=== PATIENT | male | born 1960 | race Caucasian/White ===

== ENCOUNTER 2016-06-15 12:18 | Day surgery (SDC) | payer MEDICARE, BC ==
--- NOTE | 2016-06-15 12:33 | P.GSHP ---
History of Present Illness H&P Date: 06/15/16 Chief Complaint: Renal failure Patient is known to our office. He was scheduled for a peritoneal dialysis catheter insertion this past Sunday but his potassium was too high. He has now received 3 courses of hemodialysis the last 4 days. He is here today for elective PD cath insertion. He has a history of prior peritoneal dialysis catheter insertion in the past. Past Medical History Past Medical History: Hypertension, Renal Disease, Seizure Disorder Additional Past Medical History / Comment(s): LAST SEIZURE -DEC 2013, PERITONEAL DIALYSIS NIGHTLY, History of Any Multi-Drug Resistant Organisms: None Reported Additional Past Surgical History / Comment(s): CATHETER FOR PERITONEAL DIALYSIS Past Anesthesia/Blood Transfusion Reactions: No Reported Reaction Past Psychological History: No Psychological Hx Reported Smoking Status: Former smoker Past Alcohol Use History: Rare Additional Past Alcohol Use History / Comment(s): QUIT SMOKING 2013/ STARTED 1983 Past Drug Use History: None Reported - Past Family History Father Family Medical History: Cancer Additional Family Medical History / Comment(s): LIVER CANCER Medications and Allergies Home Medications Medication Instructions Recorded Confirmed Type Calcitriol 0.5 mcg PO MOWE 02/23/15 02/25/15 History Ciprofloxacin HCl [Cipro] 250 mg PO DIRECTED 02/23/15 02/25/15 History Furosemide [Lasix] 80 mg PO DAILY 02/23/15 02/25/15 History Gabapentin [Neurontin] 200 mg PO HS 02/23/15 02/25/15 History Lisinopril [Zestril] 5 mg PO DAILY 02/23/15 02/25/15 History Renal Caps 1 tab PO DAILY 02/23/15 02/25/15 History Sevelamer [Renvela] 2,400 mg PO AC-TID 02/23/15 02/25/15 History metroNIDAZOLE [Flagyl] 500 mg PO DIRECTED 02/23/15 02/25/15 History Allergies Allergy/AdvReac Type Severity Reaction Status Date / Time No Known Allergies Allergy Verified 02/23/15 15:17 Surgical - Exam Physical exam: General: Well-developed, well-nourished HEENT: Normocephalic, sclerae nonicteric Abdomen: Nontender, nondistended Extremities: No edema Neuro: Alert and oriented Assessment and Plan (1) Renal failure Narrative/Plan: We'll proceed with peritoneal dialysis catheter insertion at this time. Risks of bleeding, infection, catheter malfunction, bowel injury were discussed. He understands and wishes to proceed. Status: Acute
[2016-06-15] MEDS ORDERED: ceFAZolin 2 GM in SODIUM CHLORIDE 0.9% 100 ML IVPB STA (12:47)
[2016-06-15] MEDS ORDERED: LACTATED RINGERS 1,000 ML IV ONE (12:57)
[2016-06-15] MEDS ORDERED: LIDOCAINE 1% 20 ML VIAL (10MG/ML) FOR IV START INTRADERMA ONE (12:57)
[2016-06-15] MEDS ORDERED: ONDANSETRON 4 MG/2 ML VIAL IVP ONE (13:10)
[2016-06-15 13:19] LABS: Potassium 4.9 mmol/L (3.5-5.1)
[2016-06-15] MEDS ORDERED: BUPIVACAIN-EPI 0.25%-1:200,000 30 ML VIAL SQ ONE ×3 (13:25→15:12)
[2016-06-15] MEDS ORDERED: MINERAL OIL 1 APPLIC/ML OIL TOPICAL ONE ×2 (13:25→15:12)
[2016-06-15] MEDS ORDERED: SUCCINYLCHOLINE CHLORIDE 100 MG/5 ML SYR IV ONE (14:47)
[2016-06-15] MEDS ORDERED: fentaNYL (PF) 50 MCG/ML 2 ML AMP ONE (14:47)
[2016-06-15] MEDS ORDERED: MIDAZOLAM 2 MG/2 ML VIAL ONE (14:47)
[2016-06-15] MEDS ORDERED: LIDOCAINE 1% INJ 10MG/ML (20 ML MDV) ONE (14:47)
[2016-06-15] MEDS ORDERED: hydrALAZINE HCL 20 MG/ML 1 ML VIAL ONE (14:47)
[2016-06-15] MEDS ORDERED: PROPOFOL 10 MG/ML 20 ML VIAL IV ONE (14:47)
[2016-06-15] MEDS ORDERED: LABETALOL 5 MG/ML VIAL MDV ONE (14:47)
[2016-06-15] MEDS ORDERED: NALOXONE 0.4 MG/ML 1 ML VIAL IV PRN (15:53)
[2016-06-15] MEDS ORDERED: HYDROcodone/APAP 5-325MG 1 EACH TAB PO PRN (15:53)
--- NOTE | 2016-06-15 15:53 | P.PCN ---
Date of Procedure: 06/15/16 Procedure(s) Performed: PREOPERATIVE DIAGNOSIS: Renal failure POSTOPERATIVE DIAGNOSIS: Same PROCEDURE: Peritoneal dialysis catheter insertion SURGEON: Partha EBL: Minimal ANESTHESIA: General COMPLICATIONS: None OPERATIVE PROCEDURE: The patient was placed in the operative table in the supine position. His abdomen was prepped and draped in usual sterile fashion. A small vertical incision was made in the right periumbilical location. Dissection down through the subcutaneous tissues took place using electrocautery. The anterior rectus was divided vertically using the scalpel. The rectus was bluntly. The posterior rectus was visualized. An 0 Vicryl pursestring was placed. A small opening in the posterior rectus fascia and peritoneum took place using a Metzenbaum scissors. There were no adhesions to the suture that was placed. The pigtail catheter was advanced into the pelvis over a stylette. No resistance was met. The inner cuff was secured to the fascia using the 0 Vicryl pursestring that was placed. The catheter was tunneled to an exit site in the right lateral lower quadrant. The catheter was connected to the 1 L bag of saline and approximated 800 mL of saline was easily introduced into the peritoneal cavity. The fluid was then allowed to evacuate. The majority of the fluid was returned. The anterior rectus fascia was then reapproximated using a running 0 Vicryl stitch. The subcutaneous tissues reprepped using 3-0 Vicryl sutures and the skin using 4-0 Monocryl sutures. The outpatient dialysis adapter was applied to the end of the catheter. A sterile dressings then applied after Steri-Strips were placed over the incision. DISPOSITION: Stable to recovery room
[2016-06-15] MEDS: HYDROmorphone 1 MG/ML 1 ML SYRINGE IVP ONE ×4 (16:04→16:27)
[2016-06-15 16:08] VITALS: TEMP 98.1
[2016-06-15 16:11] VITALS: RESP 16
[2016-06-15] MEDS ORDERED: HYDROcodone/APAP 5-325MG 1 EACH TAB PO ONE (16:50)
[2016-06-15 17:20] VITALS: BP 188/106; PULSE 75
== END 2016-06-15 18:17 | disposition home or self-care (01) ==
LOC: OR 12:18
PROVIDERS: ATTEND Surgery
DX: N19 Unspecified kidney failure (principal); I10 Essential (primary) hypertension; Z79.899 Other long term (current) drug therapy
CPT/HCPCS: 80051; 49418; C1752; J2250; J0360; J0690; J2405; J2001; J3010; J1170; J0330; J2704

== ENCOUNTER 2017-01-01 05:51 | Emergency (ER) | payer MEDICARE, BC ==
[2017-01-01 06:01] VITALS: TEMP 97.6
[2017-01-01 06:34] LABS: Glucose,Whole Blood 128 mg/dL (75-99)
--- NOTE | 2017-01-01 07:28 | CT ---
EXAMINATION TYPE: CT brain shaneka cifuentes DATE OF EXAM: 01/01/2017 COMPARISON: NONE HISTORY: Fell down stairs and went through a window CT DLP: Brain 1231.71, Cervical 800.[address] of the brain was performed. The ventricles, basal cisterns and sulci overlying the cerebral convexities demonstrate mild enlargem ent. There is no evidence for intracranial hemorrhage or sulcal effacement. There is decreased attenuatio n about the periventricular white matter and deep white matter of both cerebral hemispheres, compatib le with chronic small vessel ischemia. No mass effects are seen. If symptoms persist consider MRI. Osseous calvarium is intact. Left occipital scalp. Tumor is identified. IMPRESSION: 1. Age related atrophic and chronic small vessel ischemic change without acute intracranial process seen at this time. CT Cervical Spine: Unenhanced CT of the cervical spine was performed with bone and soft tissue window settings submitted . Coronal and sagittal reconstruction is obtained. There is normal alignment and prevertebral soft tissues. No evidence for acute cervical fracture . Scattered degenerative disc disease and spondylosis. Biapical scarring. IMPRESSION: 1. No evidence for acute fracture or subluxation of the cervical spine.
--- NOTE | 2017-01-01 08:21 | ED ---
General Adult HPI - General Chief complaint: Fall Stated complaint: fall Time Seen by Provider: 01/01/17 07:17 Source: patient, EMS, RN notes reviewed, old records reviewed Mode of arrival: EMS Limitations: no limitations - History of Present Illness Initial comments: This is a 56-year-old male to the ER for evaluation. Patient presents today for evaluation regarding fall. Patient a false fall patient had a slip and fall wall or possibly going down a few stairs down onto his landing. Patient states he was sleepwalking does not remember any of the event. She was unsure if he passed out. Unsure if there is any other injury. Patient does have mild bleeding from his right arm. He thinks he did hit his head because he also has mild. The left side of his head. At this time patient denies any other complaints of pain. He was able to - Related Data Home Medications Medication Instructions Recorded Confirmed Gabapentin [Neurontin] 200 mg PO BID 02/23/15 01/01/17 Atorvastatin Calcium [Lipitor] 40 mg PO DAILY 01/01/17 01/01/17 Carvedilol [Coreg] 12.5 mg PO BID 01/01/17 01/01/17 Ergocalciferol [Vitamin D2] 50,000 unit PO Q7D 01/01/17 01/01/17 Lisinopril [Prinivil] 20 mg PO BID 01/01/17 01/01/17 amLODIPine BESYLATE [Norvasc] 5 mg PO DAILY 01/01/17 01/01/17 cloNIDine HCL [Catapres] 0.2 mg PO DAILY 01/01/17 01/01/17 cloNIDine HCL [Catapres] 0.3 mg PO HS 01/01/17 01/01/17 Allergies Allergy/AdvReac Type Severity Reaction Status Date / Time No Known Allergies Allergy Verified 01/01/17 07:58 Review of Systems ROS Statement: Those systems with pertinent positive or pertinent negative responses have been documented in the HPI. ROS Other: All systems not noted in ROS Statement are negative. Past Medical History Past Medical History: Hypertension, Renal Disease, Seizure Disorder Additional Past Medical History / Comment(s): LAST SEIZURE -DEC 2013, PERITONEAL DIALYSIS NIGHTLY, History of Any Multi-Drug Resistant Organisms: None Reported Additional Past Surgical History / Comment(s): CATHETER FOR PERITONEAL DIALYSIS Past Anesthesia/Blood Transfusion Reactions: No Reported Reaction Past Psychological History: No Psychological Hx Reported Smoking Status: Former smoker Past Alcohol Use History: Rare Past Drug Use History: None Reported - Past Family History Father Family Medical History: Cancer Additional Family Medical History / Comment(s): LIVER CANCER General Exam - General Exam Comments Initial Comments: Right upper arm laceration, 8 cm, small scalp laceration Limitations: no limitations General appearance: alert, in no apparent distress Head exam: Present: atraumatic, normocephalic, normal inspection Eye exam: Present: normal appearance, PERRL, EOMI. Absent: scleral icterus, conjunctival injection, periorbital swelling ENT exam: Present: normal exam, mucous membranes moist Neck exam: Present: normal inspection. Absent: tenderness, meningismus, lymphadenopathy Respiratory exam: Present: normal lung sounds bilaterally. Absent: respiratory distress, wheezes, rales, rhonchi, stridor Cardiovascular Exam: Present: regular rate, normal rhythm, normal heart sounds. Absent: systolic murmur, diastolic murmur, rubs, gallop, clicks GI/Abdominal exam: Present: soft, normal bowel sounds. Absent: distended, tenderness, guarding, rebound, rigid Extremities exam: Present: normal inspection, full ROM, normal capillary refill. Absent: tenderness, pedal edema, joint swelling, calf tenderness Back exam: Present: normal inspection Neurological exam: Present: alert, oriented X3, CN II-XII intact Psychiatric exam: Present: normal affect, normal mood Skin exam: Present: warm, dry, intact, normal color. Absent: rash Course Vital Signs 01/01/17 01/01/17 05:56 07:58 Temperature 97.6 F Pulse Rate 97 84 Respiratory 16 20 Rate Blood Pressure 137/89 191/108 O2 Sat by Pulse 96 92 L Oximetry Procedures - Laceration Laceration #1 Consent Obtained: verbal consent Time Out Performed: Yes Indication: laceration Site: upper extremity Size (cm): 8 Description: linear Depth: simple, single layer Anesthetic Used: lidocaine 1%, with epi Pre-repair: wound explored, irrigated extensively Type of Sutures: nylon Size of Sutures: 4-0 Technique: simple, interrupted Medical Decision Making - Medical Decision Making 50 formality ER for evaluation status post fall. Right upper arm laceration and head injury CT is negative for acute disease. Laceration is repaired and patient can be discharged home - Lab Data Lab Results 01/01/17 Range/Units 06:01 POC Glucose (mg/dL) 128 H (75-99) mg/dL POC Glu Rn Teacher ID Veronique Denise - Radiology Data Radiology results: report reviewed (CT brain and C-spine is negative for acute disease), image reviewed Disposition Clinical Impression: Fall, Head injury, Laceration of right upper arm Disposition: HOME SELF-CARE Condition: Good Instructions: Fall Prevention for Older Adults (ED), Laceration (ED) Referrals: Dakotah Decker MD [Primary Care Provider] - 1-2 days
[2017-01-01 09:23] VITALS: BP 155/91; PULSE 88; RESP 18
== END 2017-01-01 09:23 | disposition home or self-care (01) ==
LOC: EC 05:51
DX: S41.111A Laceration without foreign body of right upper arm, initial encounter (principal); S09.90XA Unspecified injury of head, initial encounter; I10 Essential (primary) hypertension; G40.909 Epilepsy, unspecified, not intractable, without status epilepticus; Z87.891 Personal history of nicotine dependence; Z79.899 Other long term (current) drug therapy; W10.9XXA Fall (on) (from) unspecified stairs and steps, initial encounter
CPT/HCPCS: 12004; 36415; 70450; 72125; 93005; 99285

== ENCOUNTER 2017-04-09 03:03 | Emergency (ER) | payer MEDICARE, BC ==
[2017-04-09 03:10] VITALS: BP 149/88; PULSE 99; RESP 19; TEMP 100
--- NOTE | 2017-04-09 03:19 | ED ---
General Adult HPI - General Chief complaint: Upper Respiratory Infection Stated complaint: cold symptoms Time Seen by Provider: 04/09/17 03:11 Source: patient, RN notes reviewed Mode of arrival: ambulatory Limitations: no limitations - History of Present Illness Initial comments: 56-year-old male presents to the emergency Department chief complaint of cough and congestion for the last week or so. He denies any sputum production with this. He states that his fevers have been low-grade. He denies any nausea vomiting. He was concerned due to his continued cough so he thought that he should be evaluated. He states he had no shortness of breath with this. He denies any other symptoms at this time. Patient denies any recent shortness of breath, chest pain, back pain, abdominal pain, nausea vomiting, numbness or tingling, dysuria or hematuria, constipation or diarrhea, headaches or visual changes, or any other current symptoms. - Related Data Home Medications Medication Instructions Recorded Confirmed Gabapentin [Neurontin] 200 mg PO BID 02/23/15 01/01/17 Atorvastatin Calcium [Lipitor] 40 mg PO DAILY 01/01/17 01/01/17 Carvedilol [Coreg] 12.5 mg PO BID 01/01/17 01/01/17 Ergocalciferol [Vitamin D2] 50,000 unit PO Q7D 01/01/17 01/01/17 Lisinopril [Prinivil] 20 mg PO BID 01/01/17 01/01/17 amLODIPine BESYLATE [Norvasc] 5 mg PO DAILY 01/01/17 01/01/17 cloNIDine HCL [Catapres] 0.2 mg PO DAILY 01/01/17 01/01/17 cloNIDine HCL [Catapres] 0.3 mg PO HS 01/01/17 01/01/17 Previous Rx's Medication Instructions Recorded Benzonatate [Tessalon Perles] 100 mg PO TID #20 cap 04/09/17 predniSONE 50 mg PO DAILY #5 tab 04/09/17 Allergies Allergy/AdvReac Type Severity Reaction Status Date / Time No Known Allergies Allergy Verified 04/09/17 03:10 Review of Systems ROS Statement: Those systems with pertinent positive or pertinent negative responses have been documented in the HPI. ROS Other: All systems not noted in ROS Statement are negative. Past Medical History Past Medical History: Hypertension, Renal Disease, Seizure Disorder Additional Past Medical History / Comment(s): LAST SEIZURE -DEC 2013, PERITONEAL DIALYSIS NIGHTLY, History of Any Multi-Drug Resistant Organisms: None Reported Additional Past Surgical History / Comment(s): CATHETER FOR PERITONEAL DIALYSIS Past Anesthesia/Blood Transfusion Reactions: No Reported Reaction Past Psychological History: No Psychological Hx Reported Smoking Status: Former smoker Past Alcohol Use History: Rare Past Drug Use History: None Reported - Past Family History Father Family Medical History: Cancer Additional Family Medical History / Comment(s): LIVER CANCER General Exam Limitations: no limitations General appearance: alert, in no apparent distress Eye exam: Present: normal appearance, PERRL, EOMI. Absent: scleral icterus, conjunctival injection, periorbital swelling ENT exam: Present: normal exam, mucous membranes moist Neck exam: Present: normal inspection. Absent: tenderness, meningismus, lymphadenopathy Respiratory exam: Present: normal lung sounds bilaterally. Absent: respiratory distress, wheezes, rales, rhonchi, stridor Cardiovascular Exam: Present: regular rate, normal rhythm, normal heart sounds. Absent: systolic murmur, diastolic murmur, rubs, gallop, clicks Neurological exam: Present: alert, oriented X3, CN II-XII intact Psychiatric exam: Present: normal affect, normal mood Skin exam: Present: warm, dry, intact, normal color. Absent: rash Course Vital Signs 04/09/17 03:06 Temperature 100.0 F H Pulse Rate 99 Respiratory 19 Rate Blood Pressure 149/88 O2 Sat by Pulse 97 Oximetry Medical Decision Making - Medical Decision Making 56-year-old male presents for cough and congestion. This time appears to have respiratory infection we will start steroids and Tessalon Perles. We discussed close follow-up with discussed return parameters all questions. Patient family stated they understood and they are in agreement this plan. All questions have been answered. They will be discharged. - Radiology Data Radiology results: report reviewed, image reviewed Disposition Clinical Impression: Upper respiratory infection Disposition: HOME SELF-CARE Condition: Stable Instructions: Upper Respiratory Infection (ED) Additional Instructions: Please use medication as discussed. Please follow up with family doctor if symptoms have not improved over the next two days. Please return to the emergency room if your symptoms increase or worsen or for any other concerns. Prescriptions: Benzonatate [Tessalon Perles] 100 mg PO TID #20 cap predniSONE 50 mg PO DAILY #5 tab Referrals: Dakotah Decker MD [Primary Care Provider] - 1-2 days Time of Disposition: 03:36
--- NOTE | 2017-04-09 03:35 | XR ---
EXAM: XR Chest, 2 Views CLINICAL HISTORY: Reason: cough TECHNIQUE: Frontal and lateral views of the chest. COMPARISON: No relevant prior studies available. FINDINGS: Lungs: No consolidation. Right basilar atelectasis. Pleural space: No effusion. No pneumothorax. Heart: No cardiomegaly. Mediastinum: Unremarkable. Bones/joints: Unremarkable. IMPRESSION: No acute cardiopulmonary process.
[2017-04-09] MEDS ORDERED: BENZONATATE 100 MG CAP PO STA (03:37)
== END 2017-04-09 03:58 | disposition home or self-care (01) ==
LOC: EC 03:03
DX: J06.9 Acute upper respiratory infection, unspecified (principal); Z87.891 Personal history of nicotine dependence; I10 Essential (primary) hypertension; Z86.69 Personal history of other diseases of the nervous system and sense organs; Z79.02 Long term (current) use of antithrombotics/antiplatelets; Z79.899 Other long term (current) drug therapy
CPT/HCPCS: 71046; 99283

== ENCOUNTER → 2017-10-19 | Outpatient (CLI) | payer MEDICARE, BC ==
--- NOTE | 2017-10-19 10:08 | MR ---
EXAMINATION TYPE: MR lumbar spine wo con DATE OF EXAM: 10/19/2017 COMPARISON: HISTORY: radiculopathy TECHNIQUE: Multiplanar, multisequence images of the lumbar spine were acquired. L1-L2: Normal disc appearance without desiccation. No herniation, protrusion or disc bulging. No ca nal stenosis is present. Foramina are patent bilaterally. L2-L3: Mild posterior disc bulge posteriorly causes only slight anterior mass effect on the thecal sa c. No significant foraminal encroachment or central canal stenosis. L3-L4: Posterior broad-based disc bulge causes minimal anterior mass effect on the thecal sac. No sig nificant foraminal encroachment or central stenosis. L4-L5: Posterior broad-based disc bulge causes anterior mass effect on the thecal sac, no significant central canal stenosis. Lateral extension of endplate disc complex encroaches mildly on the foramina greater on the right. L5-S1: Posterior broad-based disc bulge may contact the anterior S1 nerve roots proximally, small dis c bulge is present, no significant stenosis of the spinal canal, no definite foraminal encroachment. Lumbar segments are intact. No paraspinal masses are identified. Conus medullaris has a normal appe arance. Question marrow reconversion, correlate for possible anemia. Loss of disc height and signal p resent L4-5, L5-S1, lesser extent L2-3, L1-2 compatible with disc desiccation, endplate spondylosis a nd marrow signal changes present L4-5 and L5-S1 compatible degenerative disc disease. Kidneys appear somewhat atrophic bilaterally, cystic change suspected within the right kidney. IMPRESSION: Mild degenerative disc disease, correlate for anemia, renal failure.
== END | disposition home or self-care (01) ==
LOC: RADMRIMAIN 08:04
PROVIDERS: ATTEND Internal Medicine
DX: M51.16 Intervertebral disc disorders with radiculopathy, lumbar region (principal)
CPT/HCPCS: 72148

== ENCOUNTER → 2017-10-29 | Outpatient (CLI) | payer MEDICARE, BC | END | disposition home or self-care (01) | LOC: RADUSWWP 11:33 | PROVIDERS: ATTEND Internal Medicine | DX: I73.9 Peripheral vascular disease, unspecified (principal) | CPT/HCPCS: 93923 ==

== ENCOUNTER 2017-12-10 21:00 | Emergency (ER) | payer MEDICARE, BC ==
[2017-12-10 21:10] VITALS: BP 141/79; PULSE 116; RESP 18; TEMP 98.1
[2017-12-10] MEDS ORDERED: diphenhydrAMINE 50 MG CAP PO STA (21:46)
--- NOTE | 2017-12-10 21:51 | ED ---
Skin/Abscess/FB HPI - General Chief complaint: Skin/Abscess/Foreign Body Stated complaint: Male Time Seen by Provider: 12/10/17 21:39 Source: patient, RN notes reviewed Mode of arrival: ambulatory Limitations: no limitations - History of Present Illness Initial comments: 57-year-old male presents emergency Department for swelling of his penis. Patient states that he noticed today when he try to go the bathroom. Patient denies trauma. Denies any use of any lotions, creams. Patient denies any dysuria, hematuria, fever, chills, abdominal pain. Patient states he still does make urine even though he is on dialysis at this time. - Related Data Home Medications Medication Instructions Recorded Confirmed Gabapentin [Neurontin] 200 mg PO BID 02/23/15 01/01/17 Atorvastatin Calcium [Lipitor] 40 mg PO DAILY 01/01/17 01/01/17 Carvedilol [Coreg] 12.5 mg PO BID 01/01/17 01/01/17 Ergocalciferol [Vitamin D2] 50,000 unit PO Q7D 01/01/17 01/01/17 Lisinopril [Prinivil] 20 mg PO BID 01/01/17 01/01/17 amLODIPine BESYLATE [Norvasc] 5 mg PO DAILY 01/01/17 01/01/17 cloNIDine HCL [Catapres] 0.2 mg PO DAILY 01/01/17 01/01/17 cloNIDine HCL [Catapres] 0.3 mg PO HS 01/01/17 01/01/17 Previous Rx's Medication Instructions Recorded Benzonatate [Tessalon Perles] 100 mg PO TID #20 cap 04/09/17 predniSONE 50 mg PO DAILY #5 tab 04/09/17 Cyclobenzaprine [Flexeril] 10 mg PO TID PRN #9 tablet 07/29/17 Allergies Allergy/AdvReac Type Severity Reaction Status Date / Time No Known Allergies Allergy Verified 12/10/17 21:10 Review of Systems ROS Statement: Those systems with pertinent positive or pertinent negative responses have been documented in the HPI. ROS Other: All systems not noted in ROS Statement are negative. Past Medical History Past Medical History: Dialysis, Hypertension, Renal Disease, Seizure Disorder Additional Past Medical History / Comment(s): LAST SEIZURE -DEC 2013, PERITONEAL DIALYSIS NIGHTLY, History of Any Multi-Drug Resistant Organisms: None Reported Additional Past Surgical History / Comment(s): CATHETER FOR PERITONEAL DIALYSIS , colostomy. carpal tunnel surgery Past Anesthesia/Blood Transfusion Reactions: No Reported Reaction Past Psychological History: No Psychological Hx Reported Smoking Status: Former smoker Past Alcohol Use History: Rare Past Drug Use History: None Reported - Past Family History Father Family Medical History: Cancer Additional Family Medical History / Comment(s): LIVER CANCER General Exam Limitations: no limitations General appearance: alert, in no apparent distress Head exam: Present: atraumatic, normocephalic, normal inspection Respiratory exam: Present: normal lung sounds bilaterally. Absent: respiratory distress, wheezes, rales, rhonchi, stridor Cardiovascular Exam: Present: regular rate, normal rhythm, normal heart sounds. Absent: systolic murmur, diastolic murmur, rubs, gallop, clicks GI/Abdominal exam: Present: soft, normal bowel sounds. Absent: distended, tenderness, guarding, rebound, rigid exam: Absent: normal inspection (Mild swelling just behind the glans of his penile shaft, no erythema no ecchymosis no abnormal lesions or sores noted), testicular tenderness, urethral discharge, scrotal swelling Course Vital Signs 12/10/17 21:09 Temperature 98.1 F Pulse Rate 116 H Respiratory 18 Rate Blood Pressure 141/79 O2 Sat by Pulse 95 Oximetry Medical Decision Making - Medical Decision Making 57-year-old male presented for swelling of his penile shaft. Patient denies any trauma or any use of any creams or lotions. Swelling is boggy, there is no erythema no signs of infection there is no ecchymosis. Patient is still able to void without difficulty. Patient has localized swelling. Patient will follow-up tomorrow with PCP return for any worsening symptoms. Disposition Clinical Impression: Penile swelling Disposition: HOME SELF-CARE Condition: Stable Instructions: Edema (ED) Additional Instructions: Please return to the Emergency Department if symptoms worsen or any other concerns. Is patient prescribed a controlled substance at d/c from ED?: No Referrals: Dakotah Decker MD [Primary Care Provider] - 1-2 days Jose Brown MD [STAFF PHYSICIAN] - 1-2 days Time of Disposition: 21:51
== END 2017-12-10 22:00 | disposition home or self-care (01) ==
LOC: EC 21:00
DX: N48.89 Other specified disorders of penis (principal); I10 Essential (primary) hypertension; Z79.02 Long term (current) use of antithrombotics/antiplatelets; Z79.899 Other long term (current) drug therapy; Z87.891 Personal history of nicotine dependence; Z99.2 Dependence on renal dialysis
CPT/HCPCS: 99283

== ENCOUNTER → 2018-02-06 | Outpatient (CLI) | payer MEDICARE, BC ==
[~2018-02-06] MED LIST: REGADENOSON 0.4 MG/5 ML SYRINGE IV ONE
--- NOTE | 2018-02-06 10:20 | EST ---
EXERCISE STRESS AGE: 57 SEX: M HT: 6'2" WT: 208 PROTOCOL: Lexiscan Cardiolite Stress Test HEART RATE REST: 77 BLOOD PRESSURE REST: 154/89 MAXIMUM HEART RATE ACHIEVED: 103 MAXIMUM BLOOD PRESSURE: 154/89 85% MPHR: 140 100%. MPHR: 147 INDICATIONS: Awaiting organ transplant/preoperative cardiac evaluation. Baseline EKG shows sinus rhythm, normal axis, normal intervals. Patient was given intravenous Lexiscan as per protocol. Did not have chest pain or diagnostic ST-segment depression. CONCLUSIONS: 1. Negative stress test by EKG criteria. 2. Cardiolite portion of the stress test will be reported separately. MMODL / IJN: [id number] /
--- NOTE | 2018-02-06 10:53 | NM ---
EXAMINATION TYPE: NM stress lexiscan cardiolite DATE OF EXAM: 02/06/2018 COMPARISON: NONE HISTORY: Awaiting organ transplant TECHNIQUE: After the intravenous administration of 10.3 mCi Tc 99m Sestamibi - Cardiolite resting SP ECT images acquired 45 minutes post injection. The patient received 0.4mg Lexiscan, 26.3 mCi Tc 99m Sestamibi - Stress images obtained [address] injection FINDINGS: Review of stress and rest SPECT images demonstrates no distinct perfusion abnormality. Gated analysi s shows normal wall motion with an estimated left ventricular ejection fraction of 51 %. IMPRESSION: No scintigraphic evidence for reversible ischemia.
== END | disposition home or self-care (01) ==
LOC: RADNMMAIN 07:31
PROVIDERS: ATTEND Internal Medicine
DX: Z76.82 Awaiting organ transplant status (principal)
CPT/HCPCS: 93017; 78452; A9500; J2785

== ENCOUNTER → 2018-04-17 | Outpatient (CLI) | payer MEDICARE, BC ==
--- NOTE | 2018-04-17 10:11 | CT ---
EXAMINATION TYPE: CT abdomen pelvis wo/w con DATE OF EXAM: 04/17/2018 COMPARISON: None HISTORY: Iliac vessel injury per order. Prekidney transplant. History of diabetes on dialysis. CT DLP: 3881 mGycm, Automated Exposure Control for Dose Reduction was Utilized. CONTRAST: CT scan of the abdomen and pelvis is performed with oral and without and with IV Contrast, patient in jected with 100 mL of Isovue 370. FINDINGS: VASCULAR: There is mild calcified plaque in the periphery of the descending thoracic aorta. There is moderate to severe calcified plaque at origin of bilateral renal arteries. Abdominal aorta shows mild calcified plaque extending into celiac access and SMA. There is more severe calcified plaque in the tortuous splenic artery and moderate calcified plaque in the hepatic proper artery. Below renal arter ies there is more moderate peripheral calcified plaque extending into MARY which is patent. Common iliac arteries are satisfactory caliber and length with mild to moderate peripheral calcified plaque both measuring roughly 1 cm in diameter. There is bifurcation near level of L5 vertebra into i nternal/external iliac arteries with more severe calcified plaque in the internal iliac arteries iden tified. There is mild to moderate calcified plaque in the external iliac arteries. There is more mode rate to severe calcified plaque at level of common femoral arteries with satisfactory bifurcation int o superficial and deep femoral arteries. Smaller branching vessels show severe calcified plaque in th e pelvis and groin regions. LUNG BASES: At least moderate to severe coronary artery calcification is partially imaged. There is m edial and posterior left basilar linear scarring and/or atelectasis. There is less prominent posterio r medial right basilar linear scarring and/or atelectasis. Note is made of 2 visualized small right b asilar nodules laterally axial image 2 and posteriorly axial image 3, largest posteriorly measures 6 x 4 mm. LIVER/GB: A few subcentimeter low dense lesions left hepatic lobe seen best series 15 image 17 are to o small to further characterize but presumed benign. Main portal vein is mildly dilated at 21 mm axia l image 26 series 15 without filling defect. PANCREAS: No significant abnormality is seen. SPLEEN: No significant abnormality is seen. ADRENALS: No significant abnormality is seen. KIDNEYS: Kidneys are small in size with marked cortical thinning, delayed or absent excretion, and sc attered small simple appearing cysts consistent with end-stage renal disease. Incidental 2 mm calculu s upper pole level right kidney coronal series 12 image 93. BOWEL: The oral contrast reaches level of the rectum. No suspicious small or large bowel dilatation i s present. Incidental normal-appearing appendix medially from base of cecum. PROSTATE/SEMINAL VESICLES: No gross abnormality seen. LYMPH NODES: No greater than 1cm abdominal or pelvic lymph nodes are appreciated. OSSEOUS STRUCTURES: Small posterior disc herniation L4-L5 level effaces anterior thecal sac sagittal image 41 series 18. Mild facet arthropathy lower lumbar levels is present. OTHER: There is right mid abdominal peritoneal dialysis catheter slightly coiled and terminating in t he anterior pelvis. Incidental small fat-containing left inguinal hernia. IMPRESSION: As above.
== END | disposition home or self-care (01) ==
LOC: RADCTMAIN 07:11
PROVIDERS: ATTEND Internal Medicine Nephrology
DX: S35 Injury of blood vessels at abdomen, lower back and pelvis level (principal); I25.10 Atherosclerotic heart disease of native coronary artery without angina pectoris; R91.8 Other nonspecific abnormal finding of lung field
CPT/HCPCS: 74178; Q9967

== ENCOUNTER → 2018-04-18 | Outpatient (CLI) | payer MEDICARE, BC ==
--- NOTE | 2018-04-20 06:55 | ECHOF ---
Referral Reason:I27.20 PULMONARY HYPERTENSION MEASUREMENTS -------- HEIGHT: 188.0 cm WEIGHT: 94.3 kg BP: RVIDd: 3.2 cm (< 3.3) IVSd: 1.2 cm (0.6 - 1.1) LVIDd: 5.4 cm (3.9 - 5.3) LVPWd: 1.2 cm (0.6 - 1.1) IVSs: 1.5 cm LVIDs: 4.2 cm LVPWs: 1.5 cm LAESV Index (A-L): 33.12 ml/m Ao Diam: 3.4 cm (2.0 - 3.7) AV Cusp: 2.1 cm (1.5 - 2.6) LA Diam: 2.9 cm (2.7 - 3.8) EPSS: 0.5 cm MV E Esvin: 0.91 m/s MV DecT: 312 ms MV A Esvin: 1.17 m/s MV E/A Ratio: 0.78 RAP: 5.00 mmHg RVSP: 28.29 mmHg MV EF SLOPE: 117.27 mm/s (70 - 150) MV EXCURSION: 2.14 cm (> 18.000) FINDINGS -------- Sinus rhythm. This was a technically good study. The left ventricular size is normal. There is mild concentric left ventricular hypertrophy. Overa ll left ventricular systolic function is normal with, an EF between 55 - 60 %. The right ventricle is normal in size and function. LA is midly dilated 29-33ml/m2. The right atrium is normal in size. Aortic valve is trileaflet and is mildly thickened. There is no evidence of aortic regurgitation. There is no evidence of aortic stenosis. Mild mitral annular calcification present. There is trace to mild mitral regurgitation. Trace tricuspid regurgitation present. There is no evidence of pulmonary hypertension. The right ventricular systolic pressure, as measured by Doppler, is 28.29mmHg. Trace/mild (physiologic) pulmonic regurgitation. The aortic root size is normal. Normal inferior vena cava with normal inspiratory collapse consistent with estimated right atrial pre ssure of 5 mmHg. There is no pericardial effusion. CONCLUSIONS -------- 1. Sinus rhythm. 2. This was a technically good study. 3. The left ventricular size is normal. 4. There is mild concentric left ventricular hypertrophy. 5. Overall left ventricular systolic function is normal with, an EF between 55 - 60 %. 6. LA is midly dilated 29-33ml/m2. 7. Aortic valve is trileaflet and is mildly thickened. 8. Mild mitral annular calcification present. 9. There is trace to mild mitral regurgitation. 10. Trace tricuspid regurgitation present. 11. There is no evidence of pulmonary hypertension. 12. The right ventricular systolic pressure, as measured by Doppler, is 28.29mmHg. 13. Trace/mild (physiologic) pulmonic regurgitation. 14. The aortic root size is normal. 15. There is no pericardial effusion. PASSENGER BOOKING CLERK: Herbie Sosa RDCS
--- NOTE | 2018-04-23 09:11 | P.ARTDOP ---
Arterial Doppler LOWER EXTREMITY ARTERIAL DOPPLER: DATE OF SERVICE: 04/18/2018 Reason for study: Bilateral leg pain blunted. Doppler waveforms: multiphasic throughout on the right. Blunted and multiphasic to the posterior tibial on the left atypical dorsalis pedis on the left. Pulse volume recording: Normal configuration into the ankle. Near flat line digitally on the left and monophasic on the right. Pressure gradients: Not recorded. Ankle-brachial indices: Cannot occlude on either side. Toe pressures: 70 on the right, [] on the left Impression: Somewhat limited study. Difficulty in occluding for uncertain reasons. Flow patterns suggest that this may not be the source of his pain. Probably adequate circulation for healing. Clinical correlation recommended.
== END | disposition home or self-care (01) ==
LOC: RADUSWWP 12:52
PROVIDERS: ATTEND Internal Medicine Nephrology
DX: I08.0 Rheumatic disorders of both mitral and aortic valves (principal); I73.9 Peripheral vascular disease, unspecified; S35 Injury of blood vessels at abdomen, lower back and pelvis level
CPT/HCPCS: 93306; 93923

== ENCOUNTER → 2018-05-20 | Outpatient (CLI) | payer MEDICARE, BC ==
--- NOTE | 2018-05-20 09:16 | CT ---
EXAMINATION TYPE: CT chest wo con DATE OF EXAM: 05/20/2018 COMPARISON: CT abdomen 04/17/2018 HISTORY: Follow-up pulmonary nodules Unenhanced CT of the chest was performed with lung and mediastinal window settings submitted. The la ck of contrast limits evaluation of the vascular, mediastinal and parenchymal structures including th e upper abdomen. LUNGS: 3.5 mm pulmonary nodule right lower lobe anteriorly image 36, right middle lobe lateral segmen t pulmonary nodule measuring 4.7 mm image 33 right upper lobe pulmonary nodule measuring 3 mm image 3 1. No additional nodules identified. Basilar parenchymal scar atelectasis identified. No evidence for focal infiltrate. MEDIASTINUM/TAL: Thoracic aorta is of normal caliber with limited evaluation given lack of contrast . Mild cardiomegaly with underlying coronary artery calcifications. No evidence for mediastinal mass. No lymph nodes greater than 1cm. UPPER ABDOMEN: Renal atrophic changes identified. OTHER: No significant other abnormality. IMPRESSION: 1. Nonspecific pulmonary nodularity. Follow-up study in 6 months is advised.
== END | disposition home or self-care (01) ==
LOC: RADCTMAIN 08:00
PROVIDERS: ATTEND Internal Medicine
DX: R91.8 Other nonspecific abnormal finding of lung field (principal)
CPT/HCPCS: 71250

== ENCOUNTER 2018-06-02 08:15 | Emergency (ER) | payer MEDICARE, BC ==
[2018-06-02 08:22] VITALS: RESP 18; TEMP 97.9
[2018-06-02] MEDS ORDERED: KETOROLAC 60 MG/2 ML VIAL IM STA (09:09)
--- NOTE | 2018-06-02 09:12 | ED ---
General Adult HPI - General Chief complaint: Extremity Problem,Nontraumatic Stated complaint: Knee Pain, no injury Time Seen by Provider: 06/02/18 08:20 Source: patient, RN notes reviewed Mode of arrival: wheelchair Limitations: no limitations - History of Present Illness Initial comments: This a 57-year-old male who presents emergency Department complaining of right medial knee pain. Patient states she woke up yesterday with the pain and it continues to be painful. Patient denies any swelling patient denies any redness. Patient denies any injury to the knee. Patient states it hurts in 1 spot only. Patient states she has full range of motion but it hurts to move through that range of motion. Patient denies any pain distal to the knee or proximal to the knee. Patient denies any fever chills. - Related Data Home Medications Medication Instructions Recorded Confirmed Gabapentin [Neurontin] 200 mg PO BID 02/23/15 01/01/17 Atorvastatin Calcium [Lipitor] 40 mg PO DAILY 01/01/17 01/01/17 Carvedilol [Coreg] 12.5 mg PO BID 01/01/17 01/01/17 Ergocalciferol [Vitamin D2] 50,000 unit PO Q7D 01/01/17 01/01/17 Lisinopril [Prinivil] 20 mg PO BID 01/01/17 01/01/17 amLODIPine BESYLATE [Norvasc] 5 mg PO DAILY 01/01/17 01/01/17 cloNIDine HCL [Catapres] 0.2 mg PO DAILY 01/01/17 01/01/17 cloNIDine HCL [Catapres] 0.3 mg PO HS 01/01/17 01/01/17 Previous Rx's Medication Instructions Recorded Benzonatate [Tessalon Perles] 100 mg PO TID #20 cap 04/09/17 predniSONE 50 mg PO DAILY #5 tab 04/09/17 Cyclobenzaprine [Flexeril] 10 mg PO TID PRN #9 tablet 07/29/17 Ibuprofen [Motrin] 600 mg PO Q6HR PRN #20 tab 06/02/18 Allergies Allergy/AdvReac Type Severity Reaction Status Date / Time No Known Allergies Allergy Verified 06/02/18 08:22 Review of Systems ROS Statement: Those systems with pertinent positive or pertinent negative responses have been documented in the HPI. ROS Other: All systems not noted in ROS Statement are negative. Past Medical History Past Medical History: Dialysis, Hypertension, Renal Disease, Seizure Disorder Additional Past Medical History / Comment(s): LAST SEIZURE -DEC 2013, PERITONEAL DIALYSIS NIGHTLY, History of Any Multi-Drug Resistant Organisms: None Reported Additional Past Surgical History / Comment(s): CATHETER FOR PERITONEAL DIALYSIS , colostomy. carpal tunnel surgery Past Anesthesia/Blood Transfusion Reactions: No Reported Reaction Past Psychological History: No Psychological Hx Reported Smoking Status: Former smoker Past Alcohol Use History: Rare Past Drug Use History: None Reported - Past Family History Father Family Medical History: Cancer Additional Family Medical History / Comment(s): LIVER CANCER General Exam - General Exam Comments Initial Comments: GENERAL Patient is well-developed and well-nourished. Patient is in mild distress. EYES Patient's pupils are equal and round. Extraocular motion is intact SKIN Unremarkable NEURO The patient is alert and oriented 3 PYSCH Patient has normal interpersonal interactions. MUSCULOSKELETAL Right knee has full range of motion without causes pain medially. Patient also has point tenderness medially over the medial condyle of the tibia. Patient has no redness or swelling or effusion noted. Patient has good blood flow distal to the knee has no calf tenderness and no swelling. There is no signs of trauma to the knee. Patient has no ligament laxity. Limitations: no limitations Course Vital Signs 06/02/18 08:18 Temperature 97.9 F Pulse Rate 81 Respiratory 18 Rate Blood Pressure 145/90 O2 Sat by Pulse 96 Oximetry Medical Decision Making - Medical Decision Making X-ray of the knee shows no acute abnormality. New. Patient received Toradol and it didn't improve his symptoms. Disposition Clinical Impression: Knee sprain Disposition: HOME SELF-CARE Condition: Good Instructions (If sedation given, give patient instructions): Knee Sprain (ED) Prescriptions: Ibuprofen [Motrin] 600 mg PO Q6HR PRN #20 tab PRN Reason: For pain Is patient prescribed a controlled substance at d/c from ED?: No Referrals: Dakotah Decker MD [Primary Care Provider] - 1-2 days Time of Disposition: 10:32
--- NOTE | 2018-06-02 10:20 | XR ---
EXAMINATION TYPE: XR knee complete RT DATE OF EXAM: 06/02/2018 COMPARISON: None HISTORY: Pain TECHNIQUE: Three-view right knee FINDINGS: No acute fractures are evident. No joint effusion is evident. Joint spaces appear preserved . Extensive calcification is present through the vascular system. IMPRESSION: 1. No acute osseous abnormality.
[2018-06-02 10:58] VITALS: BP 135/84; PULSE 79
== END 2018-06-02 10:51 | disposition home or self-care (01) ==
LOC: EC 08:15
DX: S83.91XA Sprain of unspecified site of right knee, initial encounter (principal); I10 Essential (primary) hypertension; G40.909 Epilepsy, unspecified, not intractable, without status epilepticus; Z87.891 Personal history of nicotine dependence; Z79.899 Other long term (current) drug therapy; Z99.2 Dependence on renal dialysis; Z93.3 Colostomy status
CPT/HCPCS: 73562; 99283; 96372; J1885

== ENCOUNTER 2018-08-19 06:34 | Inpatient (IN) | payer MEDICARE, BC ==
[2018-08-19] MEDS ORDERED: ONDANSETRON 4 MG/2 ML VIAL IVP STA (07:06)
[2018-08-19] MEDS ORDERED: MORPHINE SULFATE 4 MG/ML SYRINGE IV STA (07:06)
[2018-08-19] MEDS ORDERED: LABETALOL SYRINGE 5 MG/ML IVP STA (07:07)
--- NOTE | 2018-08-19 07:23 | ED ---
Back Pain HPI - General Source: patient, RN notes reviewed Limitations: no limitations <Alvarado Darnell - Last Filed: 08/19/18 09:11> <Cory Tracy - Last Filed: 08/19/18 09:40> - General Chief Complaint: Back Pain/Injury Stated Complaint: Back pain Time Seen by Provider: 08/19/18 07:01 - History of Present Illness Initial Comments: This is a 58-year-old male presents emergency Department with chief complaint of low back pain. Patient states pain started last night and has been persistent. Patient states nothing makes the pain feel better or worse at this time. Patient denies any trauma. Denies any bowel bladder incontinence or retention. Patient does have significant past medical history including hypertension, diabetes, seizure disorder, in renal disease on peritoneal dialysis. Patient states she's had no fevers or chills no night sweats. Patient does have a history of lumbar back pain in which she had an MRI and CTs showing degenerative changes, disc bulging. Patient has no complaints of abdominal pain. Patient de nies chest pain, shortness breath, headache, dizziness. He has not taken anything for the discomfort at this time. Patient does admit that he did not take his medications morning is currently hypertensive. (Alvarado Darnell) - Related Data Home Medications Medication Instructions Recorded Confirmed Gabapentin [Neurontin] 200 mg PO BID 02/23/15 01/01/17 Atorvastatin Calcium [Lipitor] 40 mg PO DAILY 01/01/17 01/01/17 Carvedilol [Coreg] 12.5 mg PO BID 01/01/17 01/01/17 Ergocalciferol [Vitamin D2] 50,000 unit PO Q7D 01/01/17 01/01/17 Lisinopril [Prinivil] 20 mg PO BID 01/01/17 01/01/17 amLODIPine BESYLATE [Norvasc] 5 mg PO DAILY 01/01/17 01/01/17 cloNIDine HCL [Catapres] 0.2 mg PO DAILY 01/01/17 01/01/17 cloNIDine HCL [Catapres] 0.3 mg PO HS 01/01/17 01/01/17 Previous Rx's Medication Instructions Recorded Benzonatate [Tessalon Perles] 100 mg PO TID #20 cap 04/09/17 predniSONE 50 mg PO DAILY #5 tab 04/09/17 Cyclobenzaprine [Flexeril] 10 mg PO TID PRN #9 tablet 07/29/17 Ibuprofen [Motrin] 600 mg PO Q6HR PRN #20 tab 06/02/18 Allergies Allergy/AdvReac Type Severity Reaction Status Date / Time No Known Allergies Allergy Verified 08/19/18 09:36 Review of Systems ROS Other: All systems not noted in ROS Statement are negative. <Alvarado Darnell - Last Filed: 08/19/18 09:11> ROS Other: All systems not noted in ROS Statement are negative. <Cory Tracy - Last Filed: 08/19/18 09:40> ROS Statement: Those systems with pertinent positive or pertinent negative responses have been documented in the HPI. Past Medical History Past Medical History: Dialysis, Hypertension, Renal Disease, Seizure Disorder Additional Past Medical History / Comment(s): LAST SEIZURE -DEC 2013, PERITONEAL DIALYSIS NIGHTLY, History of Any Multi-Drug Resistant Organisms: None Reported Additional Past Surgical History / Comment(s): CATHETER FOR PERITONEAL DIALYSIS, colostomy. carpal tunnel surgery Past Anesthesia/Blood Transfusion Reactions: No Reported Reaction Past Psychological History: No Psychological Hx Reported Smoking Status: Former smoker Past Alcohol Use History: Rare Past Drug Use History: None Reported - Past Family History Father Family Medical History: Cancer Additional Family Medical History / Comment(s): LIVER CANCER <Alvarado Darnell - Last Filed: 08/19/18 09:11> General Exam Limitations: no limitations General appearance: alert, in no apparent distress Head exam: Present: atraumatic, normocephalic, normal inspection Neck exam: Present: normal inspection. Absent: tenderness, meningismus, lymphadenopathy Respiratory exam: Present: normal lung sounds bilaterally. Absent: respiratory distress, wheezes, rales, rhonchi, stridor Cardiovascular Exam: Present: normal rhythm, tachycardia, normal heart sounds. Absent: systolic murmur, diastolic murmur, rubs, gallop, clicks GI/Abdominal exam: Present: soft, normal bowel sounds, other (Peritoneal tubing noted). Absent: distended, tenderness, guarding, rebound, rigid Extremities exam: Present: normal inspection, full ROM, normal capillary refill, other (Lower extremity pedal pulses equal bilaterally). Absent: tenderness, pedal edema, joint swelling, calf tenderness Back exam: Present: normal inspection, full ROM, tenderness, paraspinal tenderness. Absent: CVA tenderness (R), CVA tenderness (L), vertebral tenderness Neurological exam: Present: alert, oriented X3, CN II-XII intact, reflexes normal. Absent: motor sensory deficit Skin exam: Present: warm, dry, intact, normal color. Absent: rash <Alvarado Darnell - Last Filed: 08/19/18 09:11> Course <Alvarado Darnell - Last Filed: 08/19/18 09:11> <Cory Tracy - Last Filed: 08/19/18 09:40> Vital Signs 08/19/18 08/19/18 08/19/18 06:36 07:25 07:30 Temperature 97.8 F Pulse Rate 110 H 128 H Respiratory 20 18 Rate Blood Pressure 224/145 237/162 O2 Sat by Pulse 100 90 L 94 L Oximetry 08/19/18 08/19/18 08/19/18 07:45 07:50 08:00 Temperature Pulse Rate 100 101 H 93 Respiratory 16 16 Rate Blood Pressure 223/136 210/133 O2 Sat by Pulse 84 L 96 Oximetry 08/19/18 08:10 Temperature Pulse Rate 98 Respiratory Rate Blood Pressure O2 Sat by Pulse Oximetry - Reevaluation(s) Reevaluation #1: 08/19/18 07:26 CT of the chest performed on 05/20/2018 shows no evidence of thoracic aneurysm, nonspecific pulmonary nodules noted CT of the abdomen and pelvis without and with contrast performed on 04/17/2018 shows vascular calcification of the descending thoracic aorta, of bilateral renal arteries, splenic artery, no evidence of aneurysm throughout the aorta (Alvarado Darnell) Reevaluation #2: 08/19/18 09:37 Patient did require arterial blood gas the pH is 7.41, pCO2 39.0, PaO2 was 48.7. Oximetry value 81.5 (Cory Tracy) Reevaluation #3: 08/19/18 09:38 Patient did present initially with back pain. He presents with floor pulmonary edema and acute and chronic renal failure. He does demonstrate some hyperkalemia was 6.0, potassium. He does present with a hypertensive emergency. (Cory Tracy) Reevaluation #4: 08/19/18 09:38 I did discuss case with Dr. Kohler, Dr. Stephenson and Dr. Faust. Patient will be admitted to ICU for inpatient treatment. Dialysis orders were given by Dr. Stephenson. The patient is responding to therapy is respiration status has improved markedly. (Cory Tracy) Medical Decision Making - Lab Data Result diagrams: 08/19/18 07:25 08/19/18 07:25 <Alvarado Darnell - Last Filed: 08/19/18 09:11> - Lab Data Result diagrams: 08/19/18 07:25 08/19/18 07:25 <Cory Tracy - Last Filed: 08/19/18 09:40> - Medical Decision Making 58-year-old male presented for back pain. Patient had significant Past medical history. Patient was found be hypertensive, dyspneic and complaining of back pain. I did review the history. Patient will be admitted to ICU for acute CHF, hyper kalemia, respiratory distress, hypertension with acute on chronic renal failure (Alvarado Darnell) - Lab Data Lab Results 08/19/18 08/19/18 08/19/18 Range/Units 07:25 07:25 07:25 WBC 8.3 (3.8-10.6) k/uL RBC 4.44 (4.30-5.90) m/uL Hgb 12.5 L (13.0-17.5) gm/dL Hct 38.7 L (39.0-53.0) % MCV 87.2 (80.0-100.0) fL MCH 28.2 (25.0-35.0) pg MCHC 32.4 (31.0-37.0) g/dL RDW 16.7 H (11.5-15.5) % Plt Count 252 (150-450) k/uL Neutrophils % 80 % Lymphocytes % 12 % Monocytes % 4 % Eosinophils % 2 % Basophils % 0 % Neutrophils # 6.6 (1.3-7.7) k/uL Lymphocytes # 1.0 (1.0-4.8) k/uL Monocytes # 0.3 (0-1.0) k/uL Eosinophils # 0.2 (0-0.7) k/uL Basophils # 0.0 (0-0.2) k/uL Hypochromasia Slight Anisocytosis Slight PT 10.3 (9.0-12.0) sec INR 1.0 (<1.2) APTT 27.5 (22.0-30.0) sec Sample Site ABG pH (7.35-7.45) ABG pCO2 (35-45) mmHg ABG pO2 (83-108) mmHg ABG HCO3 (21-25) mmol/L ABG Total CO2 (19-24) mmol/L ABG O2 Saturation (94-97) % ABG Base Excess mmol/L Ean Test FiO2 % Sodium 137 (137-145) mmol/L Potassium 6.0 H (3.5-5.1) mmol/L Chloride 96 L (98-107) mmol/L Carbon Dioxide 24 (22-30) mmol/L Anion Gap 17 mmol/L BUN 83 H (9-20) mg/dL Creatinine 13.19 H* (0.66-1.25) mg/dL Est GFR (CKD-EPI)AfAm 4 (>60 ml/min/1.73 sqM) Est GFR (CKD-EPI)NonAf 4 (>60 ml/min/1.73 sqM) Glucose 78 (74-99) mg/dL Plasma Lactic Acid Elgin (0.7-2.0) mmol/L Calcium 9.6 (8.4-10.2) mg/dL Total Bilirubin 0.9 (0.2-1.3) mg/dL AST 30 (17-59) U/L ALT 31 (21-72) U/L Alkaline Phosphatase 176 H (38-126) U/L Troponin I (0.000-0.034) ng/mL Total Protein 6.4 (6.3-8.2) g/dL Albumin 3.9 (3.5-5.0) g/dL Amylase 57 (30-110) U/L Lipase 66 (23-300) U/L 08/19/18 08/19/18 08/19/18 Range/Units 07:25 07:50 08:21 WBC (3.8-10.6) k/uL RBC (4.30-5.90) m/uL Hgb (13.0-17.5) gm/dL Hct (39.0-53.0) % MCV (80.0-100.0) fL MCH (25.0-35.0) pg MCHC (31.0-37.0) g/dL RDW (11.5-15.5) % Plt Count (150-450) k/uL Neutrophils % % Lymphocytes % % Monocytes % % Eosinophils % % Basophils % % Neutrophils # (1.3-7.7) k/uL Lymphocytes # (1.0-4.8) k/uL Monocytes # (0-1.0) k/uL Eosinophils # (0-0.7) k/uL Basophils # (0-0.2) k/uL Hypochromasia Anisocytosis PT (9.0-12.0) sec INR (<1.2) APTT (22.0-30.0) sec Sample Site rrad ABG pH 7.41 (7.35-7.45) ABG pCO2 39 (35-45) mmHg ABG pO2 49 L* (83-108) mmHg ABG HCO3 25 (21-25) mmol/L ABG Total CO2 26 H (19-24) mmol/L ABG O2 Saturation 81.5 L (94-97) % ABG Base Excess 0.1 mmol/L Ean Test Yes FiO2 100 % Sodium (137-145) mmol/L Potassium (3.5-5.1) mmol/L Chloride (98-107) mmol/L Carbon Dioxide (22-30) mmol/L Anion Gap mmol/L BUN (9-20) mg/dL Creatinine (0.66-1.25) mg/dL Est GFR (CKD-EPI)AfAm (>60 ml/min/1.73 sqM) Est GFR (CKD-EPI)NonAf (>60 ml/min/1.73 sqM) Glucose (74-99) mg/dL Plasma Lactic Acid Elgin 1.2 (0.7-2.0) mmol/L Calcium (8.4-10.2) mg/dL Total Bilirubin (0.2-1.3) mg/dL AST (17-59) U/L ALT (21-72) U/L Alkaline Phosphatase (38-126) U/L Troponin I 0.119 H* (0.000-0.034) ng/mL Total Protein (6.3-8.2) g/dL Albumin (3.5-5.0) g/dL Amylase (30-110) U/L Lipase (23-300) U/L Critical Care Time Critical Care Time: Yes Total Critical Care Time: 35 <Alvarado Darnell Last Filed: 08/19/18 09:11> Critical Care Time: Total 35 minutes of critical care time were used to initially evaluated the patient, review past medical history, review past imaging, review vitals, evaluated the patient. Labs including CBC, CMP, troponin, BNP, ABG, lactic, EKG, chest x-ray are ordered. Patient's found to be in acute CHF with chest x- ray showing evidence of pulmonary edema, patient hypoxic in the low 80s. Patient was given breathing treatments, started on BiPAP, nonrebreather patient was given Lasix 2 doses. Patient vomited have creatinine of 13 which the patient is on peritoneal dialysis. 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 stephenson recommends cycling the patient again and possible hemodialysis. Case discussed with Dr. flores admitting hospitalist along with ICU management Dr. Faust. Patient given multiple medications including labetalol, Lasix, Catapres, hydralazine for his blood pressure. (Alvarado Darnell) Disposition <Alvarado Darnell - Last Filed: 08/19/18 09:11> <Cory Tracy - Last Filed: 08/19/18 09:40> Clinical Impression: Acute on chronic renal failure, Pulmonary edema, CHF (congestive heart f ailure), Hyperkalemia, Hypoxia, Hypertension, Hypoxemia, Acute respiratory distress syndrome, Hypertensive emergency Disposition: ADMITTED IP TO THIS HOSP Condition: Critical
[2018-08-19] MEDS ORDERED: IPRATROPIUM-ALBUTEROL 3 ML NEB INHALATION STA (07:34)
[2018-08-19] MEDS ORDERED: NITROGLYCERIN OINT 1 INCH/GM PACKET TOPICAL STA (07:45)
[2018-08-19] MEDS ORDERED: FUROSEMIDE 10 MG/ML 4 ML VIAL IV STA ×2 (07:45→08:41)
[2018-08-19] MEDS ORDERED: cloNIDine HCL 0.1 MG TAB PO STA (07:57)
[2018-08-19 08:01] LABS: Anisocytosis Slight; Basophils % (A) 0 %; Eosinophils # (A) 0.2 k/uL (0-0.7); Eosinophils % (A) 2 %; HCT 38.7 % (39.0-53.0); HGB 12.5 gm/dL (13.0-17.5); Hypochromasia Slight; Lymphocytes % (A) 12 %; MCH 28.2 pg (25.0-35.0); MCHC 32.4 g/dL (31.0-37.0); MCV 87.2 fL (80.0-100.0); Mean Platelet Volume 7.7; Monocytes # (A) 0.3 k/uL (0-1.0); Monocytes % (A) 4 %; Neutrophils # (A) 6.6 k/uL (1.3-7.7); Neutrophils % (A) 80 %; Platelet Count 252 k/uL (150-450); RBC 4.44 m/uL (4.30-5.90); RDW 16.7 % (11.5-15.5); WBC 8.3 k/uL (3.8-10.6)
[2018-08-19 08:04] LABS: Albumin 3.9 g/dL (3.5-5.0); Calcium 9.6 mg/dL (8.4-10.2); Total Bilirubin 0.9 mg/dL (0.2-1.3); Total Protein 6.4 g/dL (6.3-8.2)
--- NOTE | 2018-08-19 08:12 | XR ---
EXAMINATION TYPE: XR chest 1V DATE OF EXAM: 08/19/2018 COMPARISON: 05/08/2018 HISTORY: Abnormal x-ray TECHNIQUE: Single frontal view of the chest is obtained. FINDINGS: Bilateral patchy perihilar infiltrate seen. Pulmonary nodules noted by chest CT not as wel l seen by x-ray which may be related lung disease. Heart is enlarged. No pleural effusion or pneumoth orax. IMPRESSION: 1. Patchy bilateral infiltrate greater involving the right perihilar region correlate for pneumonia o therwise consider pulmonary edema. 2. Nodularity noted on previous CT scan may be obscured by the underlying airspace disease
[2018-08-19 08:21] LABS: Partial Thromboplastin Time 27.5 sec (22.0-30.0); Prothrombin Time 10.3 sec (9.0-12.0)
[2018-08-19 08:23] LABS: ABG Base Excess 0.1 mmol/L; ABG HCO3 25 mmol/L (21-25); ABG Oxygen Saturation 81.5 % (94-97); ABG PCO2 39 mmHg (35-45); ABG PH 7.41 (7.35-7.45); ABG TCO2 26 mmol/L (19-24)
[2018-08-19 08:25] LABS: ABG PO2 49 mmHg (83-108)
[2018-08-19] MEDS ORDERED: hydrALAZINE HCL 20 MG/ML 1 ML VIAL IVP STA ×2 (08:42→09:20)
[2018-08-19] MEDS ORDERED: IPRATROPIUM-ALBUTEROL 3 ML NEB INHALATION PRN (09:08)
[2018-08-19] MEDS ORDERED: NALOXONE 0.4 MG/ML 1 ML VIAL IV PRN (09:08)
[2018-08-19] MEDS ORDERED: DIALYSIS (PERIT 4.25%) 2500 ML 106.25 G/2,500 ML BAG INTRAPERIT ONE (09:30)
[2018-08-19 10:31] VITALS: BMI 27.4
[2018-08-19 10:32] LABS: Glucose,Whole Blood 179 mg/dL (75-99)
[2018-08-19] MEDS ORDERED: FUROSEMIDE 10 MG/ML 10 ML VIAL IV STA (10:34)
[2018-08-19] MEDS ORDERED: hydrALAZINE HCL 20 MG/ML 1 ML VIAL IVP PRN (10:42)
[2018-08-19 10:49] LABS: ABG Base Excess 1.5 mmol/L; ABG HCO3 25 mmol/L (21-25); ABG Oxygen Saturation 98.9 % (94-97); ABG PCO2 31 mmHg (35-45); ABG PH 7.51 (7.35-7.45); ABG PO2 220 mmHg (83-108); ABG TCO2 26 mmol/L (19-24)
[2018-08-19] MEDS: hydrALAZINE HCL 20 MG/ML 1 ML VIAL IVP PRN (11:01)
--- NOTE | 2018-08-19 11:10 | CONS ---
CONSULTATION REASON FOR CONSULT: End-stage renal disease. HISTORY OF PRESENT ILLNESS: Patient is a 58-year-old male who was admitted to the hospital with complaints of shortness of breath. He is maintained on peritoneal dialysis as outpatient. Lately, patient has had issues with his blood pressure remaining high. Medications were being adjusted as outpatient. Patient believes it was a change in his type of clonidine that has caused his blood pressure to be uncontrolled. On this admission, patient is noted to have a serum creatinine of 13. He denies missing any dialysis treatments as outpatient. However, given his elevated potassium as well and fluid overload, I believe he has missed his exchanges. Currently patient is on BiPAP. His blood pressure when he came in was 224/145. Blood pressure is down to 174/112 now. Patient has been afebrile. He has had some cough. He denies any abdominal pain. Patient did complain of some back pain. No nausea, vomiting or diarrhea. PAST MEDICAL HISTORY: End-stage renal disease, hypertension, history of seizure disorder, neuropathy. PAST SURGICAL HISTORY: Peritoneal dialysis catheter placement and removal, PermCath placement and removal for hemodialysis, replacement of another PD catheter which is currently functioning, previous history of colostomy, carpal tunnel surgery. SOCIAL HISTORY: Patient is a former smoker. No history of drug abuse or alcohol abuse. MEDICATIONS: Medications prior to admission included Norvasc, clonidine, Prinivil, Coreg, Lipitor, Neurontin, Flexeril, Motrin, prednisone. ALLERGIES: None. REVIEW OF SYSTEMS: As per HPI. Other systems negative. PHYSICAL EXAMINATION: On examination, patient is comfortable. He is in respiratory distress, currently maintained on BiPAP. Alert and oriented x3. Blood pressure 174/112, heart rate 97 per minute. He is afebrile. EXAMINATION OF THE HEART: S1, S2. EXAMINATION OF THE LUNGS: Bilateral breath sounds are heard. Bilateral crackles are heard. Abdomen is soft, nontender. Examination of the lower extremities shows edema 1+ bilaterally. PRACTICE SPECIALIST exam is grossly intact. LABS: Labs show sodium of 137, potassium 6.0, chloride 96, BUN 83, serum creatinine 13.1, troponin 0.119, hemoglobin 12.5, white cell count 8.3. ASSESSMENT: 1. End-stage renal disease, on peritoneal dialysis. I believe patient has missed his exchanges as outpatient. His creatinine normally stays around 8 mg/dL. We have discussed switching to hemodialysis on multiple occasions. However, patient has always been reluctant. There have been instances where he has missed his treatments previously. At this time, I will maintain him on a q.4 hour exchange schedule. We will try to get fluid off as well as dialysis. 2. Hyperkalemia associated with most likely noncompliance with dialysis versus inadequate PD. We will know over the next 24 hours when labs are repeated tomorrow. If his creatinine improves and his potassium improves, then it is definitely a component of noncompliance prior to admission. 3. Fluid overload. Expect improvement with frequent exchanges with 4.25% solutions. 4. Hypertension. Partly volume sensitive. Maintain patient on IV medications until he is able to take p.o. medications. We will place a clonidine patch if the patient is not able to take oral clonidine. 5. Chronic kidney disease mineral bone disorder. Resume phosphate binders in the form of Renvela once the patient is eating and also his calcitriol. PLAN: Frequent dialysis exchanges q.4 hour schedule with 4.25% solution. Maintain IV hydralazine and labetalol and if the patient is not able to take oral medications add the clonidine patch to avoid rebound hypertension. Repeat labs in a.m. The patient is advised that if his potassium and creatinine do not improve with continued dialysis, he will need to switch to hemodialysis. At this time he is agreeable. Thank you for this consultation. We will continue to follow the patient with you during his hospitalization. MMODL / ADDIEN: [id number] /
[2018-08-19] MEDS ORDERED: MORPHINE SULFATE 2 MG/ML SYRINGE IVP STA (11:21)
[2018-08-19] MEDS ORDERED: MORPHINE SULFATE 2 MG/ML SYRINGE ONE (11:23)
[2018-08-19] MEDS: CLEVIDIPINE BUTYRATE 25 MG in EMPTY BAG 1 BAG IV SCH ×2 (11:31→16:57)
[2018-08-19] MEDS ORDERED: cloNIDine 0.1 MG/24HR PATCH TRANSDERM SCH (12:00)
--- NOTE | 2018-08-19 12:07 | CONS ---
CONSULTATION PULMONARY/CRITICAL CARE CONSULTATION: This is a 58-year-old male who presents to the emergency department with chief complaint of low back pain. The pain apparently started the night before admission. The patient apparently then developed some profound shortness of breath. He was evaluated in the emergency room, was found to have significant pulmonary edema. He also had significant hypertension. He does have a history of hypertension, diabetes, seizure disorder, and he is on peritoneal dialysis for chronic renal failure. The patient denied any fever or chills. Anyway, he was seen by Dr. Tracy in the emergency room. Dr. Tracy called me because he was concerned about the patient's respiratory status and his urgent elevation of blood pressure. He received some Apresoline for the blood pressure. He also received some Lasix. Nephrology was consulted. The patient was admitted here to the ICU. The patient was placed on BiPAP. Currently on BiPAP at 12 and 5 and 60%. Blood gases on those settings showed a PO2 of 220, pCO2 of 31, and pH of 7.51. That was on 100%. I subsequently dropped the FiO2 down to 60%, but increased the IPAP from 12 to 15. The patient is not receiving any IV fluids. I asked the nurse to use some morphine sulfate 2 mg to calm the patient down and also reduce preload and use Cleviprex IV for blood pressure control. CURRENT MEDICATIONS: Include Neurontin, Lipitor, Coreg, vitamin D2, Prinivil, Norvasc, Catapres, Tessalon Perles, prednisone, Flexeril, Motrin. ALLERGIES: Denied. MEDICAL HISTORY: Renal failure requiring peritoneal dialysis, hypertension, seizure disorder, hyperlipidemia, carpal tunnel syndrome. SURGICAL HISTORY: Includes peritoneal dialysis catheter and carpal tunnel surgery. SOCIAL HISTORY: Positive for previous tobacco use. Drinks alcohol rarely. No illicit drug use. FAMILY HISTORY: Apparently positive for liver cancer. REVIEW OF SYSTEMS: CONSTITUTIONAL: Negative. NEUROLOGIC: Negative. HEENT: Negative. CARDIOVASCULAR: Negative. PULMONARY: Shortness of breath. GI: Negative. : Negative. RHEUMATOLOGIC: Back pain. IMMUNOLOGIC: Negative. ENDOCRINOLOGIC: Negative. DERMATOLOGIC: Negative. Current vital signs are reviewed. Temperature is 97.8, heart rate is about 105, respiratory rate in mid 20s to high 20s, blood pressure 198/126, mean 150, saturations on BiPAP for 98%., 15/5 and 60%. Appears quite anxious and restless. He is tachypneic. HEENT: Examination is grossly unremarkable. BiPAP mask in place. NECK: Supple. Full range of motion. No adenopathy. CARDIOVASCULAR: Examination reveals regular rhythm and rate. He is tachycardic. Heart rate about 105. It is regular. LUNGS: Reveal some bibasilar crackles. There is coarse rhonchi. Breath sounds equal bilaterally. They are diminished. ABDOMEN: Soft. Bowel sounds are not noted. EXTREMITIES: Intact. Minimal edema. SKIN: Without rash. NEUROLOGIC: Examination is brief but nonfocal. He is quite restless. LABS: Reviewed. White count 8.3, hemoglobin 12.5, hematocrit 38.7, platelet count 252,000, PT, INR, PTT all normal. Blood gases show PO2 of 220, pCO2 of 31, pH is 7.51. That was on 100%. Sodium 137, potassium chloride 6, CO2 is 24, anion gap is 17, BUN and creatinine were 83 and 13.19. Troponin was 0.119. N terminal proBNP is 50,300. The rest of the labs look okay. Chest x-ray was done. The chest x-ray is consistent with fluid overload. There is cardiomegaly. There is small effusions or cephalization. ASSESSMENT: 1. Acute hypoxemic respiratory failure secondary to renal failure and fluid overload. 2. History of chronic renal failure, currently on peritoneal dialysis. 3. Hyperkalemia, secondary to renal failure. 4. History of hypertension. 5. History of accelerated hypertension, hypertensive urgency/emergency. 6. History of seizure disorder. 7. History of hyperlipidemia. 8. Remote tobacco history. 9. Anion gap metabolic acidosis secondary to renal failure. 10.Elevated troponins, which may relate to renal failure and/or supply demand mismatch. 11.Mild anemia. PLAN: The patient will get morphine sulfate for control of anxiety and also for reduction of preload. In addition, The patient will get Cleviprex IV titrated for blood pressure control. Nephrology has been consulted. Additional recommendations and suggestions are forthcoming. Will continue to monitor the potassium closely. Additional recommendations and suggestions are forthcoming. He has received [employer]. MMODL / IJN: [id number] /
[2018-08-19] MEDS: DIALYSIS (PERIT 4.25%) 2500 ML 106.25 G/2,500 ML BAG INTRAPERIT SCH ×3 (15:23→22:32)
--- NOTE | 2018-08-19 15:45 | P.HPIM ---
History of Present Illness H&P Date: 08/19/18 Chief Complaint: Difficulty breathing This is a 58-year-old male patient of Dr. Decker with past medical history of hypertensive end-stage renal disease on CAPD, hypertension, hyperlipidemia, seizure disorder, peritonitis with colostomy status post reversal, degenerative disc disease. Patient states that for the past week he's had high blood pressure and he started a non-generic clonidine that did not seem to address his blood pressure. He states he has been using his CAPD and draining well. He now complains of difficulty breathing and back pain. He denies any chest pain. Patient states he has been evaluated at a transplant center in [place]. Patient denies having any history of fluid overload or heart failure. Patient complains of severe restless leg syndrome. Patient came into [facility] emergency center for evaluation. EKG was a sinus tachycardia. Heart rate in the low 100s, pulse ox 90% on room air, blood pressure 224/145. He was afebrile. Hemoglobin 12.5, potassium 6.0, chloride 96, BUN 83 creatinine 13.19. Lactic acid 1.2, blood sugar 179, troponin 0.119, proBNP 50,300, alkaline phosphatase 176. Amylase and lipase were within normal limits. Patient received 1 dose of clonidine 0.3 mg in the emergency center and was then admitted to intensive care unit and consult requested with nephrology. Dr. Faust is on for intensive care management. Review of Systems Constitutional: Denies anorexia, Denies chills, Denies fatigue, Denies fever, Denies malaise, Denies poor appetite, Denies weakness Ears, nose, mouth and throat: Denies dental pain, Denies nasal congestion, Denies nasal discharge, Denies vertigo Cardiovascular: Reports decreased exercise tolerance, Reports dyspnea on exertion, Reports leg edema, Reports shortness of breath, Denies chest pain, Denies orthopnea, Denies palpitations, Denies syncope Respiratory: Reports dyspnea, Denies cough, Denies cough with sputum, Denies excessive sputum, Denies hemoptysis, Denies home oxygen Gastrointestinal: Denies abdominal pain, Denies loss of appetite, Denies nausea, Denies vomiting Genitourinary: Denies dysuria Musculoskeletal: Denies frequent falls, Denies gait dysfunction, Denies muscle weakness Integumentary: Denies pruritus, Denies rash Neurological: Denies aphasia, Denies change in mentation, Denies confusion, Denies convulsions, Denies headaches, Denies numbness, Denies weakness Psychiatric: Reports anxiety, Denies depression Endocrine: Denies fatigue, Denies weight change Past Medical History Past Medical History: Dialysis, Hyperlipidemia, Hypertension, Renal Disease, Seizure Disorder Additional Past Medical History / Comment(s): Peritonitis with colostomy since reversed, peritoneal dialysis, last seizure 12/2013, low back pain/degenerative disc disease/bulging discs. History of Any Multi-Drug Resistant Organisms: None Reported Past Surgical History: Orthopedic Surgery Additional Past Surgical History / Comment(s): Peritoneal catheters-last one placed in 2016, colostomy with reversal, colonoscopy, bilateral carpal tunnel releases Past Anesthesia/Blood Transfusion Reactions: No Reported Reaction Smoking Status: Former smoker - Past Family History Mother Family Medical History: Dementia Additional Family Medical History / Comment(s): Mother is alive with history of dementia. Father Family Medical History: Cancer Additional Family Medical History / Comment(s): Father is alive with history of LIVER CANCER and coronary artery disease status post CABG. Patient does not have any brothers or sisters. Medications and Allergies Home Medications Medication Instructions Recorded Confirmed Type Atorvastatin Calcium [Lipitor] 40 mg PO DAILY 01/01/17 08/19/18 History Lisinopril [Prinivil] 20 mg PO BID 01/01/17 08/19/18 History amLODIPine BESYLATE [Norvasc] 5 mg PO DAILY 01/01/17 08/19/18 History cloNIDine HCL [Catapres] 0.1 mg PO HS 01/01/17 08/19/18 History B Complex W-C No.20/Folic Acid 1 mg PO DAILY 08/19/18 08/19/18 History [Renal Caps Softgel] Calcitriol 0.5 mcg PO MOWEFR 08/19/18 08/19/18 History Furosemide [Lasix] 80 mg PO TID 08/19/18 08/19/18 History Gabapentin [Neurontin] 400 mg PO BID 08/19/18 08/19/18 History Sevelamer [Renvela] 4,000 mg PO AC-TID 08/19/18 08/19/18 History cloNIDine HCL [Catapres] 0.2 mg PO HS 08/19/18 08/19/18 History traMADol HCL [Ultram] 50 mg PO DAILY PRN 08/19/18 08/19/18 History Allergies Allergy/AdvReac Type Severity Reaction Status Date / Time No Known Allergies Allergy Verified 08/19/18 09:36 Physical Exam Vitals: Vital Signs Temp Pulse Resp BP Pulse Ox 08/19/18 14:00 102 H 10 L 146/93 92 L 08/19/18 13:00 108 H 94 H 144/99 90 L 08/19/18 12:00 95 38 H 103/76 87 L 08/19/18 11:30 103 H 22 180/117 98 08/19/18 11:00 98 29 H 198/126 98 08/19/18 10:30 97.8 F 97 0 L 174/112 100 08/19/18 10:00 97.0 F L 103 H 24 205/133 100 08/19/18 09:30 103 H 24 206/133 98 08/19/18 08:10 98 08/19/18 08:00 93 16 210/133 96 08/19/18 07:50 101 H 08/19/18 07:45 100 16 223/136 84 L 08/19/18 07:30 128 H 18 237/162 94 L 08/19/18 07:25 90 L 08/19/18 06:36 97.8 F 110 H 20 224/145 100 Intake and Output 08/18/18 08/19/18 08/19/18 22:59 06:59 14:59 Intake Total 35.567 Output Total 0 Balance 35.567 Intake: IV 30 0.9 NS 30 Intake, IV Titration 5.567 Amount Clevidipine Butyrate 25 5.567 mg In Empty Bag 1 bag @ 1 MG/HR 2 mls/hr IV .Q24H [facility] Rx#:[id number] Output: Urine 0 Other: Weight 96.887 kg Gen: This is a 58-year-old male patient. He is resting in ICU bed and appears to be uncomfortable secondary to restless leg syndrome and difficulty breathing. HEENT: Head is atraumatic, normocephalic. Pupils equal, round. Sclerae is anicteric. NECK: Supple. No JVD. No lymphadenopathy. No thyromegaly. LUNGS: Clear to auscultation. No wheezes or rhonchi. No intercostal retractions. HEART: Regular rate and rhythm. No murmur. . ABDOMEN: Soft. Bowel sounds are present. No masses. No tenderness. COPD catheter in place. EXTREMITIES: 1+ bilateral pedal edema. No calf tenderness. NEUROLOGICAL: Patient is awake, alert and oriented x3. Cranial nerves 2 through 12 are grossly intact. Results CBC & Chem 7: 08/19/18 07:25 08/19/18 07:25 Labs: Abnormal Lab Results - Last 24 Hours (Table) 08/19/18 08/19/18 08/19/18 Range/Units 07:25 07:25 07:25 Hgb 12.5 L (13.0-17.5) gm/dL Hct 38.7 L (39.0-53.0) % RDW 16.7 H (11.5-15.5) % ABG pH (7.35-7.45) ABG pCO2 (35-45) mmHg ABG pO2 (83-108) mmHg ABG Total CO2 (19-24) mmol/L ABG O2 Saturation (94-97) % Potassium 6.0 H (3.5-5.1) mmol/L Chloride 96 L (98-107) mmol/L BUN 83 H (9-20) mg/dL Creatinine 13.19 H* (0.66-1.25) mg/dL POC Glucose (mg/dL) (75-99) mg/dL Alkaline Phosphatase 176 H (38-126) U/L Troponin I 0.119 H* (0.000-0.034) ng/mL 08/19/18 08/19/18 08/19/18 Range/Units 08:21 10:30 10:39 Hgb (13.0-17.5) gm/dL Hct (39.0-53.0) % RDW (11.5-15.5) % ABG pH 7.51 H (7.35-7.45) ABG pCO2 31 L (35-45) mmHg ABG pO2 49 L* 220 H (83-108) mmHg ABG Total CO2 26 H 26 H (19-24) mmol/L ABG O2 Saturation 81.5 L 98.9 H (94-97) % Potassium (3.5-5.1) mmol/L Chloride (98-107) mmol/L BUN (9-20) mg/dL Creatinine (0.66-1.25) mg/dL POC Glucose (mg/dL) 179 H (75-99) mg/dL Alkaline Phosphatase (38-126) U/L Troponin I (0.000-0.034) ng/mL Thrombosis Risk Factor Assmnt - DVT/VTE Prophylaxis DVT/VTE Prophylaxis: Pharmacologic Prophylaxis ordered - Choose All That Apply Any of the Below Risk Factors Present?: Yes Each Factor Represents 1 point: Medical pt on bed rest, Obesity (BMI >25), Serious lung disease incl. pneumonia (< 1month) Other Risk Factors: Yes Each Risk Factor Represents 2 Points: Patient confined to bed Other congenital or acquired thrombophilia - If yes, enter type in comment: No Thrombosis Risk Factor Assessment Total Risk Factor Score: 5 Thrombosis Risk Factor Assessment Level: High Risk Assessment and Plan Plan: 1. Hypertensive crisis. The patient received 1 dose of clonidine in the emergency center. Clonidine patch 0.1 mg will be started. Continue hydralazine 50 mg IV push every 2 hours as needed, labetalol 20 mg IV push every 2 hours. 2. End-stage renal disease on CAPD. Nephrology consult appreciated. Patient resumed on CAPD. 3. Seizure history. Continue gabapentin 400 mg twice daily. 4. Degenerative disc disease. Patient is normally on Neurontin and Ultram. 5. Hyperkalemia secondary to renal disease. CAPD. 6. Acute hypoxic respiratory failure requiring high flow nasal cannula. 7. GI prophylaxis. Protonix IV. 8. DVT prophylaxis. Heparin subcu. Patient will be admitted to the hospital for a minimum of 2 night stay. Discharge plan: Return home Impression and plan of care have been directed as dictated by the signing physician. Shannan Landa nurse practitioner acting as scribe for signing physician.
[2018-08-19] MEDS: LABETALOL 5 MG/ML VIAL MDV IVP PRN (16:59)
[2018-08-19] MEDS ORDERED: ARTIFICIAL TEARS-HYPROMELLOSE DROPS 15 ML BTL BOTH EYES PRN (17:46)
[2018-08-19] MEDS: HEPARIN SODIUM,PORCINE 5,000 UNIT/ML 1 ML VIAL SQ SCH (20:17)
[2018-08-19] MEDS: ALPRAZolam 0.25 MG TAB PO PRN (22:11)
[2018-08-19] MEDS: GABAPENTIN 400 MG CAP PO SCH (22:11)
[2018-08-20] MEDS: DIALYSIS (PERIT 4.25%) 2500 ML 106.25 G/2,500 ML BAG INTRAPERIT SCH ×6 (03:00→22:19)
[2018-08-20] MEDS: traMADol 50 MG TAB PO PRN (03:19)
[2018-08-20 04:52] LABS: Anisocytosis Slight; HGB 12.2 gm/dL (13.0-17.5); Hypochromasia Slight; MCH 28.2 pg (25.0-35.0); MCHC 32.1 g/dL (31.0-37.0); MCV 87.7 fL (80.0-100.0); Mean Platelet Volume 7.6; Platelet Count 210 k/uL (150-450); RBC 4.33 m/uL (4.30-5.90); RDW 16.4 % (11.5-15.5); WBC 8.8 k/uL (3.8-10.6)
[2018-08-20 05:06] LABS: Calcium 9.2 mg/dL (8.4-10.2); Potassium 4.9 mmol/L (3.5-5.1)
[2018-08-20] MEDS: CLEVIDIPINE BUTYRATE 25 MG in EMPTY BAG 1 BAG IV SCH ×4 (06:49→20:37)
--- NOTE | 2018-08-20 07:28 | PN ---
PROGRESS NOTE DATE OF SERVICE: August 20, 2018 This is a 58-year-old male who I saw in consultation yesterday. He was admitted through the emergency department with a chief complaint of low back pain. He was actually found to have fluid overload and renal failure. He has a history of chronic renal failure, currently on peritoneal dialysis. He also has a history of hypertension, diabetes, and seizure disorder. Anyway, the patient was seen in the emergency room by Dr. Tracy. The patient's respiratory status was borderline on admission. He was initially on BiPAP and then switched AIRVO. He did not tolerate the BiPAP or did not enjoy the BiPAP. His current AIRVO settings include 60 L/minute and FiO2 estimated to be 70%. I did tell the respiratory therapist she could titrate down the FiO2. He is currently on Cleviprex at 8 mg an hour for blood pressure control and a 0.9 IV KVO. The patient has been receiving peritoneal dialysis every 4 hours. He looks much more stable today. Much less short of breath. Much less restless. Yesterday, he was very restless on the BiPAP. Current vital signs include a temperature 96.9, heart rate 98, respiratory rate 11, blood pressure 145/98 and a saturation of 93% on the AIRVO at 60 L/minutes FiO2 70%. Appears in no acute distress. Looks much more comfortable. No conversational dyspnea. No use of accessory muscles. No audible wheezing. HEENT: Examination is grossly unremarkable. The AIRVO cannula are noted. Mucous membranes are moist. NECK: Supple. Full range of motion. No adenopathy. Neck veins are flat. CARDIOVASCULAR: Examination reveals regular rhythm and rate. Heart rate 98. S1, S2 normal. There is no murmur. LUNGS: Reveal bibasilar crackles. There is a few scattered rhonchi. Breath sounds equal bilaterally. ABDOMEN: Soft. Bowel sounds are heard. EXTREMITIES: Are intact. No cyanosis, clubbing, or edema. SKIN: Without rash. NEUROLOGIC: Examination is brief but nonfocal. Microbiologic studies are negative. Labs are reviewed. White count 8.8, hemoglobin 12.2, hematocrit 38, platelet count 210,000. Sodium 136, potassium 4.9, chloride 95, CO2 is 29. Anion gap is 12. BUN is 70, and creatinine is 12.71. Calcium 9.2. A chest x-ray shows evidence of some mild fluid overload. There is small effusions bilaterally. There is some fluid in the minor fissure. There is some mild cephalization. All-in-all, chest x-ray is improved. Medications are reviewed. All medications appear to be appropriate. We do have him on breathing treatment. He is getting other additional oral medication for blood pressure control, that would include both a labetalol and Apresoline. ASSESSMENT: 1. Acute hypoxemic respiratory failure secondary to renal failure and fluid overload. 2. History of chronic renal failure, currently on peritoneal dialysis. 3. Hyperkalemia secondary to renal failure, resolved. 4. History of hypertension, which is accelerated currently, requiring Cleviprex for titration. 5. History of seizure disorder. 6. History of hyperlipidemia. 7. Remote tobacco history. 8. Anion gap metabolic acidosis secondary to renal failure, resolved. 9. Elevated troponins, likely related to either renal failure and/or supply demand mismatch. 10.Mild anemia. PLAN: Overall the patient is doing better. He is getting Cleviprex 8 mg an hour for blood pressure control. We have been able to titrate him from the BiPAP down to AIRVO. The FiO2 can be reduced further. He is getting peritoneal dialysis every 4 hours. Nephrology is following along. The patient is much more stable today. We will continue to follow closely. Prognosis is guarded. MMODL / IJN: [id number] /
--- NOTE | 2018-08-20 07:56 | XR ---
EXAMINATION TYPE: XR chest 1V portable DATE OF EXAM: 08/20/2018 COMPARISON: Prior chest x-ray 08/19/2018 HISTORY: Shortness of breath TECHNIQUE: Single frontal view of the chest is obtained. FINDINGS: Perihilar airspace disease is improved compared to prior exam. No evident pneumothorax or sizable effusion. Heart size is likely stable, patient is rotated. There are overlying cardiac leads. IMPRESSION: Improvement in aeration, volume status.
[2018-08-20] MEDS ORDERED: PANTOPRAZOLE 40 MG/10 ML VIAL IVP SCH (09:00)
[2018-08-20] MEDS: FOLIC ACID-VIT B COMPLEX-VIT C 1 CAP PO SCH (09:01)
[2018-08-20] MEDS: GABAPENTIN 400 MG CAP PO SCH ×2 (09:01→20:25)
[2018-08-20] MEDS: HEPARIN SODIUM,PORCINE 5,000 UNIT/ML 1 ML VIAL SQ SCH ×2 (09:01→20:26)
[2018-08-20] MEDS: ATORVASTATIN 40 MG TAB PO SCH (09:04)
[2018-08-20] MEDS: amLODIPine 5 MG TAB PO SCH (10:02)
[2018-08-20] MEDS: LISINOPRIL 20 MG TAB PO SCH ×2 (10:02→20:25)
--- NOTE | 2018-08-20 11:52 | ECHOF ---
Referral Reason:chf MEASUREMENTS -------- HEIGHT: 188.0 cm WEIGHT: 95.7 kg BP: 149/91 RVIDd: 2.9 cm (< 3.3) IVSd: 1.6 cm (0.6 - 1.1) LVIDd: 4.5 cm (3.9 - 5.3) LVPWd: 1.8 cm (0.6 - 1.1) IVSs: 2.0 cm LVIDs: 3.0 cm LVPWs: 2.0 cm LAESV Index (A-L): 30.12 ml/m Ao Diam: 3.1 cm (2.0 - 3.7) AV Cusp: 2.1 cm (1.5 - 2.6) LA Diam: 4.2 cm (2.7 - 3.8) MV E Esvin: 0.93 m/s MV DecT: 202 ms MV A Esvin: 1.04 m/s MV E/A Ratio: 0.90 AV maxP.48 mmHg AV meanP.09 mmHg RAP: 5.00 mmHg RVSP: 22.95 mmHg FINDINGS -------- Resting tachycardia (HR>100bpm). This was a technically adequate study. The left ventricular size is normal. There is severe concentric left ventricular hypertrophy. Ove rall left ventricular systolic function is normal with, an EF between 55 - 60 %. The right ventricle is normal in size. LA is midly dilated 29-33ml/m2. The right atrial size is normal. Interatrial and interventricular septum intact. Aortic valve is trileaflet and is mildly thickened. Trace amount of aortic regurgitation. The mitral valve leaflets are mildly thickened. Moderate mitral annular calcification present. Mi ld mitral regurgitation is present. Mild tricuspid regurgitation present. There is no evidence of pulmonary hypertension. The right v entricular systolic pressure, as measured by Doppler, is 22.95mmHg. Pulmonic valve appears structurally normal. There is no pulmonic regurgitation present. The aortic root size is normal. Normal inferior vena cava with normal inspiratory collapse consistent with estimated right atrial pre ssure of 5 mmHg. Small Pleural Effusion. CONCLUSIONS -------- 1. Resting tachycardia (HR>100bpm). 2. This was a technically adequate study. 3. The left ventricular size is normal. 4. There is severe concentric left ventricular hypertrophy. 5. Overall left ventricular systolic function is normal with, an EF between 55 - 60 %. 6. The right ventricle is normal in size. 7. LA is midly dilated 29-33ml/m2. 8. The right atrial size is normal. 9. Interatrial and interventricular septum intact. 10. Aortic valve is trileaflet and is mildly thickened. 11. Trace amount of aortic regurgitation. 12. The mitral valve leaflets are mildly thickened. 13. Moderate mitral annular calcification present. 14. Mild mitral regurgitation is present. 15. Mild tricuspid regurgitation present. 16. There is no evidence of pulmonary hypertension. 17. The right ventricular systolic pressure, as measured by Doppler, is 22.95mmHg. 18. Pulmonic valve appears structurally normal. 19. There is no pulmonic regurgitation present. 20. The aortic root size is normal. 21. Normal inferior vena cava with normal inspiratory collapse consistent with estimated right atrial pressure of 5 mmHg. 22. Small Pleural Effusion. SOUND TESTER: Mi Sinha RDCS
--- NOTE | 2018-08-20 14:38 | P.PN ---
Subjective Progress Note Date: 08/20/18 This is a 58-year-old male patient of Dr. Decker with past medical history of hypertensive end-stage renal disease on CAPD, hypertension, hyperlipidemia, seizure disorder, peritonitis with colostomy status post reversal, degenerative disc disease. Patient states that for the past week he's had high blood pressure and he started a non-generic clonidine that did not seem to address his blood pressure. He states he has been using his CAPD and draining well. He now complains of difficulty breathing and back pain. He denies any chest pain. Patient states he has been evaluated at a transplant center in [place]. Patient denies having any history of fluid overload or heart failure. Patient complains of severe restless leg syndrome. Patient came into [facility] emergency center for evaluation. EKG was a sinus tachycardia. Heart rate in the low 100s, pulse ox 90% on room air, blood pressure 224/145. He was afebrile. Hemoglobin 12.5, potassium 6.0, chloride 96, BUN 83 creatinine 13.19. Lactic acid 1.2, blood sugar 179, troponin 0.119, proBNP 50,300, alkaline phosphatase 176. Amylase and lipase were within normal limits. Patient received 1 dose of clonidine 0.3 mg in the emergency center and was then admitted to intensive care unit and consult requested with nephrology. Dr. Faust is on for intensive care management. 08/20: Yesterday, patient was started on Clevidipine drip which was not documented in the H&P. Patient was also started on the Catapres patch. He is able to tolerate oral medications now and we will resume lisinopril, amlodipine and wean off Clevidipine drip. Blood pressures have improved this morning to 138/87. Patient is currently on AIRVO but was requiring BiPAP pulse oxing 94% with FiO2 40%. He has been afebrile, heart rate in the 90s. Echocardiogram is being obtained at this time. His restless leg syndrome is much improved today he states gabapentin usually helps with this. Discussed possible need for Catapres patch for home to be discussed with Dr. Decker. Patient will be resumed on his home dose of Catapres. Chest x-ray reveals improvement in aeration and volume status. Patient is undergoing continuous CAPD as managed by Dr. Han.. Review of Systems Constitutional: Denies anorexia, Denies chills, Denies fatigue, Denies fever, Denies malaise, Denies poor appetite, Denies weakness Ears, nose, mouth and throat: Denies dental pain, Denies nasal congestion, Denies nasal discharge, Denies vertigo Cardiovascular: Reports decreased exercise tolerance, Reports dyspnea on exertion, Reports leg edema, Reports shortness of breath, Denies chest pain, Denies orthopnea, Denies palpitations, Denies syncope Respiratory: Reports dyspnea, Denies cough, Denies cough with sputum, Denies excessive sputum, Denies hemoptysis, Denies home oxygen Gastrointestinal: Denies abdominal pain, Denies loss of appetite, Denies nausea, Denies vomiting Genitourinary: Denies dysuria Musculoskeletal: Denies frequent falls, Denies gait dysfunction, Denies muscle weakness Integumentary: Denies pruritus, Denies rash Neurological: Denies aphasia, Denies change in mentation, Denies confusion, Denies convulsions, Denies headaches, Denies numbness, Denies weakness Psychiatric: Reports anxiety, Denies depression Endocrine: Denies fatigue, Denies weight change Objective - Vital Signs Vital signs: Vital Signs Temp 97.9 F 08/20/18 08:00 Pulse 92 08/20/18 09:00 Resp 12 08/20/18 09:00 BP 135/95 08/20/18 09:00 Pulse Ox 92 L 08/20/18 09:34 Intake & Output 08/19/18 08/20/18 08/20/18 18:59 06:59 18:59 Intake Total 324.434 210.300 202.400 Output Total 0 25 Balance 324.434 185.300 202.400 Weight 95.9 kg Intake: IV 80 170 60 0.9 NS 80 170 60 Intake, IV Titration 44.434 40.300 42.400 Amount Clevidipine Butyrate 25 44.434 40.300 42.400 mg In Empty Bag 1 bag @ 1 MG/HR 2 mls/hr IV .Q24H [facility] Rx#:[id number] Oral 200 100 Output: Urine 0 25 - Exam Gen: This is a 58-year-old male patient. He is resting in ICU bed and appears to be comfortable. Echocardiogram being performed. HEENT: Head is atraumatic, normocephalic. Pupils equal, round. Sclerae is anicteric. NECK: Supple. No JVD. No lymphadenopathy. No thyromegaly. LUNGS: Clear to auscultation. No wheezes or rhonchi. No intercostal retractions. HEART: Regular rate and rhythm. No murmur. ABDOMEN: Soft. Bowel sounds are present. No masses. No tenderness. COPD catheter in place. EXTREMITIES: 1+ bilateral pedal edema. No calf tenderness. NEUROLOGICAL: Patient is awake, alert and oriented x3. Cranial nerves 2 through 12 are grossly intact. - Labs CBC & Chem 7: 08/20/18 04:34 08/20/18 04:34 Labs: Abnormal Lab Results - Last 24 Hours (Table) 08/19/18 08/19/18 08/20/18 Range/Units 10:30 10:39 04:34 Hgb 12.2 L (13.0-17.5) gm/dL Hct 38.0 L (39.0-53.0) % RDW 16.4 H (11.5-15.5) % ABG pH 7.51 H (7.35-7.45) ABG pCO2 31 L (35-45) mmHg ABG pO2 220 H (83-108) mmHg ABG Total CO2 26 H (19-24) mmol/L ABG O2 Saturation 98.9 H (94-97) % Sodium (137-145) mmol/L Chloride (98-107) mmol/L BUN (9-20) mg/dL Creatinine (0.66-1.25) mg/dL Glucose (74-99) mg/dL POC Glucose (mg/dL) 179 H (75-99) mg/dL 08/20/18 Range/Units 04:34 Hgb (13.0-17.5) gm/dL Hct (39.0-53.0) % RDW (11.5-15.5) % ABG pH (7.35-7.45) ABG pCO2 (35-45) mmHg ABG pO2 (83-108) mmHg ABG Total CO2 (19-24) mmol/L ABG O2 Saturation (94-97) % Sodium 136 L (137-145) mmol/L Chloride 95 L (98-107) mmol/L BUN 70 H (9-20) mg/dL Creatinine 12.71 H* (0.66-1.25) mg/dL Glucose 143 H (74-99) mg/dL POC Glucose (mg/dL) (75-99) mg/dL Assessment and Plan Plan: 1. Hypertensive crisis with rebound hypertension from clonidine. The patient received 1 dose of clonidine in the emergency center. Patient was started on Clevidipine drip yesterday and is to be weaned off today. Oral medications including lisinopril and Norvasc to be started as well as oral clonidine. Continue hydralazine 50 mg IV push every 2 hours as needed, labetalol 20 mg IV push every 2 hours. 2. End-stage renal disease on CAPD. Nephrology consult appreciated. Patient resumed on CAPD. 3. Seizure history. Continue gabapentin 400 mg twice daily. 4. Degenerative disc disease. Resume gabapentin and tramadol. 5. Hyperkalemia secondary to renal disease. CAPD. 6. Acute hypoxic respiratory failure requiring high flow nasal cannula. Consult with Dr. Dyer appreciated. 7. GI prophylaxis. Protonix IV. 8. DVT prophylaxis. Heparin subcu. 9. Severe restless leg syndrome. Continue gabapentin. 10. Elevated troponin. Acute coronary syndrome ruled out. Code status: no CODE Discharge plan: Return home Impression and plan of care have been directed as dictated by the signing physician. Shannan Landa nurse practitioner acting as scribe for signing physician.
[2018-08-20] MEDS: LABETALOL 5 MG/ML VIAL MDV IVP PRN (14:47)
[2018-08-20] MEDS ORDERED: HEPARIN SODIUM PORCINE INTRAPERIT ONE (18:00)
[2018-08-20] MEDS ORDERED: DIALYSIS DEX INTRAPERIT ONE (18:00)
[2018-08-20] MEDS ORDERED: BISACODYL 5 MG TABLET.DR PO STA (19:05)
--- NOTE | 2018-08-20 19:51 | XR ---
EXAMINATION TYPE: XR abdomen 1V DATE OF EXAM: 08/20/2018 COMPARISON: NONE HISTORY: Check catheter placement TECHNIQUE: 2 views FINDINGS: 2 supine views were obtained and show no sign of intestinal obstruction or pneumoperitoneum . Fecal pattern is normal. There is drainage catheter in the right lower quadrant. IMPRESSION: Drainage dialysis catheter in right lower quadrant. No sign of acute abdomen.
[2018-08-20] MEDS: LACTULOSE 20 GM/30 ML CUP PO SCH (20:26)
[2018-08-20] MEDS ORDERED: cloNIDine HCL 0.2 MG TAB PO SCH (21:00)
[2018-08-20] MEDS ORDERED: cloNIDine HCL 0.1 MG TAB PO SCH ×2 (21:00)
--- NOTE | 2018-08-20 21:36 | PN ---
PROGRESS NOTE Patient is seen for followup for end-stage renal disease. He was admitted to the hospital with shortness of breath, fluid overload, and significantly elevated BUN and creatinine. The patient had recently been in [place] and believed there was a component of noncompliance. His potassium has improved with dialysis during hospitalization. We will continue with the q4 hour exchanges for now. Creatinine is also slightly improved. Oral antihypertensive medications have been restarted and blood pressure is better. Patient was started on Cleviprex drip which is now being weaned down. PHYSICAL EXAMINATION: This morning blood pressure was 149/85, heart rate 80 per minute. He is afebrile. Examination of the heart S1, S2. Examination of the lungs bilateral breath sounds are heard. Abdomen is soft, nontender. Examination lower extremities shows trace edema bilaterally. [employer] exam is grossly intact. LABS: Revealed sodium 136, potassium 4.9, BUN 70, serum creatinine 12.7. ASSESSMENT: 1. End-stage renal disease, on peritoneal dialysis maintained on q.4 hours dialysis exchanges which patient is tolerating. His labs are slightly improved. We will continue with the current regimen. 2. Volume overload, currently improved. 3. Hypertension, partly volume sensitive. Also improving. 4. Home medications, oral home medications have been resumed and the Cleviprex is being weaned down. Increase Norvasc if needed. The patient is currently on Norvasc and clonidine and Zestril. We will add beta blockers if blood pressure remains uncontrolled. 5. The patient does not have significant urine output. Therefore, diuretics have not helped. MMODL / IJN: [id number] /
[2018-08-20] MEDS ORDERED: hydrALAZINE HCL 20 MG/ML 1 ML VIAL ONE (23:00)
[2018-08-20] MEDS: hydrALAZINE HCL 20 MG/ML 1 ML VIAL IVP PRN (23:00)
[2018-08-20] MEDS ORDERED: ALPRAZolam 0.25 MG TAB ONE (23:00)
[2018-08-20] MEDS: ALPRAZolam 0.25 MG TAB PO PRN (23:01)
[2018-08-21] MEDS ORDERED: LACTULOSE 20 GM/30 ML CUP ONE (02:00)
[2018-08-21] MEDS: DIALYSIS (PERIT 4.25%) 2500 ML 106.25 G/2,500 ML BAG INTRAPERIT SCH ×6 (05:17→22:40)
[2018-08-21 05:25] LABS: Calcium 9.3 mg/dL (8.4-10.2); Potassium 4.6 mmol/L (3.5-5.1)
[2018-08-21 05:27] LABS: Anisocytosis Slight; HCT 40.9 % (39.0-53.0); HGB 12.7 gm/dL (13.0-17.5); Hypochromasia Moderate; MCH 27.6 pg (25.0-35.0); MCV 89.1 fL (80.0-100.0); Platelet Count 212 k/uL (150-450); RBC 4.59 m/uL (4.30-5.90); RDW 16.4 % (11.5-15.5); WBC 7.3 k/uL (3.8-10.6)
[2018-08-21 06:01] LABS: Magnesium 2.4 mg/dL (1.6-2.3); Phosphorus 6.7 mg/dL (2.5-4.5)
[2018-08-21] MEDS: amLODIPine 5 MG TAB PO SCH (06:44)
[2018-08-21] MEDS: LISINOPRIL 20 MG TAB PO SCH ×2 (07:11→21:51)
--- NOTE | 2018-08-21 07:41 | XR ---
EXAMINATION TYPE: XR chest 1V portable DATE OF EXAM: 08/21/2018 COMPARISON: Prior chest x-ray 08/20/2018 HISTORY: Shortness of breath TECHNIQUE: Single frontal view of the chest is obtained. FINDINGS: Lung volumes are low. There is some improvement in aeration, residual atelectatic changes suspected. No evident pneumothorax or pleural effusion. Heart size is stable. IMPRESSION: Improvement in aeration.
[2018-08-21] MEDS: FOLIC ACID-VIT B COMPLEX-VIT C 1 CAP PO SCH (08:29)
[2018-08-21] MEDS: GABAPENTIN 400 MG CAP PO SCH ×2 (08:29→21:51)
[2018-08-21] MEDS: PANTOPRAZOLE 40 MG TABLET PO SCH (08:29)
[2018-08-21] MEDS: ATORVASTATIN 40 MG TAB PO SCH (08:29)
[2018-08-21] MEDS: HEPARIN SODIUM,PORCINE 5,000 UNIT/ML 1 ML VIAL SQ SCH ×2 (08:30→21:51)
[2018-08-21] MEDS: LACTULOSE 20 GM/30 ML CUP PO SCH (08:30)
[2018-08-21] MEDS ORDERED: amLODIPine 5 MG TAB PO STA (08:47)
[2018-08-21] MEDS ORDERED: cloNIDine 0.3 MG/24HR PATCH TRANSDERM SCH (09:00)
--- NOTE | 2018-08-21 11:05 | PN ---
PROGRESS NOTE DATE OF SERVICE: 08/21/2018 This is a 58-year-old male who I saw in consultation 2 days ago. He was admitted from the emergency department with a chief complaint of low back pain and shortness of breath. Chest x-ray showed evidence of fluid overload and renal failure and he also had significant hypertensive urgency/emergency. The patient has a chronic renal failure. Patient currently on peritoneal dialysis every 4 hours. The patient also has a history of hypertension, diabetes, and seizure disorder. Anyway, he was initially admitted to the ICU on BiPAP. They did switch in the AIRVO because he was very anxious on the BiPAP. He did tolerate the AIRVO better than the BiPAP. Anyway, he has now been weaned down to room air. He is feeling much better. He is getting a 0.9 IV at 10 mL an hour. Yesterday, he was on Cleviprex at 8 mg an hour for blood pressure control that has been weaned off. His peritoneal dialysis is going every 4 hours. Chest x-ray shows significant improvement of the fluid overload state. His microbiologic studies are negative. He is resting comfortably. No complaints. He can speak in full sentences. There is no conversational dyspnea. Current vital signs include temperature 97.8, heart rate 100, respiratory rate 14, blood pressure 148/114, mean 125 and saturations on room air between 97% and 99%. Appears in no acute distress. No conversational dyspnea. No audible wheezing. No use of accessory muscles. HEENT: Examination is grossly unremarkable. No supplemental oxygen noted. Mucous membranes are moist. NECK: Supple. Full range of motion. No adenopathy, thyromegaly or neck vein distention. CARDIOVASCULAR: Examination reveals mild tachycardia. Heart rate right around 100 beats per minute. S1, S2 normal. There is no murmur. LUNGS: Reveal mostly clear breath sounds. A few scattered crackles. No wheezes or rhonchi. ABDOMEN: Soft. Bowel sounds are heard. EXTREMITIES: Intact. No cyanosis, clubbing, or edema. SKIN: Without rash. NEUROLOGIC: Examination is brief but nonfocal. LABS: Reviewed. White count 7.3, hemoglobin 12.7, hematocrit 40.9, platelet count 312,000. Sodium 136, potassium 4.6, chloride 97, CO2 is 25, anion gap is 14, BUN and creatinine were 63 and 12.39. Magnesium is 2.4. Microbiologic studies are all negative or pending. Chest x-ray shows some very mild fluid overload. Chest x-ray has been dramatically improving. Medications are reviewed. ASSESSMENT: 1. Acute hypoxemic respiratory failure secondary to renal failure and fluid overload, much improved. 2. History of chronic renal failure, currently in q.4 hour peritoneal dialysis. 3. Hyperkalemia, secondary to renal failure, resolved. 4. History of hypertensive urgency, controlled with Cleviprex, much improved. 5. History of seizure disorder. 6. History of hyperlipidemia. 7. History of remote tobacco use. 8. Anion gap metabolic acidosis secondary to renal failure, resolved. 9. Elevated troponins, likely related to either renal failure and/or supply/demand mismatch. 10.Mild anemia. PLAN: Overall the patient is doing much better. He has been weaned down to room air. The Cleviprex has been weaned off. We are going to increase his amlodipine to 10 mg a day. We will switch out his clonidine TTS #1 to a clonidine TTS #3. The patient's microbiologic studies are negative. Chest x-ray is vastly improved. The patient could be transferred to [address] [place] [address] or a general medical floor with telemetry. No additional recommendations are made. MMODL / IJN: [id number] /
--- NOTE | 2018-08-21 13:39 | P.PN ---
Subjective Progress Note Date: 08/21/18 This is a 58-year-old male patient of Dr. Decker with past medical history of hypertensive end-stage renal disease on CAPD, hypertension, hyperlipidemia, seizure disorder, peritonitis with colostomy status post reversal, degenerative disc disease. Patient states that for the past week he's had high blood pressure and he started a non-generic clonidine that did not seem to address his blood pressure. He states he has been using his CAPD and draining well. He now complains of difficulty breathing and back pain. He denies any chest pain. Patient states he has been evaluated at a transplant center in [place]. Patient denies having any history of fluid overload or heart failure. Patient complains of severe restless leg syndrome. Patient came into [facility] emergency center for evaluation. EKG was a sinus tachycardia. Heart rate in the low 100s, pulse ox 90% on room air, blood pressure 224/145. He was afebrile. Hemoglobin 12.5, potassium 6.0, chloride 96, BUN 83 creatinine 13.19. Lactic acid 1.2, blood sugar 179, troponin 0.119, proBNP 50,300, alkaline phosphatase 176. Amylase and lipase were within normal limits. Patient received 1 dose of clonidine 0.3 mg in the emergency center and was then admitted to intensive care unit and consult requested with nephrology. Dr. Faust is on for intensive care management. 08/20: Yesterday, patient was started on Clevidipine drip which was not documented in the H&P. Patient was also started on the Catapres patch. He is able to tolerate oral medications now and we will resume lisinopril, amlodipine and wean off Clevidipine drip. Blood pressures have improved this morning to 138/87. Patient is currently on AIRVO but was requiring BiPAP pulse oxing 94% with FiO2 40%. He has been afebrile, heart rate in the 90s. Echocardiogram is being obtained at this time. His restless leg syndrome is much improved today he states gabapentin usually helps with this. Discussed possible need for Catapres patch for home to be discussed with Dr. Decker. Patient will be resumed on his home dose of Catapres. Chest x-ray reveals improvement in aeration and volume status. Patient is undergoing continuous CAPD as managed by Dr. Han.. 08/21: Patient remains in intensive care unit but is scheduled to be transferred to the fourth floor today. He underwent a chest x-ray that showed improvement of aeration. Abdominal films showed dialysis catheter in the right lower quadrant with no acute abnormality. Patient complains of not having a bowel movement but he refuses to take the lactulose which will be discontinued. Blood pressure is improved but diastolic remains high. Norvasc has been increased to 10 mg and patient was started on Catapres patch by Dr. Faust but patient relates that he will not be able to afford to get that medication at home so we will plan to transition to hydralazine and also wean him off oral Catapres at home as this as the generic has not been effective to control his blood pressure and and he cannot afford the brand. Blood pressure 139/104, heart rate 113. He was started on Coreg this morning by nephrology. BUN 63 creatinine 12.39. Potassium 4.6, magnesium 2.4. Hemoglobin is 12.7. Echocardiogram reveals EF of 55-60% with severe concentric left hypertrophy, trace aortic regurgitation, mild mitral regurgitation, mild tricuspid regurgitation, no pulmonary hypertension. Review of Systems Constitutional: Denies anorexia, Denies chills, Denies fatigue, Denies fever, Denies malaise, Denies poor appetite, Denies weakness Ears, nose, mouth and throat: Denies dental pain, Denies nasal congestion, D enies nasal discharge, Denies vertigo Cardiovascular: Reports decreased exercise tolerance, Reports dyspnea on exertion, Reports leg edema, Reports shortness of breath, Denies chest pain, Denies orthopnea, Denies palpitations, Denies syncope Respiratory: Reports dyspnea, Denies cough, Denies cough with sputum, Denies excessive sputum, Denies hemoptysis, Denies home oxygen Gastrointestinal: Denies abdominal pain, Denies loss of appetite, Denies nausea, Denies vomiting, reports constipation Genitourinary: Denies dysuria Musculoskeletal: Denies frequent falls, Denies gait dysfunction, Denies muscle weakness Integumentary: Denies pruritus, Denies rash Neurological: Denies aphasia, Denies change in mentation, Denies confusion, Denies convulsions, Denies headaches, Denies numbness, Denies weakness Psychiatric: Reports anxiety, Denies depression Endocrine: Denies fatigue, Denies weight change Objective - Vital Signs Vital signs: Vital Signs Temp 97.8 F 05/15/19 08:00 Pulse 105 H 08/21/18 08:30 Resp 20 08/21/18 08:30 BP 149/123 08/21/18 08:30 Pulse Ox 98 08/21/18 08:30 Intake & Output 08/20/18 08/21/18 08/21/18 18:59 06:59 18:59 Intake Total 515.467 826.067 10 Output Total 0 0 Balance 515.467 826.067 10 Weight 92.8 kg Intake: IV 130 60 10 0.9 NS 130 60 10 Intake, IV Titration 85.467 46.067 Amount Clevidipine Butyrate 25 85.467 46.067 mg In Empty Bag 1 bag @ 1 MG/HR 2 mls/hr IV .Q24H [facility] Rx#:[id number] Oral 300 720 Output: Urine 0 0 - Exam Gen: This is a 58-year-old male patient. He is resting in ICU bed and appears to be comfortable. HEENT: Head is atraumatic, normocephalic. Pupils equal, round. Sclerae is anicteric. NECK: Supple. No JVD. No lymphadenopathy. No thyromegaly. LUNGS: Clear to auscultation. No wheezes or rhonchi. No intercostal retractions. HEART: Regular rate and rhythm. No murmur. ABDOMEN: Soft. Bowel sounds are present. No masses. No tenderness. COPD catheter in place. EXTREMITIES: 1+ bilateral pedal edema. No calf tenderness. NEUROLOGICAL: Patient is awake, alert and oriented x3. Cranial nerves 2 through 12 are grossly intact. - Labs CBC & Chem 7: 08/21/18 04:22 08/21/18 04:22 Labs: Abnormal Lab Results - Last 24 Hours (Table) 08/21/18 08/21/18 08/21/18 Range/Units 04:22 04:22 04:30 Hgb 12.7 L (13.0-17.5) gm/dL RDW 16.4 H (11.5-15.5) % Sodium 136 L (137-145) mmol/L Chloride 97 L (98-107) mmol/L BUN 63 H (9-20) mg/dL Creatinine 12.39 H* (0.66-1.25) mg/dL Glucose 124 H (74-99) mg/dL Phosphorus 6.7 H (2.5-4.5) mg/dL Magnesium 2.4 H (1.6-2.3) mg/dL Assessment and Plan Plan: 1. Hypertensive crisis with rebound hypertension from clonidine. Patient will be transitioned off clonidine oral and clonidine patch will be discontinued as patient cannot afford it. Patient is been started on Coreg 6.25 mg twice daily, amlodipine increased to 10 mg daily, hydralazine 25 mg 3 times daily added, continue lisinopril 20 mg twice daily. Patient [facility] floor.. 2. End-stage renal disease on CAPD. Nephrology consult appreciated. Patient resumed on CAPD. 3. Seizure history and restless leg syndrome. Continue gabapentin 400 mg twice daily. 4. Degenerative disc disease. Resume gabapentin and tramadol. 5. Hyperkalemia secondary to renal disease. CAPD. 6. Acute hypoxic respiratory failure requiring high flow nasal cannula. Consult with Dr. Dyer appreciated. 7. GI prophylaxis. Protonix IV. 8. DVT prophylaxis. Heparin subcu. 9. Severe restless leg syndrome. Continue gabapentin. 10. Elevated troponin. Acute coronary syndrome ruled out. 11. Patient does not have heart failure. Code status: no CODE Discharge plan: Return home Impression and plan of care have been directed as dictated by the signing physician. Shannan Landa nurse practitioner acting as scribe for signing physician.
--- NOTE | 2018-08-21 13:46 | PN ---
PROGRESS NOTE The patient is seen in followup for end-stage renal disease. He was admitted to the hospital with shortness of breath, fluid overload and hypertensive emergency. The patient had gone on a trip to [place] and he admits today that he had not been doing his dialysis regularly. He is maintained on a q.4 hour exchanges. Volume status has improved. Blood pressure is better. Patient is back on his oral medications. There has been an issue with using generic clonidine and patient states that does not work for his blood pressure. He did get one week's worth of the brand name clonidine, and he states his blood pressure was much better. Currently, the nephrology social worker will try to help the patient in that regard as he stated that it was too expensive to obtain the medicine ERNIE. In the meantime, I have discussed with the patient regarding switching to hemodialysis if his creatinine does not come down significantly. Yesterday, they were not able to do 2 exchanges as fluid was not moving in. However, his exchanges have been good today so far. We will repeat labs again tomorrow. So far, the creatinine is down to about 12.3 from 13.1 on initial admission. PHYSICAL EXAMINATION: On examination, patient is comfortable. He is awake, alert, oriented x3, not in any acute distress. Blood pressure this morning 149/123, heart rate 105 per minute. He is afebrile. EXAMINATION OF THE HEART: S1, S2. EXAMINATION OF THE LUNGS: Bilateral breath sounds are heard. Decreased breath sounds at bases. Abdomen is soft, nontender. Examination of the lower extremities shows no significant edema. [employer] exam is grossly intact. LAB: Labs show sodium of 136, potassium 4.6, BUN 63, serum creatinine of 12.39, hemoglobin 12.7. ASSESSMENT: 1. End-stage renal disease, on peritoneal dialysis. Continue current exchanges q.4 hours. Repeat labs in a.m. The patient has not tolerated hemodialysis well previously and therefore he is reluctant to switch. At this time, we will continue with the peritoneal dialysis. 2. Hypertensive emergency, currently improved. Blood pressure remains elevated. We will try to obtain help from nephrology social worker regarding obtaining clonidine ERNIE as the generic medication does not work for the patient. I will add clonidine to the regimen with Norvasc and lisinopril along with clonidine. Coreg 6.25 mg twice a day will be added. We can increase it depending on his blood pressure response. 3. Fluid overload currently improved. 4. Hyperphosphatemia/chronic kidney disease mineral bone disorder. Resume his phosphate binders, which was Renvela with meals. PLAN: Resume phosphate binders. Continue current PD changes. Repeat labs in a.m.. MMCLAUDIOL / IJN: [id number] /
[2018-08-21] MEDS: CARVEDILOL 6.25 MG TAB PO SCH (17:50)
[2018-08-21] MEDS: SEVELAMER 800 MG TAB PO SCH (17:50)
[2018-08-21] MEDS: hydrALAZINE HCL 25 MG TAB PO SCH ×2 (17:50→21:51)
[2018-08-21] MEDS ORDERED: ONDANSETRON 4 MG/2 ML VIAL IVP STA (17:52)
[2018-08-21] MEDS ORDERED: ONDANSETRON 4 MG/2 ML VIAL ONE (17:54)
[2018-08-21] MEDS ORDERED: cloNIDine HCL 0.1 MG TAB PO SCH (21:00)
[2018-08-21] MEDS: traMADol 50 MG TAB PO PRN (22:51)
[2018-08-22] MEDS: DIALYSIS (PERIT 4.25%) 2500 ML 106.25 G/2,500 ML BAG INTRAPERIT SCH ×3 (02:48→10:49)
[2018-08-22] MEDS: CARVEDILOL 6.25 MG TAB PO SCH (06:28)
[2018-08-22] MEDS: SEVELAMER 800 MG TAB PO SCH ×2 (06:28→12:47)
[2018-08-22 06:38] LABS: Anisocytosis Slight; HGB 13.3 gm/dL (13.0-17.5); Hypochromasia Slight; MCH 26.7 pg (25.0-35.0); MCHC 30.2 g/dL (31.0-37.0); MCV 88.4 fL (80.0-100.0); Platelet Count 287 k/uL (150-450); RBC 4.98 m/uL (4.30-5.90); RDW 16.6 % (11.5-15.5); WBC 7.2 k/uL (3.8-10.6)
[2018-08-22 06:46] LABS: Calcium 9.6 mg/dL (8.4-10.2); Magnesium 2.2 mg/dL (1.6-2.3); Phosphorus 6.7 mg/dL (2.5-4.5); Potassium 4.8 mmol/L (3.5-5.1)
[2018-08-22] MEDS ORDERED: amLODIPine 10 MG TAB PO SCH (09:00)
--- NOTE | 2018-08-22 09:14 | XR ---
EXAMINATION TYPE: XR chest 1V portable DATE OF EXAM: 08/22/2018 COMPARISON: Prior chest x-ray dated 08/21/2018 HISTORY: Shortness of breath TECHNIQUE: Single frontal view of the chest is obtained. FINDINGS: Patchy right perihilar density persists, the right hemidiaphragm is elevated. No pneumotho rax or evident effusion. Heart size is stable. There are overlying cardiac leads. Patient is rotated. IMPRESSION: Probable atelectasis, correlate to exclude pneumonia, follow-up PA and lateral chest x-r ay when stable is suggested.
[2018-08-22] MEDS: ATORVASTATIN 40 MG TAB PO SCH (09:22)
[2018-08-22] MEDS: PANTOPRAZOLE 40 MG TABLET PO SCH (09:22)
[2018-08-22] MEDS: GABAPENTIN 400 MG CAP PO SCH (09:22)
[2018-08-22] MEDS: HEPARIN SODIUM,PORCINE 5,000 UNIT/ML 1 ML VIAL SQ SCH (09:23)
[2018-08-22] MEDS: FOLIC ACID-VIT B COMPLEX-VIT C 1 CAP PO SCH (09:23)
[2018-08-22] MEDS: LISINOPRIL 20 MG TAB PO SCH (09:23)
[2018-08-22] MEDS: hydrALAZINE HCL 25 MG TAB PO SCH (09:23)
[2018-08-22 09:56] VITALS: TEMP 97
[2018-08-22 11:18] VITALS: PULSE 102
[2018-08-22 11:19] VITALS: BP 102/58; RESP 17
--- NOTE | 2018-08-22 11:24 | P.PN ---
Subjective Patient is seen in follow-up for end-stage renal disease. He is maintained on peritoneal dialysis. This morning his blood pressure was low. He is resting in bed. No issues with peritoneal dialysis. No vomiting or diarrhea. Vital signs are stable. General: The patient appeared well nourished and normally developed. HEENT: Head exam is unremarkable. Neck is without jugular venous distension. LUNGS: Lungs are clear to auscultation and percussion. Breath sounds decreased. HEART: Rate and Rhythm are regular. First and second heart sounds normal. No murmurs, rubs or gallops. ABDOMEN: Abdominal exam reveals normal bowel sounds. Non-tender and non- distended. No evidence of peritonitis. EXTREMITITES: No clubbing, cyanosis, or edema. Objective - Vital Signs Vital signs: Vital Signs Temp 97.0 F L 08/22/18 08:00 Pulse 102 H 08/22/18 11:00 Resp 16 08/22/18 11:00 BP 81/44 08/22/18 11:00 Pulse Ox 94 L 08/22/18 11:00 Intake & Output 08/21/18 08/22/18 08/22/18 18:59 06:59 18:59 Intake Total 50 Output Total 0 0 Balance 50 0 Weight 89.4 kg Intake: IV 50 0.9 NS 50 Output: Urine 0 0 Other: # Voids 0 0 - Labs CBC & Chem 7: 08/22/18 06:17 08/22/18 06:17 Labs: Abnormal Lab Results - Last 24 Hours (Table) 08/22/18 08/22/18 Range/Units 06:17 06:17 MCHC 30.2 L (31.0-37.0) g/dL RDW 16.6 H (11.5-15.5) % Sodium 135 L (137-145) mmol/L Chloride 95 L (98-107) mmol/L BUN 51 H (9-20) mg/dL Creatinine 11.72 H* (0.66-1.25) mg/dL Glucose 116 H (74-99) mg/dL Phosphorus 6.7 H (2.5-4.5) mg/dL Assessment and Plan Plan: Assessment: 1. End-stage renal disease maintained on peritoneal dialysis. 2. Hypertension with chronic kidney disease. This morning his blood pressure was low however. He has been maintained on 4.5% dextrose exchanges and maybe hypervolemic. I will give him a 500 mL bolus of normal saline if his blood p ressure doesn't improve. 3. Chronic kidney disease mineral bone disease maintained on Renvela. 4. Fluid overload. Resolved. Plan: I will change the PD exchanges to 1.5% changes. 500 mL normal saline bolus if no improvement in his blood pressure. Hold antihypertensives. Discontinue amlodipine as a patient states he has not tolerated that well in the past. Can continue with lisinopril and Coreg if blood pressures high.
--- NOTE | 2018-08-22 13:06 | P.DS ---
Providers Date of admission: 08/19/18 09:27 Attending physician: Hazel Kohler MD Consults: 08/19/18 09:08 Consult Physician Stat Consulting Provider: Cory Faust Consult Reason/Comments: ICU management Do you want consulting provider notified?: Already Contacted Consult Physician Stat Consulting Provider: Ema Han Consult Reason/Comments: Renal failure Do you want consulting provider notified?: Already Contacted Primary care physician: Dakotah Decker [facility] Course: This is a 58-year-old male patient of Dr. Decker with past medical history of hypertensive end-stage renal disease on CAPD, hypertension, hyperlipidemia, seizure disorder, peritonitis with colostomy status post reversal, degenerative disc disease. Patient states that for the past week he's had high blood pressure and he started a non-generic clonidine that did not seem to address his blood pressure. He states he has been using his CAPD and draining well. He now complains of difficulty breathing and back pain. He denies any chest pain. Patient states he has been evaluated at a transplant center in [place]. Patient denies having any history of fluid overload or heart failure. Patient complains of severe restless leg syndrome. Patient came into [facility] emergency center for evaluation. EKG was a sinus tachycardia. Heart rate in the low 100s, pulse ox 90% on room air, blood pressure 224/145. He was afebrile. Hemoglobin 12.5, potassium 6.0, chloride 96, BUN 83 creatinine 13.19. Lactic acid 1.2, blood sugar 179, troponin 0.119, proBNP 50,300, alkaline phosphatase 176. Amylase and lipase were within normal limits. Patient received 1 dose of clonidine 0.3 mg in the emergency center and was then admitted to intensive care unit and consult requested with nephrology. Dr. Faust is on for intensive care management. 08/20: Yesterday, patient was started on Clevidipine drip which was not documented in the H&P. Patient was also started on the Catapres patch. He is able to tolerate oral medications now and we will resume lisinopril, amlodipine and wean off Clevidipine drip. Blood pressures have improved this morning to 138/87. Patient is currently on AIRVO but was requiring BiPAP pulse oxing 94% with FiO2 40%. He has been afebrile, heart rate in the 90s. Echocardiogram is being obtained at this time. His restless leg syndrome is much improved today he states gabapentin usually helps with this. Discussed possible need for Catapres patch for home to be discussed with Dr. Decker. Patient will be resumed on his home dose of Catapres. Chest x-ray reveals improvement in aeration and volume status. Patient is undergoing continuous CAPD as managed by Dr. Han.. 08/21: Patient remains in intensive care unit but is scheduled to be transferred to the fourth floor today. He underwent a chest x-ray that showed improvement of aeration. Abdominal films showed dialysis catheter in the right lower quadrant with no acute abnormality. Patient complains of not having a bowel movement but he refuses to take the lactulose which will be discontinued. Blood pressure is improved but diastolic remains high. Norvasc has been increased to 10 mg and patient was started on Catapres patch by Dr. Faust but patient relates that he will not be able to afford to get that medication at home so we will plan to transition to hydralazine and also wean him off oral Catapres at home as this as the generic has not been effective to control his blood pressure and and he cannot afford the brand. Blood pressure 139/104, heart rate 113. He was started on Coreg this morning by nephrology. BUN 63 creatinine 12.39. Potassium 4.6, magnesium 2.4. Hemoglobin is 12.7. Echocardiogram reveals EF of 55-60% with severe concentric left hypertrophy, trace aortic regurgitation, mild mitral regurgitation, mild tricuspid regurgitation, no pulmonary hypertension. 08/22 patient doing well lying comfortably in bed answers question appropriately no headache no dizziness nor lightheadedness no weakness in any extremity or chest pain no shortness of breath no abdominal pain or nausea or vomiting. Vitals assess this morning there was a drop in blood pressure to the low 80s/44. After that on her dialysis amlodipine and clonidine discontinued medication readjusted patient will be discharged home today Discharge diagnosis 1. Hypertensive crisis with rebound hypertension from clonidine. 2. End-stage renal disease on CAPD. 3. Seizure history and restless leg syndrome. 4. Degenerative disc disease. 5. Hyperkalemia secondary to renal disease. CAPD. 6. Acute hypoxic respiratory failure 7. Severe restless leg syndrome. 8. Elevated troponin. Acute coronary syndrome ruled out. 9. Patient does not have heart failure. Patient Condition at Discharge: Critical Plan - Discharge Summary Discharge Rx Participant: No New Discharge Prescriptions: New hydrALAZINE HCL [Apresoline] 25 mg PO TID #90 tab Carvedilol [Coreg] 6.25 mg PO BID-W/MEALS #60 tab Sevelamer [Renvela] 800 mg PO TID-W/MEALS #90 tab Continue Lisinopril [Prinivil] 20 mg PO BID Atorvastatin Calcium [Lipitor] 40 mg PO DAILY traMADol HCL [Ultram] 50 mg PO DAILY PRN PRN Reason: Pain B Complex W-C No.20/Folic Acid [Renal Caps Softgel] 1 mg PO DAILY Gabapentin [Neurontin] 400 mg PO BID Furosemide [Lasix] 80 mg PO TID Calcitriol 0.5 mcg PO MOWEFR Discontinued cloNIDine HCL [Catapres] 0.1 mg PO HS amLODIPine BESYLATE [Norvasc] 5 mg PO DAILY Sevelamer [Renvela] 4,000 mg PO AC-TID cloNIDine HCL [Catapres] 0.2 mg PO HS Discharge Medication List Atorvastatin Calcium [Lipitor] 40 mg PO DAILY 01/01/17 [History] Lisinopril [Prinivil] 20 mg PO BID 01/01/17 [History] B Complex W-C No.20/Folic Acid [Renal Caps Softgel] 1 mg PO DAILY 08/19/18 [History] Calcitriol 0.5 mcg PO MOWEFR 08/19/18 [History] Furosemide [Lasix] 80 mg PO TID 08/19/18 [History] Gabapentin [Neurontin] 400 mg PO BID 08/19/18 [History] traMADol HCL [Ultram] 50 mg PO DAILY PRN 08/19/18 [History] Carvedilol [Coreg] 6.25 mg PO BID-W/MEALS #60 tab 08/22/18 [Rx] Sevelamer [Renvela] 800 mg PO TID-W/MEALS #90 tab 08/22/18 [Rx] hydrALAZINE HCL [Apresoline] 25 mg PO TID #90 tab 08/22/18 [Rx] Follow up Appointment(s)/Referral(s): Dakotah Decker MD [Primary Care Provider] - 1-2 days Panda Malone DO [STAFF PHYSICIAN] - 1 Week
[2018-08-22] MEDS ORDERED: DIALYSIS (PERIT 1.5%) 2,500 ML 37.5 G/2,500 ML BAG INTRAPERIT SCH (16:00)
== END 2018-08-22 14:33 | disposition home or self-care (01) | DRG 304 ==
LOC: EC 06:34 → 2SICU 09:27 → 3SCARD 08-21 15:53
PROVIDERS: ADMIT Internal Medicine; ATTEND Internal Medicine
PROC: 5A09357 Assistance with Respiratory Ventilation, Less than 24 Consecutive Hours, Continuous Positive Airway Pressure (ICD-10-PCS; principal; 2018-08-19)
DX: I16.1 Hypertensive emergency (principal); J96.01 Acute respiratory failure with hypoxia; N18.6 End stage renal disease; N17.9 Acute kidney failure, unspecified; E87.2 Acidosis; I50.9 Heart failure, unspecified; I13.2 Hypertensive heart and chronic kidney disease with heart failure and with stage 5 chronic kidney disease, or end stage renal disease; M89.8X9 Other specified disorders of bone, unspecified site; D64.9 Anemia, unspecified; E11.22 Type 2 diabetes mellitus with diabetic chronic kidney disease; E78.5 Hyperlipidemia, unspecified; E83.39 Other disorders of phosphorus metabolism; E87.5 Hyperkalemia; G25.81 Restless legs syndrome; G40.909 Epilepsy, unspecified, not intractable, without status epilepticus; Z79.899 Other long term (current) drug therapy; Z80.0 Family history of malignant neoplasm of digestive organs; Z87.891 Personal history of nicotine dependence; Z91.19 Patient's noncompliance with other medical treatment and regimen; Z99.2 Dependence on renal dialysis; M54.5 Low back pain; R74.8 Abnormal levels of other serum enzymes; I08.3 Combined rheumatic disorders of mitral, aortic and tricuspid valves
CPT/HCPCS: 36415; 36600; 71045; 74018; 80048; 80053; 82150; 82805; 83605; 83690; 83735; 83880; 84100; 84132; 84484; 85025; 85027; 85610; 85730; 93005; 93306; 94640; 94660; 96374; 96375; 96376; 99291

== ENCOUNTER 2018-08-30 10:57 | Inpatient (IN) | payer MEDICARE, BC ==
[2018-08-30] MEDS ORDERED: LABETALOL SYRINGE 5 MG/ML IVP STA ×2 (11:27→18:13)
--- NOTE | 2018-08-30 11:30 | ED ---
General Adult HPI - General Chief complaint: Dizziness Stated complaint: Nausea Time Seen by Provider: 08/30/18 11:05 Source: EMS, RN notes reviewed, old records reviewed Mode of arrival: EMS Limitations: no limitations - History of Present Illness Initial comments: Patient is a 58-year-old male with history of CHF, peritoneal dialysis daily. He presents today with complaints of feeling out of it and drugged. He reports he was recently started on tramadol for pain. He's had 3 doses of tramadol. Patient states that he try to complete his dialysis but felt too dizzy and weak to do this this morning. Patient states that he feels confused and intoxicated. Patient does complain of mild headache. Some be hypertensive blood pressure of 208/106. - Related Data Home Medications Medication Instructions Recorded Confirmed Atorvastatin Calcium [Lipitor] 40 mg PO DAILY 01/01/17 08/19/18 Lisinopril [Prinivil] 20 mg PO BID 01/01/17 08/19/18 B Complex W-C No.20/Folic Acid 1 mg PO DAILY 08/19/18 08/19/18 [Renal Caps Softgel] Calcitriol 0.5 mcg PO MOWEFR 08/19/18 08/19/18 Furosemide [Lasix] 80 mg PO TID 08/19/18 08/19/18 Gabapentin [Neurontin] 400 mg PO BID 08/19/18 08/19/18 traMADol HCL [Ultram] 50 mg PO DAILY PRN 08/19/18 08/19/18 Previous Rx's Medication Instructions Recorded Carvedilol [Coreg] 6.25 mg PO BID-W/MEALS #60 tab 08/22/18 Sevelamer [Renvela] 800 mg PO TID-W/MEALS #90 tab 08/22/18 hydrALAZINE HCL [Apresoline] 25 mg PO TID #90 tab 08/22/18 Allergies Allergy/AdvReac Type Severity Reaction Status Date / Time No Known Allergies Allergy Verified 08/19/18 09:36 Review of Systems ROS Statement: Those systems with pertinent positive or pertinent negative responses have been documented in the HPI. ROS Other: All systems not noted in ROS Statement are negative. Past Medical History Past Medical History: Dialysis, Hyperlipidemia, Hypertension, Renal Disease, Seizure Disorder Additional Past Medical History / Comment(s): Peritonitis with colostomy since reversed, peritoneal dialysis, last seizure 12/2013, low back pain/degenerative disc disease/bulging discs. History of Any Multi-Drug Resistant Organisms: None Reported Past Surgical History: Orthopedic Surgery Additional Past Surgical History / Comment(s): Peritoneal catheters-last one placed in 2016, colostomy with reversal, colonoscopy, bilateral carpal tunnel releases Past Anesthesia/Blood Transfusion Reactions: No Reported Reaction Past Psychological History: No Psychological Hx Reported Smoking Status: Former smoker - Past Family History Mother Family Medical History: Dementia Additional Family Medical History / Comment(s): Mother is alive with history of dementia. Father Family Medical History: Cancer Additional Family Medical History / Comment(s): Father is alive with history of LIVER CANCER and coronary artery disease status post CABG. Patient does not have any brothers or sisters. General Exam - General Exam Comments Initial Comments: 58-year-old male. Alert and oriented, but delayed in responses. Patient falling asleep while completing sentences. Limitations: no limitations General appearance: alert, in no apparent distress Head exam: Present: atraumatic, normocephalic, normal inspection Eye exam: Present: normal appearance, PERRL, EOMI. Absent: scleral icterus, conjunctival injection, periorbital swelling ENT exam: Present: normal exam, mucous membranes moist Neck exam: Present: normal inspection. Absent: tenderness, meningismus, lymphadenopathy Respiratory exam: Present: normal lung sounds bilaterally. Absent: respiratory distress, wheezes, rales, rhonchi, stridor Cardiovascular Exam: Present: regular rate, normal rhythm, normal heart sounds. Absent: systolic murmur, diastolic murmur, rubs, gallop, clicks GI/Abdominal exam: Present: soft, normal bowel sounds, other (Is a peritoneal dialysis site.). Absent: distended, tenderness, guarding, rebound, rigid Extremities exam: Present: normal inspection, full ROM, normal capillary refill. Absent: tenderness, pedal edema, joint swelling, calf tenderness Back exam: Present: normal inspection Neurological exam: Present: alert, oriented X3, CN II-XII intact Psychiatric exam: Present: normal affect, normal mood Skin exam: Present: warm, dry, intact, normal color. Absent: rash Course Vital Signs 08/30/18 08/30/18 08/30/18 11:05 11:12 11:15 Temperature 97.9 F Pulse Rate 100 98 93 Respiratory 21 20 14 Rate Blood Pressure 208/146 208/146 O2 Sat by Pulse 99 96 97 Oximetry 08/30/18 08/30/18 08/30/18 11:30 12:00 13:00 Temperature Pulse Rate 92 84 97 Respiratory 16 14 14 Rate Blood Pressure 208/146 216/132 211/132 O2 Sat by Pulse 95 98 98 Oximetry Medical Decision Making - Medical Decision Making 58-year-old male presents today for reaction to tramadol. He states he took one yesterday evening but continued to feel weak lethargic diffuse conversations. Patient states that he receives peritoneal dialysis but was unable to complete a sling to weak and confused. Patient arrives to emergency department with hypertensive emergency. Patient is given 20 mg of labetalol. He states he is unable to complete his dialysis today due to his feeling foggy. Patient is likely having a reaction to the new medication of tramadol. He states he's had 3 total doses from yesterday and today. At this time Patient has pneumonia of a headache. With his obtunded responses and elevated blood pressure Patient received a CT of the brain which is negative for any acute process. Of chronic ischemic change. Patient's was found to be in acute renal failure. Creatinine is elevated at 12. Responsiveness troponin is likely due to chronic renal failure. Patient still seems to be acting lethargic on reevaluation. I discussed the case with Dr. Knowles. He was given a dose of hydralazine at this time and Kayexalate for mildly elevated potassium. The patient's lethargy, and obtunded conversation or due to uremic encephalopathy as well as occasion reaction to tramadol. Patient's case discusse with Dr. Aguayo. Patient was admitted with consult to nephrology started on hypertensive medications. - Lab Data Result diagrams: 08/30/18 11:14 08/30/18 11:14 Lab Results 08/30/18 08/30/18 08/30/18 Range/Units 11:14 11:14 11:14 WBC 7.0 (3.8-10.6) k/uL RBC 4.00 L (4.30-5.90) m/uL Hgb 10.7 L (13.0-17.5) gm/dL Hct 33.6 L (39.0-53.0) % MCV 83.9 (80.0-100.0) fL MCH 26.9 (25.0-35.0) pg MCHC 32.0 (31.0-37.0) g/dL RDW 16.5 H (11.5-15.5) % Plt Count 347 (150-450) k/uL Neutrophils % 69 % Lymphocytes % 17 % Monocytes % 6 % Eosinophils % 4 % Basophils % 1 % Neutrophils # 4.9 (1.3-7.7) k/uL Lymphocytes # 1.2 (1.0-4.8) k/uL Monocytes # 0.4 (0-1.0) k/uL Eosinophils # 0.3 (0-0.7) k/uL Basophils # 0.0 (0-0.2) k/uL Anisocytosis Slight PT 10.5 (9.0-12.0) sec INR 1.0 (<1.2) Sodium 133 L (137-145) mmol/L Potassium 5.7 H (3.5-5.1) mmol/L Chloride 93 L (98-107) mmol/L Carbon Dioxide 25 (22-30) mmol/L Anion Gap 15 mmol/L BUN 68 H (9-20) mg/dL Creatinine 12.68 H* (0.66-1.25) mg/dL Est GFR (CKD-EPI)AfAm 4 (>60 ml/min/1.73 sqM) Est GFR (CKD-EPI)NonAf 4 (>60 ml/min/1.73 sqM) Glucose 80 (74-99) mg/dL Calcium 9.5 (8.4-10.2) mg/dL Total Bilirubin 0.5 (0.2-1.3) mg/dL AST 23 (17-59) U/L ALT 28 (21-72) U/L Alkaline Phosphatase 136 H (38-126) U/L Ammonia (<30) umol/L Troponin I (0.000-0.034) ng/mL Total Protein 5.7 L (6.3-8.2) g/dL Albumin 3.2 L (3.5-5.0) g/dL Serum Alcohol <10 mg/dL 08/30/18 08/30/18 Range/Units 11:14 11:14 WBC (3.8-10.6) k/uL RBC (4.30-5.90) m/uL Hgb (13.0-17.5) gm/dL Hct (39.0-53.0) % MCV (80.0-100.0) fL MCH (25.0-35.0) pg MCHC (31.0-37.0) g/dL RDW (11.5-15.5) % Plt Count (150-450) k/uL Neutrophils % % Lymphocytes % % Monocytes % % Eosinophils % % Basophils % % Neutrophils # (1.3-7.7) k/uL Lymphocytes # (1.0-4.8) k/uL Monocytes # (0-1.0) k/uL Eosinophils # (0-0.7) k/uL Basophils # (0-0.2) k/uL Anisocytosis PT (9.0-12.0) sec INR (<1.2) Sodium (137-145) mmol/L Potassium (3.5-5.1) mmol/L Chloride (98-107) mmol/L Carbon Dioxide (22-30) mmol/L Anion Gap mmol/L BUN (9-20) mg/dL Creatinine (0.66-1.25) mg/dL Est GFR (CKD-EPI)AfAm (>60 ml/min/1.73 sqM) Est GFR (CKD-EPI)NonAf (>60 ml/min/1.73 sqM) Glucose (74-99) mg/dL Calcium (8.4-10.2) mg/dL Total Bilirubin (0.2-1.3) mg/dL AST (17-59) U/L ALT (21-72) U/L Alkaline Phosphatase (38-126) U/L Ammonia <9 (<30) umol/L Troponin I 0.068 H* (0.000-0.034) ng/mL Total Protein (6.3-8.2) g/dL Albumin (3.5-5.0) g/dL Serum Alcohol mg/dL 08/30/18 11:29 EKG shows normal sinus rhythm possible left atrial monitor. Borderline EKG. Ventricular rate 97 bpm. FL interval is 160 ms. QRS duration 94 ms. QT QTC 362/459 ms. - Radiology Data Radiology results: report reviewed Age-related atrophy and chronic small vessel ischemic changes without acute cranial process seen at this time. Chest x-ray shows patchy density in the right medial lung base may reflect developing infiltrate. Disposition Clinical Impression: Uremic encephalopathy, Medication reaction, Hypertensive urgency Disposition: ADMITTED IP TO THIS HOSP Condition: Stable Is patient prescribed a controlled substance at d/c from ED?: No Referrals: Dakotah Decker MD [Primary Care Provider] - 1-2 days Time of Disposition: 13:46
[2018-08-30 11:45] LABS: Anisocytosis Slight; Basophils % (A) 1 %; Eosinophils # (A) 0.3 k/uL (0-0.7); Eosinophils % (A) 4 %; HCT 33.6 % (39.0-53.0); HGB 10.7 gm/dL (13.0-17.5); Lymphocytes # (A) 1.2 k/uL (1.0-4.8); Lymphocytes % (A) 17 %; MCH 26.9 pg (25.0-35.0); MCV 83.9 fL (80.0-100.0); Mean Platelet Volume 6.5; Monocytes # (A) 0.4 k/uL (0-1.0); Monocytes % (A) 6 %; Neutrophils # (A) 4.9 k/uL (1.3-7.7); Neutrophils % (A) 69 %; Platelet Count 347 k/uL (150-450); RDW 16.5 % (11.5-15.5)
[2018-08-30 12:00] LABS: ALT 28 U/L (21-72); AST 23 U/L (17-59); Albumin 3.2 g/dL (3.5-5.0); Alcohol <10 mg/dL; Alkaline Phosphatase 136 U/L (38-126); Anion Gap 15 mmol/L; Blood Urea Nitrogen 68 mg/dL (9-20); Calcium 9.5 mg/dL (8.4-10.2); Carbon Dioxide 25 mmol/L (22-30); Chloride 93 mmol/L (98-107); Glucose 80 mg/dL (74-99); Potassium 5.7 mmol/L (3.5-5.1); Sodium 133 mmol/L (137-145); Total Bilirubin 0.5 mg/dL (0.2-1.3); Total Protein 5.7 g/dL (6.3-8.2)
[2018-08-30 12:11] LABS: Prothrombin Time 10.5 sec (9.0-12.0)
--- NOTE | 2018-08-30 12:20 | CT ---
EXAMINATION TYPE: CT brain wo con DATE OF EXAM: 08/30/2018 COMPARISON: 01/01/2017 HISTORY: confusion, fatigue CT DLP: 1153.[address] of the brain was performed. The ventricles, basal cisterns and sulci overlying the cerebral convexities demonstrate mild enlargem ent. There is no evidence for intracranial hemorrhage or sulcal effacement. There is decreased attenuation about the periventricular white matter and deep white matter of both c erebral hemispheres, compatible with chronic small vessel ischemia. Differential diagnosis does inclu de demyelination. No mass effects are seen.No midline shift. Osseous calvarium is intact. If symptoms persist consider MRI. IMPRESSION: 1. Age related atrophic and chronic small vessel ischemic change without acute intracranial process s een at this time.
--- NOTE | 2018-08-30 12:21 | XR ---
EXAMINATION TYPE: XR chest 2V DATE OF EXAM: 08/30/2018 COMPARISON: 08/22/2018 HISTORY: Shortness of breath TECHNIQUE: Frontal and lateral views of the chest are obtained. FINDINGS: Scattered senescent parenchymal changes noted. Hyperinflation compatible with COPD. Patchy density right medial lung base may reflect developing infiltrate. Heart size is stable. Mediastinal structures are stable and grossly unremarkable. No evidence for hilar prominence. Degenerative changes dorsal spine. IMPRESSION: 1. Patchy density right medial lung base may reflect developing infiltrate.
[2018-08-30] MEDS ORDERED: SODIUM POLYSTYRENE SULFONATE 15 GM/60 ML BOTTLE PO STA (12:50)
[2018-08-30] MEDS ORDERED: hydrALAZINE HCL 20 MG/ML 1 ML VIAL IVP STA (12:50)
[2018-08-30] MEDS ORDERED: NALOXONE 0.4 MG/ML 1 ML VIAL IV PRN (13:47)
[2018-08-30] MEDS ORDERED: ONDANSETRON 4 MG/2 ML VIAL IVP PRN (13:47)
[2018-08-30] MEDS ORDERED: LABETALOL SYRINGE 5 MG/ML IVP SCH (14:00)
[2018-08-30] MEDS: SODIUM CHLORIDE 0.9% 1,000 ML IV SCH ×2 (16:15→22:24)
[2018-08-30] MEDS ORDERED: hydrALAZINE HCL 50 MG TAB PO SCH (16:45)
--- NOTE | 2018-08-30 17:34 | P.HPIM ---
History of Present Illness H&P Date: 08/30/18 Chief Complaint: Confusion, delusion, change mental status, positive reaction to tramadol, e 58-year-old male one of Dr. Decker's patient with past medical history of peritoneal dialysis for end-stage renal disease who is known to have urgent hypertension history. First cardiac heart disease along with cardiopathy and seizure who was hospitalized on 08/19/2018 for difficulty in breathing was treated for 2 days and discharged home to follow in the office according to him for hospital follow-up and complaining of right shoulder pain was prescribed Ultram 50 mg every 6 hours as needed patient has taking total of 3 pills from yesterday developed to have severe confusion delusion hallucination severe abnormal balance and gait and significant change mental status ended up coming to the emergency department at [facility] CT of the brain did not show any abnormality blood pressure was extremely high over 200/110 patient continued to have severe confusion despite the patient has been on tramadol the preauricular to the loss admission not quite sure whether patient was not taking and at the time and starting to more regular basis this time or not ordered this is secondary to something else he is very uremic with BUN to creatinine ratio quite bit high. Had no fall or injury. No sign of infection otherwise. Review of Systems CONSTITUTIONAL: Well-developed no acute respiratory distress. Severely confuse and have mild effusion. EYES: No icterus sclerae, no conjunctivitis. EARS, NOSE, MOUTH, THROAT, and FACE: No sore throat, lymphadenopathy, carotid bruits or deformity. RESPIRATORY: Positive mild shortness of breath no cough or wheezes. CARDIOVASCULAR: Positive PND orthopnea and palpitation. GASTROINTESTINAL: Positive abdominal pain with nausea no vomiting mild constipation no diarrhea positive distention. GENITOURINARY: Negative for Hematuria or UTI, patient is end-stage renal disease on PD. INTEGUMENT/BREAST: Negative for any muscular injury with mild osteoarthritis.. HEMATOLOGIC/LYMPHATIC: Negative for bleed or purpura. MUSCULOSKELTAL: Negative for Myalgia or arthralgia. NEURLOGICAL: Severe confusion and change mental status still moving all his 4 extremity but had severe abnormal balancing gait. BEHAVIORAL/PSYCH: Negative. ENDOCRINE: Negative. Past Medical History Past Medical History: Dialysis, Hyperlipidemia, Hypertension, Renal Disease, Seizure Disorder Additional Past Medical History / Comment(s): Peritonitis with colostomy since reversed, peritoneal dialysis, last seizure 12/2013, low back pain/degenerative disc disease/bulging discs. History of Any Multi-Drug Resistant Organisms: None Reported Past Surgical History: Orthopedic Surgery Additional Past Surgical History / Comment(s): Peritoneal catheters-last one placed in 2016, colostomy with reversal, colonoscopy, bilateral carpal tunnel releases Past Anesthesia/Blood Transfusion Reactions: No Reported Reaction Past Psychological History: No Psychological Hx Reported Smoking Status: Former smoker - Past Family History Mother Family Medical History: Dementia Additional Family Medical History / Comment(s): Mother is alive with history of dementia. Father Family Medical History: Cancer Additional Family Medical History / Comment(s): Father is alive with history of LIVER CANCER and coronary artery disease status post CABG. Patient does not have any brothers or sisters. Medications and Allergies Home Medications Medication Instructions Recorded Confirmed Type Atorvastatin Calcium [Lipitor] 40 mg PO DAILY 01/01/17 08/30/18 History Lisinopril [Prinivil] 20 mg PO BID 01/01/17 08/30/18 History B Complex W-C No.20/Folic Acid 1 mg PO DAILY 08/19/18 08/30/18 History [Renal Caps Softgel] Calcitriol 0.5 mcg PO MOWEFR 08/19/18 08/30/18 History Furosemide [Lasix] 80 mg PO TID 08/19/18 08/30/18 History Gabapentin [Neurontin] 400 mg PO BID 08/19/18 08/30/18 History traMADol HCL [Ultram] 50 mg PO DAILY PRN 08/19/18 08/30/18 History Carvedilol [Coreg] 6.25 mg PO BID-W/MEALS #60 tab 08/22/18 08/30/18 Rx Sevelamer [Renvela] 800 mg PO TID-W/MEALS #90 tab 08/22/18 08/30/18 Rx hydrALAZINE HCL [Apresoline] 25 mg PO TID #90 tab 08/22/18 08/30/18 Rx Allergies Allergy/AdvReac Type Severity Reaction Status Date / Time No Known Allergies Allergy Verified 08/30/18 14:20 Physical Exam Vitals: Vital Signs Temp Pulse Resp BP Pulse Ox 08/30/18 16:00 106 H 16 193/108 100 08/30/18 15:00 105 H 16 188/109 99 08/30/18 14:36 95 16 188/105 98 08/30/18 14:00 98 16 212/132 99 08/30/18 13:00 97 14 211/132 98 08/30/18 12:00 84 14 216/132 98 08/30/18 11:30 92 16 208/146 95 08/30/18 11:15 93 14 208/146 97 08/30/18 11:12 97.9 F 98 20 208/146 96 08/30/18 11:05 100 21 99 Intake and Output 08/30/18 08/30/18 08/30/18 06:59 14:59 22:59 Other: Weight 94.347 kg General Appearance: Alert, severely confuse look although than his age in no acute respiratory distress. Neck HEENT: Supple, no lymphadenopathy, no thyroid enlargement, no carotid bruits. Lungs: Decreased breath some bilaterally without crackles or wheezes no rhonchi, no deformity. Chest Wall: Decrease expansion with deep inspiration no tenderness and no deformity was found on exam, no costochondral pain or discomfort. Heart: Regular rate and rhythm, S1, S2 positive S3 positive tachycardia with systolic murmur, no rub or gallop. Back: Symmetric, no curvature, ROM normal, no CVA tenderness. Abdomen: Soft, non-tender, bowel sounds active all four quadrants, slight distention with ascites from PD fluid. Extremities: Trace edema decreased pulse positive mild arthritis in both knees, right shoulder had mild restriction to motion especially rotation. Pulses: 2+ and symmetric. Skin: Skin color, texture, tugor normal, no rashes or lesions. Neurologic: Alert oriented with significant confusion and effusion abnormal balancing gait his speech still normal still moving all his 4 extremities with overall generalized weakness. Results CBC & Chem 7: 08/30/18 11:14 08/30/18 11:14 Labs: Abnormal Lab Results - Last 24 Hours (Table) 08/30/18 08/30/18 08/30/18 Range/Units 11:14 11:14 11:14 RBC 4.00 L (4.30-5.90) m/uL Hgb 10.7 L (13.0-17.5) gm/dL Hct 33.6 L (39.0-53.0) % RDW 16.5 H (11.5-15.5) % Sodium 133 L (137-145) mmol/L Potassium 5.7 H (3.5-5.1) mmol/L Chloride 93 L (98-107) mmol/L BUN 68 H (9-20) mg/dL Creatinine 12.68 H* (0.66-1.25) mg/dL Alkaline Phosphatase 136 H (38-126) U/L Troponin I 0.068 H* (0.000-0.034) ng/mL Total Protein 5.7 L (6.3-8.2) g/dL Albumin 3.2 L (3.5-5.0) g/dL Thrombosis Risk Factor Assmnt - DVT/VTE Prophylaxis DVT/VTE Prophylaxis: Pharmacologic Prophylaxis ordered, Mechanical Prophylaxis ordered Assessment and Plan Plan: 1 severe change mental status: TIA versus encephalopathy versus hypertensive crisis causing worsening symptom versus reaction to medication. Patient will be hospitalized, will be seen urology, DC tramadol, control the blood pressure well and to be reevaluated by tomorrow. 2 encephalopathy with possible reaction to tramadol versus uremic encephalopathy, with patient believes his cause of the problem, despite that patient has been on tramadol previously looks as an old medication and his last admission list but apparently was not using it that often and he uses 3 of them in a short period of time which according to him what cause a problem, will continue hydration, continue PD exchange, consult nephrology and allowing medication to her out of his body overnight. 3 urgent hypertension and hypertensive crisis: We will titrate hydralazine up to 50 mg 3 times a day, continue patient on lisinopril 20 mg twice a day and Coreg 6.25 mg twice a day and will add Vasotec 2.5 mg IV every 6 hour for systolic above 160 if needed increase hydralazine to total of 100 mg 3 times a day and furthermore patient previously was on clonidine and amlodipine not clear why they're off at this point. This can be added to the blood pressure remain elevated. 4 elevated troponin: Repeat troponin in the morning we'll consult cardiology keep watching for any major change on ekg monitor if elevated troponin remain patient might need to have further cardiac testing. 5 end-stage renal disease on CAPD, and consult nephrology continue PD exchange. 6 chronic neuropathy: Was on gabapentin with the current episode with a confusion gabapentin will be held for now. 7 Right shoulder pain with degenerative disc disease, patient will be off gabapentin and Ultram for now might benefit from smaller dose of anti- inflammatory after he feel decent. 8 hyperlipidemia: Continue atorvastatin at 40 mg daily. 9 chronic edema: Has been on Lasix 80 mg 3 times a day. 10 history of seizure: No seizure activity lately has been stable. GI prophylaxis: Patient be on Pepcid 20 mg daily. DVT prophylaxis: Early mobilization and knee-high DWAIN hose. CODE STATUS: Full code. Admit patient to inpatient status for more than 2 nights.
[2018-08-30] MEDS: LABETALOL SYRINGE 5 MG/ML IVP PRN (17:57)
[2018-08-30] MEDS ORDERED: hydrALAZINE HCL 20 MG/ML 1 ML VIAL IVP SCH (18:00)
[2018-08-30] MEDS: CARVEDILOL 6.25 MG TAB PO SCH (18:03)
[2018-08-30 18:12] LABS: Glucose,Whole Blood 96 mg/dL (75-99)
[2018-08-30] MEDS: LABETALOL 200 MG in SODIUM CHLORIDE 0.9% 160 ML IV SCH ×2 (18:37→21:49)
[2018-08-30] MEDS: SEVELAMER 800 MG TAB PO SCH (18:58)
[2018-08-30] MEDS: DIALYSIS (PERIT 2.5%) 2,000 ML 50 G/2,000 ML BAG INTRAPERIT SCH (19:06)
[2018-08-30] MEDS: CALCITRIOL 0.25 MCG CAP PO SCH (20:26)
[2018-08-30] MEDS: hydrALAZINE HCL 25 MG TAB PO SCH (20:27)
[2018-08-30] MEDS: LISINOPRIL 20 MG TAB PO SCH (20:27)
[2018-08-30] MEDS: GABAPENTIN 400 MG CAP PO SCH (20:27)
[2018-08-30] MEDS ORDERED: BACLOFEN 10 MG TAB PO PRN (21:37)
[2018-08-30] MEDS: FUROSEMIDE 80 MG TAB PO SCH (21:49)
[2018-08-30 23:02] LABS: Glucose,Whole Blood 125 mg/dL (75-99)
[2018-08-31] MEDS: DIALYSIS (PERIT 2.5%) 2,000 ML 50 G/2,000 ML BAG INTRAPERIT SCH ×2 (00:47→06:22)
[2018-08-31] MEDS: LABETALOL 200 MG in SODIUM CHLORIDE 0.9% 160 ML IV SCH ×2 (01:27→06:32)
[2018-08-31 05:29] LABS: Anisocytosis Slight; Basophils % (A) 1 %; Eosinophils # (A) 0.2 k/uL (0-0.7); Eosinophils % (A) 3 %; HGB 9.8 gm/dL (13.0-17.5); Lymphocytes # (A) 0.9 k/uL (1.0-4.8); Lymphocytes % (A) 13 %; MCH 27.2 pg (25.0-35.0); MCHC 31.7 g/dL (31.0-37.0); MCV 85.8 fL (80.0-100.0); Monocytes # (A) 0.4 k/uL (0-1.0); Monocytes % (A) 5 %; Neutrophils # (A) 5.6 k/uL (1.3-7.7); Neutrophils % (A) 77 %; Platelet Count 288 k/uL (150-450); RBC 3.61 m/uL (4.30-5.90); RDW 16.2 % (11.5-15.5); WBC 7.3 k/uL (3.8-10.6)
[2018-08-31 05:48] LABS: Calcium 8.9 mg/dL (8.4-10.2); Magnesium 1.6 mg/dL (1.6-2.3); Phosphorus 7.4 mg/dL (2.5-4.5); Potassium 4.6 mmol/L (3.5-5.1)
[2018-08-31] MEDS: CARVEDILOL 6.25 MG TAB PO SCH ×2 (07:14→17:59)
--- NOTE | 2018-08-31 09:19 | XR ---
EXAMINATION TYPE: XR chest 1V DATE OF EXAM: 08/31/2018 COMPARISON: 08/30/2018 INDICATION: Acute mental status change, dizziness TECHNIQUE: Single frontal view of the chest is obtained. FINDINGS: The heart size is enlarged. The pulmonary vasculature is normal. Minimal infiltrate may be at the right base. This appears somewhat improved from comparison. Mild ret rocardiac infiltrate is not entirely excluded but similar to prior study. IMPRESSION: 1. Suggestion of minimal and/or improving bibasilar infiltrates. 2. Cardiomegaly
[2018-08-31] MEDS: FAMOTIDINE 20 MG TAB PO SCH (09:24)
[2018-08-31] MEDS: SEVELAMER 800 MG TAB PO SCH ×4 (09:24→17:59)
[2018-08-31] MEDS: hydrALAZINE HCL 25 MG TAB PO SCH ×4 (09:24→21:12)
[2018-08-31] MEDS: ATORVASTATIN 40 MG TAB PO SCH ×2 (09:24→12:33)
[2018-08-31] MEDS: LISINOPRIL 20 MG TAB PO SCH ×3 (09:24→21:11)
[2018-08-31] MEDS: FUROSEMIDE 80 MG TAB PO SCH ×4 (09:24→21:12)
[2018-08-31] MEDS: GABAPENTIN 400 MG CAP PO SCH ×3 (09:24→21:11)
[2018-08-31] MEDS: FOLIC ACID-VIT B COMPLEX-VIT C 1 CAP PO SCH (09:24)
[2018-08-31] MEDS: PANTOPRAZOLE 40 MG/10 ML VIAL IV SCH (09:25)
[2018-08-31] MEDS: hydrALAZINE HCL 20 MG/ML 1 ML VIAL IVP PRN ×3 (09:42→23:37)
[2018-08-31 11:12] LABS: ABG Base Excess 3.5 mmol/L; ABG HCO3 27 mmol/L (21-25); ABG Oxygen Saturation 94.3 % (94-97); ABG PCO2 34 mmHg (35-45); ABG PH 7.51 (7.35-7.45); ABG PO2 68 mmHg (83-108); ABG TCO2 28 mmol/L (19-24)
--- NOTE | 2018-08-31 11:26 | P.NPCON ---
History of Present Illness - Reason for Consult Consult date: 08/31/18 end stage renal disease - Chief Complaint encephalopathy - History of Present Illness This is a 58-year-old male with ESRD on peritoneal dialysis. He was admitted with history of feeling unwell after taking tramadol perhaps 1 or 2 tablets. He complained of lethargy. He became more confused here in the hospital overnight. Currently he is drowsy with agitation and restlessness. His blood pressure on admission was 156/95 at 1433 hrs. highest blood pressure recorded yesterday at 1800 hrs. was 222/117. A computed tomography scan of the brain is unremarkable He does have mild degree of vesicular eruption suggestive of zoster on his left lower rib cage posteriorly with most lesions have crusted. He does have a history of noncompliance with dialysis especially when he goes to [facility] for his transplant related workup. I discussed this with the PD nurse who came in these details. Supposedly [facility] and [facility] systems have declined transplant possibilities. The reason for this being vascular calcifications but these details are not very clear. He is known with seizure disorder, hypertension, hyperlipidemia colostomy reversals back pain. He has been on peritoneal dialysis approximately 2017. Past Medical History Past Medical History: Dialysis, Hyperlipidemia, Hypertension, Renal Disease, Seizure Disorder Additional Past Medical History / Comment(s): Peritonitis with colostomy since reversed, peritoneal dialysis, last seizure 12/2013, low back pain/degenerative disc disease/bulging discs. History of Any Multi-Drug Resistant Organisms: None Reported Past Surgical History: Orthopedic Surgery Additional Past Surgical History / Comment(s): Peritoneal catheters-last one placed in 2016, colostomy with reversal, colonoscopy, bilateral carpal tunnel releases Past Anesthesia/Blood Transfusion Reactions: No Reported Reaction Past Psychological History: No Psychological Hx Reported Smoking Status: Former smoker - Past Family History Mother Family Medical History: Dementia Additional Family Medical History / Comment(s): Mother is alive with history of dementia. Father Family Medical History: Cancer Additional Family Medical History / Comment(s): Father is alive with history of LIVER CANCER and coronary artery disease status post CABG. Patient does not have any brothers or sisters. Medications and Allergies Home Medications Medication Instructions Recorded Confirmed Type Atorvastatin Calcium [Lipitor] 40 mg PO DAILY 01/01/17 08/30/18 History Lisinopril [Prinivil] 20 mg PO BID 01/01/17 08/30/18 History B Complex W-C No.20/Folic Acid 1 mg PO DAILY 08/19/18 08/30/18 History [Renal Caps Softgel] Calcitriol 0.5 mcg PO MOWEFR 08/19/18 08/30/18 History Furosemide [Lasix] 80 mg PO TID 08/19/18 08/30/18 History Gabapentin [Neurontin] 400 mg PO BID 08/19/18 08/30/18 History traMADol HCL [Ultram] 50 mg PO DAILY PRN 08/19/18 08/30/18 History Carvedilol [Coreg] 6.25 mg PO BID-W/MEALS #60 tab 08/22/18 08/30/18 Rx Sevelamer [Renvela] 800 mg PO TID-W/MEALS #90 tab 08/22/18 08/30/18 Rx hydrALAZINE HCL [Apresoline] 25 mg PO TID #90 tab 08/22/18 08/30/18 Rx Allergies Allergy/AdvReac Type Severity Reaction Status Date / Time No Known Allergies Allergy Verified 08/30/18 14:20 Physical Exam Vitals: Vital Signs Temp Pulse Pulse Resp BP BP Pulse Ox 08/31/18 10:00 15 141/81 92 L 08/31/18 09:30 71 15 158/101 93 L 08/31/18 09:00 74 16 92 L 08/31/18 08:30 97.6 F 73 26 H 158/91 93 L 08/31/18 08:00 75 21 133/94 91 L 08/31/18 07:30 78 16 146/112 95 08/31/18 07:07 71 16 140/87 93 L 08/31/18 07:00 73 20 145/92 90 L 08/31/18 06:45 78 14 164/98 92 L 08/31/18 06:30 77 11 L 135/97 95 08/31/18 06:25 97.7 F 77 18 164/98 94 L 08/31/18 06:15 79 19 123/79 91 L 08/31/18 06:00 75 25 H 119/68 88 L 08/31/18 05:45 71 15 135/75 90 L 08/31/18 05:30 76 14 129/92 89 L 08/31/18 05:15 77 17 139/96 92 L 08/31/18 05:00 81 20 156/90 91 L 08/31/18 04:45 76 18 156/93 92 L 08/31/18 04:30 71 14 151/96 93 L 08/31/18 04:15 80 20 153/94 93 L 08/31/18 04:00 80 21 120/101 94 L 08/31/18 03:46 80 18 127/105 93 L 08/31/18 03:30 81 20 136/88 94 L 08/31/18 03:15 82 18 136/88 94 L 08/31/18 03:00 76 4 L 116/70 87 L 08/31/18 02:45 72 16 130/110 89 L 08/31/18 02:30 132/86 95 08/31/18 02:15 78 22 138/93 86 L 08/31/18 02:00 81 43 H 144/97 91 L 08/31/18 01:45 80 17 169/98 86 L 08/31/18 01:35 88 16 169/98 93 L 08/31/18 01:30 83 11 L 162/90 88 L 08/31/18 01:15 89 13 93 L 08/31/18 01:10 86 11 L 96 08/31/18 01:00 88 50 H 175/108 95 08/31/18 00:50 97.8 F 84 18 175/108 94 L 08/31/18 00:40 80 5 L 149/95 95 08/31/18 00:30 85 35 H 151/89 95 08/31/18 00:20 87 13 151/89 93 L 08/31/18 00:10 88 65 H 157/105 96 08/31/18 00:00 97.8 F 86 28 H 162/104 92 L 08/30/18 23:50 84 28 H 162/104 93 L 08/30/18 23:40 86 23 142/86 95 08/30/18 23:30 81 14 158/96 94 L 08/30/18 23:20 79 24 158/96 94 L 08/30/18 23:10 75 19 102/70 93 L 08/30/18 23:00 73 11 L 90/53 94 L 08/30/18 22:50 69 11 L 79/57 93 L 08/30/18 22:40 74 32 H 149/117 96 08/30/18 22:30 81 14 161/101 93 L 08/30/18 22:20 83 16 161/101 94 L 08/30/18 22:10 80 22 165/110 93 L 08/30/18 22:04 82 31 H 165/110 94 L 08/30/18 22:00 82 25 H 141/97 92 L 08/30/18 21:45 80 17 148/89 94 L 08/30/18 21:30 77 12 146/115 95 08/30/18 21:15 81 13 172/107 95 08/30/18 21:00 79 24 153/100 96 08/30/18 20:45 81 9 L 152/91 95 08/30/18 20:30 81 21 157/102 96 08/30/18 20:15 83 22 156/95 96 08/30/18 20:00 97.7 F 80 9 L 153/97 95 08/30/18 19:50 81 14 160/100 95 08/30/18 19:40 78 12 161/101 93 L 08/30/18 19:30 83 16 165/106 94 L 08/30/18 19:20 82 12 168/105 93 L 08/30/18 19:15 97.6 F 89 16 165/106 92 L 08/30/18 19:10 86 16 177/107 90 L 08/30/18 19:00 86 12 170/112 94 L 08/30/18 18:50 87 16 181/113 93 L 08/30/18 18:40 97.6 F 89 16 177/103 96 08/30/18 18:01 98 F 109 H 18 209/123 100 08/30/18 18:00 98.5 F 111 H 18 222/117 100 08/30/18 16:00 106 H 16 193/108 100 08/30/18 15:00 105 H 16 188/109 99 08/30/18 14:36 95 16 188/105 98 08/30/18 14:33 97.6 F 81 22 156/95 95 08/30/18 14:00 98 16 212/132 99 08/30/18 13:00 97 14 211/132 98 08/30/18 12:00 84 14 216/132 98 08/30/18 11:30 92 16 208/146 95 08/30/18 11:15 93 14 208/146 97 05/24/19 11:12 97.9 F 98 20 208/146 96 08/30/18 11:05 100 21 99 Intake and Output 08/30/18 08/31/18 08/31/18 22:59 06:59 14:59 Intake Total 710.0 1010 280 Output Total 0 Balance 710.0 1010 280 Intake: IV 60 160 80 Sodium Chloride 0.9% 1, 60 160 80 000 ml @ 20 mls/hr IV . Q24H ANY Rx#:[id number] Intake, IV Titration 200.0 400 200 Amount Labetalol 200 mg In 200.0 400 200 Sodium Chloride 0.9% 160 ml @ 0.5 MG/MIN 30 mls/hr IV .Q6H40M ANY Rx#: [id number] Oral 450 450 Output: Urine 0 Other: # Bowel Movements 1 Weight 97.9 kg On exam concurrently his somnolent somewhat restless and at times agitated. HEENT exam pupils are equal, neck is supple no facial asymmetry Lungs are clear to auscultation fair air entry bilaterally Heart sounds are unremarkable for any murmur rub gallop Abdomen is soft nontender PD exit site is clear Extremity exam was no edema Neurologically as mentioned above. Results - Lab Results Most recent lab results Calcium 8.9 mg/dL (8.4-10.2) 08/31/18 05:11 Phosphorus 7.4 mg/dL (2.5-4.5) H 08/31/18 05:11 Magnesium 1.6 mg/dL (1.6-2.3) 08/31/18 05:11 08/31/18 05:11 08/31/18 05:11 Assessment and Plan Assessment: Impression 1. ESRD, on peritoneal dialysis. Known with noncompliance with dialysis. 2. Admitted with changes in mental status worsening after taking perhaps 1-2 tramadol. Possibilities off uremia because of missing dialysis is also con sidered, given his history of noncompliance after talking to his dialysis nursing staff. Seizure disorder and status epilepticus needs to be ruled out as well as her face and capsulitis. 3. Seizure disorders. 4. Anemia of chronic kidney disease hemoglobin went down from 10.7-9.8 possibly secondary to dilution. 5. Noncompliance. 6. Hyperphosphatemia from ESRD 7. Uncontrolled hypertension, now improved. Recommendation 1. Start Acyclovir IV to cover for remote possibility of Herpes Encephalitis, 2. Ensure adequate dialysis will increase his dialysis to 6 exchanges of 1.5% 2500 mL with close monitoring of ultrafiltration. 2. Would recommend urgent neurology consult and possible lumbar puncture to rule out herpes encephalitis. 3. Avoid any sedatives narcotics. 4. Maintain blood pressure, we can use IV labetalol drip if needed and aim for blood pressure of around 120-140. Additional IV vasotech if needed
[2018-08-31 12:45] LABS: Glucose,Whole Blood 103 mg/dL (75-99)
[2018-08-31] MEDS ORDERED: DIALYSIS (PERIT 1.5%) 2,500 ML 37.5 G/2,500 ML BAG INTRAPERIT SCH (13:00)
[2018-08-31 13:01] LABS: Glucose,CSF 63 mg/dL (40-70); Total Protein,CSF 56 mg/dL (12-60)
--- NOTE | 2018-08-31 13:03 | P.PN ---
Subjective Progress Note Date: 08/31/18 This is a 58 rolled male one of my patient with a previous medical history significant for end-stage renal disease on PD any scheduled for possible renal transplant for which she has been traveling back and forth to [place], in between he has been missing his PD in [place], patient was recently hospitalized at [facility] because of accelerated hypertension with metabolic and hypertensive encephalopathy and he came to my office for follow-up and his blood pressure was well controlled in the range of 130/75, patient was maintained on hydralazine carvedilol amlodipine and lisinopril as well, patient developed to have shingles in the left lower back for which she was treated with tramadol and antiviral medication at the urgent care clinic, and the patient apparently was taken these pills along with his gabapentin he ended up coming to the emergency department because of significant mental status changes without evidence of any seizure activity however he had a computed tomography scan of the brain did not show any evidence of acute of normalities, patient was admitt ed to the hospital initially to the cardiac floor however he developed to have a significant accelerated hypertension we gave the order for the nursing staff to put him on labetalol drip at 0.5 mg/m that was titrated to 1.5 mg/m and subsequently was taken off of it he was transferred to the intensive care unit he was seen in consultation by nephrology as well as internet assessor Dr. Montgomery he was recommended for the patient to be intubated because of severe mental status changes and an LP to be done to rule out any herpes encephalitis, his mental status changes likely related to his medication patient did receive a dose of baclofen and the dose of Requip last night along with his gabapentin and tramadol. Objective - Vital Signs Vital signs: Vital Signs Temp 97.7 F 08/31/18 06:25 Pulse 71 08/31/18 07:07 Resp 16 08/31/18 07:07 BP 140/87 08/31/18 07:07 Pulse Ox 93 L 08/31/18 07:07 Intake & Output 08/30/18 08/31/18 08/31/18 18:59 06:59 18:59 Intake Total 11 1709.0 20 Output Total 0 Balance 11 1709.0 20 Weight 94.347 kg 97.9 kg Intake: IV 220 20 Sodium Chloride 0.9% 1, 220 20 000 ml @ 20 mls/hr IV . Q24H ANY Rx#:[id number] Intake, IV Titration 11 589.0 Amount Labetalol 200 mg In 11 589.0 Sodium Chloride 0.9% 160 ml @ 0.5 MG/MIN 30 mls/hr IV .Q6H40M ANY Rx#: [id number] Oral 900 Output: Urine 0 - Exam General Appearance: Patient is stuporous with raw to verbal stimuli but does not follow any commands. Neck HEENT: Supple, no lymphadenopathy, no thyroid enlargement, no carotid bruits. Lungs: Decreased breath some bilaterally without crackles or wheezes no rhonchi, no deformity. Chest Wall: Decrease expansion with deep inspiration no tenderness and no deformity was found on exam, no costochondral pain or discomfort. Heart: Regular rate and rhythm, S1, S2 positive S3 positive tachycardia with systolic murmur, no rub or gallop. Back: Symmetric, no curvature, ROM normal, no CVA tenderness, there was crusted lesions in the left lower back. Abdomen: Soft, non-tender, bowel sounds active all four quadrants, slight distention with ascites from PD fluid, PD catheter is in place. Extremities: Trace edema decreased pulse positive mild arthritis in both knees, right shoulder had mild restriction to motion especially rotation. Pulses: 1+ and symmetric. Skin: Skin color, texture, tugor normal, no rashes or lesions. Neurologic: Patient is stuporous does not follow any commands with brought to verbal stimuli and painful semi-and muscle twitches on and off without evidence of acute seizure. - Labs CBC & Chem 7: 08/31/18 05:11 08/31/18 05:11 Labs: Abnormal Lab Results - Last 24 Hours (Table) 08/30/18 08/30/18 08/30/18 Range/Units 11:14 11:14 11:14 RBC 4.00 L (4.30-5.90) m/uL Hgb 10.7 L (13.0-17.5) gm/dL Hct 33.6 L (39.0-53.0) % RDW 16.5 H (11.5-15.5) % Lymphocytes # (1.0-4.8) k/uL Sodium 133 L (137-145) mmol/L Potassium 5.7 H (3.5-5.1) mmol/L Chloride 93 L (98-107) mmol/L BUN 68 H (9-20) mg/dL Creatinine 12.68 H* (0.66-1.25) mg/dL Glucose (74-99) mg/dL POC Glucose (mg/dL) (75-99) mg/dL Phosphorus (2.5-4.5) mg/dL Alkaline Phosphatase 136 H (38-126) U/L Troponin I 0.068 H* (0.000-0.034) ng/mL Total Protein 5.7 L (6.3-8.2) g/dL Albumin 3.2 L (3.5-5.0) g/dL 08/30/18 08/31/18 08/31/18 Range/Units 22:51 05:11 05:11 RBC 3.61 L (4.30-5.90) m/uL Hgb 9.8 L (13.0-17.5) gm/dL Hct 31.0 L (39.0-53.0) % RDW 16.2 H (11.5-15.5) % Lymphocytes # 0.9 L (1.0-4.8) k/uL Sodium 129 L (137-145) mmol/L Potassium (3.5-5.1) mmol/L Chloride 93 L (98-107) mmol/L BUN 68 H (9-20) mg/dL Creatinine 12.28 H* (0.66-1.25) mg/dL Glucose 110 H (74-99) mg/dL POC Glucose (mg/dL) 125 H (75-99) mg/dL Phosphorus 7.4 H (2.5-4.5) mg/dL Alkaline Phosphatase (38-126) U/L Troponin I (0.000-0.034) ng/mL Total Protein (6.3-8.2) g/dL Albumin (3.5-5.0) g/dL Assessment and Plan Assessment: Assessment and plan: 1. Metabolic encephalopathy thought to be due to medication side effects including tramadol, Requip, baclofen, and gabapentin, cannot rule out herpes encephalitis in view of his recent zoster infection. Stat neurological consultation, discussed with ICU team to intubate the patient to protect his airways and to do lumbar puncture for evaluation and encephalitis panel along with routine testing on this her prescribed fluid will be done. Then we'll s tart the patient on a cyclic year IV piggyback until the results back. Discontinue Requip discontinue baclofen discontinue gabapentin discontinue tramadol. 2. Accelerated hypertension. Patient was initially on labetalol drip subsequently was taken off of that and is currently on hydralazine IV pushes. His blood pressure is much better now. 3. And stage renal disease on peritoneal dialysis. Patient was seen in consultation by nephrology will go for 6 exchanges and a daily basis. 4. Recent herpes zoster. Lesions appear to be crusted. 5. 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 Stable at this time. 6. History of seizure disorder. Currently not taking any medication at this time. 7. Hypertension and hypertensive cardiovascular disease. Continue treatment as in paragraph #2. 8. Hyperlipidemia. Continue patient on Lipitor 40 mg orally once every day. 9. Peripheral neuropathy. Hold gabapentin for now. 10. Secondary hyperparathyroidism. Monitor the patient calcium and phosphorus. 11. DVT prophylaxis. Heparin 5000 units subcutaneously every 12 hours. 12. GI prophylaxis. Continue patient on PPI. 13. Prognosis very guarded. 14. Patient is full code.
--- NOTE | 2018-08-31 13:12 | P.CNPUL ---
History of Present Illness Consult date: 08/31/18 Chief complaint: Altered mental status History of present illness: 58-year-old male patient comes in to the ICU with altered mental status. The patient has been dysarthric, unable to cardiac embolization, has some difficulties with answering questions and he is not oriented to time and place and apparently his condition got worse since he came in to the ICU. He is very much confused. He was apparently having some delusions and hallucinations earlier. His balance is off and is unable to walk and he became progressively more somnolent and sleepy. The patient is currently in the intensive care unit. CAT scan of the brain that was done showed no acute abnormalities. The patient had a hypertensive reaction time of admission and hypertensive encephalopathy was considered. His blood pressure was initially 200/110 and the patient was started on labetalol drip for blood pressure control. This morning his BP is under better control and a labetalol drip was weaned off and possibly will be discontinued. He was able to swallow some of his oral medication and as his mental status Worse, I doubt she'll be able to take some of his medications. No neck stiffness. No fever. No headaches. There is an area of shingles over the posterior back which has a dermatomal distribution. The vesicles that are somewhat encrusted. The patient has peritoneal dialysis regarding hypertensive nephropathy an incisional disease. He uses 4 exchanges with 2.5 solution. No evidence of any respiratory distress. No cough or sputum production. No abdominal pain. The peritoneal fluid is clean. There is no significant abnormality or erythema around the peritoneal tube catheter. The patient has no significant leukocytosis Review of Systems ROS unobtainable: due to mental status Past Medical History Past Medical History: Dialysis, Hyperlipidemia, Hypertension, Renal Disease, Seizure Disorder Additional Past Medical History / Comment(s): End-stage renal disease on peritoneal dialysis, hypertension, hypertensive heart disease with concentric LVH, hypertension, hyperlipidemia, history of seizure disorder, chronic back pain, degenerative disc disease, history of bowel resection with colostomy and subsequent reversal History of Any Multi-Drug Resistant Organisms: None Reported Past Surgical History: Orthopedic Surgery Additional Past Surgical History / Comment(s): Peritoneal catheters-last one placed in 2017, colostomy with reversal, colonoscopy, bilateral carpal tunnel releases Past Anesthesia/Blood Transfusion Reactions: No Reported Reaction Past Psychological History: No Psychological Hx Reported Smoking Status: Former smoker - Past Family History Mother Family Medical History: Dementia Additional Family Medical History / Comment(s): Mother is alive with history of dementia. Father Family Medical History: Cancer Additional Family Medical History / Comment(s): Father is alive with history of LIVER CANCER and coronary artery disease status post CABG. Patient does not have any brothers or sisters. Medications and Allergies Home Medications Medication Instructions Recorded Confirmed Type Atorvastatin Calcium [Lipitor] 40 mg PO DAILY 01/01/17 08/30/18 History Lisinopril [Prinivil] 20 mg PO BID 01/01/17 08/30/18 History B Complex W-C No.20/Folic Acid 1 mg PO DAILY 08/19/18 08/30/18 History [Renal Caps Softgel] Calcitriol 0.5 mcg PO MOWEFR 08/19/18 08/30/18 History Furosemide [Lasix] 80 mg PO TID 08/19/18 08/30/18 History Gabapentin [Neurontin] 400 mg PO BID 08/19/18 08/30/18 History traMADol HCL [Ultram] 50 mg PO DAILY PRN 08/19/18 08/30/18 History Carvedilol [Coreg] 6.25 mg PO BID-W/MEALS #60 tab 08/22/18 08/30/18 Rx Sevelamer [Renvela] 800 mg PO TID-W/MEALS #90 tab 08/22/18 08/30/18 Rx hydrALAZINE HCL [Apresoline] 25 mg PO TID #90 tab 08/22/18 08/30/18 Rx Allergies Allergy/AdvReac Type Severity Reaction Status Date / Time No Known Allergies Allergy Verified 08/30/18 14:20 Physical Exam Vitals: Vital Signs Temp Pulse Pulse Resp BP BP Pulse Ox 08/31/18 12:00 68 13 150/85 98 08/31/18 11:30 71 12 143/89 96 08/31/18 11:00 82 18 124/78 92 L 08/31/18 10:30 71 18 117/67 94 L 08/31/18 10:00 15 141/81 92 L 08/31/18 09:30 71 15 158/101 93 L 08/31/18 09:00 74 16 92 L 08/31/18 08:30 97.6 F 73 26 H 158/91 93 L 08/31/18 08:00 75 21 133/94 91 L 08/31/18 07:30 78 16 146/112 95 08/31/18 07:07 71 16 140/87 93 L 08/31/18 07:00 73 20 145/92 90 L 08/31/18 06:45 78 14 164/98 92 L 08/31/18 06:30 77 11 L 135/97 95 08/31/18 06:25 97.7 F 77 18 164/98 94 L 08/31/18 06:15 79 19 123/79 91 L 08/31/18 06:00 75 25 H 119/68 88 L 08/31/18 05:45 71 15 135/75 90 L 08/31/18 05:30 76 14 129/92 89 L 08/31/18 05:15 77 17 139/96 92 L 08/31/18 05:00 81 20 156/90 91 L 08/31/18 04:45 76 18 156/93 92 L 08/31/18 04:30 71 14 151/96 93 L 08/31/18 04:15 80 20 153/94 93 L 08/31/18 04:00 80 21 120/101 94 L 08/31/18 03:46 80 18 127/105 93 L 08/31/18 03:30 81 20 136/88 94 L 08/31/18 03:15 82 18 136/88 94 L 08/31/18 03:00 76 4 L 116/70 87 L 08/31/18 02:45 72 16 130/110 89 L 08/31/18 02:30 132/86 95 08/31/18 02:15 78 22 138/93 86 L 08/31/18 02:00 81 43 H 144/97 91 L 08/31/18 01:45 80 17 169/98 86 L 08/31/18 01:35 88 16 169/98 93 L 08/31/18 01:30 83 11 L 162/90 88 L 08/31/18 01:15 89 13 93 L 08/31/18 01:10 86 11 L 96 08/31/18 01:00 88 50 H 175/108 95 08/31/18 00:50 97.8 F 84 18 175/108 94 L 08/31/18 00:40 80 5 L 149/95 95 08/31/18 00:30 85 35 H 151/89 95 08/31/18 00:20 87 13 151/89 93 L 08/31/18 00:10 88 65 H 157/105 96 08/31/18 00:00 97.8 F 86 28 H 162/104 92 L 08/30/18 23:50 84 28 H 162/104 93 L 08/30/18 23:40 86 23 142/86 95 08/30/18 23:30 81 14 158/96 94 L 08/30/18 23:20 79 24 158/96 94 L 08/30/18 23:10 75 19 102/70 93 L 08/30/18 23:00 73 11 L 90/53 94 L 08/30/18 22:50 69 11 L 79/57 93 L 08/30/18 22:40 74 32 H 149/117 96 08/30/18 22:30 81 14 161/101 93 L 08/30/18 22:20 83 16 161/101 94 L 08/30/18 22:10 80 22 165/110 93 L 08/30/18 22:04 82 31 H 165/110 94 L 08/30/18 22:00 82 25 H 141/97 92 L 08/30/18 21:45 80 17 148/89 94 L 08/30/18 21:30 77 12 146/115 95 08/30/18 21:15 81 13 172/107 95 08/30/18 21:00 79 24 153/100 96 08/30/18 20:45 81 9 L 152/91 95 08/30/18 20:30 81 21 157/102 96 08/30/18 20:15 83 22 156/95 96 08/30/18 20:00 97.7 F 80 9 L 153/97 95 08/30/18 19:50 81 14 160/100 95 08/30/18 19:40 78 12 161/101 93 L 08/30/18 19:30 83 16 165/106 94 L 08/30/18 19:20 82 12 168/105 93 L 08/30/18 19:15 97.6 F 89 16 165/106 92 L 08/30/18 19:10 86 16 177/107 90 L 08/30/18 19:00 86 12 170/112 94 L 08/30/18 18:50 87 16 181/113 93 L 08/30/18 18:40 97.6 F 89 16 177/103 96 08/30/18 18:01 98 F 109 H 18 209/123 100 08/30/18 18:00 98.5 F 111 H 18 222/117 100 08/30/18 16:00 106 H 16 193/108 100 08/30/18 15:00 105 H 16 188/109 99 08/30/18 14:36 95 16 188/105 98 08/30/18 14:33 97.6 F 81 22 156/95 95 08/30/18 14:00 98 16 212/132 99 Intake and Output 08/30/18 08/31/18 08/31/18 22:59 06:59 14:59 Intake Total 710.0 1010 320 Output Total 0 Balance 710.0 1010 320 Intake: IV 60 160 120 Sodium Chloride 0.9% 1, 60 160 120 000 ml @ 20 mls/hr IV . Q24H ANY Rx#:[id number] Intake, IV Titration 200.0 400 200 Amount Labetalol 200 mg In 200.0 400 200 Sodium Chloride 0.9% 160 ml @ 0.5 MG/MIN 30 mls/hr IV .Q6H40M ANY Rx#: [id number] Oral 450 450 Output: Urine 0 Other: # Bowel Movements 1 Weight 97.9 kg Gen. appearance the patient is stuporous, confused, unable to talk and carry conversation, unable to follow commands and is becoming progressively more sleepy and lethargic. No seizure activity has been noted. Occasionally startles and jerks. Head exam was generally normal. There was no scleral icterus or corneal arcus. Mucous membranes were moist. Neck was supple and without jugular venous distension, thyromegaly, or carotid bruits. Carotids were easily palpable bilaterally. There was no adenopathy. Lungs: Decreased breath some bilaterally without crackles or wheezes no rhonchi, no deformity. Chest Wall: Decrease expansion with deep inspiration no tenderness and no deformity was found on exam, no costochondral pain or discomfort. Heart: Regular rate and rhythm, S1, S2 positive S3 positive tachycardia with systolic murmur, no rub or gallop. Back: Symmetric, no curvature, ROM normal, no CVA tenderness, there was crusted lesions in the left lower back. Abdomen: Soft, non-tender, bowel sounds active all four quadrants, slight distention with ascites from PD fluid, PD catheter is in place. Extremities: Trace edema decreased pulse positive mild arthritis in both knees, right shoulder had mild restriction to motion especially rotation. Pulses: 1+ and symmetric. Skin: Skin color, texture, tugor normal, no rashes or lesions. Neurologic: Patient is stuporous does not follow any commands with brought to verbal stimuli and painful semi-and muscle twitches on and off without evidence of acute seizure. Results - Laboratory Findings CBC and BMP: 08/31/18 05:11 08/31/18 05:11 ABG ABG pH 7.51 (7.35-7.45) H 08/31/18 11:10 ABG pCO2 34 mmHg (35-45) L 08/31/18 11:10 ABG pO2 68 mmHg (83-108) L 08/31/18 11:10 ABG O2 Saturation 94.3 % (94-97) 08/31/18 11:10 PT/INR, D-dimer PT 10.5 sec (9.0-12.0) 08/30/18 11:14 INR 1.0 (<1.2) 08/30/18 11:14 Abnormal lab findings: Abnormal Labs 08/30/18 08/30/18 08/30/18 11:14 11:14 11:14 RBC 4.00 L Hgb 10.7 L Hct 33.6 L RDW 16.5 H Lymphocytes # ABG pH ABG pCO2 ABG pO2 ABG HCO3 ABG Total CO2 Sodium 133 L Potassium 5.7 H Chloride 93 L BUN 68 H Creatinine 12.68 H* Glucose POC Glucose (mg/dL) Phosphorus Alkaline Phosphatase 136 H Troponin I 0.068 H* Total Protein 5.7 L Albumin 3.2 L 08/30/18 08/31/18 08/31/18 22:51 05:11 05:11 RBC 3.61 L Hgb 9.8 L Hct 31.0 L RDW 16.2 H Lymphocytes # 0.9 L ABG pH ABG pCO2 ABG pO2 ABG HCO3 ABG Total CO2 Sodium 129 L Potassium Chloride 93 L BUN 68 H Creatinine 12.28 H* Glucose 110 H POC Glucose (mg/dL) 125 H Phosphorus 7.4 H Alkaline Phosphatase Troponin I Total Protein Albumin 08/31/18 08/31/18 11:10 12:31 RBC Hgb Hct RDW Lymphocytes # ABG pH 7.51 H ABG pCO2 34 L ABG pO2 68 L ABG HCO3 27 H ABG Total CO2 28 H Sodium Potassium Chloride BUN Creatinine Glucose POC Glucose (mg/dL) 103 H Phosphorus Alkaline Phosphatase Troponin I Total Protein Albumin - Diagnostic Findings Chest x-ray: image reviewed Assessment and Plan Plan: 1 altered mental status, exact etiology is not clear. CAT scan of the brain is negative. Consider viral encephalitis in view of recent zoster. Consider hypertensive encephalopathy/uremic encephalopathy. Consider CVA. Subclinical seizures/post ictal state cannot be completely ruled out. The patient is currently in the intensive care unit. CAT scan of the brain was done. Neurologic outpatient been obtained. Will need a lumbar puncture and EEG at this point in time in addition to a neuro evaluation. Blood pressures under better control. 2 hypertensive urgency/emergency currently the blood pressure is under better control and the patient is off the labetalol drip 3 renal failure, chronic, and the patient is dialysis dependent as the patient is on peritoneal dialysis 4 exchanges with a 2.5 solution 4 acute zoster involving the upper back 5 hypertension 6 hypertensive heart disease with concentric LVH 7 hyperlipidemia 8 peripheral neuropathy 9 history of seizure disorder 10 chronic anemia RACHEAL We'll proceed with a lumbar puncture and send the CSF for analysis. We'll start the patient IV acyclovir. We'll obtain an EEG. May consider a repeat CAT scan versus an MRI of the brain. Check peritoneal fluid for cell count and cultures. Obtain blood cultures. Control the blood pressure for now. Aspiration precaution. ABG was noted. Keep the patient ICU. Neurology consultation has been obtained. We'll continue to follow and will make further recommendations based on his progress. Condition is critical at this point in time.
--- NOTE | 2018-08-31 13:15 | P.PCN ---
Date of Procedure: 08/31/18 Preoperative Diagnosis: Altered mental status Postoperative Diagnosis: Altered mental status Procedure(s) Performed: Lumbar puncture Anesthesia: local Surgeon: Nehal Montgomery Estimated Blood Loss (ml): 0 Pathology: other Condition: critical Disposition: ICU Operative Findings: Procedure - Lumbar Puncture Indication -altered mental status Anesthesia - local 1% lidocaine w/ epi Informed consent was obtained from the power of sports attorney. The area was prepped and draped in the usual sterile fashion. Using landmarks, a 22 guage spinal needle was inserted in the L4-L5 innerspace. The stylet was removed and the opening pressure was not measured. 15 cc of clear fluid was collected and sent for routine studies. CSF was also sent for HSV and EBV PCR. The patient tolerated the procedure well. There was no blood loss or hematoma.
[2018-08-31 13:35] LABS: Appearance,CSF Clear
[2018-08-31 13:36] LABS: CSF Tube Number 4; CSF Tube Volume 1.2; Red Blood Cell,CSF 27 u/L (0-10)
[2018-08-31 13:38] LABS: Nucleated Cells, CSF 58 u/L (0-5)
[2018-08-31 13:39] LABS: Partial Thromboplastin Time 28.3 sec (22.0-30.0); Prothrombin Time 10.6 sec (9.0-12.0)
[2018-08-31 13:39] LABS: Diff, Total Cells Cnt, CSF 100; Mononuclear WBC,CSF 100 %
[2018-08-31] MEDS ORDERED: MD COMMUNICATION TO PHARMACY 1 EACH MISC PO PRN (13:46)
[2018-08-31 14:26] LABS: Red Blood Cell, CSF Crenated 20 %; Red Blood Cell, CSF Fresh 80 %
--- NOTE | 2018-08-31 15:05 | P.CNNES ---
History of Present Illness Consult date: 08/31/18 Chief complaint: Altered mental status History of Present Illness: Patient is a 58-year-old male with history of end-stage renal disease on dialy sis, was recently admitted to the hospital on 08/19/2018 for difficulty breathing. He was at presented for 2 days and then discharged. Lately he has been complaining of right shoulder pain for which she received some tramadol 50 mg tablets. He took 3 pills over Couple days. Yesterday he was noted to be confused, dizzy, falling, almost as if intoxicated. He also has been somewhat not very compliant with hemodialysis, as he takes care of his mother who has dementia. Patient was admitted at first to step down, but then will rapidly had mental status deterioration, therefore transferred to ICU. Patient underwent computed tomography scan of the brain, which revealed age- related atrophic and chronic small vessel ischemic changes without acute intracranial process. Chest x-ray shows minimal or improving bibasilar infiltrates. Cardiomegaly. Patient's blood test shows WBC 7.3, hemoglobin 9.8, platelets are 288. PT/PTT normal. Sodium 129 potassium 4.6 BU and 68, creatinine 12.28. Patient underwent lumbar puncture, in which his total white cells are 58 which is elevated, 100% lymphocytes. RBCs are 27. Glucose is 63, proteins 56. Cultures pending. Patient continues to be severely obtunded. Patient very encephalopathic as per examination below. Review of Systems ROS unobtainable: due to mental status Past Medical History Past Medical History: Dialysis, Hyperlipidemia, Hypertension, Renal Disease, Seizure Disorder Additional Past Medical History / Comment(s): End-stage renal disease on peritoneal dialysis, hypertension, hypertensive heart disease with concentric LV H, hypertension, hyperlipidemia, history of seizure disorder, chronic back pain, degenerative disc disease, history of bowel resection with colostomy and subsequent reversal History of Any Multi-Drug Resistant Organisms: None Reported Past Surgical History: Orthopedic Surgery Additional Past Surgical History / Comment(s): Peritoneal catheters-last one placed in 2017, colostomy with reversal, colonoscopy, bilateral carpal tunnel releases Past Anesthesia/Blood Transfusion Reactions: No Reported Reaction Past Psychological History: No Psychological Hx Reported Smoking Status: Former smoker - Past Family History Mother Family Medical History: Dementia Additional Family Medical History / Comment(s): Mother is alive with history of dementia. Father Family Medical History: Cancer Additional Family Medical History / Comment(s): Father is alive with history of LIVER CANCER and coronary artery disease status post CABG. Patient does not have any brothers or sisters. Medications and Allergies Home Medications Medication Instructions Recorded Confirmed Type Atorvastatin Calcium [Lipitor] 40 mg PO DAILY 01/01/17 08/30/18 History Lisinopril [Prinivil] 20 mg PO BID 01/01/17 08/30/18 History B Complex W-C No.20/Folic Acid 1 mg PO DAILY 08/19/18 08/30/18 History [Renal Caps Softgel] Calcitriol 0.5 mcg PO MOWEFR 08/19/18 08/30/18 History Furosemide [Lasix] 80 mg PO TID 08/19/18 08/30/18 History Gabapentin [Neurontin] 400 mg PO BID 08/19/18 08/30/18 History traMADol HCL [Ultram] 50 mg PO DAILY PRN 08/19/18 08/30/18 History Carvedilol [Coreg] 6.25 mg PO BID-W/MEALS #60 tab 08/22/18 08/30/18 Rx Sevelamer [Renvela] 800 mg PO TID-W/MEALS #90 tab 08/22/18 08/30/18 Rx hydrALAZINE HCL [Apresoline] 25 mg PO TID #90 tab 08/22/18 08/30/18 Rx Allergies Allergy/AdvReac Type Severity Reaction Status Date / Time No Known Allergies Allergy Verified 08/30/18 14:20 Physical Examination - Vital Signs Vital Signs: Vital Signs Temp Pulse Pulse Resp BP BP Pulse Ox 08/31/18 14:00 66 13 154/92 97 08/31/18 13:30 77 16 132/82 95 08/31/18 13:00 77 12 139/78 94 L 08/31/18 12:30 67 21 148/88 97 08/31/18 12:00 96.8 F L 71 17 148/90 96 08/31/18 11:30 71 12 143/89 96 08/31/18 11:00 82 18 124/78 92 L 08/31/18 10:30 71 18 117/67 94 L 08/31/18 10:00 15 141/81 92 L 08/31/18 09:30 71 15 158/101 93 L 08/31/18 09:00 74 16 92 L 08/31/18 08:30 97.6 F 73 26 H 158/91 93 L 08/31/18 08:00 75 21 133/94 91 L 08/31/18 07:30 78 16 146/112 95 08/31/18 07:07 71 16 140/87 93 L 08/31/18 07:00 73 20 145/92 90 L 08/31/18 06:45 78 14 164/98 92 L 08/31/18 06:30 77 11 L 135/97 95 08/31/18 06:25 97.7 F 77 18 164/98 94 L 08/31/18 06:15 79 19 123/79 91 L 08/31/18 06:00 75 25 H 119/68 88 L 08/31/18 05:45 71 15 135/75 90 L 08/31/18 05:30 76 14 129/92 89 L 08/31/18 05:15 77 17 139/96 92 L 08/31/18 05:00 81 20 156/90 91 L 08/31/18 04:45 76 18 156/93 92 L 08/31/18 04:30 71 14 151/96 93 L 08/31/18 04:15 80 20 153/94 93 L 08/31/18 04:00 80 21 120/101 94 L 08/31/18 03:46 80 18 127/105 93 L 08/31/18 03:30 81 20 136/88 94 L 08/31/18 03:15 82 18 136/88 94 L 08/31/18 03:00 76 4 L 116/70 87 L 08/31/18 02:45 72 16 130/110 89 L 08/31/18 02:30 132/86 95 08/31/18 02:15 78 22 138/93 86 L 08/31/18 02:00 81 43 H 144/97 91 L 08/31/18 01:45 80 17 169/98 86 L 08/31/18 01:35 88 16 169/98 93 L 08/31/18 01:30 83 11 L 162/90 88 L 08/31/18 01:15 89 13 93 L 08/31/18 01:10 86 11 L 96 08/31/18 01:00 88 50 H 175/108 95 08/31/18 00:50 97.8 F 84 18 175/108 94 L 08/31/18 00:40 80 5 L 149/95 95 08/31/18 00:30 85 35 H 151/89 95 08/31/18 00:20 87 13 151/89 93 L 08/31/18 00:10 88 65 H 157/105 96 08/31/18 00:00 97.8 F 86 28 H 162/104 92 L 08/30/18 23:50 84 28 H 162/104 93 L 08/30/18 23:40 86 23 142/86 95 08/30/18 23:30 81 14 158/96 94 L 08/30/18 23:20 79 24 158/96 94 L 08/30/18 23:10 75 19 102/70 93 L 08/30/18 23:00 73 11 L 90/53 94 L 08/30/18 22:50 69 11 L 79/57 93 L 08/30/18 22:40 74 32 H 149/117 96 08/30/18 22:30 81 14 161/101 93 L 08/30/18 22:20 83 16 161/101 94 L 08/30/18 22:10 80 22 165/110 93 L 08/30/18 22:04 82 31 H 165/110 94 L 08/30/18 22:00 82 25 H 141/97 92 L 08/30/18 21:45 80 17 148/89 94 L 08/30/18 21:30 77 12 146/115 95 08/30/18 21:15 81 13 172/107 95 08/30/18 21:00 79 24 153/100 96 08/30/18 20:45 81 9 L 152/91 95 08/30/18 20:30 81 21 157/102 96 08/30/18 20:15 83 22 156/95 96 08/30/18 20:00 97.7 F 80 9 L 153/97 95 08/30/18 19:50 81 14 160/100 95 08/30/18 19:40 78 12 161/101 93 L 08/30/18 19:30 83 16 165/106 94 L 08/30/18 19:20 82 12 168/105 93 L 08/30/18 19:15 97.6 F 89 16 165/106 92 L 08/30/18 19:10 86 16 177/107 90 L 08/30/18 19:00 86 12 170/112 94 L 08/30/18 18:50 87 16 181/113 93 L 08/30/18 18:40 97.6 F 89 16 177/103 96 08/30/18 18:01 98 F 109 H 18 209/123 100 08/30/18 18:00 98.5 F 111 H 18 222/117 100 08/30/18 16:00 106 H 16 193/108 100 08/30/18 15:00 105 H 16 188/109 99 Intake and Output 08/30/18 08/31/18 08/31/18 22:59 06:59 14:59 Intake Total 710.0 1010 340 Output Total 0 Balance 710.0 1010 340 Intake: IV 60 160 140 Sodium Chloride 0.9% 1, 60 160 140 000 ml @ 20 mls/hr IV . Q24H ANY Rx#:[id number] Intake, IV Titration 200.0 400 200 Amount Labetalol 200 mg In 200.0 400 200 Sodium Chloride 0.9% 160 ml @ 0.5 MG/MIN 30 mls/hr IV .Q6H40M ANY Rx#: [id number] Oral 450 450 Output: Urine 0 Other: # Bowel Movements 1 Weight 97.9 kg On examination patient is a middle aged male, who appears severely encephalopathic, obtunded. He did open his eyes to calling his name loudly, but had very glazed look. His pupils are round and reacting. Patient did not speak any words. He does not follow commands. Tone is equal bilaterally. There is some myoclonic jerks noted of passively outstretched hands. Reflexes are diminished and plantar is possible up on the right, there is withdrawal on the left. Patient is slightly moves his left leg better than the right. Results - Laboratory Findings CBC and BMP: 08/31/18 05:11 08/31/18 05:11 Abnormal Lab Findings: Abnormal Labs 08/30/18 08/30/18 08/30/18 11:14 11:14 11:14 RBC 4.00 L Hgb 10.7 L Hct 33.6 L RDW 16.5 H Lymphocytes # ABG pH ABG pCO2 ABG pO2 ABG HCO3 ABG Total CO2 Sodium 133 L Potassium 5.7 H Chloride 93 L BUN 68 H Creatinine 12.68 H* Glucose POC Glucose (mg/dL) Phosphorus Alkaline Phosphatase 136 H Troponin I 0.068 H* Total Protein 5.7 L Albumin 3.2 L CSF RBC CSF Tot Nucleated Cells 08/30/18 08/31/18 08/31/18 22:51 05:11 05:11 RBC 3.61 L Hgb 9.8 L Hct 31.0 L RDW 16.2 H Lymphocytes # 0.9 L ABG pH ABG pCO2 ABG pO2 ABG HCO3 ABG Total CO2 Sodium 129 L Potassium Chloride 93 L BUN 68 H Creatinine 12.28 H* Glucose 110 H POC Glucose (mg/dL) 125 H Phosphorus 7.4 H Alkaline Phosphatase Troponin I Total Protein Albumin CSF RBC CSF Tot Nucleated Cells 08/31/18 08/31/18 08/31/18 11:10 12:31 12:38 RBC Hgb Hct RDW Lymphocytes # ABG pH 7.51 H ABG pCO2 34 L ABG pO2 68 L ABG HCO3 27 H ABG Total CO2 28 H Sodium Potassium Chloride BUN Creatinine Glucose POC Glucose (mg/dL) 103 H Phosphorus Alkaline Phosphatase Troponin I Total Protein Albumin CSF RBC 27 H CSF Tot Nucleated Cells 58 H* Assessment and Plan Assessment: * Acute altered mental status with severe encephalopathy. 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 Rule out herpes (HSV-1 related) encephalitis, rule out varicella-zoster virus encephalitis. * Chronic renal failure on peritoneal dialysis * Hypertensive urgency * Hypertension Plan: Patient has been started on acyclovir, renal adjusted dose. We will start Keppra 500 mg daily for seizure prophylaxis. Await stat EEG. Patient underwent MRI of the brain without contrast. CSF has been done, HSV 1 and 2 PCR pending. We will also add VZV PCR to the spinal fluid. Discussed with Dr Montgomery in detail.
[2018-08-31 15:12] LABS: Appearance,BF Clear; Color,BF Colorless; Nucleated Cells, Body Fluid 2 /uL; RBC, Body Fluid 28 /uL
[2018-08-31] MEDS: ACYCLOVIR SODIUM 500 MG in SODIUM CHLORIDE 0.9% 100 ML IVPB SCH (15:45)
--- NOTE | 2018-08-31 15:52 | MR ---
MR brain without contrast HISTORY: Altered mental status Multiplanar multisequence imaging through the brain Correlated to prior CT brain 08/30/2018 There is suggestion of a small focus of restricted diffusion in the periventricular white matter in t he left frontal lobe and inferior left temporal lobe, there is extensive confluent and scattered hype rintensity and inversion recovery T2-weighted sequences suggesting chronic small vessel ischemic mejia ge. No hemorrhage or hydrocephalus. There are normal vascular flow voids. Technique in the exam modif ied due to patient condition. Cerebellopontine angles, corpus callosum, pituitary, cervical medullary junction are normal. Inflammatory change present in the ethmoid air cells. Orbits show symmetric tino earance. Mucosal disease also present within the maxillary sinuses. IMPRESSION: Small foci of subacute ischemia suspected left frontal and inferior left temporal lobes, consider embolic phenomenon, there are chronic small vessel ischemic changes, age related atrophy. Si nus disease.
[2018-08-31] MEDS: DIALYSIS (PERIT 1.5%) 2,500 ML 37.5 G/2,500 ML BAG INTRAPERIT SCH ×2 (17:41→22:11)
[2018-08-31] MEDS: levETIRAcetam IV 250 MG in SODIUM CHLORIDE 0.9% 100 ML IVPB SCH (21:11)
--- NOTE | 2018-08-31 21:30 | EEG ---
ELECTROENCEPHALOGRAM REPORT DATE OF SERVICE: 08/31/2018 PREAMBLE: This is a 58-year-old male with acute altered mental status and possible encephalitis. This study is performed to evaluate for any epileptiform activity. CURRENT MEDICATIONS: Vasotec, Acyclovir, carvedilol, baclofen, atorvastatin, Pepcid, lisinopril, hydralazine, and gabapentin. EEG FINDINGS: A routine 21 channel awake digital EEG recording was accomplished utilizing the 10/20 international system with bipolar and referential montages. The recording starts and continues with presence of diffuse moderate to high amplitude mixed frequency of theta and delta frequencies as seen in the bihemispheric region. The background does not seem to be reactive to eye opening or closing. Photic driving response was not seen. Different stages of sleep were not seen. No focal or generalized epileptiform activity was seen. IMPRESSION: This is a markedly abnormal EEG due to the background slowing. This is suggestive of generalized cerebral dysfunction, as can be seen in toxic metabolic encephalopathy or due to diffuse structural brain abnormality. No obvious epileptiform activity was seen. Clinical correlation is also recommended. MMODL / IJN: [id number] / [facility]
[2018-08-31] MEDS: LABETALOL SYRINGE 5 MG/ML IVP PRN (22:12)
[2018-08-31] MEDS: ASPIRIN 300 MG SUPP RECTAL SCH (22:19)
[2018-09-01] MEDS: ENALAPRILAT 1.25 MG/ML 1 ML VIAL IVP PRN (01:36)
[2018-09-01] MEDS: DIALYSIS (PERIT 1.5%) 2,500 ML 37.5 G/2,500 ML BAG INTRAPERIT SCH ×6 (01:59→21:50)
[2018-09-01] MEDS: LABETALOL SYRINGE 5 MG/ML IVP PRN (03:14)
[2018-09-01 04:48] LABS: Anisocytosis Slight; Basophils # (A) 0.1 k/uL (0-0.2); Basophils % (A) 1 %; Eosinophils # (A) 0.3 k/uL (0-0.7); Eosinophils % (A) 5 %; HCT 35.2 % (39.0-53.0); HGB 11.2 gm/dL (13.0-17.5); Lymphocytes # (A) 0.7 k/uL (1.0-4.8); Lymphocytes % (A) 10 %; MCH 27.4 pg (25.0-35.0); MCHC 31.8 g/dL (31.0-37.0); MCV 86.3 fL (80.0-100.0); Mean Platelet Volume 7.1; Monocytes # (A) 0.4 k/uL (0-1.0); Monocytes % (A) 6 %; Neutrophils # (A) 5.5 k/uL (1.3-7.7); Neutrophils % (A) 78 %; Platelet Count 303 k/uL (150-450); RBC 4.08 m/uL (4.30-5.90); RDW 16.3 % (11.5-15.5)
[2018-09-01 04:59] LABS: Calcium 8.7 mg/dL (8.4-10.2); Magnesium 1.6 mg/dL (1.6-2.3); Phosphorus 7.2 mg/dL (2.5-4.5); Potassium 4.4 mmol/L (3.5-5.1)
[2018-09-01] MEDS: hydrALAZINE HCL 20 MG/ML 1 ML VIAL IVP PRN ×2 (05:51→23:09)
[2018-09-01] MEDS: LABETALOL 200 MG in SODIUM CHLORIDE 0.9% 160 ML IV SCH ×10 (06:23→21:00)
[2018-09-01] MEDS: SEVELAMER 800 MG TAB PO SCH ×3 (07:02→17:28)
[2018-09-01] MEDS: CARVEDILOL 6.25 MG TAB PO SCH ×2 (07:02→16:10)
[2018-09-01] MEDS: ATORVASTATIN 40 MG TAB PO SCH (09:21)
[2018-09-01] MEDS: FOLIC ACID-VIT B COMPLEX-VIT C 1 CAP PO SCH (09:21)
[2018-09-01] MEDS: FAMOTIDINE 20 MG TAB PO SCH (09:21)
[2018-09-01] MEDS: GABAPENTIN 400 MG CAP PO SCH ×2 (09:22→21:00)
[2018-09-01] MEDS: hydrALAZINE HCL 25 MG TAB PO SCH ×3 (09:22→21:01)
[2018-09-01] MEDS: FUROSEMIDE 80 MG TAB PO SCH ×3 (09:22→21:01)
[2018-09-01] MEDS: LISINOPRIL 20 MG TAB PO SCH ×2 (09:22→21:00)
--- NOTE | 2018-09-01 09:22 | US ---
EXAMINATION TYPE: US carotid duplex BILAT DATE OF EXAM: 09/01/2018 COMPARISON: NONE CLINICAL HISTORY: CVA. Altered mental status. shingles that spread to brain, ams, patient unresponsiv e but can be combative and scream EXAM MEASUREMENTS: RIGHT: Peak Systolic Velocity (PSV) cm/sec ----- Right CCA: 78.7 ----- Right ICA: 64.4 ----- Right ECA: 85.8 ICA/CCA ratio: 0.8 RIGHT: End Diastole cm/sec ----- Right CCA: 21.5 ----- Right ICA: 22.6 ----- Right ECA: 11.6 LEFT: Peak Systolic Velocity (PSV) cm/sec ----- Left CCA: 86.3 ----- Left ICA: 62.5 ----- Left ECA: 85.2 ICA/CCA ratio: 0.7 LEFT: End Diastole cm/sec ----- Left CCA: 22.1 ----- Left ICA: 15.4 ----- Left ECA: 15.4 VERTEBRALS (direction of flow): Right Vertebral: Antegrade Left Vertebral: Antegrade Rhythm: Normal Patient moaning and snoring throughout study and unable to hold still. Mild heterogeneous plaque at bilateral bulbs, no significant stenosis seen. Grayscale, color Doppler, spectral Doppler imaging performed of the carotid arteries. Waveform analys is does not show significant stenosis of the internal carotid arteries. IMPRESSION: No hemodynamic significant stenosis of the proximal internal carotid arteries bilaterall y by Doppler criteria, an indirect measurement of carotid stenosis
[2018-09-01] MEDS: PANTOPRAZOLE 40 MG/10 ML VIAL IV SCH (09:40)
[2018-09-01] MEDS: HEPARIN SODIUM,PORCINE 5,000 UNIT/ML 1 ML VIAL SQ SCH ×2 (09:40→16:09)
[2018-09-01] MEDS: levETIRAcetam IV 250 MG in SODIUM CHLORIDE 0.9% 100 ML IVPB SCH ×2 (09:41→21:04)
--- NOTE | 2018-09-01 10:02 | P.PN ---
Subjective Progress Note Date: 09/01/18 Principal diagnosis: Emanuel patient with ESRD on peritoneal dialysis who was admitted with confusion and encephalopathy. professional diagnoses include herpes encephalitis because of zoster lesions on his skin, possible under dialysis because he was noncompliant with peritoneal dialysis on and off. He also took 1-2 tablets of tramadol. He is also known with seizure disorder Since admission he has been started on acyclovir. He did take a course of by mouth acyclovir as an outpatient because of the skin lesion of zoster in his left upper back. Yesterday he had an MRI done which showed small foci of subacute ischemia on the left frontal and inferior left temporal lobes. An EEG showed generalized cerebral dysfunction consistent with toxic metabolic encephalopathy. The CSF fluid contained 27 RBCs, 58 WBCs and 100% of them were mononuclear cells. Glucose 63 and total protein 56. A PD cell count was 2. His PD exchanges are 2500 mL every 4 hours 1.5%. Ultrafiltration was -700 mL over the last 4 exchanges. His blood pressure is somewhat labile and has been started on IV labetalol. Emanuel is seen with ESRD, on peritoneal dialysis. Admitted with encepha lopathy. Currently is being treated for possible herpes encephalitis because of zoster lesions seen on his left upper back, also possibility of under dialysis as he tends to be noncompliant. Complicating this he also 1-2 tablets of Tylenol supposedly He is He does have mild degree of vesicular eruption suggestive of zoster on his left lower rib cage posteriorly with most lesions have crusted. He does have a history of noncompliance with dialysis especially when he goes to [place] for his transplant related workup. I discussed this with the PD nurse who came in these details. Supposedly [facility] have declined transplant possibilities. The reason for this being vascular calcifications but these details are not very clear. He is known with seizure disorder, hypertension, hyperlipidemia colostomy reversals back pain. He has been on peritoneal dialysis approximately 2017. Objective - Vital Signs Vital signs: Vital Signs Temp 98.1 F 09/01/18 04:30 Pulse 80 09/01/18 07:00 Resp 14 09/01/18 07:00 BP 171/95 09/01/18 07:00 Pulse Ox 97 09/01/18 08:26 Intake & Output 05/25/19 05/26/19 05/26/19 18:59 06:59 18:59 Intake Total 540 340 190.5 Output Total 0 Balance 540 340 190.5 Weight 89.3 kg Intake: IV 240 340 20 Sodium Chloride 0.9% 1, 240 240 20 000 ml @ 20 mls/hr IV . Q24H [facility] Rx#:[id number] levETIRAcetam IV 250 mg 100 In Sodium Chloride 0.9% 100 ml @ 400 mls/hr IVPB Q12HR ANY Rx#:[id number] Intake, IV Titration 300 170.5 Amount Acyclovir Sodium 500 mg 100 In Sodium Chloride 0.9% 100 ml @ 100 mls/hr IVPB Q24H ANY Rx#:[id number] Labetalol 200 mg In 200 Sodium Chloride 0.9% 160 ml @ 0.5 MG/MIN 30 mls/hr IV .Q6H40M ANY Rx#: [id number] Labetalol 200 mg In 170.5 Sodium Chloride 0.9% 160 ml @ 2 MG/MIN 120 mls/hr IV .Q1H40M [facility] Rx#: [id number] Output: Urine 0 Other: Voiding Method CAPD # Voids 1 # Bowel Movements 1 On examination he remains obtunded restless. HEENT exam no JVP neck is supple Pupils are equal Lungs are clear to auscultation good air entry bilaterally Heart sounds are unremarkable normal sinus rhythm Abdomen soft nondistended Extremity exam was no edema Neurologically obtunded restless and unchanged since yesterday - Labs CBC & Chem 7: 09/01/18 04:15 09/01/18 04:15 Labs: Abnormal Lab Results - Last 24 Hours (Table) 08/31/18 08/31/18 08/31/18 Range/Units 11:10 12:31 12:38 RBC (4.30-5.90) m/uL Hgb (13.0-17.5) gm/dL Hct (39.0-53.0) % RDW (11.5-15.5) % Lymphocytes # (1.0-4.8) k/uL ABG pH 7.51 H (7.35-7.45) ABG pCO2 34 L (35-45) mmHg ABG pO2 68 L (83-108) mmHg ABG HCO3 27 H (21-25) mmol/L ABG Total CO2 28 H (19-24) mmol/L Sodium (137-145) mmol/L Chloride (98-107) mmol/L BUN (9-20) mg/dL Creatinine (0.66-1.25) mg/dL Glucose (74-99) mg/dL POC Glucose (mg/dL) 103 H (75-99) mg/dL Phosphorus (2.5-4.5) mg/dL CSF RBC 27 H (0-10) u/L CSF Tot Nucleated Cells 58 H* (0-5) u/L 09/01/18 09/01/18 Range/Units 04:15 04:15 RBC 4.08 L (4.30-5.90) m/uL Hgb 11.2 L (13.0-17.5) gm/dL Hct 35.2 L (39.0-53.0) % RDW 16.3 H (11.5-15.5) % Lymphocytes # 0.7 L (1.0-4.8) k/uL ABG pH (7.35-7.45) ABG pCO2 (35-45) mmHg ABG pO2 (83-108) mmHg ABG HCO3 (21-25) mmol/L ABG Total CO2 (19-24) mmol/L Sodium 132 L (137-145) mmol/L Chloride 95 L (98-107) mmol/L BUN 60 H (9-20) mg/dL Creatinine 11.50 H* (0.66-1.25) mg/dL Glucose 122 H (74-99) mg/dL POC Glucose (mg/dL) (75-99) mg/dL Phosphorus 7.2 H (2.5-4.5) mg/dL CSF RBC (0-10) u/L CSF Tot Nucleated Cells (0-5) u/L Microbiology - Last 24 Hours (Table) 08/31/18 12:38 CSF Gram Stain - Preliminary Cerebral Spinal Fluid CSF Culture - Preliminary 08/31/18 14:30 Gram Stain - Preliminary Peritoneal Fluid Body Fluid Culture - Preliminary 08/31/18 14:30 Anaerobic Culture - Preliminary Peritoneal Fluid 08/31/18 12:38 Acid Fast Bacilli Culture - Preliminary Cerebral Spinal Fluid 08/31/18 12:38 Fungal Culture - Preliminary Cerebral Spinal Fluid Assessment and Plan Assessment: Impression 1. ESRD, on peritoneal dialysis. Known with noncompliance with dialysis. On 1.5%, 2500 mL 6 exchanges, currently ultrafiltration 700 mL for the last 24 hours 2. Admitted with changes in mental status worsening after taking perhaps 1-2 tramadol. Possibilities off herpes encephalitis and uremia because of missing dialysis is also considered, given his history of noncompliance after talking to his dialysis nursing staff. Seizure disorder and status epilepticus needs to be ruled out as well as herpes encephalitis. He is on IV acyclovir appropriate dose, 500 mg every 24 hours. 3. Seizure disorders. On Keppra 4. Anemia of chronic kidney disease hemoglobin went down from 10.7-9.8 possibly secondary to dilution. 5. Noncompliance. 6. Hyperphosphatemia from ESRD 7. Uncontrolled hypertension, now improved. Recommendation 1. Continue Acyclovir IV 500 mg every 24 hours to cover for possibility of Her pes Encephalitis, antibody levels in the CSF fluid standing white count is high and mostly is mononuclear cells. 2. Ensure adequate dialysis , peritoneal dialysis exchanges have been increased to 6 per day with 1.5% 2500 mL. 2. Avoid any sedatives narcotics. 4. Maintain blood pressure, we can use IV labetalol drip if needed and aim for blood pressure of around 120-140. Additional IV vasotech if needed
[2018-09-01] MEDS: ASPIRIN 300 MG SUPP RECTAL SCH (10:11)
--- NOTE | 2018-09-01 11:39 | P.PN ---
Subjective Progress Note Date: 09/01/18 This is a 58 rolled male one of my patient with a previous medical history significant for end-stage renal disease on PD any scheduled for possible renal transplant for which she has been traveling back and forth to [place], in between he has been missing his PD in [place], patient was recently hospitalized at [facility] because of accelerated hypertension with metabolic and hypertensive encephalopathy and he came to my office for follow-up and his blood pressure was well controlled in the range of 130/75, patient was maintained on hydralazine carvedilol amlodipine and lisinopril as well, patient developed to have shingles in the left lower back for which she was treated with tramadol and antiviral medication at the urgent care clinic, and the patient apparently was taken these pills along with his gabapentin he ended up coming to the emergency department because of significant mental status changes without evidence of any seizure activity however he had a computed tomography scan of the brain did not show any evidence of acute of normalities, patient was admitt ed to the hospital initially to the cardiac floor however he developed to have a significant accelerated hypertension we gave the order for the nursing staff to put him on labetalol drip at 0.5 mg/m that was titrated to 1.5 mg/m and subsequently was taken off of it he was transferred to the intensive care unit he was seen in consultation by nephrology as well as refractory manager Dr. Montgomery he was recommended for the patient to be intubated because of severe mental status changes and an LP to be done to rule out any herpes encephalitis, his mental status changes likely related to his medication patient did receive a dose of baclofen and the dose of Requip last night along with his gabapentin and tramadol. 09/01: Patient continues to be confused he underwent lumbar puncture yesterday fluid results were reviewed possibility of zoster encephalitis versus herpes encephalitis is in the differential diagnosis at this time, however uremic encephalitis could not be entirely ruled out, we will continue with acyclovir, we will continue with supportive care, we'll continue the ICU, continue aggress neal PD at this time 6 times every day. Objective - Vital Signs Vital signs: Vital Signs Temp 98.1 F 09/01/18 04:30 Pulse 80 09/01/18 07:00 Resp 14 09/01/18 07:00 BP 171/95 09/01/18 07:00 Pulse Ox 97 09/01/18 08:26 Intake & Output 08/31/18 09/01/18 09/01/18 18:59 06:59 18:59 Intake Total 540 340 39.5 Output Total 0 Balance 540 340 39.5 Weight 89.3 kg Intake: IV 240 340 20 Sodium Chloride 0.9% 1, 240 240 20 000 ml @ 20 mls/hr IV . Q24H ANY Rx#:[id number] levETIRAcetam IV 250 mg 100 In Sodium Chloride 0.9% 100 ml @ 400 mls/hr IVPB Q12HR ANY Rx#:[id number] Intake, IV Titration 300 19.5 Amount Acyclovir Sodium 500 mg 100 In Sodium Chloride 0.9% 100 ml @ 100 mls/hr IVPB Q24H ANY Rx#:[id number] Labetalol 200 mg In 200 Sodium Chloride 0.9% 160 ml @ 0.5 MG/MIN 30 mls/hr IV .Q6H40M ANY Rx#: [id number] Labetalol 200 mg In 19.5 Sodium Chloride 0.9% 160 ml @ 2 MG/MIN 120 mls/hr IV .Q1H40M ANY Rx#: [id number] Output: Urine 0 Other: Voiding Method CAPD # Voids 1 # Bowel Movements 1 - Exam General Appearance: Patient is stuporous with raw to verbal stimuli but does not follow any commands. Neck HEENT: Supple, no lymphadenopathy, no thyroid enlargement, no carotid bruits. Lungs: Decreased breath some bilaterally without crackles or wheezes no rhonchi, no deformity. Chest Wall: Decrease expansion with deep inspiration no tenderness and no deformity was found on exam, no costochondral pain or discomfort. Heart: Regular rate and rhythm, S1, S2 positive S3 positive tachycardia with systolic murmur, no rub or gallop. Back: Symmetric, no curvature, ROM normal, no CVA tenderness, there was crusted lesions in the left lower back. Abdomen: Soft, non-tender, bowel sounds active all four quadrants, slight distention with ascites from PD fluid, PD catheter is in place. Extremities: Trace edema decreased pulse positive mild arthritis in both knees, right shoulder had mild restriction to motion especially rotation. Pulses: 1+ and symmetric. Skin: Skin color, texture, tugor normal, no rashes or lesions. Neurologic: Patient is stuporous does not follow any commands with brought to verbal stimuli and painful semi-and muscle twitches on and off without evidence of acute seizure. - Labs CBC & Chem 7: 09/01/18 04:15 09/01/18 04:15 Labs: Abnormal Lab Results - Last 24 Hours (Table) 08/31/18 08/31/18 08/31/18 Range/Units 11:10 12:31 12:38 RBC (4.30-5.90) m/uL Hgb (13.0-17.5) gm/dL Hct (39.0-53.0) % RDW (11.5-15.5) % Lymphocytes # (1.0-4.8) k/uL ABG pH 7.51 H (7.35-7.45) ABG pCO2 34 L (35-45) mmHg ABG pO2 68 L (83-108) mmHg ABG HCO3 27 H (21-25) mmol/L ABG Total CO2 28 H (19-24) mmol/L Sodium (137-145) mmol/L Chloride (98-107) mmol/L BUN (9-20) mg/dL Creatinine (0.66-1.25) mg/dL Glucose (74-99) mg/dL POC Glucose (mg/dL) 103 H (75-99) mg/dL Phosphorus (2.5-4.5) mg/dL CSF RBC 27 H (0-10) u/L CSF Tot Nucleated Cells 58 H* (0-5) u/L 09/01/18 09/01/18 Range/Units 04:15 04:15 RBC 4.08 L (4.30-5.90) m/uL Hgb 11.2 L (13.0-17.5) gm/dL Hct 35.2 L (39.0-53.0) % RDW 16.3 H (11.5-15.5) % Lymphocytes # 0.7 L (1.0-4.8) k/uL ABG pH (7.35-7.45) ABG pCO2 (35-45) mmHg ABG pO2 (83-108) mmHg ABG HCO3 (21-25) mmol/L ABG Total CO2 (19-24) mmol/L Sodium 132 L (137-145) mmol/L Chloride 95 L (98-107) mmol/L BUN 60 H (9-20) mg/dL Creatinine 11.50 H* (0.66-1.25) mg/dL Glucose 122 H (74-99) mg/dL POC Glucose (mg/dL) (75-99) mg/dL Phosphorus 7.2 H (2.5-4.5) mg/dL CSF RBC (0-10) u/L CSF Tot Nucleated Cells (0-5) u/L Microbiology - Last 24 Hours (Table) 08/31/18 12:38 CSF Gram Stain - Preliminary Cerebral Spinal Fluid CSF Culture - Preliminary 08/31/18 14:30 Gram Stain - Preliminary Peritoneal Fluid Body Fluid Culture - Preliminary 08/31/18 14:30 Anaerobic Culture - Preliminary Peritoneal Fluid 08/31/18 12:38 Acid Fast Bacilli Culture - Preliminary Cerebral Spinal Fluid 08/31/18 12:38 Fungal Culture - Preliminary Cerebral Spinal Fluid Assessment and Plan Assessment: Assessment and plan: 1. 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 we will continue with IV Acyclovir. Await HSV and VZV PCR. 2. Accelerated hypertension. Patient was initially on labetalol drip subsequently was taken off and now is back on 0.5 mg/m. 3. End stage renal disease on peritoneal dialysis. Patient was seen in consultation by nephrology will go for 6 exchanges daily. 4. Recent herpes zoster. Lesions appear to be crusted. We will continue contact isolation. 5. 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 Stable at this time. 6. History of seizure disorder. Currently not taking any medication at this time. 7. Hypertension and hypertensive cardiovascular disease. Continue treatment as in paragraph #2. 8. Hyperlipidemia. Continue patient on Lipitor 40 mg orally once every day. 9. Peripheral neuropathy. Hold gabapentin for now. 10. Secondary hyperparathyroidism. Monitor the patient calcium and phosphorus. 11. DVT prophylaxis. Heparin 5000 units subcutaneously every 12 hours. 12. GI prophylaxis. Continue patient on PPI. 13. Prognosis very guarded.
--- NOTE | 2018-09-01 11:56 | P.PN ---
Subjective Progress Note Date: 09/01/18 58-year-old male patient comes in to the ICU with altered mental status. The patient has been dysarthric, unable to cardiac embolization, has some difficulties with answering questions and he is not oriented to time and place and apparently his condition got worse since he came in to the ICU. He is very much confused. He was apparently having some delusions and hallucinations earlier. His balance is off and is unable to walk and he became progressively more somnolent and sleepy. The patient is currently in the intensive care unit. CAT scan of the brain that was done showed no acute abnormalities. The patient had a hypertensive reaction time of admission and hypertensive encephalopathy was considered. His blood pressure was initially 200/110 and the patient was started on labetalol drip for blood pressure control. This morning his BP is under better control and a labetalol drip was weaned off and possibly will be discontinued. He was able to swallow some of his oral medication and as his mental status Worse, I doubt she'll be able to take some of his medications. No neck stiffness. No fever. No headaches. There is an area of shingles over the posterior back which has a dermatomal distribution. The vesicles that are somewhat encrusted. The patient has peritoneal dialysis regarding hypertensive nephropathy an incisional disease. He uses 4 exchanges with 2.5 solution. No evidence of any respiratory distress. No cough or sputum production. No abdominal pain. The peritoneal fluid is clean. There is no significant abnormality or erythema around the peritoneal tube catheter. The patient has no significant leukocytosis Today's evaluation of 09/01/2018, the patient is being seen for a follow-up. Neurologically the patient is unresponsive. His having difficulties with speech and dysarthria and aphasia. He is slightly hyperreflexic and digits. No seizure activity has been noted. He is able to move all 4 extremities. He is not agitated. He is able to protect his airways. No aspiration. No orotracheal secretions. He is currently on acyclovir suspecting a VZV associated encephalitis. No neck stiffness. No hemodynamic instability. MRI of the brain was also done that showedSmall foci of self acute ischemia suspect in the left frontal area and inferior left temporal lobes in addition to small vessel ischemic changes/chronic and age-related atrophy. Carotid Dopplers were negative. EEG was done also yesterday and was markedly abnormal EEG due to background slowing. This was consistent with generalized cerebral dysfunction/encephalopathy. No seizure activity has been noted. Hemodynamically, the patient is stable. Hypertensive. He was unable to take his oral medications the patient is unable to swallow. He is taking Aspirin which is being administered rectally.The patient is undergoing regular peritoneal dialysis. His BUN is at 60 with a creatinine of 11.5. The lumbar puncture was done yesterday and the patient's CSF was consistent with encephalitis, possibly viral knowing that there was some mild leukocytosis with a white cell count of 5800% mononuclear. The CSF protein was 56 with a glucose of 63. CSF PCR analysis for viruses are still pending for now. Meanwhile, the patient is currently on IV acyclovir. He was also on the case. The patient was also started on Keppra. Objective - Vital Signs Vital signs: Vital Signs Temp 96.9 F L 09/01/18 08:00 Pulse 74 09/01/18 11:00 Resp 18 09/01/18 11:00 BP 126/89 09/01/18 11:00 Pulse Ox 98 09/01/18 11:00 Intake & Output 08/31/18 09/01/18 09/01/18 18:59 06:59 18:59 Intake Total 540 340 398.5 Output Total 0 Balance 540 340 398.5 Weight 89.3 kg Intake: IV 240 340 180 Sodium Chloride 0.9% 1, 240 240 80 000 ml @ 20 mls/hr IV . Q24H ANY Rx#:[id number] levETIRAcetam IV 250 mg 100 100 In Sodium Chloride 0.9% 100 ml @ 400 mls/hr IVPB Q12HR ANY Rx#:[id number] Intake, IV Titration 300 218.5 Amount Acyclovir Sodium 500 mg 100 In Sodium Chloride 0.9% 100 ml @ 100 mls/hr IVPB Q24H ANY Rx#:[id number] Labetalol 200 mg In 200 Sodium Chloride 0.9% 160 ml @ 0.5 MG/MIN 30 mls/hr IV .Q6H40M ANY Rx#: [id number] Labetalol 200 mg In 218.5 Sodium Chloride 0.9% 160 ml @ 2 MG/MIN 120 mls/hr IV .Q1H40M ANY Rx#: [id number] Output: Urine 0 Other: Voiding Method CAPD CAPD # Voids 1 # Bowel Movements 1 - Exam Gen. appearance the patient is stuporous, confused, unable to talk and carry conversation, unable to follow commands and is becoming progressively more sleepy and lethargic. No seizure activity has been noted. Occasionally startles and jerks. Head exam was generally normal. There was no scleral icterus or corneal arcus. Mucous membranes were moist. Neck was supple and without jugular venous distension, thyromegaly, or carotid bruits. Carotids were easily palpable bilaterally. There was no adenopathy. Lungs: Decreased breath some bilaterally without crackles or wheezes no rhonchi, no deformity. Chest Wall: Decrease expansion with deep inspiration no tenderness and no deformity was found on exam, no costochondral pain or discomfort. Heart: Regular rate and rhythm, S1, S2 positive S3 positive tachycardia with systolic murmur, no rub or gallop. Back: Symmetric, no curvature, ROM normal, no CVA tenderness, there was crusted lesions in the left lower back. Abdomen: Soft, non-tender, bowel sounds active all four quadrants, slight distention with ascites from PD fluid, PD catheter is in place. Extremities: Trace edema decreased pulse positive mild arthritis in both knees, right shoulder had mild restriction to motion especially rotation. Pulses: 1+ and symmetric. Skin: Skin color, texture, tugor normal, no rashes or lesions. Neurologic: Patient is stuporous does not follow any commands with brought to verbal stimuli and painful semi-and muscle twitches on and off without evidence of acute seizure. The patient is quite hyperreflexic in all 4 extremities on today's evaluation. - Labs CBC & Chem 7: 09/01/18 04:15 09/01/18 04:15 Labs: Abnormal Lab Results - Last 24 Hours (Table) 08/31/18 08/31/18 09/01/18 Range/Units 12:31 12:38 04:15 RBC 4.08 L (4.30-5.90) m/uL Hgb 11.2 L (13.0-17.5) gm/dL Hct 35.2 L (39.0-53.0) % RDW 16.3 H (11.5-15.5) % Lymphocytes # 0.7 L (1.0-4.8) k/uL Sodium (137-145) mmol/L Chloride (98-107) mmol/L BUN (9-20) mg/dL Creatinine (0.66-1.25) mg/dL Glucose (74-99) mg/dL POC Glucose (mg/dL) 103 H (75-99) mg/dL Phosphorus (2.5-4.5) mg/dL CSF RBC 27 H (0-10) u/L CSF Tot Nucleated Cells 58 H* (0-5) u/L 09/01/18 Range/Units 04:15 RBC (4.30-5.90) m/uL Hgb (13.0-17.5) gm/dL Hct (39.0-53.0) % RDW (11.5-15.5) % Lymphocytes # (1.0-4.8) k/uL Sodium 132 L (137-145) mmol/L Chloride 95 L (98-107) mmol/L BUN 60 H (9-20) mg/dL Creatinine 11.50 H* (0.66-1.25) mg/dL Glucose 122 H (74-99) mg/dL POC Glucose (mg/dL) (75-99) mg/dL Phosphorus 7.2 H (2.5-4.5) mg/dL CSF RBC (0-10) u/L CSF Tot Nucleated Cells (0-5) u/L Microbiology - Last 24 Hours (Table) 08/31/18 12:38 CSF Gram Stain - Preliminary Cerebral Spinal Fluid CSF Culture - Preliminary 08/31/18 14:30 Gram Stain - Preliminary Peritoneal Fluid Body Fluid Culture - Preliminary 08/31/18 14:30 Anaerobic Culture - Preliminary Peritoneal Fluid 08/31/18 12:38 Acid Fast Bacilli Culture - Preliminary Cerebral Spinal Fluid 08/31/18 12:38 Fungal Culture - Preliminary Cerebral Spinal Fluid Assessment and Plan Plan: 1 altered mental status, exact etiology is not clear. CAT scan of the brain is negative. Consider viral encephalitis in view of recent zoster. The patient has diffuse encephalopathy probably related to viral encephalitis. The lumbar puncture was suggestive of viral infection and the final diagnoses is pending on the PCR analysis. The patient was started on IV every acyclovir. The patient is having diffuse encephalopathy and the abnormal EEG findings and the MRI findings were noted. Carotid Dopplers were negative. The patient is in the intensive care unit for now. Further monitoring. 2 hypertensive urgency/emergency currently the blood pressure is elevated as the patient is unable to take oral medications and labetalol drip was restarted. 3 renal failure, chronic, and the patient is dialysis dependent as the patient is on peritoneal dialysis 4 exchanges with a 2.5 solution 4 acute herpes zoster involving the upper back 5 hypertension 6 hypertensive heart disease with concentric LVH 7 hyperlipidemia 8 peripheral neuropathy 9 history of seizure disorder 10 chronic anemia PLAN Awaiting the CSF viral analysis by PCR. Continue IV acyclovir for now. Monitor mental status. Continue IV Keppra. Continue rectal aspirin. No fever. Hemodynamically stable. Labetalol drip was restarted. The blood pressure control. Neurology on the case. Was doing regular peritoneal exchanges. No need for intubation as the patient is able to protect his airway. May consider a feeding tube at a later stage for feeding purposes and medication. We'll continue to follow. Condition is critical. Prognosis poor baseline above-mentioned comorbidities.
[2018-09-01] MEDS: SODIUM CHLORIDE 0.9% 1,000 ML IV SCH (13:36)
[2018-09-01] MEDS: ACYCLOVIR SODIUM 500 MG in SODIUM CHLORIDE 0.9% 100 ML IVPB SCH (16:09)
--- NOTE | 2018-09-01 17:50 | P.PN ---
Subjective Progress Note Date: 09/01/18 Patient continues to be significantly encephalopathic. Her sitter was present, who states that he sometimes vocalizes certain random words. Randomly moves all 4 extremities. No focal weakness noticed. No seizures observed. Patient had carotid Doppler which showed no significant stenosis. Antegrade f low in both vertebral arteries. EEG showed markedly abnormal EEG due to background slowing. This suggestive of generalized cerebral dysfunction as can be seen in toxic metabolic encephalopathy or related to diffuse structural brain abnormality. No epileptiform activity was seen. MRI of the brain showed small focus of subacute ischemia suspected left frontal and inferior left temporal lobes, consider embolic phenomenon. There are chronic small vessel ischemic changes. Patient is on Keppra 250 mg twice a day and aspirin 300 mg rectally daily. Objective - Vital Signs Vital signs: Vital Signs Temp 97.6 F 09/01/18 16:00 Pulse 68 09/01/18 17:00 Resp 12 09/01/18 17:00 BP 156/98 09/01/18 17:00 Pulse Ox 94 L 09/01/18 17:00 Intake & Output 08/31/18 09/01/18 09/01/18 18:59 06:59 18:59 Intake Total 540 340 670.5 Output Total 0 Balance 540 340 670.5 Weight 89.3 kg Intake: IV 240 340 300 Sodium Chloride 0.9% 1, 240 240 200 000 ml @ 20 mls/hr IV . Q24H ANY Rx#:[id number] levETIRAcetam IV 250 mg 100 100 In Sodium Chloride 0.9% 100 ml @ 400 mls/hr IVPB Q12HR ANY Rx#:[id number] Intake, IV Titration 300 370.5 Amount Acyclovir Sodium 500 mg 100 In Sodium Chloride 0.9% 100 ml @ 100 mls/hr IVPB Q24H ANY Rx#:[id number] Labetalol 200 mg In 200 Sodium Chloride 0.9% 160 ml @ 0.5 MG/MIN 30 mls/hr IV .Q6H40M ANY Rx#: [id number] Labetalol 200 mg In 370.5 Sodium Chloride 0.9% 160 ml @ 2 MG/MIN 120 mls/hr IV .Q1H40M ANY Rx#: [id number] Output: Urine 0 Other: Voiding Method CAPD CAPD # Voids 1 # Bowel Movements 1 - Exam Patient is encephalopathic. His eyes were closed. However upon calling his name the first time, he turned his head very swiftly, but has a staring eyes. He did not follow commands. He did not speak. He does make eye contact. Tone is equal bilaterally. - Labs CBC & Chem 7: 09/01/18 04:15 09/01/18 04:15 Labs: Abnormal Lab Results - Last 24 Hours (Table) 09/01/18 09/01/18 Range/Units 04:15 04:15 RBC 4.08 L (4.30-5.90) m/uL Hgb 11.2 L (13.0-17.5) gm/dL Hct 35.2 L (39.0-53.0) % RDW 16.3 H (11.5-15.5) % Lymphocytes # 0.7 L (1.0-4.8) k/uL Sodium 132 L (137-145) mmol/L Chloride 95 L (98-107) mmol/L BUN 60 H (9-20) mg/dL Creatinine 11.50 H* (0.66-1.25) mg/dL Glucose 122 H (74-99) mg/dL Phosphorus 7.2 H (2.5-4.5) mg/dL Microbiology - Last 24 Hours (Table) 08/31/18 12:38 CSF Gram Stain - Preliminary Cerebral Spinal Fluid CSF Culture - Preliminary 08/31/18 14:30 Gram Stain - Preliminary Peritoneal Fluid Body Fluid Culture - Preliminary 08/31/18 14:30 Anaerobic Culture - Preliminary Peritoneal Fluid 08/31/18 12:38 Acid Fast Bacilli Culture - Preliminary Cerebral Spinal Fluid 08/31/18 12:38 Fungal Culture - Preliminary Cerebral Spinal Fluid Assessment and Plan Assessment: * Viral encephalitis. 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 * Chronic renal failure on peritoneal dialysis * Hypertensive urgency * Hypertension Plan: Continue acyclovir, renal adjusted dose. Recommend infectious disease consultation. Continue Keppra 250 mg twice a day for seizure prophylaxis. Patient underwent MRI of the brain without contrast. Results reviewed. Patient started on aspirin 3 mg rectally daily. HSV 1 and 2 PCR pending. VZV PCR and CSF pending. Consider HIV testing.
[2018-09-02] MEDS: LABETALOL 200 MG in SODIUM CHLORIDE 0.9% 160 ML IV SCH ×11 (00:07→23:08)
--- NOTE | 2018-09-02 00:28 | P.CONS ---
History of Present Illness - Reason for Consult Consult date: 09/01/18 Herpes encephalitis Requesting physician: Dakotah Decker - Chief Complaint Mental status changes and hypertension - History of Present Illness Patient is a 58-year-old male with a past medical history significant for end-stage renal disease on peritoneal dialysis apparently been diagnosed in outpatient setting with possible shingles of the patient have rash on the right midback area for the patient be started on tramadol patient presented to ER complaining of feeling drugged with the dizzy and unable to complete his dialysis today patient is complaining of some mild headache but no clear history of any fever or chills no chest pain shortness of breath or cough or any cloudy peritoneal fluid patient subsequently has been admitted to the hospital patient did have significantly elevated blood pressure on presentation was systolic of 208 was initially on a cardiac floor subsequently has been transferred to the ICU has patient did have worsening mental status changes and unresponsiveness has been evaluated by neurology services and the patient did have MRI of the brain which shows punctate lesion in the left frontal and temporal area with concern for possible anoxic phenomena the patient also have LP completed which shows normal protein and glucose however white count was elevated predominantly mononuclear cells the patient has been started on acyclovir with concern for possible herpes encephalitis infectious disease was consulted for further rec ommendation regarding antibiotic therapy all the information has been obtained from review the chart and talking to the nursing staff as the patient himself is unable to provide any history Review of Systems Positive points has been mentioned in HPI complete review cannot be obtained because of his mental status Past Medical History Past Medical History: Dialysis, Hyperlipidemia, Hypertension, Renal Disease, Seizure Disorder Additional Past Medical History / Comment(s): End-stage renal disease on perit cole dialysis, hypertension, hypertensive heart disease with concentric LVH, hypertension, hyperlipidemia, history of seizure disorder, chronic back pain, degenerative disc disease, history of bowel resection with colostomy and subsequent reversal History of Any Multi-Drug Resistant Organisms: None Reported Past Surgical History: Orthopedic Surgery Additional Past Surgical History / Comment(s): Peritoneal catheters-last one placed in 2017, colostomy with reversal, colonoscopy, bilateral carpal tunnel releases Past Anesthesia/Blood Transfusion Reactions: No Reported Reaction Past Psychological History: No Psychological Hx Reported Smoking Status: Former smoker - Past Family History Mother Family Medical History: Dementia Additional Family Medical History / Comment(s): Mother is alive with history of dementia. Father Family Medical History: Cancer Additional Family Medical History / Comment(s): Father is alive with history of LIVER CANCER and coronary artery disease status post CABG. Patient does not have any brothers or sisters. Medications and Allergies Home Medications Medication Instructions Recorded Confirmed Type Atorvastatin Calcium [Lipitor] 40 mg PO DAILY 01/01/17 08/30/18 History Lisinopril [Prinivil] 20 mg PO BID 01/01/17 08/30/18 History B Complex W-C No.20/Folic Acid 1 mg PO DAILY 08/19/18 08/30/18 History [Renal Caps Softgel] Calcitriol 0.5 mcg PO MOWEFR 08/19/18 08/30/18 History Furosemide [Lasix] 80 mg PO TID 08/19/18 08/30/18 History Gabapentin [Neurontin] 400 mg PO BID 08/19/18 08/30/18 History traMADol HCL [Ultram] 50 mg PO DAILY PRN 08/19/18 08/30/18 History Carvedilol [Coreg] 6.25 mg PO BID-W/MEALS #60 tab 08/22/18 08/30/18 Rx Sevelamer [Renvela] 800 mg PO TID-W/MEALS #90 tab 08/22/18 08/30/18 Rx hydrALAZINE HCL [Apresoline] 25 mg PO TID #90 tab 08/22/18 08/30/18 Rx Allergies Allergy/AdvReac Type Severity Reaction Status Date / Time No Known Allergies Allergy Verified 08/30/18 14:20 Physical Exam Vitals: Vital Signs Temp Pulse Resp BP Pulse Ox 09/01/18 12:00 96.6 F L 66 12 153/78 98 09/01/18 11:30 73 20 132/79 97 09/01/18 11:00 74 18 126/89 98 09/01/18 10:30 73 15 121/70 95 09/01/18 10:00 71 13 117/72 97 09/01/18 09:30 71 14 133/87 97 09/01/18 09:00 73 35 H 134/92 94 L 09/01/18 08:30 76 14 139/80 95 09/01/18 08:26 97 09/01/18 08:00 96.9 F L 77 18 120/74 96 09/01/18 07:30 71 11 L 154/88 97 09/01/18 07:00 80 14 171/95 97 09/01/18 06:30 89 36 H 171/113 98 09/01/18 06:00 72 12 157/139 98 09/01/18 05:59 79 14 98 09/01/18 05:30 76 21 177/106 97 09/01/18 05:00 77 18 170/103 95 09/01/18 04:30 98.1 F 75 20 182/120 95 09/01/18 04:00 79 36 H 184/108 96 09/01/18 03:30 80 13 171/96 94 L 09/01/18 03:00 78 17 131/72 95 09/01/18 02:30 75 11 L 168/98 95 09/01/18 02:06 71 14 168/98 96 09/01/18 02:00 77 11 L 171/101 98 09/01/18 01:30 97.2 F L 85 12 155/96 97 09/01/18 01:00 80 20 164/104 91 L 09/01/18 00:30 81 16 168/103 96 09/01/18 00:13 94 L 09/01/18 00:00 85 16 163/96 94 L 08/31/18 23:30 76 12 152/78 91 L 08/31/18 23:00 89 13 139/80 97 08/31/18 22:30 73 12 164/112 96 08/31/18 22:19 98.2 F 78 14 164/112 96 08/31/18 22:00 98.2 F 87 14 152/88 96 08/31/18 21:30 78 16 139/88 98 08/31/18 21:00 96.4 F L 81 14 127/96 94 L 08/31/18 20:30 85 22 140/88 95 08/31/18 20:00 79 14 132/69 95 08/31/18 19:30 86 12 138/89 94 L 08/31/18 19:00 86 14 122/82 96 08/31/18 18:30 89 20 126/75 96 08/31/18 18:00 88 14 137/91 96 08/31/18 17:30 86 16 167/103 97 08/31/18 17:00 75 14 158/106 98 08/31/18 16:30 80 17 166/105 98 08/31/18 16:00 97.5 F L 88 14 137/91 96 08/31/18 15:30 82 22 159/86 08/31/18 15:00 128/80 08/31/18 14:30 62 12 137/77 94 L 08/31/18 14:00 66 13 154/92 97 08/31/18 13:30 77 16 132/82 95 08/31/18 13:00 77 12 139/78 94 L Intake and Output 08/31/18 09/01/18 09/01/18 22:59 06:59 14:59 Intake Total 360 160 418.5 Output Total 0 0 Balance 360 160 418.5 Intake: IV 260 160 200 Sodium Chloride 0.9% 1, 160 160 100 000 ml @ 20 mls/hr IV . Q24H ANY Rx#:[id number] levETIRAcetam IV 250 mg 100 100 In Sodium Chloride 0.9% 100 ml @ 400 mls/hr IVPB Q12HR ANY Rx#:[id number] Intake, IV Titration 100 218.5 Amount Acyclovir Sodium 500 mg 100 In Sodium Chloride 0.9% 100 ml @ 100 mls/hr IVPB Q24H ANY Rx#:[id number] Labetalol 200 mg In 218.5 Sodium Chloride 0.9% 160 ml @ 2 MG/MIN 120 mls/hr IV .Q1H40M ANY Rx#: [id number] Output: Urine 0 0 Other: Voiding Method CAPD CAPD CAPD # Voids 1 Weight 89.3 kg GENERAL DESCRIPTION: Middle-aged male lying in bed, no distress. No tachypnea or accessory muscle of respiration use. HEENT: Shows Pallor , no scleral icterus. Oral mucous membrane is dry. No pharyngeal erythema or thrush NECK: Trachea central, no thyromegaly. LUNGS: Unlabored breathing. Clear to auscultation anteriorly. No wheeze or crackle. HEART: S1, S2, regular rate and rhythm. No loud murmur ABDOMEN: Soft, no tenderness , guarding or rigidity, no organomegaly EXTREMITIES: No edema of feet. SKIN: No rash, no masses palpable. NEUROLOGICAL: The patient is unresponsive with generalized rigidity Results CBC & Chem 7: 09/01/18 04:15 09/01/18 04:15 Labs: Abnormal Lab Results - Last 24 Hours (Table) 08/31/18 09/01/18 09/01/18 Range/Units 12:38 04:15 04:15 RBC 4.08 L (4.30-5.90) m/uL Hgb 11.2 L (13.0-17.5) gm/dL Hct 35.2 L (39.0-53.0) % RDW 16.3 H (11.5-15.5) % Lymphocytes # 0.7 L (1.0-4.8) k/uL Sodium 132 L (137-145) mmol/L Chloride 95 L (98-107) mmol/L BUN 60 H (9-20) mg/dL Creatinine 11.50 H* (0.66-1.25) mg/dL Glucose 122 H (74-99) mg/dL Phosphorus 7.2 H (2.5-4.5) mg/dL CSF RBC 27 H (0-10) u/L CSF Tot Nucleated Cells 58 H* (0-5) u/L Microbiology - Last 24 Hours (Table) 08/31/18 12:38 CSF Gram Stain - Preliminary Cerebral Spinal Fluid CSF Culture - Preliminary 08/31/18 14:30 Gram Stain - Preliminary Peritoneal Fluid Body Fluid Culture - Preliminary 08/31/18 14:30 Anaerobic Culture - Preliminary Peritoneal Fluid 08/31/18 12:38 Acid Fast Bacilli Culture - Preliminary Cerebral Spinal Fluid 08/31/18 12:38 Fungal Culture - Preliminary Cerebral Spinal Fluid Assessment and Plan Assessment: 1-patient admitted hospital with mental status changes generalized weakness significantly elevated blood pressure in this patient who did not have any fever or elevated white count the patient also have LP completed with a normal glucose and protein would go against any infectious encephalitis however the elevated white count and CSF is concerning in this patient initially with the punctate lesion described in the left temporal area which sometimes can be seen with herpes encephalitis Plan: 1-await HSV DNA by PCR on the CSF to be completed 2-continue with empiric IV acyclovir dose has been adjusted to his kidney function we will follow-up on his clinical condition and cultures to further adjust medication if needed Thank you for this consultation will follow this patient along with you Time with Patient: Greater than 30
[2018-09-02] MEDS ORDERED: ACETAMINOPHEN IV (For NPO) 1,000 MG in EMPTY BAG 1 BAG IVPB PRN (00:33)
[2018-09-02] MEDS: HEPARIN SODIUM,PORCINE 5,000 UNIT/ML 1 ML VIAL SQ SCH ×3 (00:34→16:07)
[2018-09-02] MEDS: DIALYSIS (PERIT 1.5%) 2,500 ML 37.5 G/2,500 ML BAG INTRAPERIT SCH ×6 (02:41→21:58)
[2018-09-02 06:01] LABS: Basophils % (A) 1 %; Eosinophils # (A) 0.3 k/uL (0-0.7); Eosinophils % (A) 4 %; HCT 34.1 % (39.0-53.0); HGB 10.7 gm/dL (13.0-17.5); Hypochromasia Slight; Lymphocytes # (A) 0.7 k/uL (1.0-4.8); Lymphocytes % (A) 10 %; MCH 27.3 pg (25.0-35.0); MCHC 31.4 g/dL (31.0-37.0); MCV 86.9 fL (80.0-100.0); Mean Platelet Volume 7.3; Monocytes # (A) 0.3 k/uL (0-1.0); Monocytes % (A) 5 %; Neutrophils % (A) 78 %; Platelet Count 310 k/uL (150-450); RBC 3.93 m/uL (4.30-5.90); WBC 6.4 k/uL (3.8-10.6)
[2018-09-02 06:17] LABS: Albumin 2.6 g/dL (3.5-5.0); Calcium 8.5 mg/dL (8.4-10.2); Magnesium 1.5 mg/dL (1.6-2.3); Phosphorus 7.3 mg/dL (2.5-4.5); Potassium 4.4 mmol/L (3.5-5.1); Total Bilirubin 0.4 mg/dL (0.2-1.3)
[2018-09-02] MEDS: HALOPERIDOL LACTATE 5 MG/ML 1 ML VIAL IVP PRN ×2 (08:16→14:40)
[2018-09-02] MEDS: hydrALAZINE HCL 20 MG/ML 1 ML VIAL IVP PRN ×2 (08:42→21:18)
[2018-09-02] MEDS: levETIRAcetam IV 250 MG in SODIUM CHLORIDE 0.9% 100 ML IVPB SCH ×2 (08:44→21:19)
--- NOTE | 2018-09-02 09:17 | XR ---
EXAMINATION TYPE: XR chest 1V portable DATE OF EXAM: 09/02/2018 COMPARISON: 08/31/2018 INDICATION: Cough TECHNIQUE: Single frontal view of the chest is obtained. FINDINGS: The heart size is normal. The pulmonary vasculature is upper limits of normal. Previous infiltrates appear to result. Some minimal linear atelectasis in the right perihilar region. IMPRESSION: 1. Resolution of previous infiltrates. Some interval development of plate atelectasis is in the right midlung.
[2018-09-02] MEDS: ASPIRIN 300 MG SUPP RECTAL SCH (09:23)
[2018-09-02] MEDS: SEVELAMER 800 MG TAB PO SCH ×3 (09:28→16:46)
[2018-09-02] MEDS: CARVEDILOL 6.25 MG TAB PO SCH ×2 (09:28→16:46)
[2018-09-02] MEDS: hydrALAZINE HCL 25 MG TAB PO SCH ×3 (09:29→21:10)
[2018-09-02] MEDS: FOLIC ACID-VIT B COMPLEX-VIT C 1 CAP PO SCH (09:29)
[2018-09-02] MEDS: GABAPENTIN 400 MG CAP PO SCH ×2 (09:29→21:11)
[2018-09-02] MEDS: ATORVASTATIN 40 MG TAB PO SCH (09:29)
[2018-09-02] MEDS: FAMOTIDINE 20 MG TAB PO SCH (09:29)
[2018-09-02] MEDS: FUROSEMIDE 80 MG TAB PO SCH ×3 (09:29→21:10)
[2018-09-02] MEDS: LISINOPRIL 20 MG TAB PO SCH ×2 (09:30→21:11)
[2018-09-02] MEDS: PANTOPRAZOLE 40 MG/10 ML VIAL IV SCH (09:31)
--- NOTE | 2018-09-02 09:32 | P.PN ---
Subjective Progress Note Date: 09/02/18 Principal diagnosis: Emanuel patient with ESRD on peritoneal dialysis who was admitted with confusion and encephalopathy. provisional diagnoses includes herpes encephalitis because of zoster lesions on his skin, possible under dialysis because he was noncompliant with peritoneal dialysis on and off. He also took 1-2 tablets of tramadol. He is also known with seizure disorder Since admission he has been started on acyclovir. He did take a course of by mouth acyclovir as an outpatient because of the skin lesion of zoster in his left upper back. Day before Yesterday he had an MRI done which showed small foci of subacute ischemia on the left frontal and inferior left temporal lobes. An EEG showed generalized cerebral dysfunction consistent with toxic metabolic encephalopathy. The CSF fluid contained 27 RBCs, 58 WBCs and 100% of them were mononuclear cells. Glucose 63 and total protein 56. A PD cell count was 2. His PD exchanges are 2500 mL every 4 hours 1.5%. Ultrafiltration was -400 mL over the last 4 exchanges. His blood pressure is somewhat labile and has been started on IV labetalol, his blood pressure is well controlled with need for occasional IV labetalol. He is unable to eat or drink because of confusion. His confusion is somewhat better. His antibody titers in the CSF fluid culture is pending. History of present illness; Emanuel is seen with ESRD, on peritoneal dialysis. Admitted with encephalopathy. Currently is being treated for possible herpes encephalitis because of zoster lesions seen on his left upper back, also possibility of under dialysis as he tends to be noncompliant. Complicating this he also 1-2 tablets of Tylenol supposedly He is He does have mild degree of vesicular eruption suggestive of zoster on his left lower rib cage posteriorly with most lesions have crusted. He does have a history of noncompliance with dialysis especially when he goes to [place] for his transplant related workup. I discussed this with the PD nurse who came in these details. Supposedly [facility] have declined transplant possibilities. The reason for this being vascular calcifications but these details are not very clear. He is known with seizure disorder, hypertension, hyperlipidemia colostomy reversals back pain. He has been on peritoneal dialysis approximately 2017. Objective - Vital Signs Vital signs: Vital Signs Temp 96.1 F L 09/02/18 08:00 Pulse 80 09/02/18 08:00 Resp 12 09/02/18 08:00 BP 152/94 09/02/18 08:00 Pulse Ox 98 09/02/18 08:00 Intake & Output 09/01/18 09/02/18 09/02/18 18:59 06:59 18:59 Intake Total 670.5 920 20 Output Total 20 0 Balance 650.5 920 20 Weight 89.3 kg 90.2 kg Intake: IV 300 520 20 ACETAMINOPHEN IV (For NPO 100 ) 1,000 mg In Empty Bag 1 bag @ 400 mls/hr IVPB Q6HR PRN Rx#:[id number] Acyclovir Sodium 500 mg 100 In Sodium Chloride 0.9% 100 ml @ 100 mls/hr IVPB Q24H ANY Rx#:[id number] Sodium Chloride 0.9% 1, 200 220 20 000 ml @ 20 mls/hr IV . Q24H ANY Rx#:[id number] levETIRAcetam IV 250 mg 100 100 In Sodium Chloride 0.9% 100 ml @ 400 mls/hr IVPB Q12HR ANY Rx#:[id number] Intake, IV Titration 370.5 400 Amount Labetalol 200 mg In 370.5 400 Sodium Chloride 0.9% 160 ml @ 2 MG/MIN 120 mls/hr IV .Q1H40M ANY Rx#: [id number] Output: Urine 20 0 Other: Voiding Method CAPD CAPD # Voids 1 0 Examination he remains confused but has improved to the point that he is making eye contact and trying to grab staff as they come around him. HEENT exam no JVP neck is supple no facial asymmetry Lungs are clear to auscultation fair air entry bilaterally Heart sounds are unremarkable normal sinus rhythm Abdomen is soft nontender nondistended Extremity exam reveals no edema Neurologically awake but confused and somewhat restless. This is an improvement. There is no focal deficit - Labs CBC & Chem 7: 09/02/18 05:27 09/02/18 05:27 Labs: Abnormal Lab Results - Last 24 Hours (Table) 09/02/18 09/02/18 Range/Units 05:27 05:27 RBC 3.93 L (4.30-5.90) m/uL Hgb 10.7 L (13.0-17.5) gm/dL Hct 34.1 L (39.0-53.0) % RDW 16.0 H (11.5-15.5) % Lymphocytes # 0.7 L (1.0-4.8) k/uL Sodium 133 L (137-145) mmol/L Chloride 97 L (98-107) mmol/L BUN 50 H (9-20) mg/dL Creatinine 10.22 H* (0.66-1.25) mg/dL Glucose 113 H (74-99) mg/dL Phosphorus 7.3 H (2.5-4.5) mg/dL Magnesium 1.5 L (1.6-2.3) mg/dL Total Protein 5.0 L (6.3-8.2) g/dL Albumin 2.6 L (3.5-5.0) g/dL Microbiology - Last 24 Hours (Table) 08/31/18 12:38 Acid Fast Bacilli Smear - Final Cerebral Spinal Fluid Acid Fast Bacilli Culture - Preliminary 08/31/18 14:30 Gram Stain - Preliminary Peritoneal Fluid Body Fluid Culture - Preliminary 08/31/18 12:38 CSF Gram Stain - Preliminary Cerebral Spinal Fluid CSF Culture - Preliminary Assessment and Plan Assessment: Impression 1. ESRD, on peritoneal dialysis. Known with noncompliance with dialysis. On 1.5%, 2500 mL 6 exchanges, currently ultrafiltration 400 mL for the last 4 exchanges. He is getting extra dialysis because of possibility of under dialysis because of noncompliance and encephalopathy 2. Admitted with changes in mental status worsening after taking perhaps 1-2 tramadol. Possibilities off herpes encephalitis and uremia because of missing dialysis is also considered, given his history of noncompliance after talking to his dialysis nursing staff. Seizure disorder and status epilepticus needs to be ruled out as well as herpes encephalitis. He is on IV acyclovir appropriate dose, 500 mg every 24 hours. Pending results of the antibody titers 3. Seizure disorders. On Keppra 4. Anemia of chronic kidney disease hemoglobin went down from 10.7-9.8 and now back up to 10.7 possibly from dehydration 5. Noncompliance with peritoneal Faith's on-and-off. 6. Hyperphosphatemia from ESRD 7. Uncontrolled hypertension, now improved. Recommendation 1. Continue Acyclovir IV 500 mg every 24 hours to cover for possibility of Herpes Encephalitis, antibody levels in the CSF fluid is pending . 2. Ensure adequate dialysis , peritoneal dialysis exchanges have been increased to 6 per day with 1.5% 2500 mL. we will continue the same 3. Avoid any sedatives narcotics. 4. Maintain blood pressure, we can use IV labetalol drip if needed and aim for blood pressure of around 120-140. Additional IV vasotech if needed 5. Unable to calculate KT will be as the lab is refusing to do the urea on the PD fluid
--- NOTE | 2018-09-02 10:51 | P.PN ---
Subjective Progress Note Date: 09/02/18 This is a 58 rolled male one of my patient with a previous medical history significant for end-stage renal disease on PD any scheduled for possible renal transplant for which she has been traveling back and forth to [place], in between he has been missing his PD in [place] to [place], patient was recently hospitalized at [facility] because of accelerated hypertension with metabolic and hypertensive encephalopathy and he came to my office for follow-up and his blood pressure was well controlled in the range of 130/75, patient was maintained on hydralazine carvedilol amlodipine and lisinopril as well, patient developed to have shingles in the left lower back for which she was treated with tramadol and antiviral medication at the urgent care clinic, and the patient apparently was taken these pills along with his gabapentin he ended up coming to the emergency department because of significant mental status changes without evidence of any seizure activity however he had a computed tomography scan of the brain did not show any evidence of acute of normalities, patient was admitt ed to the hospital initially to the cardiac floor however he developed to have a significant accelerated hypertension we gave the order for the nursing staff to put him on labetalol drip at 0.5 mg/m that was titrated to 1.5 mg/m and subsequently was taken off of it he was transferred to the intensive care unit he was seen in consultation by nephrology as well as clinical audiologist Dr. Montgomery he was recommended for the patient to be intubated because of severe mental status changes and an LP to be done to rule out any herpes encephalitis, his mental status changes likely related to his medication patient did receive a dose of baclofen and the dose of Requip last night along with his gabapentin and tramadol. 09/01: Patient continues to be confused he underwent lumbar puncture yesterday fluid results were reviewed possibility of zoster encephalitis versus herpes encephalitis is in the differential diagnosis at this time, however uremic encephalitis could not be entirely ruled out, we will continue with acyclovir, we will continue with supportive care, we'll continue the ICU, continue aggress neal PD at this time 6 times every day. 09/02: Patient is more awake today continues to fall asleep on and off, however is much better follows command no chest pain or shortness breath endoscopy of headache he continues to be on PD, his PCR still pending for the VZV encephalitis as well as HSV 1 and 2. Objective - Vital Signs Vital signs: Vital Signs Temp 96.1 F L 09/02/18 08:00 Pulse 80 09/02/18 08:00 Resp 12 09/02/18 08:00 BP 152/94 09/02/18 08:00 Pulse Ox 98 09/02/18 08:00 Intake & Output 09/01/18 09/02/18 09/02/18 18:59 06:59 18:59 Intake Total 670.5 920 20 Output Total 20 0 Balance 650.5 920 20 Weight 89.3 kg 90.2 kg Intake: IV 300 520 20 ACETAMINOPHEN IV (For NPO 100 ) 1,000 mg In Empty Bag 1 bag @ 400 mls/hr IVPB Q6HR PRN Rx#:[id number] Acyclovir Sodium 500 mg 100 In Sodium Chloride 0.9% 100 ml @ 100 mls/hr IVPB Q24H ANY Rx#:[id number] Sodium Chloride 0.9% 1, 200 220 20 000 ml @ 20 mls/hr IV . Q24H ANY Rx#:[id number] levETIRAcetam IV 250 mg 100 100 In Sodium Chloride 0.9% 100 ml @ 400 mls/hr IVPB Q12HR ANY Rx#:[id number] Intake, IV Titration 370.5 400 Amount Labetalol 200 mg In 370.5 400 Sodium Chloride 0.9% 160 ml @ 2 MG/MIN 120 mls/hr IV .Q1H40M ANY Rx#: [id number] Output: Urine 20 0 Other: Voiding Method CAPD CAPD # Voids 1 0 - Exam General Appearance: Patient is stuporous with raw to verbal stimuli but does not follow any commands. Neck HEENT: Supple, no lymphadenopathy, no thyroid enlargement, no carotid bru its. Lungs: Decreased breath some bilaterally without crackles or wheezes no rhonchi, no deformity. Chest Wall: Decrease expansion with deep inspiration no tenderness and no deformity was found on exam, no costochondral pain or discomfort. Heart: Regular rate and rhythm, S1, S2 positive S3 positive tachycardia with systolic murmur, no rub or gallop. Back: Symmetric, no curvature, ROM normal, no CVA tenderness, there was crusted lesions in the left lower back. Abdomen: Soft, non-tender, bowel sounds active all four quadrants, slight distention with ascites from PD fluid, PD catheter is in place. Extremities: Trace edema decreased pulse positive mild arthritis in both knees, right shoulder had mild restriction to motion especially rotation. Pulses: 1+ and symmetric. Skin: Skin color, texture, tugor normal, no rashes or lesions. Neurologic: Patient is stuporous does not follow any commands with brought to verbal stimuli and painful semi-and muscle twitches on and off without evidence of acute seizure. - Labs CBC & Chem 7: 09/02/18 05:09/02/18 05:27 Labs: Abnormal Lab Results - Last 24 Hours (Table) 09/02/18 09/02/18 Range/Units 05: 05: RBC 3.93 L (4.30-5.90) m/uL Hgb 10.7 L (13.0-17.5) gm/dL Hct 34.1 L (39.0-53.0) % RDW 16.0 H (11.5-15.5) % Lymphocytes # 0.7 L (1.0-4.8) k/uL Sodium 133 L (137-145) mmol/L Chloride 97 L (98-107) mmol/L BUN 50 H (9-20) mg/dL Creatinine 10.22 H* (0.66-1.25) mg/dL Glucose 113 H (74-99) mg/dL Phosphorus 7.3 H (2.5-4.5) mg/dL Magnesium 1.5 L (1.6-2.3) mg/dL Total Protein 5.0 L (6.3-8.2) g/dL Albumin 2.6 L (3.5-5.0) g/dL Microbiology - Last 24 Hours (Table) 08/31/18 12:38 Acid Fast Bacilli Smear - Final Cerebral Spinal Fluid Acid Fast Bacilli Culture - Preliminary 08/31/18 14:30 Gram Stain - Preliminary Peritoneal Fluid Body Fluid Culture - Preliminary 08/31/18 12:38 CSF Gram Stain - Preliminary Cerebral Spinal Fluid CSF Culture - Preliminary Assessment and Plan Assessment: Assessment and plan: 1. 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 we will continue with IV Acyclovir. Await HSV and VZV PCR. 2. Accelerated hypertension. Patient was initially on labetalol drip subsequently was taken off and now is back on 0.5 mg/m. 3. End stage renal disease on peritoneal dialysis. Patient was seen in consultation by nephrology will go for 6 exchanges daily. 4. Recent herpes zoster. Lesions appear to be crusted. We will continue contact isolation. 5. 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 Stable at this time. 6. History of seizure disorder. Currently not taking any medication at this time. 7. Hypertension and hypertensive cardiovascular disease. Continue treatment as in paragraph #2. 8. Hyperlipidemia. Continue patient on Lipitor 40 mg orally once every day. 9. Peripheral neuropathy. Hold gabapentin for now. 10. Secondary hyperparathyroidism. Monitor the patient calcium and phosphorus. 11. DVT prophylaxis. Heparin 5000 units subcutaneously every 12 hours. 12. GI prophylaxis. Continue patient on PPI. 13. Prognosis very guarded.
[2018-09-02] MEDS: SODIUM CHLORIDE 0.9% 1,000 ML IV SCH (11:03)
--- NOTE | 2018-09-02 11:53 | P.PN ---
Subjective Progress Note Date: 09/02/18 58-year-old male patient comes in to the ICU with altered mental status. The patient has been dysarthric, unable to cardiac embolization, has some difficulties with answering questions and he is not oriented to time and place and apparently his condition got worse since he came in to the ICU. He is very much confused. He was apparently having some delusions and hallucinations earlier. His balance is off and is unable to walk and he became progressively more somnolent and sleepy. The patient is currently in the intensive care unit. CAT scan of the brain that was done showed no acute abnormalities. The patient had a hypertensive reaction time of admission and hypertensive encephalopathy was considered. His blood pressure was initially 200/110 and the patient was started on labetalol drip for blood pressure control. This morning his BP is under better control and a labetalol drip was weaned off and possibly will be discontinued. He was able to swallow some of his oral medication and as his mental status Worse, I doubt she'll be able to take some of his medications. No neck stiffness. No fever. No headaches. There is an area of shingles over the posterior back which has a dermatomal distribution. The vesicles that are somewhat encrusted. The patient has peritoneal dialysis regarding hypertensive nephropathy an incisional disease. He uses 4 exchanges with 2.5 solution. No evidence of any respiratory distress. No cough or sputum production. No abdominal pain. The peritoneal fluid is clean. There is no significant abnormality or erythema around the peritoneal tube catheter. The patient has no significant leukocytosis Today's evaluation of 09/01/2018, the patient is being seen for a follow-up. Neurologically the patient is unresponsive. His having difficulties with speech and dysarthria and aphasia. He is slightly hyperreflexic and digits. No seizure activity has been noted. He is able to move all 4 extremities. He is not agitated. He is able to protect his airways. No aspiration. No orotracheal secretions. He is currently on acyclovir suspecting a VZV associated encephalitis. No neck stiffness. No hemodynamic instability. MRI of the brain was also done that showedSmall foci of self acute ischemia suspect in the left frontal area and inferior left temporal lobes in addition to small vessel ischemic changes/chronic and age-related atrophy. Carotid Dopplers were negative. EEG was done also yesterday and was markedly abnormal EEG due to background slowing. This was consistent with generalized cerebral dysfunction/encephalopathy. No seizure activity has been noted. Hemodynamically, the patient is stable. Hypertensive. He was unable to take his oral medications the patient is unable to swallow. He is taking Aspirin which is being administered rectally.The patient is undergoing regular peritoneal dialysis. His BUN is at 60 with a creatinine of 11.5. The lumbar puncture was done yesterday and the patient's CSF was consistent with encephalitis, possibly viral knowing that there was some mild leukocytosis with a white cell count of 5800% mononuclear. The CSF protein was 56 with a glucose of 63. CSF PCR analysis for viruses are still pending for now. Meanwhile, the patient is currently on IV acyclovir. He was also on the case. The patient was also started on Keppra. On 09/02/2018, the patient seems to be a bit more awake and less sleepy compared to yesterday. Nevertheless, he continues to be encephalopathic. He would wake up and say a few words and go back to sleep. At times he is getting close agita hu. No seizure activity has been noted. He is slightly hyperreflexic. He remains on IV acyclovir. CSF fluid analysis regarding viral elements are still pending for now. He is afebrile. He is on decent blood pressure control with labetalol drip. He is not awake alert enough to be given oral medication oral feeds. The patient is undergoing dialysis on a regular basis to 2.5 solution. His BUN and creatinine remains slightly elevated although there is a improving trend with a BUN of 50 and creatinine of 10.2 on today's evaluation. His hemoglobin is at 10.7. No leukocytosis. The abdominal fluid is negative for infection. Objective - Vital Signs Vital signs: Vital Signs Temp 96.1 F L 09/02/18 10:10 Pulse 81 09/02/18 11:00 Resp 24 09/02/18 11:00 BP 153/98 09/02/18 11:00 Pulse Ox 95 09/02/18 11:00 Intake & Output 09/01/18 09/02/18 09/02/18 18:59 06:59 18:59 Intake Total 670.5 920 260 Output Total 20 0 Balance 650.5 920 260 Weight 89.3 kg 90.2 kg Intake: IV 300 520 260 ACETAMINOPHEN IV (For NPO 100 ) 1,000 mg In Empty Bag 1 bag @ 400 mls/hr IVPB Q6HR PRN Rx#:[id number] Acyclovir Sodium 500 mg 100 In Sodium Chloride 0.9% 100 ml @ 100 mls/hr IVPB Q24H ANY Rx#:[id number] Sodium Chloride 0.9% 1, 200 220 60 000 ml @ 20 mls/hr IV . Q24H ANY Rx#:[id number] Sodium Chloride 0.9% 1, 100 000 ml @ 50 mls/hr IV . Q20H ANY Rx#:[id number] levETIRAcetam IV 250 mg 100 100 100 In Sodium Chloride 0.9% 100 ml @ 400 mls/hr IVPB Q12HR ANY Rx#:[id number] Intake, IV Titration 370.5 400 Amount Labetalol 200 mg In 370.5 400 Sodium Chloride 0.9% 160 ml @ 2 MG/MIN 120 mls/hr IV .Q1H40M ANY Rx#: [id number] Output: Urine 20 0 Other: Voiding Method CAPD CAPD CAPD # Voids 1 0 - Exam Gen. appearance the patient is stuporous, confused, unable to talk and carry conversation, unable to follow commands and is becoming progressively more sle epy and lethargic. No seizure activity has been noted. Occasionally startles and jerks. Head exam was generally normal. There was no scleral icterus or corneal arcus. Mucous membranes were moist. Neck was supple and without jugular venous distension, thyromegaly, or carotid bruits. Carotids were easily palpable bilaterally. There was no adenopathy. Lungs: Decreased breath some bilaterally without crackles or wheezes no rhonchi, no deformity. Chest Wall: Decrease expansion with deep inspiration no tenderness and no deformity was found on exam, no costochondral pain or discomfort. Heart: Regular rate and rhythm, S1, S2 positive S3 positive tachycardia with systolic murmur, no rub or gallop. Back: Symmetric, no curvature, ROM normal, no CVA tenderness, there was crusted lesions in the left lower back. Abdomen: Soft, non-tender, bowel sounds active all four quadrants, slight distention with ascites from PD fluid, PD catheter is in place. Extremities: Trace edema decreased pulse positive mild arthritis in both knees, right shoulder had mild restriction to motion especially rotation. Pulses: 1+ and symmetric. Skin: Skin color, texture, tugor normal, no rashes or lesions. Neurologic: Patient is stuporous does not follow any commands with brought to verbal stimuli and painful semi-and muscle twitches on and off without evidence of acute seizure. The patient is quite hyperreflexic in all 4 extremities on today's evaluation. - Labs CBC & Chem 7: 09/02/18 05:09/02/18 05:27 Labs: Abnormal Lab Results - Last 24 Hours (Table) 09/02/18 09/02/18 Range/Units 05: 05: RBC 3.93 L (4.30-5.90) m/uL Hgb 10.7 L (13.0-17.5) gm/dL Hct 34.1 L (39.0-53.0) % RDW 16.0 H (11.5-15.5) % Lymphocytes # 0.7 L (1.0-4.8) k/uL Sodium 133 L (137-145) mmol/L Chloride 97 L (98-107) mmol/L BUN 50 H (9-20) mg/dL Creatinine 10.22 H* (0.66-1.25) mg/dL Glucose 113 H (74-99) mg/dL Phosphorus 7.3 H (2.5-4.5) mg/dL Magnesium 1.5 L (1.6-2.3) mg/dL Total Protein 5.0 L (6.3-8.2) g/dL Albumin 2.6 L (3.5-5.0) g/dL Microbiology - Last 24 Hours (Table) 08/31/18 12:38 Acid Fast Bacilli Smear - Final Cerebral Spinal Fluid Acid Fast Bacilli Culture - Preliminary 08/31/18 14:30 Gram Stain - Preliminary Peritoneal Fluid Body Fluid Culture - Preliminary Assessment and Plan Plan: 1 altered mental status, exact etiology is not clear. CAT scan of the brain is negative. Consider viral encephalitis in view of recent zoster. The patient has diffuse encephalopathy probably related to viral encephalitis. The lumbar puncture was suggestive of viral infection and the final diagnoses is pending on the PCR analysis. The patient was started on IV every acyclovir. The patient is having diffuse encephalopathy and the abnormal EEG findings and the MRI findings were noted. Carotid Dopplers were negative. The patient is in the intensive care unit for now. I will say the patient is a bit more alert compared to yesterday. Nevertheless is still encephalopathic and neurologic symptoms have not completely recovered. He remains on IV acyclovir. Is undergoing a regular basis. No infectious focus for now. 2 hypertensive urgency/emergency currently the blood pressure is elevated as the patient is unable to take oral medications and labetalol drip was restarted. 3 renal failure, chronic, and the patient is dialysis dependent as the patient is on peritoneal dialysis 4 exchanges with a 2.5 solution, the BUN and creatinine improving 4 acute herpes zoster involving the upper back 5 hypertension 6 hypertensive heart disease with concentric LVH 7 hyperlipidemia 8 peripheral neuropathy 9 history of seizure disorder 10 chronic anemia PLAN Awaiting the CSF viral analysis by PCR. Continue IV acyclovir for now. Monitor mental status. Continue IV Keppra. Continue rectal aspirin. No fever. Hemodynamically stable. Labetalol drip was restarted. The blood pressure control. Neurology on the case. The treatment is essentially supportive. We' ll hoping to see some neurologic improvement over the next 24-48 hours with the above-mentioned treatment. Neurologist on the case. The blood pressures under good control with labetalol drip at 0.5 mg per minute.
--- NOTE | 2018-09-02 13:52 | P.PN ---
Subjective Progress Note Date: 09/02/18 Patient continues to be significantly encephalopathic. Patient has been agitated, restless, therefore has received 1 mg Haldol IV. Patient now sedated. No seizures have been reported. Infectious disease has seen the patient, recommending continuing acyclovir. Randomly moves all 4 extremities. Patient had carotid Doppler which showed no significant stenosis. Antegrade flow in both vertebral arteries. EEG showed markedly abnormal EEG due to background slowing. This suggestive of generalized cerebral dysfunction as can be seen in toxic metabolic encephalopathy or related to diffuse structural brain abnormality. No epileptiform activity was seen. MRI of the brain showed small focus of subacute ischemia suspected left frontal and inferior left temporal lobes, consider embolic phenomenon. There are chronic small vessel ischemic changes. Patient is on Keppra 250 mg twice a day and aspirin 300 mg rectally daily. Objective - Vital Signs Vital signs: Vital Signs Temp 97.2 F L 09/02/18 12:00 Pulse 73 09/02/18 13:30 Resp 14 09/02/18 13:30 BP 130/80 09/02/18 13:30 Pulse Ox 94 L 09/02/18 13:30 Intake & Output 09/01/18 09/02/18 09/02/18 18:59 06:59 18:59 Intake Total 670.5 920 360 Output Total 20 0 Balance 650.5 920 360 Weight 89.3 kg 90.2 kg Intake: IV 300 520 360 ACETAMINOPHEN IV (For NPO 100 ) 1,000 mg In Empty Bag 1 bag @ 400 mls/hr IVPB Q6HR PRN Rx#:[id number] Acyclovir Sodium 500 mg 100 In Sodium Chloride 0.9% 100 ml @ 100 mls/hr IVPB Q24H ANY Rx#:[id number] Sodium Chloride 0.9% 1, 200 220 60 000 ml @ 20 mls/hr IV . Q24H ANY Rx#:[id number] Sodium Chloride 0.9% 1, 200 000 ml @ 50 mls/hr IV . Q20H ANY Rx#:[id number] levETIRAcetam IV 250 mg 100 100 100 In Sodium Chloride 0.9% 100 ml @ 400 mls/hr IVPB Q12HR ANY Rx#:[id number] Intake, IV Titration 370.5 400 Amount Labetalol 200 mg In 370.5 400 Sodium Chloride 0.9% 160 ml @ 2 MG/MIN 120 mls/hr IV .Q1H40M [facility] Rx#: [id number] Output: Urine 20 0 Other: Voiding Method CAPD CAPD CAPD # Voids 1 0 - Exam Patient is encephalopathic. His eyes were closed. He did not follow commands. He did not speak. He does make eye contact. Tone is equal bilaterally. - Labs CBC & Chem 7: 09/02/18 05:27 09/02/18 05:27 Labs: Abnormal Lab Results - Last 24 Hours (Table) 09/02/18 09/02/18 Range/Units 05: 05: RBC 3.93 L (4.30-5.90) m/uL Hgb 10.7 L (13.0-17.5) gm/dL Hct 34.1 L (39.0-53.0) % RDW 16.0 H (11.5-15.5) % Lymphocytes # 0.7 L (1.0-4.8) k/uL Sodium 133 L (137-145) mmol/L Chloride 97 L (98-107) mmol/L BUN 50 H (9-20) mg/dL Creatinine 10.22 H* (0.66-1.25) mg/dL Glucose 113 H (74-99) mg/dL Phosphorus 7.3 H (2.5-4.5) mg/dL Magnesium 1.5 L (1.6-2.3) mg/dL Total Protein 5.0 L (6.3-8.2) g/dL Albumin 2.6 L (3.5-5.0) g/dL Microbiology - Last 24 Hours (Table) 08/31/18 12:38 CSF Gram Stain - Preliminary Cerebral Spinal Fluid CSF Culture - Preliminary 08/31/18 12:38 Acid Fast Bacilli Smear - Final Cerebral Spinal Fluid Acid Fast Bacilli Culture - Preliminary 08/31/18 14:30 Gram Stain - Preliminary Peritoneal Fluid Body Fluid Culture - Preliminary Assessment and Plan Assessment: * Viral encephalitis. 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 * Chronic renal failure on peritoneal dialysis * Hypertensive urgency * Hypertension Plan: Continue acyclovir, renal adjusted dose. Infectious disease on board. Continue Keppra 250 mg twice a day for seizure prophylaxis. Patient underwent MRI of the brain without contrast. Results reviewed. Patient started on aspirin 300 mg rectally daily. HSV 1 and 2 PCR pending. VZV PCR and CSF pending. Consider HIV testing. Will add West Nile virus also.
[2018-09-02] MEDS: ACYCLOVIR SODIUM 500 MG in SODIUM CHLORIDE 0.9% 100 ML IVPB SCH (16:06)
[2018-09-02] MEDS: CALCITRIOL 0.25 MCG CAP PO SCH (16:46)
--- NOTE | 2018-09-02 17:11 | PN ---
PROGRESS NOTE DATE OF SERVICE: 09/02/2018. REASON FOR FOLLOW UP: Mental status changes and question of herpes encephalitis. INTERVAL HISTORY: The patient is currently afebrile. The patient did open his eyes to his name. However, did not answer any questions or provide any history. No history of any nausea, vomiting or diarrhea reported by the nursing staff. PHYSICAL EXAMINATION: On examination, blood pressure is 156/94 with a pulse of 76, temperature 96.1. He is 97% on 2 L nasal cannula. General description is a middle-aged male lying in bed in no distress. Respiratory system: Unlabored breathing. Clear to auscultation anteriorly. Heart S1, S2. Regular rate and rhythm. Abdomen soft, no tenderness. LABS: Hemoglobin is 10.7, white count 6.4 with a BUN of 50, creatinine is 10.22. CSF cultures and CSF HSV studies are currently pending. DIAGNOSTIC IMPRESSION AND PLAN: Patient admitted to the hospital with weakness, lethargic in this patient who subsequently did have significant mental status changes. Questionably drug related. Viral encephalitis less likely but not entirely excluded. The patient is currently covered on acyclovir. We will continue watching the patient for to finalize. Continue supportive care. MMODL / IJN: [id number] /
[2018-09-03] MEDS: LABETALOL 200 MG in SODIUM CHLORIDE 0.9% 160 ML IV SCH ×11 (00:49→21:59)
[2018-09-03] MEDS: HEPARIN SODIUM,PORCINE 5,000 UNIT/ML 1 ML VIAL SQ SCH ×4 (00:50→23:13)
[2018-09-03] MEDS: HALOPERIDOL LACTATE 5 MG/ML 1 ML VIAL IVP PRN (02:22)
[2018-09-03] MEDS: DIALYSIS (PERIT 1.5%) 2,500 ML 37.5 G/2,500 ML BAG INTRAPERIT SCH ×6 (02:22→21:46)
[2018-09-03 05:02] LABS: Anisocytosis Slight; Basophils % (A) 0 %; Eosinophils # (A) 0.2 k/uL (0-0.7); Eosinophils % (A) 2 %; HCT 34.7 % (39.0-53.0); HGB 10.9 gm/dL (13.0-17.5); Hypochromasia Slight; Lymphocytes # (A) 0.8 k/uL (1.0-4.8); Lymphocytes % (A) 8 %; MCH 26.8 pg (25.0-35.0); MCHC 31.4 g/dL (31.0-37.0); MCV 85.4 fL (80.0-100.0); Mean Platelet Volume 7.1; Monocytes # (A) 0.3 k/uL (0-1.0); Monocytes % (A) 4 %; Neutrophils # (A) 7.8 k/uL (1.3-7.7); Neutrophils % (A) 85 %; Platelet Count 331 k/uL (150-450); RBC 4.06 m/uL (4.30-5.90); RDW 16.4 % (11.5-15.5); WBC 9.2 k/uL (3.8-10.6)
[2018-09-03 05:29] LABS: Calcium 8.5 mg/dL (8.4-10.2); Magnesium 1.3 mg/dL (1.6-2.3); Phosphorus 6.5 mg/dL (2.5-4.5)
[2018-09-03] MEDS: SEVELAMER 800 MG TAB PO SCH ×3 (06:06→17:50)
[2018-09-03] MEDS: SODIUM CHLORIDE 0.9% 1,000 ML IV SCH (06:06)
[2018-09-03] MEDS: CARVEDILOL 6.25 MG TAB PO SCH ×2 (06:06→17:51)
[2018-09-03] MEDS: MAGNESIUM SULFATE-D5W PMX 1 GM in DEXTROSE/WATER 1 100ML.BAG IVPB SCH ×2 (06:59→08:34)
--- NOTE | 2018-09-03 08:11 | XR ---
EXAMINATION TYPE: XR chest 1V portable DATE OF EXAM: 09/03/2018 COMPARISON: Prior chest x-ray 09/02/2018 HISTORY: ICU management, abnormal chest x-ray TECHNIQUE: Single frontal view of the chest is obtained. FINDINGS: There is bibasilar density present, lung volumes are low. Interstitium is increased. There are overlying cardiac leads. Patient is rotated. The cardiac silhouette size is stable. The osseou s structures are intact. IMPRESSION: Correlate for possible pulmonary venous hypertension and interstitial edema. There may b e a component of volume overload, basilar atelectasis versus pneumonia, PA and lateral chest x-ray re commended when patient is stable.
[2018-09-03] MEDS: PANTOPRAZOLE 40 MG/10 ML VIAL IV SCH (08:32)
[2018-09-03] MEDS: LISINOPRIL 20 MG TAB PO SCH ×3 (08:32→21:24)
[2018-09-03] MEDS: ATORVASTATIN 40 MG TAB PO SCH ×2 (08:33→10:00)
[2018-09-03] MEDS: FAMOTIDINE 20 MG TAB PO SCH ×2 (08:33→10:00)
[2018-09-03] MEDS: GABAPENTIN 400 MG CAP PO SCH ×3 (08:33→21:24)
[2018-09-03] MEDS: FUROSEMIDE 80 MG TAB PO SCH ×4 (08:33→22:04)
[2018-09-03] MEDS: hydrALAZINE HCL 25 MG TAB PO SCH ×4 (08:33→21:25)
[2018-09-03] MEDS: FOLIC ACID-VIT B COMPLEX-VIT C 1 CAP PO SCH ×2 (08:33→10:00)
[2018-09-03] MEDS: levETIRAcetam IV 250 MG in SODIUM CHLORIDE 0.9% 100 ML IVPB SCH ×2 (08:34→21:24)
[2018-09-03] MEDS: ASPIRIN 300 MG SUPP RECTAL SCH (08:59)
[2018-09-03] MEDS ORDERED: LACTULOSE 200 GM/300 ML (FROM 1/2 GAL JUG) RECTAL PRN (09:51)
[2018-09-03] MEDS ORDERED: cloNIDine 0.2 MG/24HR PATCH TRANSDERM SCH (10:00)
--- NOTE | 2018-09-03 10:42 | P.PN ---
Subjective Patient is seen in follow-up for end-stage renal disease. He is maintained on peritoneal dialysis. Patient received Haldol this morning and is currently sleeping. No problems with peritoneal dialysis. Patient presented to the hospital with weakness and lethargy. He was also quite confused. There is concern for viral encephalitis and is currently maintained on IV acyclovir. Vital signs are stable. General: The patient appeared well nourished and normally developed. HEENT: Head exam is unremarkable. Neck is without jugular venous distension. LUNGS: Breath sounds decreased. HEART: Rate and Rhythm are regular. First and second heart sounds normal. No murmurs, rubs or gallops. ABDOMEN: Abdominal exam reveals normal bowel sounds. Non-tender and non- distended. EXTREMITITES: No clubbing, cyanosis, or edema. Objective - Vital Signs Vital signs: Vital Signs Temp 96.6 F L 09/03/18 08:00 Pulse 64 09/03/18 09:30 Resp 12 09/03/18 09:30 BP 101/66 09/03/18 09:30 Pulse Ox 96 09/03/18 09:30 Intake & Output 09/02/18 09/03/18 09/03/18 18:59 06:59 18:59 Intake Total 914.5 1014.0 618.5 Output Total 0 Balance 914.5 1014.0 618.5 Weight 90.2 kg 95.5 kg Intake: IV 710 600 500 Acyclovir Sodium 500 mg 100 In Sodium Chloride 0.9% 100 ml @ 100 mls/hr IVPB Q24H ANY Rx#:[id number] Magnesium Sulfate-D5w Pmx 200 1 gm In Dextrose/Water 1 100ml.bag @ 100 mls/hr IVPB Q1H ANY Rx#: [id number] Sodium Chloride 0.9% 1, 60 000 ml @ 20 mls/hr IV . Q24H ANY Rx#:[id number] Sodium Chloride 0.9% 1, 450 600 200 000 ml @ 50 mls/hr IV . Q20H ANY Rx#:[id number] levETIRAcetam IV 250 mg 100 100 In Sodium Chloride 0.9% 100 ml @ 400 mls/hr IVPB Q12HR ANY Rx#:[id number] Intake, IV Titration 204.5 414.0 118.5 Amount Labetalol 200 mg In 204.5 414.0 118.5 Sodium Chloride 0.9% 160 ml @ 2 MG/MIN 120 mls/hr IV .Q1H40M [facility] Rx#: [id number] Output: Urine 0 Other: Voiding Method CAPD CAPD # Voids 0 0 - Labs CBC & Chem 7: 09/03/18 04:51 09/03/18 04:51 Labs: Abnormal Lab Results - Last 24 Hours (Table) 09/03/18 09/03/18 Range/Units 04:51 04:51 RBC 4.06 L (4.30-5.90) m/uL Hgb 10.9 L (13.0-17.5) gm/dL Hct 34.7 L (39.0-53.0) % RDW 16.4 H (11.5-15.5) % Neutrophils # 7.8 H (1.3-7.7) k/uL Lymphocytes # 0.8 L (1.0-4.8) k/uL Sodium 132 L (137-145) mmol/L Chloride 97 L (98-107) mmol/L BUN 42 H (9-20) mg/dL Creatinine 9.40 H* (0.66-1.25) mg/dL Glucose 107 H (74-99) mg/dL Phosphorus 6.5 H (2.5-4.5) mg/dL Magnesium 1.3 L (1.6-2.3) mg/dL Microbiology - Last 24 Hours (Table) 08/31/18 14:30 Anaerobic Culture - Preliminary Peritoneal Fluid 08/31/18 14:30 Gram Stain - Preliminary Peritoneal Fluid Body Fluid Culture - Preliminary 08/31/18 12:38 CSF Gram Stain - Preliminary Cerebral Spinal Fluid CSF Culture - Preliminary Assessment and Plan Plan: Assessment: 1. End-stage renal disease maintained on peritoneal dialysis. 2. Encephalopathy. Concern for viral encephalitis. ? Drug-induced. Maintained on IV acyclovir. Infectious disease following. Doubt uremia as his BUN was not significantly elevated and BUN/creatinine are both trending down. 3. Hyponatremia secondary to chronic kidney disease. 4. Hypomagnesemia from poor oral intake. 5. Hypertension with chronic kidney disease. Currently on labetalol drip. Patient is not able to tolerate oral medications at this time. 6. Chronic kidney disease mineral bone disease maintained on Renvela and calcitriol. Plan: Maintain current PD exchanges - 2.5 L every 4 hours with 1.5% dextrose solution. Wean labetalol drip. Add clonidine patch but need to monitor heart rate closely. Maintain IV hydralazine if needed for systolic blood pressure greater than 160. Resume oral antihypertensives once able to tolerate oral intake. Add lactulose as needed for constipation. Magnesium being replaced.
--- NOTE | 2018-09-03 12:54 | P.PN ---
Subjective Progress Note Date: 09/03/18 Principal diagnosis: Altered mental status, unclear etiology. 58-year-old male patient comes in to the ICU with altered mental status. The patient has been dysarthric, unable to cardiac embolization, has some difficulties with answering questions and he is not oriented to time and place and apparently his condition got worse since he came in to the ICU. He is very much confused. He was apparently having some delusions and hallucinations earlier. His balance is off and is unable to walk and he became progressively more somnolent and sleepy. The patient is currently in the intensive care unit. CAT scan of the brain that was done showed no acute abnormalities. The patient had a hypertensive reaction time of admission and hypertensive encephalopathy was considered. His blood pressure was initially 200/110 and the patient was started on labetalol drip for blood pressure control. This morning his BP is under better control and a labetalol drip was weaned off and possibly will be discontinued. He was able to swallow some of his oral medication and as his mental status Worse, I doubt she'll be able to take some of his medications. No neck stiffness. No fever. No headaches. There is an area of shingles over the posterior back which has a dermatomal distribution. The vesicles that are somewhat encrusted. The patient has peritoneal dialysis regarding hypertensive nephropathy an incisional disease. He uses 4 exchanges with 2.5 solution. No evidence of any respiratory distress. No cough or sputum production. No abdominal pain. The peritoneal fluid is clean. There is no significant abnormality or erythema around the peritoneal tube catheter. The patient has no significant leukocytosis Today's evaluation of 09/01/2018, the patient is being seen for a follow-up. Neurologically the patient is unresponsive. His having difficulties with speech and dysarthria and aphasia. He is slightly hyperreflexic and digits. No seizure activity has been noted. He is able to move all 4 extremities. He is not agitated. He is able to protect his airways. No aspiration. No orotracheal secretions. He is currently on acyclovir suspecting a VZV as sociated encephalitis. No neck stiffness. No hemodynamic instability. MRI of the brain was also done that showedSmall foci of self acute ischemia suspect in the left frontal area and inferior left temporal lobes in addition to small vessel ischemic changes/chronic and age-related atrophy. Carotid Dopplers were negative. EEG was done also yesterday and was markedly abnormal EEG due to background slowing. This was consistent with generalized cerebral dysfunction/encephalopathy. No seizure activity has been noted. Hemodynamically, the patient is stable. Hypertensive. He was unable to take his oral medications the patient is unable to swallow. He is taking Aspirin which is being administered rectally.The patient is undergoing regular peritoneal dialysis. His BUN is at 60 with a creatinine of 11.5. The lumbar puncture was done yesterday and the patient's CSF was consistent with e ncephalitis, possibly viral knowing that there was some mild leukocytosis with a white cell count of 5800% mononuclear. The CSF protein was 56 with a glucose of 63. CSF PCR analysis for viruses are still pending for now. Meanwhile, the patient is currently on IV acyclovir. He was also on the case. The patient was also started on Keppra. On 09/02/2018, the patient seems to be a bit more awake and less sleepy compared to yesterday. Nevertheless, he continues to be encephalopathic. He would wake up and say a few words and go back to sleep. At times he is getting close agitated. No seizure activity has been noted. He is slightly hyperreflexic. He remains on IV acyclovir. CSF fluid analysis regarding viral elements are still pending for now. He is afebrile. He is on decent blood pressure control with labetalol drip. He is not awake alert enough to be given oral medication oral feeds. The patient is undergoing dialysis on a regular basis to 2.5 solution. His BUN and creatinine remains slightly elevated although there is a improving trend with a BUN of 50 and creatinine of 10.2 on today's evaluation. His hemoglobin is at 10.7. No leukocytosis. The abdominal fluid is negative for infection. Reevaluated today on 09/03/2018, remains encephalopathic, intermittent episodes of agitation, however response to Haldol. Presently sedated, and does not seem to be in any form of respiratory distress. Remains on acyclovir, his spinal fluid studies have been reviewed, and so far nondiagnostic. EEG showed background slowing consistent with cerebral dysfunction/toxic metabolic encephalopathy-type of picture. MRI questioned subacute ischemic left frontal and inferior left temporal lobes embolic phenomenon. Chronic small vessel ischemic changes noted. Patient opens his eyes but does not follow any instructions and he does not speak does not make any eye contact. All labs were reviewed the major abnormality is his renal profile but the patient is on CAPD. Objective - Vital Signs Vital signs: Vital Signs Temp 97.4 F L 09/03/18 12:00 Pulse 64 09/03/18 12:00 Resp 11 L 09/03/18 12:00 BP 139/95 09/03/18 12:00 Pulse Ox 93 L 09/03/18 11:00 Intake & Output 09/02/18 09/03/18 09/03/18 18:59 06:59 18:59 Intake Total 914.5 1014.0 718.5 Output Total 0 Balance 914.5 1014.0 718.5 Weight 90.2 kg 95.5 kg Intake: IV 710 600 600 Acyclovir Sodium 500 mg 100 In Sodium Chloride 0.9% 100 ml @ 100 mls/hr IVPB Q24H ANY Rx#:[id number] Magnesium Sulfate-D5w Pmx 200 1 gm In Dextrose/Water 1 100ml.bag @ 100 mls/hr IVPB Q1H ANY Rx#: [id number] Sodium Chloride 0.9% 1, 60 000 ml @ 20 mls/hr IV . Q24H ANY Rx#:[id number] Sodium Chloride 0.9% 1, 450 600 300 000 ml @ 50 mls/hr IV . Q20H ANY Rx#:[id number] levETIRAcetam IV 250 mg 100 100 In Sodium Chloride 0.9% 100 ml @ 400 mls/hr IVPB Q12HR ANY Rx#:[id number] Intake, IV Titration 204.5 414.0 118.5 Amount Labetalol 200 mg In 204.5 414.0 118.5 Sodium Chloride 0.9% 160 ml @ 2 MG/MIN 120 mls/hr IV .Q1H40M ANY Rx#: [id number] Output: Urine 0 Other: Voiding Method CAPD CAPD # Voids 0 0 # Bowel Movements 1 - Exam Gen. Revealed 58-year-old white male stuporous, confused, in no distress. Head: Atraumatic, normocephalic. HEENT: PERRLA, EOMI, no icterus. Lungs: Diminished breath sounds bilaterally no crackles or rhonchi or wheezes Chest Wall: Symmetrical chest expansion noted tenderness. Heart: Normal S1 and S2, no S3 gallop.. Abdomen: Soft, non-tender, no megaly no rebound no guarding. Extremities: No clubbing edema or cyanosis, good distal pulses bilaterally. Skin: Skin color, texture, tugor normal, no rashes or lesions. Neurologic: Patient is encephalopathic, does not follow any instructions, does not speak, does not maintain eye contact, tone is equal bilaterally. - Labs CBC & Chem 7: 09/03/18 04:51 09/03/18 04:51 Labs: Abnormal Lab Results - Last 24 Hours (Table) 09/03/18 09/03/18 Range/Units 04:51 04:51 RBC 4.06 L (4.30-5.90) m/uL Hgb 10.9 L (13.0-17.5) gm/dL Hct 34.7 L (39.0-53.0) % RDW 16.4 H (11.5-15.5) % Neutrophils # 7.8 H (1.3-7.7) k/uL Lymphocytes # 0.8 L (1.0-4.8) k/uL Sodium 132 L (137-145) mmol/L Chloride 97 L (98-107) mmol/L BUN 42 H (9-20) mg/dL Creatinine 9.40 H* (0.66-1.25) mg/dL Glucose 107 H (74-99) mg/dL Phosphorus 6.5 H (2.5-4.5) mg/dL Magnesium 1.3 L (1.6-2.3) mg/dL Microbiology - Last 24 Hours (Table) 08/31/18 14:30 Anaerobic Culture - Preliminary Peritoneal Fluid 08/31/18 14:30 Gram Stain - Preliminary Peritoneal Fluid Body Fluid Culture - Preliminary 08/31/18 12:38 CSF Gram Stain - Preliminary Cerebral Spinal Fluid CSF Culture - Preliminary Assessment and Plan Assessment: Impression: Possible viral encephalitis, workup is pending. Patient remains on acyclovir. Altered mental status, secondary to above. Hypertensive urgency presently on labetalol which may discontinue. Chronic renal failure on her tibial dialysis. Herpes zoster involving upper back Multiple comorbidities including hypertension, hyperlipidemia, peripheral neuropathy, history of seizure disorder and history of chronic anemia. Recommendation: Await CSF viral analysis by PCR. Continue acyclovir, continue Keppra, continue aspirin, continue to monitor in the ICU, not quite ready to transfer out of the ICU at this point yet. We'll continue to follow. Time with Patient: Less than 30
--- NOTE | 2018-09-03 14:02 | P.PN ---
Subjective Progress Note Date: 09/03/18 This is a 58 rolled male one of my patient with a previous medical history significant for end-stage renal disease on PD any scheduled for possible renal transplant for which she has been traveling back and forth to [place], in between he has been missing his PD in [place] to [place], patient was recently hospitalized at [facility] because of accelerated hypertension with metabolic and hypertensive encephalopathy and he came to my office for follow-up and his blood pressure was well controlled in the range of 130/75, patient was maintained on hydralazine carvedilol amlodipine and lisinopril as well, patient developed to have shingles in the left lower back for which she was treated with tramadol and antiviral medication at the urgent care clinic, and the patient apparently was taken these pills along with his gabapentin he ended up coming to the emergency department because of significant mental status changes without evidence of any seizure activity however he had a computed tomography scan of the brain did not show any evidence of acute of normalities, patient was admitte d to the hospital initially to the cardiac floor however he developed to have a significant accelerated hypertension we gave the order for the nursing staff to put him on labetalol drip at 0.5 mg/m that was titrated to 1.5 mg/m and subsequently was taken off of it he was transferred to the intensive care unit he was seen in consultation by nephrology as well as prop sawyer Dr. Montgomery he was recommended for the patient to be intubated because of severe mental status changes and an LP to be done to rule out any herpes encephalitis, his mental status changes likely related to his medication patient did receive a dose of baclofen and the dose of Requip last night along with his gabapentin and tramadol. 09/01: Patient continues to be confused he underwent lumbar puncture yesterday fluid results were reviewed possibility of zoster encephalitis versus herpes encephalitis is in the differential diagnosis at this time, however uremic encephalitis could not be entirely ruled out, we will continue with acyclovir, we will continue with supportive care, we'll continue the ICU, continue aggressi ve PD at this time 6 times every day. 09/02: Patient is more awake today continues to fall asleep on and off, however is much better follows command no chest pain or shortness breath endoscopy of headache he continues to be on PD, his PCR still pending for the VZV encephalitis as well as HSV 1 and 2. 09/03: Patient remains in the intensive care unit. He has been afebrile, heart rate 69, blood pressure 153/92, pulse ox 95%. Repeat lab work shows hemoglobin 10.9, BUN 42 and creatinine 9.40. Sodium was 132, chloride 97. Peritoneal fluid cultures are all in progress. Cerebral spinal fluid culture in progress. Patient remains on IV acyclovir and IV Keppra. Mental status does not seem improved this morning. He did receive Haldol during the night. Patient has had a large bowel movement this morning. He is followed by multiple consultants. Patient is followed by Dr. Wade. EEG showed background slowing suggestive of generalized cerebral dysfunction can be seen in toxic metabolic encephalopathy or diffuse structural brain abnormality. No epileptiform activity. MRI of the brain showed small focus of subacute ischemia suspected left frontal and anterior left temporal lobes consider embolic phenomenon. There are chronic small vessel ischemic changes. Patient was started on aspirin. Patient is also followed by Dr. Dickens, Dr. Montgomery and Dr. Huerta. Patient has continued on CAPD. Chest x-ray reveals possible pulmonary venous hypertension and interstitial edema. There may be component of volume overload, basilar atelectasis versus pneumonia. Objective - Vital Signs Vital signs: Vital Signs Temp 98.0 F 09/03/18 06:00 Pulse 69 09/03/18 07:00 Resp 11 L 09/03/18 07:00 BP 153/92 09/03/18 07:00 Pulse Ox 95 09/03/18 07:00 Intake & Output 09/02/18 09/03/18 09/03/18 18:59 06:59 18:59 Intake Total 914.5 1014.0 150 Output Total 0 Balance 914.5 1014.0 150 Weight 90.2 kg 95.5 kg Intake: IV 710 600 150 Acyclovir Sodium 500 mg 100 In Sodium Chloride 0.9% 100 ml @ 100 mls/hr IVPB Q24H ANY Rx#:[id number] Magnesium Sulfate-D5w Pmx 100 1 gm In Dextrose/Water 1 100ml.bag @ 100 mls/hr IVPB Q1H ANY Rx#: [id number] Sodium Chloride 0.9% 1, 60 000 ml @ 20 mls/hr IV . Q24H ANY Rx#:[id number] Sodium Chloride 0.9% 1, 450 600 50 000 ml @ 50 mls/hr IV . Q20H ANY Rx#:[id number] levETIRAcetam IV 250 mg 100 In Sodium Chloride 0.9% 100 ml @ 400 mls/hr IVPB Q12HR ANY Rx#:[id number] Intake, IV Titration 204.5 414.0 Amount Labetalol 200 mg In 204.5 414.0 Sodium Chloride 0.9% 160 ml @ 2 MG/MIN 120 mls/hr IV .Q1H40M ANY Rx#: [id number] Output: Urine 0 Other: Voiding Method CAPD CAPD # Voids 0 0 - Exam Review Of Systems: Unable to obtain due to mental status General Appearance: Patient does not follow commands. Neck HEENT: Supple, no lymphadenopathy, no thyroid enlargement, no carotid brui ts. Lungs: Decreased breath some bilaterally without crackles or wheezes no rhonchi, no deformity. Chest Wall: Decrease expansion with deep inspiration no tenderness and no deformity was found on exam, no costochondral pain or discomfort. Heart: Regular rate and rhythm, S1, S2 positive S3 positive tachycardia with systolic murmur, no rub or gallop. Back: Symmetric, no curvature, ROM normal, no CVA tenderness, there was crusted lesions in the left lower back. Abdomen: Soft, non-tender, bowel sounds active all four quadrants, slight distention with ascites from PD fluid, PD catheter is in place. Extremities: Trace edema decreased pulse positive mild arthritis in both knees, right shoulder had mild restriction to motion especially rotation. Pulses: 1+ and symmetric. Skin: Skin color, texture, tugor normal, no rashes or lesions. Neurologic: Patient is stuporous does not follow any commands with brought to verbal stimuli. - Labs CBC & Chem 7: 09/03/18 04:51 09/03/18 04:51 Labs: Abnormal Lab Results - Last 24 Hours (Table) 09/03/18 09/03/18 Range/Units 04:51 04:51 RBC 4.06 L (4.30-5.90) m/uL Hgb 10.9 L (13.0-17.5) gm/dL Hct 34.7 L (39.0-53.0) % RDW 16.4 H (11.5-15.5) % Neutrophils # 7.8 H (1.3-7.7) k/uL Lymphocytes # 0.8 L (1.0-4.8) k/uL Sodium 132 L (137-145) mmol/L Chloride 97 L (98-107) mmol/L BUN 42 H (9-20) mg/dL Creatinine 9.40 H* (0.66-1.25) mg/dL Glucose 107 H (74-99) mg/dL Phosphorus 6.5 H (2.5-4.5) mg/dL Magnesium 1.3 L (1.6-2.3) mg/dL Microbiology - Last 24 Hours (Table) 08/31/18 14:30 Anaerobic Culture - Preliminary Peritoneal Fluid 08/31/18 14:30 Gram Stain - Preliminary Peritoneal Fluid Body Fluid Culture - Preliminary 08/31/18 12:38 CSF Gram Stain - Preliminary Cerebral Spinal Fluid CSF Culture - Preliminary Assessment and Plan Plan: 1. 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 Continue with IV Acyclovir. HSV is negative and await VZV PCR. 2. Accelerated hypertension. Patient was initially on labetalol drip subsequently was taken off and now is back to be discontinued . 3. End stage renal disease on peritoneal dialysis. Patient was seen in cons ultation by nephrology will go for 6 exchanges daily. 4. Recent herpes zoster. Lesions appear to be crusted. We will continue contact isolation. 5. 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 Stable at this time. 6. History of seizure disorder. Currently not taking any medication at home but has been started on Keppra IV. 7. Hypertension and hypertensive cardiovascular disease. Continue treatment as in paragraph #2. 8. Hyperlipidemia. Continue patient on Lipitor 40 mg orally once every day. 9. Peripheral neuropathy. Hold gabapentin for now. 10. Secondary hyperparathyroidism. Monitor the patient calcium and phosphorus. 11. DVT prophylaxis. Heparin 5000 units subcutaneously every 12 hours. 12. GI prophylaxis. Continue patient on PPI. 13. Prognosis very guarded. Discharge plan: To be determined Impression and plan of care have been directed as dictated by the signing physician. Shannan Landa nurse practitioner acting as scribe for signing physician.
[2018-09-03] MEDS: ACYCLOVIR SODIUM 500 MG in SODIUM CHLORIDE 0.9% 100 ML IVPB SCH (15:52)
--- NOTE | 2018-09-03 18:15 | PN ---
PROGRESS NOTE DATE OF SERVICE: 09/03/2018 REASON FOR FOLLOWUP: Encephalopathy and a question of INTERVAL HISTORY: The patient is currently afebrile. The patient did respond to his name but did not provide any further information Per RN, the patient has been back to his baseline normal condition no history of any nausea, vomiting or any diarrhea reported. Blood pressure remains significantly elevated. PHYSICAL EXAMINATION: Blood pressure 167/95 with a pulse of 77, temperature 97.4. He is 93% on room air. General description is a middle-aged male lying in bed in no distress. RESPIRATORY SYSTEM: Unlabored breathing. Clear to auscultation anteriorly. HEART: S1, S2. Regular rate and rhythm. ABDOMEN: Soft. No tenderness. LABS: Hemoglobin is 10.9, white count 9.2. BUN of 42, creatinine 9.40. HSV1 and 2 DNA by PCR and albumin in CSF are negative. DIAGNOSTIC IMPRESSION AND PLAN: Patient with mental status changes which are multifactorial, possible hypertensive encephalopathy. underlying infectious etiology, with a chest CT negative. PCR is currently pending. Continue with acyclovir and monitor his clinical course closely. Continue with supportive care. MMODL / IJN: [id number] /
--- NOTE | 2018-09-03 19:35 | P.PN ---
Subjective Progress Note Date: 09/03/18 Patient continues to be significantly encephalopathic. Patient at times appears more awake, but still very encephalopathic, does not follow commands, does not track. At present patient is sleeping. No seizures have been reported. Infectious disease has seen the patient, recommending continuing acyclovir. Randomly moves all 4 extremities. Patient had carotid Doppler which showed no significant stenosis. Antegrade flow in both vertebral arteries. EEG showed markedly abnormal EEG due to background slowing. This suggestive of generalized cerebral dysfunction as can be seen in toxic metabolic encep halopathy or related to diffuse structural brain abnormality. No epileptiform activity was seen. MRI of the brain showed small focus of subacute ischemia suspected left frontal and inferior left temporal lobes, consider embolic phenomenon. There are chronic small vessel ischemic changes. Patient is on Keppra 250 mg twice a day and aspirin 300 mg rectally daily. Objective - Vital Signs Vital signs: Vital Signs Temp 97.4 F L 09/03/18 16:00 Pulse 72 09/03/18 19:00 Resp 26 H 09/03/18 19:00 BP 143/84 09/03/18 19:00 Pulse Ox 93 L 09/03/18 19:00 Intake & Output 09/03/18 09/03/18 09/04/18 06:59 18:59 06:59 Intake Total 1014.0 1118.5 50 Output Total 0 Balance 1014.0 1118.5 50 Weight 95.5 kg Intake: IV 600 1000 50 Acyclovir Sodium 500 mg 100 In Sodium Chloride 0.9% 100 ml @ 100 mls/hr IVPB Q24H ANY Rx#:[id number] Magnesium Sulfate-D5w Pmx 200 1 gm In Dextrose/Water 1 100ml.bag @ 100 mls/hr IVPB Q1H ANY Rx#: [id number] Sodium Chloride 0.9% 1, 600 600 50 000 ml @ 50 mls/hr IV . Q20H ANY Rx#:[id number] levETIRAcetam IV 250 mg 100 In Sodium Chloride 0.9% 100 ml @ 400 mls/hr IVPB Q12HR ANY Rx#:[id number] Intake, IV Titration 414.0 118.5 Amount Labetalol 200 mg In 414.0 118.5 Sodium Chloride 0.9% 160 ml @ 2 MG/MIN 120 mls/hr IV .Q1H40M ANY Rx#: [id number] Output: Urine 0 Other: Voiding Method CAPD CAPD # Voids 0 0 0 # Bowel Movements 1 - Exam Patient is encephalopathic. His eyes were closed. He did not follow commands. He did not speak. He does make eye contact. Tone is equal bilaterally. Plantars are flat. - Labs CBC & Chem 7: 09/03/18 04:51 09/03/18 04:51 Labs: Abnormal Lab Results - Last 24 Hours (Table) 09/03/18 09/03/18 Range/Units 04:51 04:51 RBC 4.06 L (4.30-5.90) m/uL Hgb 10.9 L (13.0-17.5) gm/dL Hct 34.7 L (39.0-53.0) % RDW 16.4 H (11.5-15.5) % Neutrophils # 7.8 H (1.3-7.7) k/uL Lymphocytes # 0.8 L (1.0-4.8) k/uL Sodium 132 L (137-145) mmol/L Chloride 97 L (98-107) mmol/L BUN 42 H (9-20) mg/dL Creatinine 9.40 H* (0.66-1.25) mg/dL Glucose 107 H (74-99) mg/dL Phosphorus 6.5 H (2.5-4.5) mg/dL Magnesium 1.3 L (1.6-2.3) mg/dL Microbiology - Last 24 Hours (Table) 08/31/18 14:30 Gram Stain - Preliminary Peritoneal Fluid Body Fluid Culture - Preliminary 08/31/18 12:38 CSF Gram Stain - Preliminary Cerebral Spinal Fluid CSF Culture - Preliminary 08/31/18 14:30 Anaerobic Culture - Preliminary Peritoneal Fluid Assessment and Plan Assessment: * Viral encephalitis. HSV-1 and HSV 2 PCR came back negative. Rule out varicella-zoster virus encephalitis. Rule out West Nile virus * Chronic renal failure on peritoneal dialysis * Hypertensive urgency * Hypertension Plan: Continue acyclovir, renal adjusted dose, until VZV PCR is back. Infectious disease on board. Continue Keppra 250 mg twice a day for seizure prophylaxis. Patient underwent MRI of the brain without contrast. Results reviewed. Patient started on aspirin 300 mg rectally daily. HSV 1 and 2 PCR pending. VZV PCR and CSF pending. HIV testing results pending. Await West Nile virus also.
[2018-09-04] MEDS: DIALYSIS (PERIT 1.5%) 2,500 ML 37.5 G/2,500 ML BAG INTRAPERIT SCH ×6 (01:35→21:47)
[2018-09-04 01:43] LABS: HIV 1 AB Non-Reactive (Non-Reactive); HIV AB P24 Non-Reactive (Non-Reactive); HIV P24 AG Non-Reactive (Non-Reactive)
[2018-09-04] MEDS: SODIUM CHLORIDE 0.9% 1,000 ML IV SCH ×2 (01:46→22:18)
[2018-09-04 06:24] LABS: Anisocytosis Slight; Basophils % (A) 0 %; Eosinophils # (A) 0.2 k/uL (0-0.7); Eosinophils % (A) 4 %; HCT 32.6 % (39.0-53.0); HGB 10.1 gm/dL (13.0-17.5); Lymphocytes # (A) 0.9 k/uL (1.0-4.8); Lymphocytes % (A) 15 %; MCH 26.6 pg (25.0-35.0); MCV 85.6 fL (80.0-100.0); Monocytes # (A) 0.3 k/uL (0-1.0); Monocytes % (A) 4 %; Neutrophils # (A) 4.9 k/uL (1.3-7.7); Neutrophils % (A) 75 %; Platelet Count 357 k/uL (150-450); RBC 3.81 m/uL (4.30-5.90); RDW 16.6 % (11.5-15.5); WBC 6.5 k/uL (3.8-10.6)
[2018-09-04 06:40] LABS: Calcium 8.2 mg/dL (8.4-10.2); Magnesium 1.6 mg/dL (1.6-2.3); Phosphorus 6.3 mg/dL (2.5-4.5); Potassium 3.7 mmol/L (3.5-5.1)
[2018-09-04] MEDS: LABETALOL 200 MG in SODIUM CHLORIDE 0.9% 160 ML IV SCH ×3 (07:06→20:48)
[2018-09-04] MEDS: CARVEDILOL 6.25 MG TAB PO SCH ×2 (07:09→17:41)
[2018-09-04] MEDS: SEVELAMER 800 MG TAB PO SCH ×3 (07:10→17:41)
[2018-09-04] MEDS: MAGNESIUM SULFATE-D5W PMX 1 GM in DEXTROSE/WATER 1 100ML.BAG IVPB SCH ×2 (07:10→09:42)
[2018-09-04] MEDS: POTASSIUM CHLORIDE 20 MEQ in WATER FOR INJECTION 1 100ML.BAG IVPB STA ×2 (07:10→14:33)
[2018-09-04] MEDS: POTASSIUM CHLORIDE 10 MEQ in WATER FOR INJECTION 1 100ML.BAG IVPB SCH ×2 (07:22→09:07)
--- NOTE | 2018-09-04 07:40 | XR ---
EXAMINATION TYPE: XR chest 1V portable DATE OF EXAM: 09/04/2018 COMPARISON: Prior chest x-ray 09/03/2018 HISTORY: Adventitious lung sounds, abnormal chest x-ray TECHNIQUE: Single frontal view of the chest is obtained. FINDINGS: Interstitium is increased, patchy basilar density is noted. No pneumothorax. Heart size is stable. Aorta is dense. There are overlying cardiac leads. IMPRESSION: Correlate for pulmonary venous hypertension and interstitial edema, interstitial pneumon itis, pneumonia.
[2018-09-04] MEDS: FOLIC ACID-VIT B COMPLEX-VIT C 1 CAP PO SCH (08:45)
[2018-09-04] MEDS: ATORVASTATIN 40 MG TAB PO SCH (08:53)
[2018-09-04] MEDS: LISINOPRIL 20 MG TAB PO SCH ×2 (08:53→20:58)
[2018-09-04] MEDS: hydrALAZINE HCL 25 MG TAB PO SCH ×3 (08:53→20:58)
[2018-09-04] MEDS: FAMOTIDINE 20 MG TAB PO SCH (08:54)
[2018-09-04] MEDS: HEPARIN SODIUM,PORCINE 5,000 UNIT/ML 1 ML VIAL SQ SCH ×2 (08:54→17:37)
[2018-09-04] MEDS: levETIRAcetam IV 250 MG in SODIUM CHLORIDE 0.9% 100 ML IVPB SCH ×2 (08:54→21:47)
[2018-09-04] MEDS: FUROSEMIDE 80 MG TAB PO SCH ×2 (08:54→17:38)
[2018-09-04] MEDS: PANTOPRAZOLE 40 MG/10 ML VIAL IV SCH (08:54)
[2018-09-04] MEDS: GABAPENTIN 400 MG CAP PO SCH ×2 (08:55→20:58)
[2018-09-04 09:40] LABS: Varicella zoster Virus by PCR Not detected (Not detected)
--- NOTE | 2018-09-04 10:19 | P.PN ---
Subjective Patient is seen in follow-up for end-stage renal disease. He is maintained on peritoneal dialysis. Patient is more awake and alert this morning. Hemodynamically stable. No problems with peritoneal dialysis. There is concern for viral encephalitis and is currently maintained on IV acyclovir. Vital signs are stable. General: The patient appeared well nourished and normally developed. HEENT: Head exam is unremarkable. Neck is without jugular venous distension. LUNGS: Breath sounds decreased. HEART: Rate and Rhythm are regular. First and second heart sounds normal. No murmurs, rubs or gallops. ABDOMEN: Abdominal exam reveals normal bowel sounds. Non-tender and non- distended. EXTREMITITES: No clubbing, cyanosis, or edema. Objective - Vital Signs Vital signs: Vital Signs Temp 97.9 F 09/04/18 08:00 Pulse 72 09/04/18 08:00 Resp 11 L 09/04/18 08:00 BP 135/81 09/04/18 08:00 Pulse Ox 96 09/04/18 08:00 Intake & Output 09/03/18 09/04/18 09/04/18 18:59 06:59 18:59 Intake Total 1118.5 700 600 Output Total 0 0 Balance 1118.5 700 600 Weight 95.5 kg 95.6 kg Intake: IV 1000 700 500 Acyclovir Sodium 500 mg 100 In Sodium Chloride 0.9% 100 ml @ 100 mls/hr IVPB Q24H ANY Rx#:[id number] Magnesium Sulfate-D5w Pmx 200 100 1 gm In Dextrose/Water 1 100ml.bag @ 100 mls/hr IVPB Q1H ANY Rx#: [id number] Potassium Chloride 20 meq 200 In Water For Injection 1 100ml.bag @ 50 mls/hr IVPB ONCE [facility] Rx#: [id number] Sodium Chloride 0.9% 1, 600 600 100 000 ml @ 50 mls/hr IV . Q20H ANY Rx#:[id number] levETIRAcetam IV 250 mg 100 100 100 In Sodium Chloride 0.9% 100 ml @ 400 mls/hr IVPB Q12HR ANY Rx#:[id number] Intake, IV Titration 118.5 0 100 Amount Labetalol 200 mg In 118.5 0 Sodium Chloride 0.9% 160 ml @ 2 MG/MIN 120 mls/hr IV .Q1H40M ANY Rx#: [id number] Magnesium Sulfate-D5w Pmx 100 1 gm In Dextrose/Water 1 100ml.bag @ 100 mls/hr IVPB Q1H [facility] Rx#: [id number] Output: Urine 0 0 Other: Voiding Method CAPD CAPD # Voids 0 0 # Bowel Movements 1 0 - Labs CBC & Chem 7: 09/04/18 06:03 09/04/18 06:03 Labs: Abnormal Lab Results - Last 24 Hours (Table) 09/04/18 09/04/18 Range/Units 06:03 06:03 RBC 3.81 L (4.30-5.90) m/uL Hgb 10.1 L (13.0-17.5) gm/dL Hct 32.6 L (39.0-53.0) % RDW 16.6 H (11.5-15.5) % Lymphocytes # 0.9 L (1.0-4.8) k/uL Sodium 133 L (137-145) mmol/L Chloride 97 L (98-107) mmol/L BUN 36 H (9-20) mg/dL Creatinine 8.89 H* (0.66-1.25) mg/dL Calcium 8.2 L (8.4-10.2) mg/dL Phosphorus 6.3 H (2.5-4.5) mg/dL Microbiology - Last 24 Hours (Table) 08/31/18 12:38 CSF Gram Stain - Final Cerebral Spinal Fluid CSF Culture - Final 08/31/18 14:30 Gram Stain - Preliminary Peritoneal Fluid Body Fluid Culture - Preliminary Assessment and Plan Plan: Assessment: 1. End-stage renal disease maintained on peritoneal dialysis. 2. Encephalopathy. Concern for viral encephalitis. ? Drug-induced. Maintained on IV acyclovir. Infectious disease following. Doubt uremia as his BUN was not significantly elevated and BUN/creatinine are both trending down. 3. Hyponatremia secondary to chronic kidney disease. Stable. 4. Hypomagnesemia from poor oral intake. Better. 5. Hypertension with chronic kidney disease. Controlled. Now tolerating oral medications. 6. Chronic kidney disease mineral bone disease maintained on Renvela and calcitriol. Plan: Maintain current PD exchanges - 2.5 L every 4 hours with 1.5% dextrose solution. Maintain current antihypertensives. Maintain lactulose as needed for constipation. Magnesium and potassium being replaced.
[2018-09-04 10:47] VITALS: BMI 27.0
[2018-09-04] MEDS: ASPIRIN 300 MG SUPP RECTAL SCH (11:05)
[2018-09-04] MEDS: ASPIRIN 325 MG TAB PO SCH (12:22)
--- NOTE | 2018-09-04 12:45 | P.PN ---
Subjective Progress Note Date: 09/04/18 Patient apparently woke up today and now quite alert and awake, follows commands. Patient talking, making complete sense. Speech is mildly dysarthric because of dry mouth. Patient does not remember what exactly happened for all these days when he was hospitalized. States "it's crazy". No seizures have been reported. Infectious disease has seen the patient, recommending continuing acyclovir. Patient had carotid Doppler which showed no significant stenosis. Antegrade flow in both vertebral arteries. EEG showed markedly abnormal EEG due to background slowing. This suggestive of generalized cerebral dysfunction as can be seen in toxic metabolic encephalopathy or related to diffuse structural brain abnormality. No epileptiform activity was seen. MRI of the brain showed small focus of subacute ischemia suspected left frontal and inferior left temporal lobes, consider embolic phenomenon. There are chronic small vessel ischemic changes. Patient is on Keppra 250 mg twice a day and aspirin 300 mg rectally daily. Objective - Vital Signs Vital signs: Vital Signs Temp 97.9 F 09/04/18 08:00 Pulse 72 09/04/18 11:00 Resp 12 09/04/18 11:00 BP 134/103 09/04/18 11:00 Pulse Ox 92 L 09/04/18 11:00 Intake & Output 09/03/18 09/04/18 09/04/18 18:59 06:59 18:59 Intake Total 1118.5 700 700 Output Total 0 0 Balance 1118.5 700 700 Weight 95.5 kg 95.6 kg 95.6 kg Intake: IV 1000 700 600 Acyclovir Sodium 500 mg 100 In Sodium Chloride 0.9% 100 ml @ 100 mls/hr IVPB Q24H [facility] Rx#:[id number] Magnesium Sulfate-D5w Pmx 200 100 1 gm In Dextrose/Water 1 100ml.bag @ 100 mls/hr IVPB Q1H ANY Rx#: [id number] Potassium Chloride 20 meq 200 In Water For Injection 1 100ml.bag @ 50 mls/hr IVPB ONCE [facility] Rx#: [id number] Sodium Chloride 0.9% 1, 600 600 200 000 ml @ 50 mls/hr IV . Q20H ANY Rx#:[id number] levETIRAcetam IV 250 mg 100 100 100 In Sodium Chloride 0.9% 100 ml @ 400 mls/hr IVPB Q12HR ANY Rx#:[id number] Intake, IV Titration 118.5 0 100 Amount Labetalol 200 mg In 118.5 0 Sodium Chloride 0.9% 160 ml @ 2 MG/MIN 120 mls/hr IV .Q1H40M ANY Rx#: [id number] Magnesium Sulfate-D5w Pmx 100 1 gm In Dextrose/Water 1 100ml.bag @ 100 mls/hr IVPB Q1H [facility] Rx#: [id number] Output: Urine 0 0 Other: Voiding Method CAPD CAPD CAPD # Voids 0 0 # Bowel Movements 1 0 - Exam Patient has woke up, with fairly normal mentation. Patient is much more alert and awake. He follows commands. Speech is clear with no aphasia or dysarthria. His pupils are round and reacting. Visual faust appears full, although sometimes he neglects the right upper quadrant. Face is symmetric and tongue protrudes at midline. Muscle strength is normal in the arms and legs. Tone and bulk of muscles normal. Patient apparently walked with a walker with therapist, and appeared steady per nursing report. - Labs CBC & Chem 7: 09/04/18 06:03 09/04/18 06:03 Labs: Abnormal Lab Results - Last 24 Hours (Table) 09/04/18 09/04/18 Range/Units 06:03 06:03 RBC 3.81 L (4.30-5.90) m/uL Hgb 10.1 L (13.0-17.5) gm/dL Hct 32.6 L (39.0-53.0) % RDW 16.6 H (11.5-15.5) % Lymphocytes # 0.9 L (1.0-4.8) k/uL Sodium 133 L (137-145) mmol/L Chloride 97 L (98-107) mmol/L BUN 36 H (9-20) mg/dL Creatinine 8.89 H* (0.66-1.25) mg/dL Calcium 8.2 L (8.4-10.2) mg/dL Phosphorus 6.3 H (2.5-4.5) mg/dL Microbiology - Last 24 Hours (Table) 08/31/18 12:38 CSF Gram Stain - Final Cerebral Spinal Fluid CSF Culture - Final 08/31/18 14:30 Gram Stain - Preliminary Peritoneal Fluid Body Fluid Culture - Preliminary Assessment and Plan Assessment: * Viral encephalitis. HSV-1 and HSV 2 PCR came back negative. VZV PCR also negative. Rule out West Nile virus * Chronic renal failure on peritoneal dialysis * Abnormal brain MRI, with evidence of ischemia due to small vessel disease. * Hypertensive urgency * Hypertension Plan: Patient has woke up. He is following commands exam appears nonfocal. Continue acyclovir, renal adjusted dose, until VZV PCR is back. Infectious disease on board. Continue Keppra 250 mg twice a day for seizure prophylaxis. Patient underwent MRI of the brain without contrast. Results reviewed. Continue aspirin, will switch from rectal to oral aspirin. HSV 1 and 2 PCR as well as VZV PCR all negative. HIV came negative. Await West Nile virus also. Continue PT OT.
--- NOTE | 2018-09-04 12:52 | P.PN ---
Subjective Progress Note Date: 09/04/18 Principal diagnosis: Altered mental status, unclear etiology. 58-year-old male patient comes in to the ICU with altered mental status. The patient has been dysarthric, unable to cardiac embolization, has some difficulties with answering questions and he is not oriented to time and place and apparently his condition got worse since he came in to the ICU. He is very much confused. He was apparently having some delusions and hallucinations earlier. His balance is off and is unable to walk and he became progressively more somnolent and sleepy. The patient is currently in the intensive care unit. CAT scan of the brain that was done showed no acute abnormalities. The patient had a hypertensive reaction time of admission and hypertensive encephalopathy was considered. His blood pressure was initially 200/110 and the patient was started on labetalol drip for blood pressure control. This morning his BP is under better control and a labetalol drip was weaned off and possibly will be discontinued. He was able to swallow some of his oral medication and as his mental status Worse, I doubt she'll be able to take some of his medications. No neck stiffness. No fever. No headaches. There is an area of shingles over the posterior back which has a dermatomal distribution. The vesicles that are somewhat encrusted. The patient has peritoneal dialysis regarding hypertensive nephropathy an incisional disease. He uses 4 exchanges with 2.5 solution. No evidence of any respiratory distress. No cough or sputum production. No abdominal pain. The peritoneal fluid is clean. There is no significant abnormality or erythema around the peritoneal tube catheter. The patient has no significant leukocytosis Today's evaluation of 09/01/2018, the patient is being seen for a follow-up. Neurologically the patient is unresponsive. His having difficulties with speech and dysarthria and aphasia. He is slightly hyperreflexic and digits. No seizure activity has been noted. He is able to move all 4 extremities. He is not agitated. He is able to protect his airways. No aspiration. No orotracheal secretions. He is currently on acyclovir suspecting a VZV as sociated encephalitis. No neck stiffness. No hemodynamic instability. MRI of the brain was also done that showedSmall foci of self acute ischemia suspect in the left frontal area and inferior left temporal lobes in addition to small vessel ischemic changes/chronic and age-related atrophy. Carotid Dopplers were negative. EEG was done also yesterday and was markedly abnormal EEG due to background slowing. This was consistent with generalized cerebral dysfunction/encephalopathy. No seizure activity has been noted. Hemodynamically, the patient is stable. Hypertensive. He was unable to take his oral medications the patient is unable to swallow. He is taking Aspirin which is being administered rectally.The patient is undergoing regular peritoneal dialysis. His BUN is at 60 with a creatinine of 11.5. The lumbar puncture was done yesterday and the patient's CSF was consistent with e ncephalitis, possibly viral knowing that there was some mild leukocytosis with a white cell count of 5800% mononuclear. The CSF protein was 56 with a glucose of 63. CSF PCR analysis for viruses are still pending for now. Meanwhile, the patient is currently on IV acyclovir. He was also on the case. The patient was also started on Keppra. On 09/02/2018, the patient seems to be a bit more awake and less sleepy compared to yesterday. Nevertheless, he continues to be encephalopathic. He would wake up and say a few words and go back to sleep. At times he is getting close agitated. No seizure activity has been noted. He is slightly hyperreflexic. He remains on IV acyclovir. CSF fluid analysis regarding viral elements are still pending for now. He is afebrile. He is on decent blood pressure control with labetalol drip. He is not awake alert enough to be given oral medication oral feeds. The patient is undergoing dialysis on a regular basis to 2.5 solution. His BUN and creatinine remains slightly elevated although there is a improving trend with a BUN of 50 and creatinine of 10.2 on today's evaluation. His hemoglobin is at 10.7. No leukocytosis. The abdominal fluid is negative for infection. Reevaluated today on 09/03/2018, remains encephalopathic, intermittent episodes of agitation, however response to Haldol. Presently sedated, and does not seem to be in any form of respiratory distress. Remains on acyclovir, his spinal fluid studies have been reviewed, and so far nondiagnostic. EEG showed background slowing consistent with cerebral dysfunction/toxic metabolic encephalopathy-type of picture. MRI questioned subacute ischemic left frontal and inferior left temporal lobes embolic phenomenon. Chronic small vessel ischemic changes noted. Patient opens his eyes but does not follow any instructions and he does not speak does not make any eye contact. All labs were reviewed the major abnormality is his renal profile but the patient is on CAPD. Reevaluated today on 09/04/2018, patient is fully awake, alert and oriented 3, his mental status has completely cleared and significantly improved compared to yesterday. Workup on his spinal fluid has been negative and nondiagnostic including PCR for viral infections. I believe at this point patient must have had some metabolic encephalopathy, could be uremic in nature. Patient is doing great today compared to yesterday, and his mental status has completely cleared. He is alert and oriented 3, and denies any neurological symptoms whatsoever. Objective - Vital Signs Vital signs: Vital Signs Temp 97.9 F 09/04/18 08:00 Pulse 72 09/04/18 11:00 Resp 12 09/04/18 11:00 BP 134/103 09/04/18 11:00 Pulse Ox 92 L 09/04/18 11:00 Intake & Output 09/03/18 09/04/18 09/04/18 18:59 06:59 18:59 Intake Total 1118.5 700 700 Output Total 0 0 Balance 1118.5 700 700 Weight 95.5 kg 95.6 kg 95.6 kg Intake: IV 1000 700 600 Acyclovir Sodium 500 mg 100 In Sodium Chloride 0.9% 100 ml @ 100 mls/hr IVPB Q24H [facility] Rx#:[id number] Magnesium Sulfate-D5w Pmx 200 100 1 gm In Dextrose/Water 1 100ml.bag @ 100 mls/hr IVPB Q1H [facility] Rx#: [id number] Potassium Chloride 20 meq 200 In Water For Injection 1 100ml.bag @ 50 mls/hr IVPB ONCE [facility] Rx#: [id number] Sodium Chloride 0.9% 1, 600 600 200 000 ml @ 50 mls/hr IV . Q20H ANY Rx#:[id number] levETIRAcetam IV 250 mg 100 100 100 In Sodium Chloride 0.9% 100 ml @ 400 mls/hr IVPB Q12HR [facility] Rx#:[id number] Intake, IV Titration 118.5 0 100 Amount Labetalol 200 mg In 118.5 0 Sodium Chloride 0.9% 160 ml @ 2 MG/MIN 120 mls/hr IV .Q1H40M [facility] Rx#: [id number] Magnesium Sulfate-D5w Pmx 100 1 gm In Dextrose/Water 1 100ml.bag @ 100 mls/hr IVPB Q1H [facility] Rx#: [id number] Output: Urine 0 0 Other: Voiding Method CAPD CAPD CAPD # Voids 0 0 # Bowel Movements 1 0 - Exam Gen. Revealed 58-year-old white male pleasant, awake, in no form of distress. Head: Atraumatic, normocephalic. HEENT: PERRLA, EOMI, no icterus. Lungs: Diminished breath sounds bilaterally no crackles or rhonchi or wheezes Chest Wall: Symmetrical chest expansion noted tenderness. Heart: Normal S1 and S2, no S3 gallop.. Abdomen: Soft, non-tender, no megaly no rebound no guarding. Extremities: No clubbing edema or cyanosis, good distal pulses bilaterally. Skin: Skin color, texture, tugor normal, no rashes or lesions. Neurologic: Alert and oriented 3, no gross focal neurologic deficit. Psychiatric: Normal mood affect and mental status examination. - Labs CBC & Chem 7: 09/04/18 06:03 09/04/18 06:03 Labs: Abnormal Lab Results - Last 24 Hours (Table) 09/04/18 09/04/18 Range/Units 06:03 06:03 RBC 3.81 L (4.30-5.90) m/uL Hgb 10.1 L (13.0-17.5) gm/dL Hct 32.6 L (39.0-53.0) % RDW 16.6 H (11.5-15.5) % Lymphocytes # 0.9 L (1.0-4.8) k/uL Sodium 133 L (137-145) mmol/L Chloride 97 L (98-107) mmol/L BUN 36 H (9-20) mg/dL Creatinine 8.89 H* (0.66-1.25) mg/dL Calcium 8.2 L (8.4-10.2) mg/dL Phosphorus 6.3 H (2.5-4.5) mg/dL Microbiology - Last 24 Hours (Table) 08/31/18 12:38 CSF Gram Stain - Final Cerebral Spinal Fluid CSF Culture - Final 08/31/18 14:30 Gram Stain - Preliminary Peritoneal Fluid Body Fluid Culture - Preliminary Assessment and Plan Assessment: Impression: Altered mental status, possible metabolic encephalopathy, resolved, the only metabolic changes that I have noticed is the fact that the patient has lower creatinine today compared to the last few days. However I strongly doubt uremic encephalopathy. Hypertensive urgency, resolved, patient is on oral medications for hypertension. Chronic renal failure on peritoneal dialysis Herpes zoster involving upper back Multiple comorbidities including hypertension, hyperlipidemia, peripheral neur opathy, history of seizure disorder and history of chronic anemia. Recommendation: Continue present supportive care measures, patient will be transferred out of the ICU to a regular medical floor, will continue to follow. No active pulmonary issues at present. And the patient is hemodynamically s table, he will be seen by neurology again on follow-up today, and he is being followed by infectious disease, planning to keep him on acyclovir for now. Although workup was negative for viral [employer] infection. Time with Patient: Less than 30
--- NOTE | 2018-09-04 16:11 | P.PN ---
Subjective Progress Note Date: 09/04/18 This is a 58 rolled male one of my patient with a previous medical history significant for end-stage renal disease on PD any scheduled for possible renal transplant for which she has been traveling back and forth to [place], in between he has been missing his PD in [place], patient was recently hospitalized at [facility] because of accelerated hypertension with metabolic and hypertensive encephalopathy and he came to my office for follow-up and his blood pressure was well controlled in the range of 130/75, patient was maintained on hydralazine carvedilol amlodipine and lisinopril as well, patient developed to have shingles in the left lower back for which she was treated with tramadol and antiviral medication at the urgent care clinic, and the patient apparently was taken these pills along with his gabapentin he ended up coming to the emergency department because of significant mental status changes without evidence of any seizure activity however he had a computed tomography scan of the brain did not show any evidence of acute of normalities, patient was admitte d to the hospital initially to the cardiac floor however he developed to have a significant accelerated hypertension we gave the order for the nursing staff to put him on labetalol drip at 0.5 mg/m that was titrated to 1.5 mg/m and subsequently was taken off of it he was transferred to the intensive care unit he was seen in consultation by nephrology as well as 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 Montgomery he was recommended for the patient to be intubated because of severe mental status changes and an LP to be done to rule out any herpes encephalitis, his mental status changes likely related to his medication patient did receive a dose of baclofen and the dose of Requip last night along with his gabapentin and tramadol. 09/01: Patient continues to be confused he underwent lumbar puncture yesterday fluid results were reviewed possibility of zoster encephalitis versus herpes encephalitis is in the differential diagnosis at this time, however uremic encephalitis could not be entirely ruled out, we will continue with acyclovir, we will continue with supportive care, we'll continue the ICU, continue aggressi ve PD at this time 6 times every day. 09/02: Patient is more awake today continues to fall asleep on and off, however is much better follows command no chest pain or shortness breath endoscopy of headache he continues to be on PD, his PCR still pending for the VZV encephalitis as well as HSV 1 and 2. 09/03: Patient remains in the intensive care unit. He has been afebrile, heart rate 69, blood pressure 153/92, pulse ox 95%. Repeat lab work shows hemoglobin 10.9, BUN 42 and creatinine 9.40. Sodium was 132, chloride 97. Peritoneal fluid cultures are all in progress. Cerebral spinal fluid culture in progress. Patient remains on IV acyclovir and IV Keppra. Mental status does not seem improved this morning. He did receive Haldol during the night. Patient has had a large bowel movement this morning. He is followed by multiple consultants. Patient is followed by Dr. Wade. EEG showed background slowing suggestive of generalized cerebral dysfunction can be seen in toxic metabolic encephalopathy or diffuse structural brain abnormality. No epileptiform activity. MRI of the brain showed small focus of subacute ischemia suspected left frontal and anterior left temporal lobes consider embolic phenomenon. There are chronic small vessel ischemic changes. Patient was started on aspirin. Patient is also followed by Dr. Dickens, Dr. Montgomery and Dr. Huerta. Patient has continued on CAPD. Chest x-ray reveals possible pulmonary venous hypertension and interstitial edema. There may be component of volume overload, basilar atelectasis versus pneumonia. 09/04: Patient remains in the intensive care unit, afebrile, blood pressure 135/81, heart rate in the 70s, pulse ox 96% on room air. Patient is off labetalol drip. White count is at 6.5, hemoglobin 10.1. Sodium 133, potassium 3.7, chloride 97, CO2 28, BUN 36 and creatinine 8.89. Magnesium is 1.6. HIV testing is nonreactive. HSV 1 and 2 are negative. Albumin in spinal fluid normal. Varicella-zoster is negative and West Nile virus remains pending. Spinal fluid cultures and peritoneal fluid cultures in progress. Isolation will be discontinued. Patient is continued on CAPD. Today, patient's mental status is much improved. He was able to walk in the hallways with physical therapy. His speech is noted to be slurred in speech therapy has been added. Patient to be transferred to the [facility] floor today. Objective - Vital Signs Vital signs: Vital Signs Temp 97.9 F 09/04/18 08:00 Pulse 72 09/04/18 08:00 Resp 11 L 09/04/18 08:00 BP 135/81 09/04/18 08:00 Pulse Ox 96 09/04/18 08:00 Intake & Output 09/03/18 09/04/18 09/04/18 18:59 06:59 18:59 Intake Total 1118.5 700 250 Output Total 0 0 Balance 1118.5 700 250 Weight 95.5 kg 95.6 kg Intake: IV 1000 700 250 Acyclovir Sodium 500 mg 100 In Sodium Chloride 0.9% 100 ml @ 100 mls/hr IVPB Q24H ANY Rx#:[id number] Magnesium Sulfate-D5w Pmx 200 100 1 gm In Dextrose/Water 1 100ml.bag @ 100 mls/hr IVPB Q1H ANY Rx#: [id number] Potassium Chloride 20 meq 100 In Water For Injection 1 100ml.bag @ 50 mls/hr IVPB ONCE [facility] Rx#: [id number] Sodium Chloride 0.9% 1, 600 600 50 000 ml @ 50 mls/hr IV . Q20H ANY Rx#:[id number] levETIRAcetam IV 250 mg 100 100 In Sodium Chloride 0.9% 100 ml @ 400 mls/hr IVPB Q12HR ANY Rx#:[id number] Intake, IV Titration 118.5 0 Amount Labetalol 200 mg In 118.5 0 Sodium Chloride 0.9% 160 ml @ 2 MG/MIN 120 mls/hr IV .Q1H40M [facility] Rx#: [id number] Output: Urine 0 0 Other: Voiding Method CAPD CAPD # Voids 0 0 # Bowel Movements 1 0 - Exam Review Of Systems: Constitutional: No fever, no chills, no night sweats. No weight change. Reports weakness, fatigue or lethargy. No daytime sleepiness. EENT: No headache. No blurred vision or double vision, no loss of vision. No loss of Hearing, no ringing in the ears, no dizziness. No nasal drainage or congestion. No epistaxis. No sore throat. Lungs: No shortness of breath, cough, no sputum production. No wheezing. Cardiovascular: No chest pain, no lower extremity edema. No palpitations. No paroxysmal nocturnal dyspnea. No orthopnea. No lightheadedness or dizziness. No syncopal episodes. Abdominal: No abdominal pain. No nausea, vomiting. No diarrhea. No constipation. No bloody or tarry stools.. No loss of appetite. Genitourinary: No urine output. Musculoskeletal: No myalgias. No muscle weakness, no gait dysfunction, no frequent falls. No back pain. No neck pain. Integumentary: No wounds, no lesions. No rash or pruritus. No unusual bruising. No change in hair or nails. Neurologic: No aphasia. No facial droop. No change in mentation. No head injury. No headache. No paralysis. No paresthesia. Reports slurred speech. Psychiatric: No depression. No anxiety. No mood swings. Endocrine: No abnormal blood sugars. No weight change. No excessive sweating or thirst. No cold intolerance. General Appearance: Patient does not follow commands. Neck HEENT: Supple, no lymphadenopathy, no thyroid enlargement, no carotid bruits. Lungs: Decreased breath some bilaterally without crackles or wheezes no rhonchi, no deformity. Chest Wall: Decrease expansion with deep inspiration no tenderness and no deformity was found on exam, no costochondral pain or discomfort. Heart: Regular rate and rhythm, S1, S2 positive S3 positive tachycardia with systolic murmur, no rub or gallop. Back: Symmetric, no curvature, ROM normal, no CVA tenderness, there was crusted lesions in the left lower back. Abdomen: Soft, non-tender, bowel sounds active all four quadrants, slight distention with ascites from PD fluid, PD catheter is in place. Extremities: Trace edema decreased pulse positive mild arthritis in both knees, right shoulder had mild restriction to motion especially rotation. Pulses: 1+ and symmetric. Skin: Skin color, texture, tugor normal, no rashes or lesions. Neurologic: Patient is stuporous does not follow any commands with brought to verbal stimuli. - Labs CBC & Chem 7: 09/04/18 06:03 09/04/18 06:03 Labs: Abnormal Lab Results - Last 24 Hours (Table) 09/04/18 09/04/18 Range/Units 06:03 06:03 RBC 3.81 L (4.30-5.90) m/uL Hgb 10.1 L (13.0-17.5) gm/dL Hct 32.6 L (39.0-53.0) % RDW 16.6 H (11.5-15.5) % Lymphocytes # 0.9 L (1.0-4.8) k/uL Sodium 133 L (137-145) mmol/L Chloride 97 L (98-107) mmol/L BUN 36 H (9-20) mg/dL Creatinine 8.89 H* (0.66-1.25) mg/dL Calcium 8.2 L (8.4-10.2) mg/dL Phosphorus 6.3 H (2.5-4.5) mg/dL Microbiology - Last 24 Hours (Table) 08/31/18 14:30 Gram Stain - Preliminary Peritoneal Fluid Body Fluid Culture - Preliminary 08/31/18 12:38 CSF Gram Stain - Preliminary Cerebral Spinal Fluid CSF Culture - Preliminary Assessment and Plan Plan: 1. Metabolic encephalopathy likely due to hypertensive encephalopathy as Zoster and herpes encephalitis ruled out. West Nile testing is pending. Continue with IV Acyclovir. 2. Accelerated hypertension. Labetalol drip discontinued. Continue Coreg 6.25 mg twice daily, clonidine patch, Lasix 80 mg twice daily, hydralazine 25 mg 3 times daily, lisinopril 20 mg twice daily. 3. End stage renal disease on peritoneal dialysis. Patient was seen in consultation by nephrology will go for 6 exchanges daily. 4. Recent herpes zoster. Lesions appear to be crusted. We will continue contact isolation. 5. 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 Stable at this time. 6. History of seizure disorder. Currently not taking any medication at home but has been started on Keppra IV. 7. Hypertension and hypertensive cardiovascular disease. Continue treatment as in paragraph #2. 8. Hyperlipidemia. Continue patient on Lipitor 40 mg orally once every day. 9. Peripheral neuropathy. Hold gabapentin for now. 10. Secondary hyperparathyroidism. Monitor the patient calcium and phosphorus. 11. DVT prophylaxis. Heparin 5000 units subcutaneously every 12 hours. 12. GI prophylaxis. Continue patient on PPI. 13. Prognosis very guarded. Discharge plan: To be determined Impression and plan of care have been directed as dictated by the signing physician. Shannan Landa nurse practitioner acting as scribe for signing physician.
[2018-09-04] MEDS: ACYCLOVIR SODIUM 500 MG in SODIUM CHLORIDE 0.9% 100 ML IVPB SCH (17:37)
[2018-09-04] MEDS: CALCITRIOL 0.25 MCG CAP PO SCH (17:38)
[2018-09-04] MEDS: DIALYSIS (PERIT 2.5%) 2,000 ML 50 G/2,000 ML BAG INTRAPERIT SCH (19:03)
--- NOTE | 2018-09-04 20:47 | PN ---
PROGRESS NOTE DATE OF SERVICE: 09/04/2018 REASON FOR FOLLOWUP: Possible encephalitis. INTERVAL HISTORY: The patient is currently afebrile. The patient is hemodynamically stable. The patient has been transferred out of the ICU. The patient is back to his baseline and currently is awake and alert. Denies having any headache. No chest pain. No shortness of breath or cough. No abdominal pain or any diarrhea. PHYSICAL EXAMINATION: Blood pressure 187/94 with a pulse of 73, temperature 97.6. He is 95% on room air. General description is a middle-aged male lying in bed in no distress. RESPIRATORY SYSTEM: Unlabored breathing. Clear to auscultation anteriorly. HEART: S1, S2. Regular rate and rhythm. ABDOMEN: Soft. No tenderness. LABS: Hemoglobin is 10.1, white count 6.5. HIV testing is negative. HSV DNA was negative. VZV DNA by PCR is negative as well. DIAGNOSTIC IMPRESSION AND PLAN: Patient with encephalitis, possibly metabolic or hypertensive encephalopathy. Clinically doubt infectious encephalitis in view of negative HSV as well as VZV DNA by PCR in the CSF. Acyclovir can be safely discontinued. Continue to monitor closely. Continue with supportive care. MMODL / IJN: [id number] /
[2018-09-04] MEDS: LABETALOL 200 MG TAB PO SCH (20:58)
[2018-09-05] MEDS: HEPARIN SODIUM,PORCINE 5,000 UNIT/ML 1 ML VIAL SQ SCH ×3 (00:01→17:24)
[2018-09-05] MEDS: DIALYSIS (PERIT 1.5%) 2,500 ML 37.5 G/2,500 ML BAG INTRAPERIT SCH ×4 (01:32→17:40)
[2018-09-05] MEDS: hydrALAZINE HCL 20 MG/ML 1 ML VIAL IVP PRN (05:47)
[2018-09-05] MEDS: ATORVASTATIN 40 MG TAB PO SCH (08:05)
[2018-09-05] MEDS: ASPIRIN 325 MG TAB PO SCH (08:05)
[2018-09-05] MEDS: PANTOPRAZOLE 40 MG/10 ML VIAL IV SCH (08:06)
[2018-09-05] MEDS: hydrALAZINE HCL 25 MG TAB PO SCH (08:06)
[2018-09-05] MEDS: LISINOPRIL 20 MG TAB PO SCH ×2 (08:06→20:49)
[2018-09-05] MEDS: CARVEDILOL 6.25 MG TAB PO SCH ×2 (08:06→17:24)
[2018-09-05] MEDS: LABETALOL 200 MG TAB PO SCH ×2 (08:06→20:49)
[2018-09-05] MEDS: SEVELAMER 800 MG TAB PO SCH ×3 (08:06→17:24)
[2018-09-05] MEDS: FUROSEMIDE 80 MG TAB PO SCH ×2 (08:06→17:24)
--- NOTE | 2018-09-05 08:16 | XR ---
EXAMINATION TYPE: XR chest 1V portable DATE OF EXAM: 09/05/2018 COMPARISON: Prior chest x-ray 09/04/2018 HISTORY: Adventitious lung sounds, abnormal chest x-ray TECHNIQUE: Single frontal view of the chest is obtained. FINDINGS: There is some improvement in aeration, the interstitium is less conspicuous. Heart remains enlarged. No pneumothorax or pleural effusion. Patient is rotated. IMPRESSION: Improvement in aeration, volume status. Cardiomegaly.
[2018-09-05] MEDS: FOLIC ACID-VIT B COMPLEX-VIT C 1 CAP PO SCH (09:04)
[2018-09-05] MEDS: GABAPENTIN 400 MG CAP PO SCH ×2 (09:04→20:49)
[2018-09-05 09:28] LABS: Anisocytosis Slight; Basophils % (A) 1 %; Eosinophils # (A) 0.4 k/uL (0-0.7); Eosinophils % (A) 8 %; HCT 30.6 % (39.0-53.0); HGB 9.6 gm/dL (13.0-17.5); Hypochromasia Slight; Lymphocytes # (A) 1.1 k/uL (1.0-4.8); Lymphocytes % (A) 21 %; MCH 26.6 pg (25.0-35.0); MCHC 31.4 g/dL (31.0-37.0); MCV 84.7 fL (80.0-100.0); Mean Platelet Volume 7.3; Monocytes # (A) 0.3 k/uL (0-1.0); Monocytes % (A) 5 %; Neutrophils # (A) 3.4 k/uL (1.3-7.7); Neutrophils % (A) 63 %; Platelet Count 329 k/uL (150-450); RBC 3.61 m/uL (4.30-5.90); RDW 16.5 % (11.5-15.5); WBC 5.3 k/uL (3.8-10.6)
--- NOTE | 2018-09-05 09:31 | P.PN ---
Subjective Patient is seen in follow-up for end-stage renal disease. He is maintained on peritoneal dialysis. Patient is awake and alert this morning. Hemodynamically stable. No problems with peritoneal dialysis. There is concern for viral encephalitis and is currently maintained on IV acyclovir. Vital signs are stable. Blood pressures are high. General: The patient appeared well nourished and normally developed. HEENT: Head exam is unremarkable. Neck is without jugular venous distension. LUNGS: Breath sounds decreased. HEART: Rate and Rhythm are regular. First and second heart sounds normal. No murmurs, rubs or gallops. ABDOMEN: Abdominal exam reveals normal bowel sounds. Non-tender and non- distended. EXTREMITITES: No clubbing, cyanosis, or edema. Objective - Vital Signs Vital signs: Vital Signs Temp 97.8 F 09/05/18 05:20 Pulse 75 09/05/18 05:20 Resp 16 09/05/18 05:20 BP 194/91 09/05/18 05:20 Pulse Ox 99 09/05/18 05:20 Intake & Output 09/04/18 09/05/18 09/05/18 18:59 06:59 18:59 Intake Total 700 Output Total 0 300 Balance 700 -300 Weight 95.6 kg Intake: IV 600 Magnesium Sulfate-D5w Pmx 100 1 gm In Dextrose/Water 1 100ml.bag @ 100 mls/hr IVPB Q1H ANY Rx#: [id number] Potassium Chloride 20 meq 200 In Water For Injection 1 100ml.bag @ 50 mls/hr IVPB ONCE [facility] Rx#: [id number] Sodium Chloride 0.9% 1, 200 000 ml @ 50 mls/hr IV . Q20H ANY Rx#:[id number] levETIRAcetam IV 250 mg 100 In Sodium Chloride 0.9% 100 ml @ 400 mls/hr IVPB Q12HR ANY Rx#:[id number] Intake, IV Titration 100 Amount Magnesium Sulfate-D5w Pmx 100 1 gm In Dextrose/Water 1 100ml.bag @ 100 mls/hr IVPB Q1H [facility] Rx#: [id number] Output: Urine 0 300 Other: Voiding Method CAPD CAPD # Voids 0 0 - Labs CBC & Chem 7: 09/04/18 06:03 09/04/18 06:03 Labs: Microbiology - Last 24 Hours (Table) 08/31/18 14:30 Anaerobic Culture - Final Peritoneal Fluid 08/31/18 14:30 Gram Stain - Final Peritoneal Fluid Body Fluid Culture - Final 08/31/18 12:38 CSF Gram Stain - Final Cerebral Spinal Fluid CSF Culture - Final Assessment and Plan Plan: Assessment: 1. End-stage renal disease maintained on peritoneal dialysis. 2. Encephalopathy. Concern for viral encephalitis. ? Drug-induced. Maintained on IV acyclovir. Infectious disease following. Doubt uremia as his BUN was not significantly elevated and BUN/creatinine are both trending down. 3. Hyponatremia secondary to chronic kidney disease. Stable. 4. Hypomagnesemia from poor oral intake. Status post replacement. 5. Hypertension with chronic kidney disease. Blood pressures high today. 6. Chronic kidney disease mineral bone disease maintained on Renvela and calcitriol. Plan: Maintain current PD exchanges - I will decrease the frequency to every 6 hours. Maintain current antihypertensives - I will increase the dose of hydralazine. Maintain lactulose as needed for constipation.
[2018-09-05 09:32] LABS: Calcium 8.3 mg/dL (8.4-10.2); Magnesium 1.7 mg/dL (1.6-2.3); Phosphorus 5.1 mg/dL (2.5-4.5); Potassium 3.5 mmol/L (3.5-5.1)
[2018-09-05] MEDS: levETIRAcetam IV 250 MG in SODIUM CHLORIDE 0.9% 100 ML IVPB SCH (10:44)
[2018-09-05] MEDS ORDERED: POTASSIUM CHLORIDE ER 20 MEQ TAB.ER PO STA (11:15)
[2018-09-05] MEDS: MAGNESIUM SULFATE-D5W PMX 1 GM in DEXTROSE/WATER 1 100ML.BAG IVPB SCH ×2 (12:03→13:47)
--- NOTE | 2018-09-05 13:13 | P.PN ---
Subjective Progress Note Date: 09/05/18 This is a 58 rolled male one of my patient with a previous medical history significant for end-stage renal disease on PD any scheduled for possible renal transplant for which she has been traveling back and forth to [place], in between he has been missing his PD in [place], patient was recently hospitalized at [facility] because of accelerated hypertension with metabolic and hypertensive encephalopathy and he came to my office for follow-up and his blood pressure was well controlled in the range of 130/75, patient was maintained on hydralazine carvedilol amlodipine and lisinopril as well, patient developed to have shingles in the left lower back for which she was treated with tramadol and antiviral medication at the urgent care clinic, and the patient apparently was taken these pills along with his gabapentin he ended up coming to the emergency department because of significant mental status changes without evidence of any seizure activity however he had a computed tomography scan of the brain did not show any evidence of acute of normalities, patient was admitte d to the hospital initially to the cardiac floor however he developed to have a significant accelerated hypertension we gave the order for the nursing staff to put him on labetalol drip at 0.5 mg/m that was titrated to 1.5 mg/m and subsequently was taken off of it he was transferred to the intensive care unit he was seen in consultation by nephrology as well 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 09/01: Patient continues to be confused he underwent lumbar puncture yesterday fluid results were reviewed possibility of zoster encephalitis versus herpes encephalitis is in the differential diagnosis at this time, however uremic encephalitis could not be entirely ruled out, we will continue with acyclovir, we will continue with supportive care, we'll continue the ICU, continue aggressi ve PD at this time 6 times every day. 09/02: Patient is more awake today continues to fall asleep on and off, however is much better follows command no chest pain or shortness breath endoscopy of headache he continues to be on PD, his PCR still pending for the VZV encephalitis as well as HSV 1 and 2. 09/03: Patient remains in the intensive care unit. He has been afebrile, heart rate 69, blood pressure 153/92, pulse ox 95%. Repeat lab work shows hemoglobin 10.9, BUN 42 and creatinine 9.40. Sodium was 132, chloride 97. Peritoneal fluid cultures are all in progress. Cerebral spinal fluid culture in progress. Patient remains on IV acyclovir and IV Keppra. Mental status does not seem improved this morning. He did receive Haldol during the night. Patient has had a large bowel movement this morning. He is followed by multiple consultants. Patient is followed by Dr. Wade. EEG showed background slowing suggestive of generalized cerebral dysfunction can be seen in toxic metabolic encephalopathy or diffuse structural brain abnormality. No epileptiform activity. MRI of the brain showed small focus of subacute ischemia suspected left frontal and anterior left temporal lobes consider embolic phenomenon. There are chronic small vessel ischemic changes. Patient was started on aspirin. Patient is also followed by Dr. Dickens, Dr. Montgomery and Dr. Huerta. Patient has continued on CAPD. Chest x-ray reveals possible pulmonary venous hypertension and interstitial edema. There may be component of volume overload, basilar atelectasis versus pneumonia. 09/04: Patient remains in the intensive care unit, afebrile, blood pressure 135/81, heart rate in the 70s, pulse ox 96% on room air. Patient is off labetalol drip. White count is at 6.5, hemoglobin 10.1. Sodium 133, potassium 3.7, chloride 97, CO2 28, BUN 36 and creatinine 8.89. Magnesium is 1.6. HIV testing is nonreactive. HSV 1 and 2 are negative. Albumin in spinal fluid normal. Varicella-zoster is negative and West Nile virus remains pending. Spinal fluid cultures and peritoneal fluid cultures in progress. Isolation will be discontinued. Patient is continued on CAPD. Today, patient's mental status is much improved. He was able to walk in the hallways with physical therapy. His speech is noted to be slurred in speech therapy has been added. Patient to be transferred to the [facility] floor today. 09/05: Repeat chest x-ray shows improvement in aeration, volume status. Cardiomegaly. Dr. Dickens feels it is safe to discontinue acyclovir which we will do today. Cytology of cerebral spinal fluid shows no malignancy. West Nile virus testing remains pending. Patient has been afebrile, blood pressure this morning is 194/91, pulse ox 99% on room air, heart rate 75. Labetalol 200 mg twice daily added last evening for hypertension. Patient is currently on IV Keppra which will be transitioned to oral. Patient is working with physical therapy with recommendations for inpatient rehab or subacute rehab. Consult with Dr. Whitney added. Patient seems to be agreeable with this was discussed by his nurse and patient is noted to have short-term memory deficit. Patient has been evaluated by speech therapy and will continue due to cognitive deficits. Patient's blood pressure remains elevated this morning he did receive a dose of IV hydralazine. Dr. Malone has increased oral hydralazine to 50 mg 3 times daily. Objective - Vital Signs Vital signs: Vital Signs Temp 97.8 F 09/05/18 05:20 Pulse 75 09/05/18 05:20 Resp 16 09/05/18 05:20 BP 194/91 09/05/18 05:20 Pulse Ox 99 09/05/18 05:20 Intake & Output 09/04/18 09/05/18 09/05/18 18:59 06:59 18:59 Intake Total 700 Output Total 0 300 Balance 700 -300 Weight 95.6 kg Intake: IV 600 Magnesium Sulfate-D5w Pmx 100 1 gm In Dextrose/Water 1 100ml.bag @ 100 mls/hr IVPB Q1H ANY Rx#: [id number] Potassium Chloride 20 meq 200 In Water For Injection 1 100ml.bag @ 50 mls/hr IVPB ONCE STA Rx#: [id number] Sodium Chloride 0.9% 1, 200 000 ml @ 50 mls/hr IV . Q20H ANY Rx#:[id number] levETIRAcetam IV 250 mg 100 In Sodium Chloride 0.9% 100 ml @ 400 mls/hr IVPB Q12HR ANY Rx#:[id number] Intake, IV Titration 100 Amount Magnesium Sulfate-D5w Pmx 100 1 gm In Dextrose/Water 1 100ml.bag @ 100 mls/hr IVPB Q1H NAY Rx#: [id number] Output: Urine 0 300 Other: Voiding Method CAPD CAPD # Voids 0 0 - Exam Review Of Systems: Constitutional: No fever, no chills, no night sweats. No weight change. Reports weakness, fatigue or lethargy. No daytime sleepiness. EENT: No headache. No blurred vision or double vision, no loss of vision. No loss of Hearing, no ringing in the ears, no dizziness. No nasal drainage or congestion. No epistaxis. No sore throat. Lungs: No shortness of breath, cough, no sputum production. No wheezing. Cardiovascular: No chest pain, no lower extremity edema. No palpitations. No paroxysmal nocturnal dyspnea. No orthopnea. No lightheadedness or dizziness. No syncopal episodes. Abdominal: No abdominal pain. No nausea, vomiting. No diarrhea. No constipation. No bloody or tarry stools.. No loss of appetite. Genitourinary: No urine output. Musculoskeletal: No myalgias. No muscle weakness, no gait dysfunction, no frequent falls. No back pain. No neck pain. Integumentary: No wounds, no lesions. No rash or pruritus. No unusual bruising. No change in hair or nails. Neurologic: No aphasia. No facial droop. No change in mentation. No head injury. No headache. No paralysis. No paresthesia. Reports slurred speech. Mild confusion, short-term memory loss Psychiatric: No depression. No anxiety. No mood swings. Endocrine: No abnormal blood sugars. No weight change. No excessive sweating or thirst. No cold intolerance. General Appearance: Patient resting comfortably in bed. He appears to be in no acute distress.. Neck HEENT: Supple, no lymphadenopathy, no thyroid enlargement, no carotid bruits. Lungs: Decreased breath some bilaterally without crackles or wheezes no rhonchi, no deformity. Chest Wall: Decrease expansion with deep inspiration no tenderness and no deformity was found on exam, no costochondral pain or discomfort. Heart: Regular rate and rhythm, S1, S2 positive S3 positive tachycardia with systolic murmur, no rub or gallop. Back: Symmetric, no curvature, crusted lesions in the left lower back. Abdomen: Soft, non-tender, bowel sounds active all four quadrants, slight distention with ascites from PD fluid, PD catheter is in place. Extremities: Trace edema decreased pulse positive mild arthritis in both knees. Pulses: 1+ and symmetric. Skin: Skin color, texture, tugor normal, no rashes or lesions. Neurologic: Patient is awake alert and oriented and able to follow commands. No focal neuro deficits. Short-term memory deficit noted. - Labs CBC & Chem 7: 09/05/18 08:49 09/05/18 08:49 Labs: Microbiology - Last 24 Hours (Table) 08/31/18 14:30 Anaerobic Culture - Final Peritoneal Fluid 08/31/18 14:30 Gram Stain - Final Peritoneal Fluid Body Fluid Culture - Final 08/31/18 12:38 CSF Gram Stain - Final Cerebral Spinal Fluid CSF Culture - Final Assessment and Plan Plan: 1. Metabolic encephalopathy likely due to hypertensive encephalopathy as Zoster and herpes encephalitis ruled out. West Nile testing is pending. Acyclovir discontinued. 2. Accelerated hypertension. Labetalol drip discontinued. Continue Coreg 6.25 mg twice daily, clonidine patch, Lasix 80 mg twice daily, hydralazine increased to 50 mg 3 times daily, lisinopril 20 mg twice daily. 3. End stage renal disease on peritoneal dialysis. Nephrology consult appreciated.. 4. Recent herpes zoster. Lesions appear to be crusted. 5. 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 Stable at this time. 6. History of seizure disorder. Currently not taking any medication at home but has been started on Keppra IV. 7. Hypertension and hypertensive cardiovascular disease. Continue treatment as in paragraph #2. 8. Hyperlipidemia. Continue patient on Lipitor 40 mg orally once every day. 9. Peripheral neuropathy. Hold gabapentin for now. 10. Secondary hyperparathyroidism. Monitor the patient calcium and phosphorus. 11. DVT prophylaxis. Heparin 5000 units subcutaneously every 8 hours. 12. GI prophylaxis. Continue patient on PPI. 13. Prognosis very guarded. Discharge plan: To be determined. Possible inpatient rehab or subacute rehab. Consult with Dr. Candelaria added. Patient is followed by PT, OT, speech therapy. Impression and plan of care have been directed as dictated by the signing physician. Shannan Landa nurse practitioner acting as scribe for signing physician.
--- NOTE | 2018-09-05 16:16 | P.CONS ---
History of Present Illness - Chief Complaint Gait disturbance - History of Present Illness I had the opportunity to see patient for inpatient rehab consultation with regard to gait disturbance. He was admitted to [facility] August 30 with mental status change due to uremic encephalopathy thought related to recent Ultram, 1-2 days' duration. Chest x-rays followed for cardiomegaly and improved aeration. Carotid study negative. Seen in ICU by Donato Barrett and john. PT reports minimal assistance for bed mobility and minimal to moderate assistance for gait 200 feet with roller walker, multiple missteps. OT reports minimal assistance for upper dressing and maximal assistance for lower dressing, bathing and functional mobility and transfers. Moderate to maximal assistance for toileting. Speech therapy notes moderate comprehension deficits. Previous functional history as elicited from patient: 58 year old right-handed white male who is single lives in one floor home with mom. Patient on disability due to chronic kidney disease. Describes independent with cooking, laundry, driving, standing shower and gait without device. In fact takes care of his mom. Denies tobacco or alcohol. Dr. Decker is regular doctor. Family history father with cancer. Review of Systems Review of systems: Note patient denies any specific complaints at this time. ENT: Denies sneezes or discharge. Eyes: Denies discharge or photophobia. Cardiac: Denies chest pain or palpitation. Pulmonary: Denies cough or shortness of breath. Gastrointestinal: Denies nausea, emesis, constipation, diarrhea. Genitourinary: Denies discharge or frequency. Musculoskeletal: Denies muscle or bone aches. Neurologic: Denies motor or sensory change. Endocrine: Denies shakes or sweats. Oncology: Denies cancers. Dermatologic: Denies rash, itching, pruritus. ALLERGY/immunology: Denies sneezes, rashes. Past Medical History Past Medical History: Dialysis, Hyperlipidemia, Hypertension, Renal Disease, Seizure Disorder Additional Past Medical History / Comment(s): End-stage renal disease on peritoneal dialysis, hypertension, hypertensive heart disease with concentric LVH, hypertension, hyperlipidemia, history of seizure disorder, chronic back pain, degenerative disc disease, history of bowel resection with colostomy and subsequent reversal History of Any Multi-Drug Resistant Organisms: None Reported Past Surgical History: Orthopedic Surgery Additional Past Surgical History / Comment(s): Peritoneal catheters-last one placed in 2017, colostomy with reversal, colonoscopy, bilateral carpal tunnel releases Past Anesthesia/Blood Transfusion Reactions: No Reported Reaction Past Psychological History: No Psychological Hx Reported Smoking Status: Former smoker - Past Family History Mother Family Medical History: Dementia Additional Family Medical History / Comment(s): Mother is alive with history of dementia. Father Family Medical History: Cancer Additional Family Medical History / Comment(s): Father is alive with history of LIVER CANCER and coronary artery disease status post CABG. Patient does not have any brothers or sisters. Medications and Allergies Home Medications Medication Instructions Recorded Confirmed Type Atorvastatin Calcium [Lipitor] 40 mg PO DAILY 01/01/17 08/30/18 History Lisinopril [Prinivil] 20 mg PO BID 01/01/17 08/30/18 History B Complex W-C No.20/Folic Acid 1 mg PO DAILY 08/19/18 08/30/18 History [Renal Caps Softgel] Calcitriol 0.5 mcg PO MOWEFR 08/19/18 08/30/18 History Furosemide [Lasix] 80 mg PO TID 08/19/18 08/30/18 History Gabapentin [Neurontin] 400 mg PO BID 08/19/18 08/30/18 History traMADol HCL [Ultram] 50 mg PO DAILY PRN 08/19/18 08/30/18 History Carvedilol [Coreg] 6.25 mg PO BID-W/MEALS #60 tab 08/22/18 08/30/18 Rx Sevelamer [Renvela] 800 mg PO TID-W/MEALS #90 tab 08/22/18 08/30/18 Rx hydrALAZINE HCL [Apresoline] 25 mg PO TID #90 tab 08/22/18 08/30/18 Rx Allergies Allergy/AdvReac Type Severity Reaction Status Date / Time No Known Allergies Allergy Verified 08/30/18 14:20 Physical Exam Vitals: Vital Signs Temp Pulse Resp BP Pulse Ox 09/05/18 14:16 97.8 F 68 16 155/88 97 09/05/18 07:06 79 171/87 09/05/18 05:20 97.8 F 75 16 194/91 99 09/04/18 20:24 97.3 F L 80 18 179/98 97 Intake and Output 09/05/18 09/05/18 09/05/18 06:59 14:59 22:59 Intake Total 200 Output Total 300 Balance -300 200 Intake: IV 0 Acyclovir Sodium 500 mg 0 In Sodium Chloride 0.9% 100 ml @ 100 mls/hr IVPB Q[facility]H [facility] Rx#:[id number] levETIRAcetam IV 250 mg 0 In Sodium Chloride 0.9% 100 ml @ 400 mls/hr IVPB Q12HR ANY Rx#:[id number] Intake, IV Titration 200 Amount Magnesium Sulfate-D5w Pmx 200 1 gm In Dextrose/Water 1 100ml.bag @ 100 mls/hr IVPB Q1H ANY Rx#: [id number] Output: Urine 300 Other: Voiding Method CAPD Skin: Good color, texture, turgor. General: Medium build and comfortable appearance. Head: Normocephalic, atraumatic. Eyes: Symmetric. Pupils equal round. Ears: Symmetric. Hearing within normal limits. Mouth: Clear. Neck: Supple. Carotid without bruit. Cardiac: Regular rate and rhythm. Lungs: Clear anteriorly and posteriorly. Abdomen: Soft active nontender. Extremities: Normal tone. Neurological: Mental status: Alert, cooperative, pleasant. Cranial nerves: Symmetric facial tone and trapezius. Motor: Normal strength and isolation all 4 limbs. Sensation: Intact throughout. DTRs: Symmetric and equal throughout. Mobility: Sits with minimal assist. Results CBC & Chem 7: 09/05/18 08:49 09/05/18 08:49 Labs: Abnormal Lab Results - Last 24 Hours (Table) 09/05/18 09/05/18 Range/Units 08:49 08:49 RBC 3.61 L (4.30-5.90) m/uL Hgb 9.6 L (13.0-17.5) gm/dL Hct 30.6 L (39.0-53.0) % RDW 16.5 H (11.5-15.5) % Sodium 130 L (137-145) mmol/L Chloride 94 L (98-107) mmol/L BUN 31 H (9-20) mg/dL Creatinine 8.10 H* (0.66-1.25) mg/dL Calcium 8.3 L (8.4-10.2) mg/dL Phosphorus 5.1 H (2.5-4.5) mg/dL Microbiology - Last 24 Hours (Table) 08/31/18 14:30 Anaerobic Culture - Final Peritoneal Fluid 08/31/18 14:30 Gram Stain - Final Peritoneal Fluid Body Fluid Culture - Final Assessment and Plan (1) Medication reaction Current Visit: Yes Status: Acute Code(s): T50.905A - ADVERSE EFFECT OF UNSP DRUG/MEDS/BIOL SUBST, INIT SNOMED Code(s): 45251924 (2) Uremic encephalopathy Current Visit: Yes Status: Acute Code(s): G93.41 - METABOLIC ENCEPHALOPATHY; N19 - UNSPECIFIED KIDNEY FAILURE SNOMED Code(s): 50333676 Plan: Impression: 1. Gait disturbance. 2. Mental status change with uremic encephalopathy, possible side effect of recent Ultram. 3. Chronic kidney disease on CAPD. 4. Hypertension. 5. Seizure disorder. 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 Safety concerns noted. Note that patient previously took care of mom so he was to been independent at a high level. This represents significant change. Would typically anticipate th at resolution of medical problem, Ultram reaction, patient should resume previous functional status. We'll follow closely with yourself for possible need and benefit of inpatient rehab versus discharge to home.
[2018-09-05] MEDS: levETIRAcetam 500 MG TAB PO SCH (17:24)
[2018-09-05] MEDS: hydrALAZINE HCL 50 MG TAB PO SCH ×2 (17:24→20:49)
--- NOTE | 2018-09-05 20:02 | PN ---
PROGRESS NOTE DATE OF SERVICE: 09/05/2018. REASON FOR FOLLOWUP: Encephalitis with question of possible herpetic infection. INTERVAL HISTORY: The patient is currently afebrile. The patient is awake and alert. He is breathing comfortably. The patient currnetly denies having any headache. No chest pain or shortness of breath or cough. No abdominal pain or diarrhea. PHYSICAL EXAMINATION: Blood pressure 155/88 with a pulse of 68, temperature 97.8, he is 97% on room air. General description is a middle-aged male lying in bed in no distress. Respiratory system: Unlabored breathing. Clear to auscultation anteriorly. HEART: S1, S2. Regular rate and rhythm. ABDOMEN: Soft. No tenderness. LABS: Hemoglobin 9.4, white count 5.3 with a BUN of 31, creatinine 8.10. DIAGNOSTIC IMPRESSION AND PLAN: Patient admitted to the hospital with mental status changes with concern for possible infectious encephalitis. However, the patient both HSV and . PCR has been negative . Acyclovir has been discontinued. Continue to monitor the patient closely off antiviral. Continue supportive care. MMODL / IJN: [id number] /
[2018-09-05] MEDS: SODIUM CHLORIDE 0.9% 1,000 ML IV SCH (20:49)
[2018-09-06] MEDS: DIALYSIS (PERIT 1.5%) 2,500 ML 37.5 G/2,500 ML BAG INTRAPERIT SCH ×5 (00:09→23:22)
[2018-09-06] MEDS: HEPARIN SODIUM,PORCINE 5,000 UNIT/ML 1 ML VIAL SQ SCH ×3 (00:10→16:28)
[2018-09-06] MEDS: LISINOPRIL 20 MG TAB PO SCH ×2 (08:31→20:24)
[2018-09-06] MEDS: ATORVASTATIN 40 MG TAB PO SCH (08:31)
[2018-09-06] MEDS: ASPIRIN 325 MG TAB PO SCH (08:31)
[2018-09-06] MEDS: levETIRAcetam 500 MG TAB PO SCH (08:31)
[2018-09-06] MEDS: LABETALOL 200 MG TAB PO SCH ×2 (08:31→20:24)
[2018-09-06] MEDS: CARVEDILOL 6.25 MG TAB PO SCH ×2 (08:32→16:28)
[2018-09-06] MEDS: SEVELAMER 800 MG TAB PO SCH ×3 (08:32→16:28)
[2018-09-06] MEDS: hydrALAZINE HCL 50 MG TAB PO SCH ×4 (08:32→20:24)
[2018-09-06] MEDS: FUROSEMIDE 80 MG TAB PO SCH ×2 (08:32→16:05)
[2018-09-06] MEDS: PANTOPRAZOLE 40 MG/10 ML VIAL IV SCH (08:32)
[2018-09-06] MEDS: GABAPENTIN 400 MG CAP PO SCH ×2 (08:49→20:24)
[2018-09-06] MEDS: FOLIC ACID-VIT B COMPLEX-VIT C 1 CAP PO SCH (08:49)
--- NOTE | 2018-09-06 08:49 | P.PN ---
Subjective Patient is seen in follow-up for end-stage renal disease. He is maintained on peritoneal dialysis. Patient is awake and alert this morning. Hemodynamically stable. No problems with peritoneal dialysis. There was concern for viral encephalitis blood cultures including PCR have been negative. IV acyclovir was discontinued yesterday. Vital signs are stable. Blood pressures are high. General: The patient appeared well nourished and normally developed. HEENT: Head exam is unremarkable. Neck is without jugular venous distension. LUNGS: Breath sounds decreased. HEART: Rate and Rhythm are regular. First and second heart sounds normal. No murmurs, rubs or gallops. ABDOMEN: Abdominal exam reveals normal bowel sounds. Non-tender and non-d istended. EXTREMITITES: No clubbing, cyanosis, or edema. Objective - Vital Signs Vital signs: Vital Signs Temp 97.6 F 09/06/18 05:45 Pulse 73 09/06/18 05:45 Resp 20 09/06/18 05:45 BP 184/97 09/06/18 05:45 Pulse Ox 96 09/06/18 05:45 Intake & Output 09/05/18 09/06/18 09/06/18 18:59 06:59 18:59 Intake Total 200 300 Balance 200 300 Intake: IV 0 Acyclovir Sodium 500 mg 0 In Sodium Chloride 0.9% 100 ml @ 100 mls/hr IVPB Q24H ANY Rx#:[id number] levETIRAcetam IV 250 mg 0 In Sodium Chloride 0.9% 100 ml @ 400 mls/hr IVPB Q12HR ANY Rx#:[id number] Intake, IV Titration 200 Amount Magnesium Sulfate-D5w Pmx 200 1 gm In Dextrose/Water 1 100ml.bag @ 100 mls/hr IVPB Q1H ANY Rx#: [id number] Oral 300 Other: # Voids 0 - Labs CBC & Chem 7: 09/05/18 08:49 09/05/18 08:49 Labs: Abnormal Lab Results - Last 24 Hours (Table) 09/05/18 09/05/18 Range/Units 08:49 08:49 RBC 3.61 L (4.30-5.90) m/uL Hgb 9.6 L (13.0-17.5) gm/dL Hct 30.6 L (39.0-53.0) % RDW 16.5 H (11.5-15.5) % Sodium 130 L (137-145) mmol/L Chloride 94 L (98-107) mmol/L BUN 31 H (9-20) mg/dL Creatinine 8.10 H* (0.66-1.25) mg/dL Calcium 8.3 L (8.4-10.2) mg/dL Phosphorus 5.1 H (2.5-4.5) mg/dL Assessment and Plan Plan: Assessment: 1. End-stage renal disease maintained on peritoneal dialysis. 2. Encephalopathy. Concern for viral encephalitis. ?Drug-induced. s/p IV acyclovir. Infectious disease following. Doubt uremia as his BUN was not significantly elevated and BUN/creatinine are both trending down. 3. Hyponatremia secondary to chronic kidney disease. Stable. 4. Hypomagnesemia from poor oral intake. Status post replacement. 5. Hypertension with chronic kidney disease. Better. 6. Chronic kidney disease mineral bone disease maintained on Renvela and calcitriol. Plan: Maintain current PD exchanges - 2.5 L every 6 hours with 1.5% with exercise. Maintain current antihypertensives - I will further increase the dose of hydralazine. Maintain lactulose as needed for constipation.
[2018-09-06 10:16] LABS: Calcium 8.2 mg/dL (8.4-10.2); Potassium 3.6 mmol/L (3.5-5.1)
--- NOTE | 2018-09-06 10:46 | CT ---
EXAMINATION TYPE: CT brain wo con DATE OF EXAM: 09/06/2018 COMPARISON: 08/30/2018 HISTORY: weakness CT DLP: [address] of the brain was performed. The ventricles, basal cisterns and sulci overlying the cerebral convexities demonstrate mild enlargem ent. There is no evidence for intracranial hemorrhage or sulcal effacement. There is decreased attenuation about the periventricular white matter and deep white matter of both c erebral hemispheres, compatible with chronic small vessel ischemia. Differential diagnosis does inclu de demyelination. No mass effects are seen.No midline shift. Osseous calvarium is intact. If symptoms persist consider MRI. IMPRESSION: 1. Age related atrophic and chronic small vessel ischemic change without acute intracranial process s een at this time.
--- NOTE | 2018-09-06 12:50 | P.DS ---
Providers Date of admission: 08/30/18 13:25 Expected date of discharge: 09/06/18 Attending physician: Guille Aguayo Consults: 08/30/18 13:47 Consult Physician Stat Consulting Provider: Ema Han Consult Reason/Comments: peritoneal diaylsis Do you want consulting provider notified?: Yes 08/30/18 18:13 Consult Physician Stat Consulting Provider: Nehal Montgomery Consult Reason/Comments: icu management Do you want consulting provider notified?: Yes 08/31/18 07:54 Consult Physician Routine Consulting Provider: Jyothi Wade Consult Reason/Comments: altered mentation Do you want consulting provider notified?: Yes 09/01/18 12:05 Consult Physician Urgent Consulting Provider: Aurora Dickens Consult Reason/Comments: herpes encephalitis Do you want consulting provider notified?: Yes 09/05/18 12:16 Consult Physician Routine Consulting Provider: Jose L Candelaria Consult Reason/Comments: IP rehab Do you want consulting provider notified?: Yes [facility] Course: This is a 58 rolled male one of my patient with a previous medical history significant for end-stage renal disease on PD any scheduled for possible renal transplant for which she has been traveling back and forth to [place], in between he has been missing his PD in [place], patient was recently hospitalized at [facility] because of accelerated hypertension with metabolic and hypertensive encephalopathy and he came to my office for follow-up and his blood pressure was well controlled in the range of 130/75, patient was maintained on hydralazine carvedilol amlodipine and lisinopril as well, patient developed to have shingles in the left lower back for which she was treated with tramadol and antiviral medication at the urgent care clinic, and the patient apparently was taken these pills along with his gabapentin he ended up coming to the emergency department because of significant mental status changes without evidence of any seizure activity however he had a computed tomography scan of the brain did not show any evidence of acute of normalities, patient was admitted to the hospital initially to the cardiac floor however he developed to have a significant accelerated hypertension we gave the order for the nursing staff to put him on labetalol drip at 0.5 mg/m that was titrated to 1.5 mg/m and subsequently was taken off of it he was transferred to the intensive care unit he was seen in consultation by nephrology as well as water/wastewater engineer Dr. Montgomery he was recommended for the patient to be intubated because of severe mental status changes and an LP to be done to rule out any herpes encephalitis, his mental status changes likely related to his medication patient did receive a dose of baclofen and the dose of Requip last night along with his gabapentin and tramadol. 09/01: Patient continues to be confused he underwent lumbar puncture yesterday fluid results were reviewed possibility of zoster encephalitis versus herpes encephalitis is in the differential diagnosis at this time, however uremic encephalitis could not be entirely ruled out, we will continue with acyclovir, we will continue with supportive care, we'll continue the ICU, continue aggressive PD at this time 6 times every day. 09/02: Patient is more awake today continues to fall asleep on and off, however is much better follows command no chest pain or shortness breath endoscopy of headache he continues to be on PD, his PCR still pending for the VZV encephalitis as well as HSV 1 and 2. 09/03: Patient remains in the intensive care unit. He has been afebrile, heart rate 69, blood pressure 153/92, pulse ox 95%. Repeat lab work shows hemoglobin 10.9, BUN 42 and creatinine 9.40. Sodium was 132, chloride 97. Peritoneal fluid cultures are all in progress. Cerebral spinal fluid culture in progress. Patient remains on IV acyclovir and IV Keppra. Mental status does not seem improved this morning. He did receive Haldol during the night. Patient has had a large bowel movement this morning. He is followed by multiple consultants. Patient is followed by Dr. Wade. EEG showed background slowing suggestive of generalized cerebral dysfunction can be seen in toxic metabolic encephalopathy or diffuse structural brain abnormality. No epileptiform activity. MRI of the brain showed small focus of subacute ischemia suspected left frontal and anterior left temporal lobes consider embolic phenomenon. There are chronic small vessel ischemic changes. Patient was started on aspirin. Patient is also followed by Dr. Dickens, Dr. Montgomery and Dr. Huerta. Patient has continued on CAPD. Chest x-ray reveals possible pulmonary venous hypertension and interstitial edema. There may be component of volume overload, basilar atelectasis versus pneumonia. 09/04: Patient remains in the intensive care unit, afebrile, blood pressure 135/81, heart rate in the 70s, pulse ox 96% on room air. Patient is off labetalol drip. White count is at 6.5, hemoglobin 10.1. Sodium 133, potassium 3.7, chloride 97, CO2 28, BUN 36 and creatinine 8.89. Magnesium is 1.6. HIV testing is nonreactive. HSV 1 and 2 are negative. Albumin in spinal fluid normal. Varicella-zoster is negative and West Nile virus remains pending. Spinal fluid cultures and peritoneal fluid cultures in progress. Isolation will be discontinued. Patient is continued on CAPD. Today, patient's mental status is much improved. He was able to walk in the hallways with physical therapy. His speech is noted to be slurred in speech therapy has been added. Patient to be transferred to the [facility] floor today. 09/05: Repeat chest x-ray shows improvement in aeration, volume status. Cardiomegaly. Dr. Dickens feels it is safe to discontinue acyclovir which we will do today. Cytology of cerebral spinal fluid shows no malignancy. West Nile virus testing remains pending. Patient has been afebrile, blood pressure this morning is 194/91, pulse ox 99% on room air, heart rate 75. Labetalol 200 mg twice daily added last evening for hypertension. Patient is currently on IV Keppra which will be transitioned to oral. Patient is working with physical therapy with recommendations for inpatient rehab or subacute rehab. Consult with Dr. Whitney added. Patient seems to be agreeable with this was discussed by his nurse and patient is noted to have short-term memory deficit. Patient has been evaluated by speech therapy and will continue due to cognitive deficits. Patient's blood pressure remains elevated this morning he did receive a dose of IV hydralazine. Dr. Malone has increased oral hydralazine to 50 mg 3 times daily. 09/06: Patient has been evaluated by Dr. Candelaria and has been accepted at [facility] for inpatient rehab once bed is available. This morning, patient is more difficult to awaken and more slurred speech is noted. We have ordered a CAT scan of the brain which came back negative with no acute findings. Patient does have chronic small vessel ischemic changes. Patient is able to answer all questions appropriately's and oriented 3. We will prepare the patient for discharge in hopes that a bed will be available today. Case management and social sciences research scientist working on discharge planning. Blood pressure remains high and hydralazine has been increased by Dr. Malone. He is continued on CAPD per Dr. Malone. Discharge diagnoses: 1. Metabolic encephalopathy likely due to hypertensive encephalopathy as Zoster and herpes encephalitis ruled out. West Nile testing is pending. 2. Accelerated hypertension. 3. End stage renal disease on peritoneal dialysis. 4. Recent herpes zoster. 5. 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 Stable at this time. 6. History of seizure disorder. 7. Hypertension and hypertensive cardiovascular disease. 8. Hyperlipidemia. 9. Peripheral neuropathy. 10. Secondary hyperparathyroidism. Discharge plan: Inpatient rehab Impression and plan of care have been directed as dictated by the signing physician. Shannan aLnda nurse practitioner acting as scribe for signing physician. Patient Condition at Discharge: Good Plan - Discharge Summary Discharge Rx Participant: Yes New Discharge Prescriptions: New hydrALAZINE HCL [Apresoline] 100 mg PO TID #180 tab cloNIDine 0.2 MG/24HR PATCH [Catapres-TTS] 1 patch TRANSDERM Q7D #4 patch levETIRAcetam [Keppra] 500 mg PO DAILY #30 tab Labetalol [Trandate] 200 mg PO BID #60 tab Aspirin 325 mg PO DAILY tab Continue Lisinopril [Prinivil] 20 mg PO BID Atorvastatin Calcium [Lipitor] 40 mg PO DAILY B Complex W-C No.20/Folic Acid [Renal Caps Softgel] 1 mg PO DAILY Gabapentin [Neurontin] 400 mg PO BID Furosemide [Lasix] 80 mg PO TID Calcitriol 0.5 mcg PO MOWEFR Carvedilol [Coreg] 6.25 mg PO BID-W/MEALS #60 tab Sevelamer [Renvela] 800 mg PO TID-W/MEALS #90 tab Discontinued traMADol HCL [Ultram] 50 mg PO DAILY PRN PRN Reason: Pain hydrALAZINE HCL [Apresoline] 25 mg PO TID #90 tab Discharge Medication List Atorvastatin Calcium [Lipitor] 40 mg PO DAILY 01/01/17 [History] Lisinopril [Prinivil] 20 mg PO BID 01/01/17 [History] B Complex W-C No.20/Folic Acid [Renal Caps Softgel] 1 mg PO DAILY 08/19/18 [History] Calcitriol 0.5 mcg PO MOWEFR 08/19/18 [History] Furosemide [Lasix] 80 mg PO TID 08/19/18 [History] Gabapentin [Neurontin] 400 mg PO BID 08/19/18 [History] Carvedilol [Coreg] 6.25 mg PO BID-W/MEALS #60 tab 08/22/18 [Rx] Sevelamer [Renvela] 800 mg PO TID-W/MEALS #90 tab 08/22/18 [Rx] Aspirin 325 mg PO DAILY tab 09/06/18 [Rx] Labetalol [Trandate] 200 mg PO BID #60 tab 09/06/18 [Rx] cloNIDine 0.2 MG/24HR PATCH [Catapres-TTS] 1 patch TRANSDERM Q7D #4 patch 09/06/18 [Rx] hydrALAZINE HCL [Apresoline] 100 mg PO TID #180 tab 09/06/18 [Rx] levETIRAcetam [Keppra] 500 mg PO DAILY #30 tab 09/06/18 [Rx] Follow up Appointment(s)/Referral(s): Dakotah Decker MD [Primary Care Provider] - 1-2 days Discharge Disposition: OTHER INSTITUTION NOT DEFINED
[2018-09-06] MEDS: SODIUM CHLORIDE 0.9% 1,000 ML IV SCH (16:06)
--- NOTE | 2018-09-06 16:40 | P.PN ---
Subjective Progress Note Date: 09/05/18 Patient's friend was present today. Patient is now fully alert and awake, fully oriented. Patient believes that he was given some pain medication, which produced reaction. He has been complaining of pain in his legs, and shoulder. He states that because of dialysis patient, the medication produced toxic buildup which affected his mentation. Patient is taking gabapentin 400 mg twice a day, which can sometimes produce myoclonic jerks and mental confusion in dialysis patient at higher dose. Patient had carotid Doppler which showed no significant stenosis. Antegrade flow in both vertebral arteries. EEG showed markedly abnormal EEG due to background slowing. This suggestive of generalized cerebral dysfunction as can be seen in toxic metabolic encephalopathy or related to diffuse structural brain abnormality. No epileptiform activity was seen. MRI of the brain showed small focus of subacute ischemia suspected left frontal and inferior left temporal lobes, consider embolic phenomenon. There are chronic small vessel ischemic changes. Patient is on Keppra 250 mg twice a day and aspirin 300 mg rectally daily. Objective - Vital Signs Vital signs: Vital Signs Temp 97.8 F 09/05/18 14:16 Pulse 68 09/05/18 14:16 Resp 16 09/05/18 14:16 BP 155/88 09/05/18 14:16 Pulse Ox 97 09/05/18 14:16 Intake & Output 09/04/18 09/05/18 09/05/18 18:59 06:59 18:59 Intake Total 700 200 Output Total 0 300 Balance 700 -300 200 Weight 95.6 kg Intake: IV 600 0 Acyclovir Sodium 500 mg 0 In Sodium Chloride 0.9% 100 ml @ 100 mls/hr IVPB Q24H ANY Rx#:[id number] Magnesium Sulfate-D5w Pmx 100 1 gm In Dextrose/Water 1 100ml.bag @ 100 mls/hr IVPB Q1H ANY Rx#: [id number] Potassium Chloride 20 meq 200 In Water For Injection 1 100ml.bag @ 50 mls/hr IVPB ONCE STA Rx#: [id number] Sodium Chloride 0.9% 1, 200 000 ml @ 50 mls/hr IV . Q20H ANY Rx#:[id number] levETIRAcetam IV 250 mg 100 0 In Sodium Chloride 0.9% 100 ml @ 400 mls/hr IVPB Q12HR ANY Rx#:[id number] Intake, IV Titration 100 200 Amount Magnesium Sulfate-D5w Pmx 100 1 gm In Dextrose/Water 1 100ml.bag @ 100 mls/hr IVPB Q1H [facility] Rx#: [id number] Magnesium Sulfate-D5w Pmx 200 1 gm In Dextrose/Water 1 100ml.bag @ 100 mls/hr IVPB Q1H ANY Rx#: [id number] Output: Urine 0 300 Other: Voiding Method CAPD CAPD # Voids 0 0 - Exam Patient is alert and awake, fully oriented. Patient knows that it is August 2018 and that he is in [facility]. Speech and language functions appears normal. Mild dysarthria noted. Muscle strength is normal in the arms and legs. Visual faust are full and face is symmetric. - Labs CBC & Chem 7: 09/05/18 08:49 09/06/18 09:33 Labs: Abnormal Lab Results - Last 24 Hours (Table) 09/05/18 09/05/18 Range/Units 08:49 08:49 RBC 3.61 L (4.30-5.90) m/uL Hgb 9.6 L (13.0-17.5) gm/dL Hct 30.6 L (39.0-53.0) % RDW 16.5 H (11.5-15.5) % Sodium 130 L (137-145) mmol/L Chloride 94 L (98-107) mmol/L BUN 31 H (9-20) mg/dL Creatinine 8.10 H* (0.66-1.25) mg/dL Calcium 8.3 L (8.4-10.2) mg/dL Phosphorus 5.1 H (2.5-4.5) mg/dL Microbiology - Last 24 Hours (Table) 08/31/18 14:30 Anaerobic Culture - Final Peritoneal Fluid 08/31/18 14:30 Gram Stain - Final Peritoneal Fluid Body Fluid Culture - Final Assessment and Plan Assessment: * Viral encephalitis unclear etiology. HSV-1 and HSV 2 PCR, and VZV PCR also came back negative. Rule out West Nile virus, though unlikely * Status post encephalopathy, possible hypertensive encephalopathy, possible toxic metabolic encephalopathy. * Chronic renal failure on peritoneal dialysis * Abnormal brain MRI, with evidence of ischemia due to small vessel disease. * Hypertensive urgency * Hypertension Plan: Acyclovir has been discontinued. Infectious disease on board. Keppra has been switched to by mouth, although patient does not want to take it. Will stop Keppra. Patient underwent MRI of the brain without contrast. Results reviewed. Continue aspirin 325 mg orally daily. HSV 1 and 2 PCR as well as VZV PCR all negative. HIV came negative. Await West Nile virus also. Continue PT OT. Clear for transfer to rehab facility.
[2018-09-06] MEDS: CALCITRIOL 0.25 MCG CAP PO SCH (17:06)
[2018-09-06] MEDS: ENALAPRILAT 1.25 MG/ML 1 ML VIAL IVP PRN (21:20)
[2018-09-07] MEDS: hydrALAZINE HCL 20 MG/ML 1 ML VIAL IVP PRN (00:14)
[2018-09-07] MEDS: HEPARIN SODIUM,PORCINE 5,000 UNIT/ML 1 ML VIAL SQ SCH ×3 (00:14→15:13)
[2018-09-07] MEDS: DIALYSIS (PERIT 1.5%) 2,500 ML 37.5 G/2,500 ML BAG INTRAPERIT SCH ×2 (05:27→11:21)
[2018-09-07] MEDS: FOLIC ACID-VIT B COMPLEX-VIT C 1 CAP PO SCH (07:58)
[2018-09-07] MEDS: CARVEDILOL 6.25 MG TAB PO SCH ×2 (07:58→15:12)
[2018-09-07] MEDS: PANTOPRAZOLE 40 MG/10 ML VIAL IV SCH (07:58)
[2018-09-07] MEDS: SEVELAMER 800 MG TAB PO SCH ×3 (07:58→15:12)
[2018-09-07] MEDS: LISINOPRIL 20 MG TAB PO SCH ×2 (07:59→20:30)
[2018-09-07] MEDS: ASPIRIN 325 MG TAB PO SCH (07:59)
[2018-09-07] MEDS: GABAPENTIN 400 MG CAP PO SCH ×2 (07:59→20:30)
[2018-09-07] MEDS: ATORVASTATIN 40 MG TAB PO SCH (07:59)
[2018-09-07] MEDS: SODIUM CHLORIDE 0.9% 1,000 ML IV SCH (07:59)
[2018-09-07] MEDS: FUROSEMIDE 80 MG TAB PO SCH ×2 (07:59→15:12)
[2018-09-07] MEDS: LABETALOL 200 MG TAB PO SCH ×2 (07:59→20:30)
[2018-09-07] MEDS: hydrALAZINE HCL 50 MG TAB PO SCH ×3 (07:59→20:30)
[2018-09-07] MEDS: levETIRAcetam 500 MG TAB PO SCH (07:59)
[2018-09-07] MEDS ORDERED: cloNIDine 0.3 MG/24HR PATCH TRANSDERM SCH (11:15)
[2018-09-07] MEDS: SPIRONOLACTONE 25 MG TAB PO SCH (11:50)
--- NOTE | 2018-09-07 14:27 | P.PN ---
Subjective Progress Note Date: 09/07/18 Patient's mother and other family members were present. Patient is sitting on the side of the bed, completely alert and awake, fully oriented. States he walked today with a walker by himself in the hallway. He is getting stronger. Denies any new focal symptoms. No seizures. Patient believes that he was given some pain medication, which produced reaction. Patient had carotid Doppler which showed no significant stenosis. Antegrade flow in both vertebral arteries. EEG showed markedly abnormal EEG due to background slowing. This suggestive of generalized cerebral dysfunction as can be seen in toxic metabolic encephalopathy or related to diffuse structural brain abnormality. No epileptiform activity was seen. MRI of the brain showed small focus of subacute ischemia suspected left frontal and inferior left temporal lobes, consider embolic phenomenon. There are chronic small vessel ischemic changes. 2-D echo showed no embolic source. Severe concentric LVH, left atrium mildly dilated, EF is 55-60%. Objective - Vital Signs Vital signs: Vital Signs Temp 97.4 F L 09/07/18 12:48 Pulse 68 09/07/18 12:48 Resp 16 09/07/18 12:48 BP 127/76 09/07/18 12:48 Pulse Ox 98 09/07/18 12:48 Intake & Output 09/06/18 09/07/18 09/07/18 18:59 06:59 18:59 Intake Total 800 500 Output Total 50 Balance 750 500 Weight 95.6 kg Intake: Oral 800 500 Output: Urine 50 Other: Voiding Method CAPD CAPD CAPD # Voids 1 0 0 - Exam Patient is alert and awake, fully oriented. Patient knows that it is August 2018 and that he is in [facility]. Speech and language functions appears normal. Mild dysarthria noted. Muscle strength is completely normal in the arms and legs distally and proximally. Visual faust are full and face is symmetric. - Labs CBC & Chem 7: 09/05/18 08:49 09/06/18 09:33 Assessment and Plan Assessment: * Viral encephalitis unclear etiology. HSV-1&2 PCR, and VZV PCR also came back negative. Rule out West Nile virus, though unlikely * Status post encephalopathy, possible hypertensive encephalopathy, possible toxic metabolic encephalopathy. * Chronic renal failure on peritoneal dialysis * Abnormal brain MRI, with evidence of ischemia due to small vessel disease. * Hypertensive urgency * Hypertension Plan: Patient's mentation is normal. Muscle strength appears normal. His gait and balance is improving. Discontinue Keppra. Continue aspirin 325 mg orally daily. HSV 1 & 2 PCR as well as VZV PCR all negative. HIV negative. Continue PT OT. Will check B12, folate, TSH, lipid panel and hemoglobin A1c.
--- NOTE | 2018-09-07 14:45 | P.PN ---
Subjective Progress Note Date: 09/07/18 This is a 58 rolled male one of my patient with a previous medical history significant for end-stage renal disease on PD any scheduled for possible renal transplant for which she has been traveling back and forth to [place], in between he has been missing his PD in [place] to [place], patient was recently hospitalized at [facility] because of accelerated hypertension with metabolic and hypertensive encephalopathy and he came to my office for follow-up and his blood pressure was well controlled in the range of 130/75, patient was maintained on hydralazine carvedilol amlodipine and lisinopril as well, patient developed to have shingles in the left lower back for which she was treated with tramadol and antiviral medication at the urgent care clinic, and the patient apparently was taken these pills along with his gabapentin he ended up coming to the emergency department because of significant mental status changes without evidence of any seizure activity however he had a computed tomography scan of the brain did not show any evidence of acute of normalities, patient was admitte d to the hospital initially to the cardiac floor however he developed to have a significant accelerated hypertension we gave the order for the nursing staff to put him on labetalol drip at 0.5 mg/m that was titrated to 1.5 mg/m and subsequently was taken off of it he was transferred to the intensive care unit he was seen in consultation by nephrology as well as language interpreter Dr. Montgomery he was recommended for the patient to be intubated because of severe mental status changes and an LP to be done to rule out any herpes encephalitis, his mental status changes likely related to his medication patient did receive a dose of baclofen and the dose of Requip last night along with his gabapentin and tramadol. 09/01: Patient continues to be confused he underwent lumbar puncture yesterday fluid results were reviewed possibility of zoster encephalitis versus herpes encephalitis is in the differential diagnosis at this time, however uremic encephalitis could not be entirely ruled out, we will continue with acyclovir, we will continue with supportive care, we'll continue the ICU, continue aggressi ve PD at this time 6 times every day. 09/02: Patient is more awake today continues to fall asleep on and off, however is much better follows command no chest pain or shortness breath endoscopy of headache he continues to be on PD, his PCR still pending for the VZV encephalitis as well as HSV 1 and 2. 09/03: Patient remains in the intensive care unit. He has been afebrile, heart rate 69, blood pressure 153/92, pulse ox 95%. Repeat lab work shows hemoglobin 10.9, BUN 42 and creatinine 9.40. Sodium was 132, chloride 97. Peritoneal fluid cultures are all in progress. Cerebral spinal fluid culture in progress. Patient remains on IV acyclovir and IV Keppra. Mental status does not seem improved this morning. He did receive Haldol during the night. Patient has had a large bowel movement this morning. He is followed by multiple consultants. Patient is followed by Dr. Wade. EEG showed background slowing suggestive of generalized cerebral dysfunction can be seen in toxic metabolic encephalopathy or diffuse structural brain abnormality. No epileptiform activity. MRI of the brain showed small focus of subacute ischemia suspected left frontal and anterior left temporal lobes consider embolic phenomenon. There are chronic small vessel ischemic changes. Patient was started on aspirin. Patient is also followed by Dr. Dickens, Dr. Montgomery and Dr. Huerta. Patient has continued on CAPD. Chest x-ray reveals possible pulmonary venous hypertension and interstitial edema. There may be component of volume overload, basilar atelectasis versus pneumonia. 09/04: Patient remains in the intensive care unit, afebrile, blood pressure 135/81, heart rate in the 70s, pulse ox 96% on room air. Patient is off labetalol drip. White count is at 6.5, hemoglobin 10.1. Sodium 133, potassium 3.7, chloride 97, CO2 28, BUN 36 and creatinine 8.89. Magnesium is 1.6. HIV testing is nonreactive. HSV 1 and 2 are negative. Albumin in spinal fluid normal. Varicella-zoster is negative and West Nile virus remains pending. Spinal fluid cultures and peritoneal fluid cultures in progress. Isolation will be discontinued. Patient is continued on CAPD. Today, patient's mental status is much improved. He was able to walk in the hallways with physical therapy. His speech is noted to be slurred in speech therapy has been added. Patient to be transferred to the [facility] floor today. 09/05: Repeat chest x-ray shows improvement in aeration, volume status. Cardiomegaly. Dr. Dickens feels it is safe to discontinue acyclovir which we will do today. Cytology of cerebral spinal fluid shows no malignancy. West Nile virus testing remains pending. Patient has been afebrile, blood pressure this morning is 194/91, pulse ox 99% on room air, heart rate 75. Labetalol 200 mg twice daily added last evening for hypertension. Patient is currently on IV Keppra which will be transitioned to oral. Patient is working with physical therapy with recommendations for inpatient rehab or subacute rehab. Consult with Dr. Whitney added. Patient seems to be agreeable with this was discussed by his nurse and patient is noted to have short-term memory deficit. Patient has been evaluated by speech therapy and will continue due to cognitive deficits. Patient's blood pressure remains elevated this morning he did receive a dose of IV hydralazine. Dr. Malone has increased oral hydralazine to 50 mg 3 times daily. 09/07: Patient denies any new complaints. His mentation is back to his baseline and speech is improved from yesterday as well. Patient had met with social work yesterday and he did agree to go to subacute rehab but was not accepted or CAPD supplies would not be available until Sunday. Plan is for social work to follow-up on Sunday and make arrangements for discharge to either [facility] is his first choice or [facility]. Blood pressure continues to be high and patient was found not to have the clonidine patch on. Patient did require IV hydralazine and Vasotec last evening for high blood pressure. Aldactone ordered. Objective - Vital Signs Vital signs: Vital Signs Temp 98 F 09/07/18 05:10 Pulse 78 09/07/18 05:10 Resp 20 09/07/18 05:10 BP 137/85 09/07/18 05:10 Pulse Ox 96 09/07/18 05:10 Intake & Output 09/06/18 09/07/18 09/07/18 18:59 06:59 18:59 Intake Total 800 500 Output Total 50 Balance 750 500 Weight 95.6 kg Intake: Oral 800 500 Output: Urine 50 Other: Voiding Method CAPD CAPD CAPD # Voids 1 0 - Exam Review Of Systems: Constitutional: No fever, no chills, no night sweats. No weight change. Reports weakness, fatigue or lethargy. No daytime sleepiness. EENT: No headache. No blurred vision or double vision, no loss of vision. No loss of Hearing, no ringing in the ears, no dizziness. No nasal drainage or congestion. No epistaxis. No sore throat. Lungs: No shortness of breath, cough, no sputum production. No wheezing. Cardiovascular: No chest pain, no lower extremity edema. No palpitations. No paroxysmal nocturnal dyspnea. No orthopnea. No lightheadedness or dizziness. No syncopal episodes. Abdominal: No abdominal pain. No nausea, vomiting. No diarrhea. No constipation. No bloody or tarry stools.. No loss of appetite. Genitourinary: No urine output. Musculoskeletal: No myalgias. No muscle weakness, no gait dysfunction, no frequent falls. No back pain. No neck pain. Integumentary: No wounds, no lesions. No rash or pruritus. No unusual b ruising. No change in hair or nails. Neurologic: No aphasia. No facial droop. No change in mentation. No head injury. No headache. No paralysis. No paresthesia. Reports slurred speech. No confusion. Psychiatric: No depression. No anxiety. No mood swings. Endocrine: No abnormal blood sugars. No weight change. No excessive sweating or thirst. No cold intolerance. General Appearance: Patient resting comfortably in bed. He appears to be in no acute distress.. Neck HEENT: Supple, no lymphadenopathy, no thyroid enlargement, no carotid bruits. Lungs: Decreased breath some bilaterally without crackles or wheezes no rhonchi, no deformity. Chest Wall: Decrease expansion with deep inspiration no tenderness and no deformity was found on exam, no costochondral pain or discomfort. Heart: Regular rate and rhythm, S1, S2 positive S3 positive tachycardia with systolic murmur, no rub or gallop. Back: Symmetric, no curvature, crusted lesions in the left lower back. Abdomen: Soft, non-tender, bowel sounds active all four quadrants, slight distention with ascites from PD fluid, PD catheter is in place. Extremities: Trace edema decreased pulse positive mild arthritis in both knees. Pulses: 1+ and symmetric. Skin: Skin color, texture, tugor normal, no rashes or lesions. Neurologic: Patient is awake alert and oriented and able to follow commands. No focal neuro deficits. - Labs CBC & Chem 7: 09/05/18 08:49 09/06/18 09:33 Assessment and Plan Plan: 1. Metabolic encephalopathy likely due to hypertensive encephalopathy as Zoster and herpes encephalitis ruled out. West Nile testing is pending. Acyclovir discontinued. 2. Accelerated hypertension. Labetalol drip discontinued. Continue Coreg 6.25 mg twice daily, clonidine patch, Lasix 80 mg twice daily, hydralazine increased to 50 mg 3 times daily, lisinopril 20 mg twice daily. 3. End stage renal disease on peritoneal dialysis. Nephrology consult appreciated.. 4. Recent herpes zoster. Lesions appear to be crusted. 5. 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 Stable at this time. 6. History of seizure disorder. Currently not taking any medication at home but has been started on Keppra IV. 7. Hypertension and hypertensive cardiovascular disease. Continue treatment as in paragraph #2. 8. Hyperlipidemia. Continue patient on Lipitor 40 mg orally once every day. 9. Peripheral neuropathy. Hold gabapentin for now. 10. Secondary hyperparathyroidism. Monitor the patient calcium and phosphorus. 11. DVT prophylaxis. Heparin 5000 units subcutaneously every 8 hours. 12. GI prophylaxis. Continue patient on PPI. 13. Prognosis very guarded. Discharge plan: Inpatient rehab or subacute rehab on Sunday. Impression and plan of care have been directed as dictated by the signing physician. Shannan Landa nurse practitioner acting as scribe for signing physician.
--- NOTE | 2018-09-07 14:47 | P.PN ---
Subjective Progress Note Date: 09/06/18 This is a 58 rolled male one of my patient with a previous medical history significant for end-stage renal disease on PD any scheduled for possible renal transplant for which she has been traveling back and forth to [place], in between he has been missing his PD in [place], patient was recently hospitalized at [facility] because of accelerated hypertension with metabolic and hypertensive encephalopathy and he came to my office for follow-up and his blood pressure was well controlled in the range of 130/75, patient was maintained on hydralazine carvedilol amlodipine and lisinopril as well, patient developed to have shingles in the left lower back for which she was treated with tramadol and antiviral medication at the urgent care clinic, and the patient apparently was taken these pills along with his gabapentin he ended up coming to the emergency department because of significant mental status changes without evidence of any seizure activity however he had a computed tomography scan of the brain did not show any evidence of acute of normalities, patient was admitte d to the hospital initially to the cardiac floor however he developed to have a significant accelerated hypertension we gave the order for the nursing staff to put him on labetalol drip at 0.5 mg/m that was titrated to 1.5 mg/m and subsequently was taken off of it he was transferred to the intensive care unit he was seen in consultation by nephrology as well as process improvement specialist Dr. Montgomery he was recommended for the patient to be intubated because of severe mental status changes and an LP to be done to rule out any herpes encephalitis, his mental status changes likely related to his medication patient did receive a dose of baclofen and the dose of Requip last night along with his gabapentin and tramadol. 09/01: Patient continues to be confused he underwent lumbar puncture yesterday fluid results were reviewed possibility of zoster encephalitis versus herpes encephalitis is in the differential diagnosis at this time, however uremic encephalitis could not be entirely ruled out, we will continue with acyclovir, we will continue with supportive care, we'll continue the ICU, continue aggressi ve PD at this time 6 times every day. 09/02: Patient is more awake today continues to fall asleep on and off, however is much better follows command no chest pain or shortness breath endoscopy of headache he continues to be on PD, his PCR still pending for the VZV encephalitis as well as HSV 1 and 2. 09/03: Patient remains in the intensive care unit. He has been afebrile, heart rate 69, blood pressure 153/92, pulse ox 95%. Repeat lab work shows hemoglobin 10.9, BUN 42 and creatinine 9.40. Sodium was 132, chloride 97. Peritoneal fluid cultures are all in progress. Cerebral spinal fluid culture in progress. Patient remains on IV acyclovir and IV Keppra. Mental status does not seem improved this morning. He did receive Haldol during the night. Patient has had a large bowel movement this morning. He is followed by multiple consultants. Patient is followed by Dr. Wade. EEG showed background slowing suggestive of generalized cerebral dysfunction can be seen in toxic metabolic encephalopathy or diffuse structural brain abnormality. No epileptiform activity. MRI of the brain showed small focus of subacute ischemia suspected left frontal and anterior left temporal lobes consider embolic phenomenon. There are chronic small vessel ischemic changes. Patient was started on aspirin. Patient is also followed by Dr. Dickens, Dr. Montgomery and Dr. Huerta. Patient has continued on CAPD. Chest x-ray reveals possible pulmonary venous hypertension and interstitial edema. There may be component of volume overload, basilar atelectasis versus pneumonia. 09/04: Patient remains in the intensive care unit, afebrile, blood pressure 135/81, heart rate in the 70s, pulse ox 96% on room air. Patient is off labetalol drip. White count is at 6.5, hemoglobin 10.1. Sodium 133, potassium 3.7, chloride 97, CO2 28, BUN 36 and creatinine 8.89. Magnesium is 1.6. HIV testing is nonreactive. HSV 1 and 2 are negative. Albumin in spinal fluid normal. Varicella-zoster is negative and West Nile virus remains pending. Spinal fluid cultures and peritoneal fluid cultures in progress. Isolation will be discontinued. Patient is continued on CAPD. Today, patient's mental status is much improved. He was able to walk in the hallways with physical therapy. His speech is noted to be slurred in speech therapy has been added. Patient to be transferred to the [facility] floor today. 09/05: Repeat chest x-ray shows improvement in aeration, volume status. Cardiomegaly. Dr. Dickens feels it is safe to discontinue acyclovir which we will do today. Cytology of cerebral spinal fluid shows no malignancy. West Nile virus testing remains pending. Patient has been afebrile, blood pressure this morning is 194/91, pulse ox 99% on room air, heart rate 75. Labetalol 200 mg twice daily added last evening for hypertension. Patient is currently on IV Keppra which will be transitioned to oral. Patient is working with physical therapy with recommendations for inpatient rehab or subacute rehab. Consult with Dr. Whitney added. Patient seems to be agreeable with this was discussed by his nurse and patient is noted to have short-term memory deficit. Patient has been evaluated by speech therapy and will continue due to cognitive deficits. Patient's blood pressure remains elevated this morning he did receive a dose of IV hydralazine. Dr. Malone has increased oral hydralazine to 50 mg 3 times daily. 09/06: Patient has been evaluated by Dr. Candelaria and has been accepted at [facility] for inpatient rehab once bed is available. This morning, patient is more difficult to awaken and more slurred speech is noted. We have ordered a CAT scan of the brain which came back negative with no acute findings. Patient does have chronic small vessel ischemic changes. Patient is able to answer all questions appropriately's and oriented 3. We will prepare the patient for discharge in hopes that a bed will be available today. Case management and social worker palliative care working on discharge planning. Blood pressure remains high and hydralazine has been increased by Dr. Malone. He is continued on CAPD per Dr. Maolne. Discharge was held as patient did not have a room available at [facility] and [facility] was unable to obtain CAPD supplies until Sunday. Objective - Vital Signs Vital signs: Vital Signs Temp 98 F 09/07/18 05:10 Pulse 78 09/07/18 05:10 Resp 20 09/07/18 05:10 BP 137/85 09/07/18 05:10 Pulse Ox 96 09/07/18 05:10 Intake & Output 09/06/18 09/07/18 09/07/18 18:59 06:59 18:59 Intake Total 800 500 Output Total 50 Balance 750 500 Weight 95.6 kg Intake: Oral 800 500 Output: Urine 50 Other: Voiding Method CAPD CAPD CAPD # Voids 1 0 - Exam Review Of Systems: Constitutional: No fever, no chills, no night sweats. No weight change. Reports weakness, fatigue or lethargy. No daytime sleepiness. EENT: No headache. No blurred vision or double vision, no loss of vision. No loss of Hearing, no ringing in the ears, no dizziness. No nasal drainage or congestion. No epistaxis. No sore throat. Lungs: No shortness of breath, cough, no sputum production. No wheezing. Cardiovascular: No chest pain, no lower extremity edema. No palpitations. No paroxysmal nocturnal dyspnea. No orthopnea. No lightheadedness or dizziness. No syncopal episodes. Abdominal: No abdominal pain. No nausea, vomiting. No diarrhea. No constipation. No bloody or tarry stools.. No loss of appetite. Genitourinary: No urine output. Musculoskeletal: No myalgias. No muscle weakness, no gait dysfunction, no frequent falls. No back pain. No neck pain. Integumentary: No wounds, no lesions. No rash or pruritus. No unusual bruising. No change in hair or nails. Neurologic: No aphasia. No facial droop. No change in mentation. No head injury. No headache. No paralysis. No paresthesia. Reports slurred speech. Reports confusion. Psychiatric: No depression. No anxiety. No mood swings. Endocrine: No abnormal blood sugars. No weight change. No excessive sweating or thirst. No cold intolerance. General Appearance: Patient resting comfortably in bed. He appears to be in no acute distress.. Neck HEENT: Supple, no lymphadenopathy, no thyroid enlargement, no carotid bruits. Lungs: Decreased breath some bilaterally without crackles or wheezes no rhonchi, no deformity. Chest Wall: Decrease expansion with deep inspiration no tenderness and no deformity was found on exam, no costochondral pain or discomfort. Heart: Regular rate and rhythm, S1, S2 positive S3 positive tachycardia with systolic murmur, no rub or gallop. Back: Symmetric, no curvature, crusted lesions in the left lower back. Abdomen: Soft, non-tender, bowel sounds active all four quadrants, slight distention with ascites from PD fluid, PD catheter is in place. Extremities: Trace edema decreased pulse positive mild arthritis in both knees. Pulses: 1+ and symmetric. Skin: Skin color, texture, tugor normal, no rashes or lesions. Neurologic: Patient is awake alert and oriented and able to follow commands. No focal neuro deficits. Noted slurred speech and confusion. - Labs CBC & Chem 7: 09/05/18 08:49 09/06/18 09:33 Assessment and Plan Plan: 1. Metabolic encephalopathy likely due to hypertensive encephalopathy as Zoster and herpes encephalitis ruled out. West Nile testing is pending. Acyclovir discontinued. 2. Accelerated hypertension. Labetalol drip discontinued. Continue Coreg 6.25 mg twice daily, clonidine patch, Lasix 80 mg twice daily, hydralazine increased to 50 mg 3 times daily, lisinopril 20 mg twice daily. 3. End stage renal disease on peritoneal dialysis. Nephrology consult appreciated.. 4. Recent herpes zoster. Lesions appear to be crusted. 5. 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 Stable at this time. 6. History of seizure disorder. Currently not taking any medication at home but has been started on Keppra IV. 7. Hypertension and hypertensive cardiovascular disease. Continue treatment as in paragraph #2. 8. Hyperlipidemia. Continue patient on Lipitor 40 mg orally once every day. 9. Peripheral neuropathy. Hold gabapentin for now. 10. Secondary hyperparathyroidism. Monitor the patient calcium and phosphorus. 11. DVT prophylaxis. Heparin 5000 units subcutaneously every 8 hours. 12. GI prophylaxis. Continue patient on PPI. 13. Prognosis very guarded. Discharge plan: Inpatient rehab or subacute rehab on Sunday. Impression and plan of care have been directed as dictated by the signing physician. Shannan Landa nurse practitioner acting as scribe for signing physician.
[2018-09-07] MEDS: DIALYSIS (PERIT 2.5%) 2,500 ML 62.5 G/2,500 ML BAG INTRAPERIT SCH ×3 (16:17→23:18)
--- NOTE | 2018-09-07 16:40 | PN ---
PROGRESS NOTE HISTORY: This gentleman is seen for followup for end-stage renal disease. His mentation has improved significantly. The patient remains on peritoneal dialysis. PHYSICAL EXAM: On examination, blood pressure was 137/85 this morning, heart rate 78 per minute. He is afebrile. Examination of the heart S1, S2. Examination of the lungs, decreased breath sounds bases. Abdomen is soft, nontender. Exam of lower extremities shows trace edema bilaterally. LAB: Sodium 128, potassium 3.6, BUN 31, serum creatinine 8.49, hemoglobin 9.6 g/dL. ASSESSMENT: 1. End-stage renal disease, on peritoneal dialysis. Continue with current PD exchanges. 2. Hyponatremia which is hypervolemic. 3. Hypertension, currently better controlled. I will increase the ultrafiltration to help with the blood pressure control. Continue current medications. We can increase the labetalol if needed. Coreg also has room to be increased. 4. CKD mineral bone disorder. Continue current dose of calcitriol. PLAN: Increase UF with peritoneal dialysis. MMODL / IJN: [id number] /
[2018-09-07] MEDS: ENALAPRILAT 1.25 MG/ML 1 ML VIAL IVP PRN (20:30)
[2018-09-07 23:32] LABS: Hemoglobin A1C 5.3 % (4.0-6.0)
[2018-09-08] MEDS: HEPARIN SODIUM,PORCINE 5,000 UNIT/ML 1 ML VIAL SQ SCH ×3 (00:15→16:12)
[2018-09-08] MEDS: DIALYSIS (PERIT 2.5%) 2,500 ML 62.5 G/2,500 ML BAG INTRAPERIT SCH ×4 (04:03→16:08)
[2018-09-08] MEDS: SODIUM CHLORIDE 0.9% 1,000 ML IV SCH (07:31)
[2018-09-08] MEDS: FOLIC ACID-VIT B COMPLEX-VIT C 1 CAP PO SCH (07:34)
[2018-09-08] MEDS: CARVEDILOL 6.25 MG TAB PO SCH ×2 (07:34→16:26)
[2018-09-08] MEDS: FUROSEMIDE 80 MG TAB PO SCH ×2 (07:34→16:13)
[2018-09-08] MEDS: LISINOPRIL 20 MG TAB PO SCH (07:35)
[2018-09-08] MEDS: LABETALOL 200 MG TAB PO SCH (07:35)
[2018-09-08] MEDS: GABAPENTIN 400 MG CAP PO SCH (07:35)
[2018-09-08] MEDS: SEVELAMER 800 MG TAB PO SCH ×2 (07:35→11:51)
[2018-09-08] MEDS: hydrALAZINE HCL 50 MG TAB PO SCH ×2 (07:35→16:13)
[2018-09-08] MEDS: SPIRONOLACTONE 25 MG TAB PO SCH (07:35)
[2018-09-08] MEDS: ASPIRIN 325 MG TAB PO SCH (07:35)
[2018-09-08] MEDS: ATORVASTATIN 40 MG TAB PO SCH (07:35)
[2018-09-08] MEDS ORDERED: PANTOPRAZOLE 40 MG TABLET PO SCH (09:00)
[2018-09-08 11:54] LABS: Calcium 8.3 mg/dL (8.4-10.2); Potassium 3.9 mmol/L (3.5-5.1)
[2018-09-08 13:41] VITALS: PULSE 66; RESP 18; TEMP 97.5
--- NOTE | 2018-09-08 13:47 | P.DS ---
Providers Date of admission: 08/30/18 13:25 Expected date of discharge: 09/08/18 Attending physician: Guille Aguayo Consults: 08/30/18 13:47 Consult Physician Stat Consulting Provider: Ema Han Consult Reason/Comments: peritoneal diaylsis Do you want consulting provider notified?: Yes 08/30/18 18:13 Consult Physician Stat Consulting Provider: Nehal Montgomery Consult Reason/Comments: icu management Do you want consulting provider notified?: Yes 08/31/18 07:54 Consult Physician Routine Consulting Provider: Jyothi Wade Consult Reason/Comments: altered mentation Do you want consulting provider notified?: Yes 09/01/18 12:05 Consult Physician Urgent Consulting Provider: Aurora Dickens Consult Reason/Comments: herpes encephalitis Do you want consulting provider notified?: Yes 09/05/18 12:16 Consult Physician Routine Consulting Provider: Jose L Candelaria Consult Reason/Comments: IP rehab Do you want consulting provider notified?: Yes [facility] Course: This is a 58 rolled male one of my patient with a previous medical history significant for end-stage renal disease on PD any scheduled for possible renal transplant for which she has been traveling back and forth to [place], in between he has been missing his PD in [place] to [place], patient was recently hospitalized at [facility] because of accelerated hypertension with metabolic and hypertensive encephalopathy and he came to my office for follow-up and his blood pressure was well controlled in the range of 130/75, patient was maintained on hydralazine carvedilol amlodipine and lisinopril as well, patient developed to have shingles in the left lower back for which she was treated with tramadol and antiviral medication at the urgent care clinic, and the patient apparently was taken these pills along with his gabapentin he ended up coming to the emergency department because of significant mental status changes without evidence of any seizure activity however he had a computed tomography scan of the brain did not show any evidence of acute of normalities, patient was admitted to the hospital initially to the cardiac floor however he developed to have a significant accelerated hypertension we gave the order for the nursing staff to put him on labetalol drip at 0.5 mg/m that was titrated to 1.5 mg/m and subsequently was taken off of it he was transferred to the intensive care unit he was seen in consultation by nephrology as well as power hair clipper Dr. Montgomery he was recommended for the patient to be intubated because of severe mental status changes and an LP to be done to rule out any herpes encephalitis, his mental status changes likely related to his medication patient did receive a dose of baclofen and the dose of Requip last night along with his gabapentin and tramadol. 09/01: Patient continues to be confused he underwent lumbar puncture yesterday fluid results were reviewed possibility of zoster encephalitis versus herpes encephalitis is in the differential diagnosis at this time, however uremic encephalitis could not be entirely ruled out, we will continue with acyclovir, we will continue with supportive care, we'll continue the ICU, continue aggressive PD at this time 6 times every day. 09/02: Patient is more awake today continues to fall asleep on and off, however is much better follows command no chest pain or shortness breath endoscopy of headache he continues to be on PD, his PCR still pending for the VZV encephalitis as well as HSV 1 and 2. 09/03: Patient remains in the intensive care unit. He has been afebrile, heart rate 69, blood pressure 153/92, pulse ox 95%. Repeat lab work shows hemoglobin 10.9, BUN 42 and creatinine 9.40. Sodium was 132, chloride 97. Peritoneal fluid cultures are all in progress. Cerebral spinal fluid culture in progress. Patient remains on IV acyclovir and IV Keppra. Mental status does not seem improved this morning. He did receive Haldol during the night. Patient has had a large bowel movement this morning. He is followed by multiple consultants. Patient is followed by Dr. Wade. EEG showed background slowing suggestive of generalized cerebral dysfunction can be seen in toxic metabolic encephalopathy or diffuse structural brain abnormality. No epileptiform activity. MRI of the brain showed small focus of subacute ischemia suspected left frontal and anterior left temporal lobes consider embolic phenomenon. There are chronic small vessel ischemic changes. Patient was started on aspirin. Patient is also followed by Dr. Dickens, Dr. Montgomery and Dr. Huerta. Patient has continued on CAPD. Chest x-ray reveals possible pulmonary venous hypertension and interstitial edema. There may be component of volume overload, basilar atelectasis versus pneumonia. 09/04: Patient remains in the intensive care unit, afebrile, blood pressure 135/81, heart rate in the 70s, pulse ox 96% on room air. Patient is off labetalol drip. White count is at 6.5, hemoglobin 10.1. Sodium 133, potassium 3.7, chloride 97, CO2 28, BUN 36 and creatinine 8.89. Magnesium is 1.6. HIV testing is nonreactive. HSV 1 and 2 are negative. Albumin in spinal fluid normal. Varicella-zoster is negative and West Nile virus remains pending. Spinal fluid cultures and peritoneal fluid cultures in progress. Isolation will be discontinued. Patient is continued on CAPD. Today, patient's mental status is much improved. He was able to walk in the hallways with physical therapy. His speech is noted to be slurred in speech therapy has been added. Patient to be transferred to the [facility] floor today. 09/05: Repeat chest x-ray shows improvement in aeration, volume status. Cardiomegaly. Dr. Dickens feels it is safe to discontinue acyclovir which we will do today. Cytology of cerebral spinal fluid shows no malignancy. West Nile virus testing remains pending. Patient has been afebrile, blood pressure this morning is 194/91, pulse ox 99% on room air, heart rate 75. Labetalol 200 mg twice daily added last evening for hypertension. Patient is currently on IV Keppra which will be transitioned to oral. Patient is working with physical therapy with recommendations for inpatient rehab or subacute rehab. Consult with Dr. Whitney added. Patient seems to be agreeable with this was discussed by his nurse and patient is noted to have short-term memory deficit. Patient has been evaluated by speech therapy and will continue due to cognitive deficits. Patient's blood pressure remains elevated this morning he did receive a dose of IV hydralazine. Dr. Malone has increased oral hydralazine to 50 mg 3 times daily. 09/06: Patient has been evaluated by Dr. Candelaria and has been accepted at [facility] for inpatient rehab once bed is available. This morning, patient is more difficult to awaken and more slurred speech is noted. We have ordered a CAT scan of the brain which came back negative with no acute findings. Patient does have chronic small vessel ischemic changes. Patient is able to answer all questions appropriately's and oriented 3. We will prepare the patient for discharge in hopes that a bed will be available today. Case management and social services specialist working on discharge planning. Blood pressure remains high and hydralazine has been increased by Dr. Malone. He is continued on CAPD per Dr. Malone. 09/07: Patient denies any new complaints. His mentation is back to his baseline and speech is improved from yesterday as well. Patient had met with social work yesterday and he did agree to go to subacute rehab but was not accepted or CAPD supplies would not be available until Sunday. Plan is for social work to follow-up on Sunday and make arrangements for discharge to either [facility] is his first choice or [facility]. Blood pressure continues to be high and patient was found not to have the clonidine patch on. Patient did require IV hydralazine and Vasotec last evening for high blood pressure. Aldactone ordered. 09/08: Patient has done tremendously well over the weekend and has been able to ambulate without assistance. His speech is improved. His mentation is at his baseline. Dr. Han is okay with patient going home today and repeat BMP on Sunday and continue a 1.2 L fluid restriction. Repeat lab work today reveals sodium 125, potassium 3.9, chloride 89, CO2 28, BUN 33 and creatinine 8.13. T riglycerides 83, cholesterol 107, LDL 48, HDL 42. Blood pressure is improved today with current medications and Aldactone was added yesterday. Patient will be discharged home today in stable condition. legal project manager to set up home care. Discharge diagnoses: 1. Metabolic encephalopathy likely due to hypertensive encephalopathy as Zoster and herpes encephalitis ruled out. West Nile testing is pending. 2. Accelerated hypertension. 3. End stage renal disease on peritoneal dialysis. 4. Recent herpes zoster. 5. 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 Stable at this time. 6. History of seizure disorder. 7. Hypertension and hypertensive cardiovascular disease. 8. Hyperlipidemia. 9. Peripheral neuropathy. 10. Secondary hyperparathyroidism. Discharge plan: Home with home care Impression and plan of care have been directed as dictated by the signing physician. Shannan Landa nurse practitioner acting as scribe for signing physic jh. Patient Condition at Discharge: Good Plan - Discharge Summary Discharge Rx Participant: Yes New Discharge Prescriptions: New hydrALAZINE HCL [Apresoline] 100 mg PO TID #180 tab Labetalol [Trandate] 200 mg PO BID #60 tab Aspirin 325 mg PO DAILY tab Spironolactone [Aldactone] 25 mg PO DAILY #30 tab Continue Lisinopril [Prinivil] 20 mg PO BID Atorvastatin Calcium [Lipitor] 40 mg PO DAILY B Complex W-C No.20/Folic Acid [Renal Caps Softgel] 1 mg PO DAILY Gabapentin [Neurontin] 400 mg PO BID Furosemide [Lasix] 80 mg PO TID Calcitriol 0.5 mcg PO MOWEFR Carvedilol [Coreg] 6.25 mg PO BID-W/MEALS #60 tab Sevelamer [Renvela] 800 mg PO TID-W/MEALS #90 tab Discontinued traMADol HCL [Ultram] 50 mg PO DAILY PRN PRN Reason: Pain hydrALAZINE HCL [Apresoline] 25 mg PO TID #90 tab Discharge Medication List Atorvastatin Calcium [Lipitor] 40 mg PO DAILY 01/01/17 [History] Lisinopril [Prinivil] 20 mg PO BID 01/01/17 [History] B Complex W-C No.20/Folic Acid [Renal Caps Softgel] 1 mg PO DAILY 08/19/18 [History] Calcitriol 0.5 mcg PO MOWEFR 08/19/18 [History] Furosemide [Lasix] 80 mg PO TID 08/19/18 [History] Gabapentin [Neurontin] 400 mg PO BID 08/19/18 [History] Carvedilol [Coreg] 6.25 mg PO BID-W/MEALS #60 tab 08/22/18 [Rx] Sevelamer [Renvela] 800 mg PO TID-W/MEALS #90 tab 08/22/18 [Rx] Aspirin 325 mg PO DAILY tab 09/06/18 [Rx] Labetalol [Trandate] 200 mg PO BID #60 tab 09/06/18 [Rx] hydrALAZINE HCL [Apresoline] 100 mg PO TID #180 tab 09/06/18 [Rx] Spironolactone [Aldactone] 25 mg PO DAILY #30 tab 09/08/18 [Rx] Follow up Appointment(s)/Referral(s): Ema Han MD [STAFF PHYSICIAN] - 1 Week (Please call and schedule appointment on Sunday) Dakotah Decker MD [Primary Care Provider] - 1 Week (Please call office to set up appt. on Sunday) Ambulatory/Diagnostic Orders: Basic Metabolic Panel [LAB.AMB] Location: None Selected Patient Instructions/Handouts: Chronic Kidney Disease (DC), Dialysis Diet (DC) Activity/Diet/Wound Care/Special Instructions: 1.2L fluid restriction Discharge Disposition: HOME WITH HOME HEALTH SERVICES
--- NOTE | 2018-09-08 14:59 | PN ---
PROGRESS NOTE Patient is seen for followup for end-stage renal disease. He is maintained on peritoneal dialysis. Serum sodium is noted to be slowly declining. I increased his exchanges to q.4 hours yesterday as serum creatinine is staying at about 8.4, and patient was also volume overloaded. His blood pressure seems to have responded very well and went down from about 179 yesterday to 123 and 109 mmHg today. PHYSICAL EXAMINATION: This morning, blood pressure 123/67, heart rate 70 per minute. He is afebrile. Examination of the heart S1, S2. Examination of the lungs bilateral breath sounds are heard. Abdomen is soft, nontender. Exam of lower extremities shows trace edema bilaterally. CALL MANAGER exam is grossly intact. LAB: Show sodium 125, potassium 3.9, BUN 33, serum creatinine 8.1. ASSESSMENT: 1. End-stage renal disease, on peritoneal dialysis. The patient exchanges were increased to q.4 hours yesterday. He seems to be tolerating that well and has had good UF. He can go back on his regular schedule as outpatient post discharge. 2. Hyponatremia, appears to be hypervolemic. Once patient is back on his cycle, we will repeat his labs as outpatient. 3. Hypertension, partly volume sensitive, currently significantly improved with increased ultrafiltration. 4. Encephalopathy, now resolved. No evidence of infection. 5. CKD mineral bone disorder. PLAN: Patient can be discharged. He will resume his cycle for peritoneal dialysis as outpatient and we will check labs in about 2-3 days. MMODL / IJN: [id number] /
[2018-09-08 16:17] VITALS: BP 164/90
[2018-09-09 07:28] LABS: West Nile Virus IgM Antibody 0.02 INDEX (<0.90)
== END 2018-09-08 17:16 | disposition home health service (06) | DRG 77 ==
LOC: EC 10:57 → 3SCARD 13:25 → 2SICU 18:12 → 4MS4W 09-04 12:46
PROVIDERS: ADMIT Internal Medicine Geriatric Medicine; ATTEND Internal Medicine Geriatric Medicine
PROC: 009U3ZX Drainage of Spinal Canal, Percutaneous Approach, Diagnostic (ICD-10-PCS; principal; 2018-08-31)
DX: I67.4 Hypertensive encephalopathy (principal); N18.6 End stage renal disease; E87.1 Hypo-osmolality and hyponatremia; I13.2 Hypertensive heart and chronic kidney disease with heart failure and with stage 5 chronic kidney disease, or end stage renal disease; I16.1 Hypertensive emergency; N17.9 Acute kidney failure, unspecified; N25.81 Secondary hyperparathyroidism of renal origin; R47.01 Aphasia; B02.9 Zoster without complications; D63.1 Anemia in chronic kidney disease; E78.5 Hyperlipidemia, unspecified; E83.39 Other disorders of phosphorus metabolism; E83.42 Hypomagnesemia; F22 Delusional disorders; G62.9 Polyneuropathy, unspecified; I50.9 Heart failure, unspecified; M19.011 Primary osteoarthritis, right shoulder; M89.8X9 Other specified disorders of bone, unspecified site; M89.9 Disorder of bone, unspecified; Z79.82 Long term (current) use of aspirin; Z79.899 Other long term (current) drug therapy; Z80.0 Family history of malignant neoplasm of digestive organs; Z87.891 Personal history of nicotine dependence; Z90.49 Acquired absence of other specified parts of digestive tract; Z91.15 Patient's noncompliance with renal dialysis; Z93.3 Colostomy status; Z99.2 Dependence on renal dialysis; K59.00 Constipation, unspecified
CPT/HCPCS: 36415; 36600; 70450; 70551; 71045; 71046; 80048; 80053; 80061; 80320; 82042; 82140; 82607; 82746; 82805; 82945; 83036; 83735; 84100; 84157; 84443; 84484; 85025; 85610; 85730; 86788; 86789; 87070; 87075; 87102; 87116; 87205; 87206; 87390; 87529; 87798; 88108; 89050; 93005; 93880; 94760; 95816; 96374; 96375; 99285

== ENCOUNTER → 2018-11-12 | Outpatient (CLI) | payer MEDICARE, BC ==
--- NOTE | 2018-11-12 17:28 | CT ---
EXAMINATION TYPE: CT chest wo con DATE OF EXAM: 11/12/2018 COMPARISON: 05/20/2018 HISTORY: Presurgical for renal transplant. Essential hypertension. CT DLP: 361.9 mGycm, Automated exposure control for dose reduction was used. CONTRAST: Performed injected with mL of . TECHNIQUE: Axial images were obtained at 5 mm thick sections. Reconstructed images are reviewed on [employer] computer in the coronal plane. FINDINGS: Portion of the thyroid visualized is normal. There is a area of increased density in the posterior right midlung measuring 1.2 cm transverse exten ding towards the pleural margin. A 0.5 cm nodules within the right middle lobe. Series 4 image 29. An adjacent 0.7 cm nodularity within the right middle lobe. Series 4 image 30. These findings may be sl ightly larger than May 2018 comparison. Very minimal pleural effusions may be present. Coronary artery calcification is noted. A small pericardial effusion is present. Heart size is upper limits of normal. No enlarged mediastinal or hilar adenopathy is evident. The ascending aorta diameter at the level o f the main pulmonary artery is 3.9 cm. The main pulmonary artery diameter at the bifurcation is 3.[address] sections are obtained through the upper abdomen. [place] kidneys. Atrophic. Vascular calcif ications within the tortuous splenic artery. IMPRESSIONS: 1. 3 densities in the right midlung, 2 within the right middle lobe and one within the superior segme nt right lower lobe, are increased in size from comparison. 2. Cardiac size is increased somewhat over the interval. A small pericardial effusion is developed. S mall bilateral pleural effusions aren't developed.
== END | disposition home or self-care (01) ==
LOC: RADCTMAIN 13:18
DX: Z01.818 Encounter for other preprocedural examination (principal); I12.0 Hypertensive chronic kidney disease with stage 5 chronic kidney disease or end stage renal disease; N18.6 End stage renal disease; R91.8 Other nonspecific abnormal finding of lung field; I31.3 Pericardial effusion (noninflammatory); Z99.2 Dependence on renal dialysis
CPT/HCPCS: 71250

== ENCOUNTER → 2018-12-21 | Outpatient (CLI) | payer MEDICARE, BC ==
--- NOTE | 2018-12-22 18:43 | PE ---
EXAMINATION TYPE: PET CT fusion skull to thigh DATE OF EXAM: 12/21/2018 COMPARISON: Chest CT November 12, [address] May 20, 2018. CT abdomen and pelvis April 17, 2018. HISTORY: Abnormal CT, right lower lobe mass. TECHNIQUE: Following the intravenous administration of 11.18 mCi of F-18 FDG, whole body images are performed from the skull base to the midthigh. Images are reviewed on the computer in the coronal, a xial, and sagittal planes. Reconstructed rotating images are created on independent workstation and reviewed on the computer. A noncontrast CT is performed in conjunction with the PET scan. SCAN: Initial Scan FINDINGS: SKULL BASE AND NECK: No areas of suspicious hypermetabolic uptake. CHEST, MEDIASTINUM, AND HILAR REGION: There are scattered subcentimeter nodules throughout both lungs redemonstrated for reference right middle lobe 7 x 5 mm nodule axial image 99. There is left greater than right bibasilar linear scarring and/or atelectasis. No suspicious hypermetabolic uptake pneumot horax is present. ABDOMEN AND PELVIS: Nonspecific mild uptake right sided bowel loop mid abdominal level axial image 18 0. No suspicious hypermetabolic uptake. OSSEOUS STRUCTURES: No suspicious hypermetabolic uptake. OTHER CT: Cardiomegaly with severe three-vessel coronary artery calcification. Bilateral subareolar g ynecomastia. Stable prominent thoracic lymph nodes without suspicious hypermetabolic uptake. Prominent small vessel vascular calcification consistent with history of long-term chronic renal dise ase. [id number] calcified plaque bilateral carotid bulb level is present. Cortical thinning of both kidneys with atrophy. Simple appearing renal cysts bilaterally. Right-sided peritoneal dialysis catheter is present. IMPRESSION: No suspicious hypermetabolic uptake seen to suggest malignancy. Pet CT is noted insensiti ve for subcentimeter nodules. Consider CT surveillance in 6-12 months time if the areas of concern on recent chest CT are truly enlarging.
== END | disposition home or self-care (01) ==
LOC: RADPETMAIN 09:02
PROVIDERS: ATTEND Internal Medicine
DX: R91.8 Other nonspecific abnormal finding of lung field (principal)
CPT/HCPCS: 78815; A9552